=== PATIENT | female | born 1930 | race Caucasian/White ===

== ENCOUNTER → 2016-04-10 | Outpatient (CLI) | payer MEDICARE, BC ==
[2016-04-10 11:19] LABS: Basophils # (A) 0.1 k/uL (0-0.2); Basophils % (A) 1 %; CH 20.1; CHCM 29.1; Eosinophils # (A) 0.2 k/uL (0-0.7); Eosinophils % (A) 2 %; HCT 35.7 % (34.0-46.0); HDW 2.61; HGB 10.5 gm/dL (11.4-16.0); Hypochromasia Marked; Luc # (Auto) 0.16; Luc % (Auto) 3; Lymphocytes # (A) 1.5 k/uL (1.0-4.8); Lymphocytes % (A) 24 %; MCH 20.4 pg (25.0-35.0); MCHC 29.4 g/dL (31.0-37.0); MCV 69.4 fL (80.0-100.0); Mean Platelet Volume 6.3; Microcytosis Moderate; Monocytes # (A) 0.4 k/uL (0-1.0); Monocytes % (A) 7 %; Neutrophils # (A) 3.9 k/uL (1.3-7.7); Neutrophils % (A) 63 %; RBC 5.15 m/uL (3.80-5.40); RDW 14.6 % (11.5-15.5); WBC 6.1 k/uL (3.8-10.6)
[2016-04-10 11:26] LABS: Calcium 9.4 mg/dL (8.4-10.2); Magnesium 1.7 mg/dL (1.6-2.3); Phosphorous 3.9 mg/dL (2.5-4.5); Potassium 4.6 mmol/L (3.5-5.1); Uric Acid 6.4 mg/dL (3.7-7.4)
[2016-04-10 11:30] LABS: Appearance,Urine Clear (Clear); Bilirubin,Urine Negative (Negative); Glucose,Urine (UA) Negative (Negative); Ketones,Urine Negative (Negative); Leukocyte Esterase,Urine Moderate (Negative); Mucus,Urine Rare /hpf; Nitrite,Urine Negative (Negative); Particle Count 1715; Protein,Urine Negative (Negative); RBC,Urine 1 /hpf (0-5); Specific Gravity,Urine 1.015 (1.001-1.035); Squamous Epithelial Cell,Urine 1 /hpf (0-4); UA Billing (MACRO vs. MICRO) MICRO; Uric Acid Crystals,Urine Rare /hpf; Urobilinogen,Urine <2.0 mg/dL (<2.0); WBC,Urine 5 /hpf (0-5)
[2016-04-10 11:35] LABS: % Iron Saturation 32.8 % (20-50)
== END | disposition home or self-care (01) ==
LOC: LABWHC1 10:29
PROVIDERS: ATTEND Internal Medicine Nephrology
DX: N18.4 Chronic kidney disease, stage 4 (severe) (principal); D64.9 Anemia, unspecified; N39.0 Urinary tract infection, site not specified; E55.9 Vitamin D deficiency, unspecified; E21.3 Hyperparathyroidism, unspecified; M10.9 Gout, unspecified
CPT/HCPCS: 36415; 80048; 81001; 82306; 82728; 83540; 83550; 83735; 83970; 84100; 84165; 84550; 85025; 86335

== ENCOUNTER 2016-06-25 16:00 | Emergency (ER) | payer MEDICARE, BC ==
--- NOTE | 2016-06-25 18:31 | US ---
EXAMINATION TYPE: US abdomen limited DATE OF EXAM: 06/25/2016 6:17 PM COMPARISON: NONE CLINICAL HISTORY: Pain. Right shoulder pain only EXAM MEASUREMENTS: Liver Length: 15.8 cm Gallbladder Wall: 0.2 cm CBD: 0.3 cm Right Kidney: 8.5 x 3.2 x 3.9cm TECHNOLOGIST IMPRESSION: Pancreas: tail obscured by bowel gas Liver: wnl Gallbladder: wnl Evidence for sonographic Sousa's sign: no CBD: wnl Right Kidney: smaller in size IMPRESSION: Negative right upper quadrant abdominal sonogram. No gallstones or dilated ducts.
--- NOTE | 2016-06-25 18:43 | ED ---
General Adult HPI - General Chief complaint: Extremity Injury, Upper Stated complaint: Dislocated Shoulder Time Seen by Provider: 06/25/16 17:03 Source: patient Mode of arrival: ambulatory Limitations: no limitations - History of Present Illness Initial comments: Patient is an 86-year-old female with history of arthritis and hypertension presenting with right shoulder pain. Patient denies trauma. She states she woke up today with discomfort in her right shoulder. Patient did not take anything for the pain. Pain comes and goes. Patient states had the pain after eating. Denies relation to exertion or rest. Patient denies fever, chills, chest pain, shortness breath, nausea, vomiting, diarrhea, dysuria. - Related Data Home Medications Medication Instructions Recorded Confirmed Carvedilol [Coreg] 3.125 mg PO BID 10/12/15 06/25/16 Levothyroxine Sodium [Synthroid] 75 mcg PO DAILY 10/12/15 06/25/16 Losartan Potassium 100 mg PO DAILY 10/24/15 06/25/16 Aspirin EC [Ecotrin Low Dose] 81 mg PO DAILY 12/29/15 06/25/16 Triamterene-Hctz 37.5-25Mg 1 tab PO DAILY 06/25/16 06/25/16 [Maxzide 37.5-25] Previous Rx's Medication Instructions Recorded Hydrocodone/Acetaminophen [[facility] 1 tab PO Q4HR PRN #6 tab 06/25/16 7.5-325] Allergies Allergy/AdvReac Type Severity Reaction Status Date / Time Penicillins Allergy Severe Anaphylaxis Verified 06/25/16 17:05 indomethacin Allergy Unknown Unknown Verified 06/25/16 17:05 iodine Allergy Unknown Unknown Verified 06/25/16 17:05 Iodinated Contrast Media - Allergy Unknown Verified 06/25/16 17:05 Oral and [Iodinated Contrast Media - IV Dye] meperidine HCl [From Demerol] AdvReac Unknown Nausea & Verified 06/25/16 17:05 Vomiting propoxyphene HCl AdvReac Unknown Nausea & Verified 06/25/16 17:05 [From Darvon] Vomiting shellfish derived [Shellfish] AdvReac Unknown Abdominal Verified 06/25/16 17:05 Pain Review of Systems ROS Statement: Those systems with pertinent positive or pertinent negative responses have been documented in the HPI. Constitutional: No fever and no chills. HENT: No congestion, no rhinorrhea and no sore throat. Eyes: No discharge and no redness. Respiratory: No cough and no shortness of breath. Cardiovascular: No chest pain and no palpitations. Gastrointestinal: No nausea, no vomiting, no abdominal pain and no diarrhea. Genitourinary: No dysuria and no hematuria. Musculoskeletal: No back pain and +arthralgias. Skin: No pallor and no rash. Neurological: No dizziness and No headaches. ROS Other: All systems not noted in ROS Statement are negative. Past Medical History Past Medical History: Cancer, Hypertension, Thyroid Disorder Additional Past Medical History / Comment(s): HX OF BREAST CANCER W/ CHEMOTHERAPY, HX OF JAUNDICE AT 9 YRS OLD AND SPENT 2 WEEKS IN THE HOSPITAL., ANEMIA OFF AND ON WITH IRON TRANSFUSIONS., LOW THYROID., STATES UTI AND STARTED ON ANTIBIOTIC PER DR DUARTE. History of Any Multi-Drug Resistant Organisms: None Reported Past Surgical History: Appendectomy, Breast Surgery, Orthopedic Surgery Additional Past Surgical History / Comment(s): LEFT MASTECTOMY, KNEE ARTHROSCOPY. Past Anesthesia/Blood Transfusion Reactions: Previous Problems w/ Anesthesia Additional Past Anesthesia/Blood Transfusion Reaction / Comment(s): STATES AFTER KNEE SURGERY SHE WAS "JERKING ALL OVER" Past Psychological History: No Psychological Hx Reported Smoking Status: Never smoker Past Alcohol Use History: None Reported Past Drug Use History: None Reported - Past Family History Mother Family Medical History: No Reported History General Exam - General Exam Comments Initial Comments: Constitutional: Patient appears well-developed and well-nourished. No distress. Currently pain-free. Head: Normocephalic and atraumatic. Eyes: Conjunctivae and EOM are normal. Right eye exhibits no discharge. Left eye exhibits no discharge. No scleral icterus. Neck: Normal range of motion. Neck supple. Cardiovascular: Normal rate and regular rhythm. No murmur heard. Pulmonary/Chest: Effort normal and breath sounds normal. No respiratory distress. No wheezes. Abdominal: Soft. No distension. There is no tenderness. There is no rebound and no guarding. Musculoskeletal: Normal range of motion. No edema or tenderness. Right shoulder without reproducible tenderness. Full range of motion. Distal pulse, sensation, motor intact right arm. Neurological: Patient alert and oriented to person, place, and time. Skin: Skin is warm and dry. Not diaphoretic. Nursing notes and vitals reviewed. Limitations: no limitations Course Vital Signs 06/25/16 06/25/16 16:28 20:44 Temperature 97.0 F L 97.8 F Pulse Rate 49 L 55 L Respiratory 16 18 Rate Blood Pressure 194/82 163/109 O2 Sat by Pulse 98 96 Oximetry - Reevaluation(s) Reevaluation #1: Patient was reevaluated and updated on workup. Patient without further pain. Medical Decision Making - Medical Decision Making Patient's a 86-year-old female presenting with right shoulder pain. Physical exam unremarkable and does not reproduce pain or tenderness. Patient does have a history of osteoarthritis. EKG was obtained and unremarkable. CBC, CMP, troponin, lipase unremarkable. Right shoulder x-ray shows subacromial impingement with moderately severe arthritis. Chest x-ray unremarkable. Given patient's relation to eating and nonreproducible right shoulder pain an abdominal ultrasound was obtained and unremarkable.Prior to discharge, patient was resting comfortably in bed. Course of stay improved. Denies pain. Discussed physical exam and diagnostic tests with patient. Questions answered and patient is agreeable to discharge with close follow up with Primary Care Physician. Instructed to return to Emergency Department if symptoms worsen. - Lab Data Result diagrams: 06/25/16 18:30 06/25/16 18:30 Lab Results 06/25/16 06/25/16 06/25/16 Range/Units 18:30 18:30 18:30 WBC 8.7 (3.8-10.6) k/uL RBC 5.55 H (3.80-5.40) m/uL Hgb 11.3 L (11.4-16.0) gm/dL Hct 37.7 (34.0-46.0) % MCV 67.8 L (80.0-100.0) fL MCH 20.3 L (25.0-35.0) pg MCHC 30.0 L (31.0-37.0) g/dL RDW 14.7 (11.5-15.5) % Plt Count 216 (150-450) k/uL Neutrophils % 62 % Lymphocytes % 25 % Monocytes % 6 % Eosinophils % 3 % Basophils % 1 % Neutrophils # 5.4 (1.3-7.7) k/uL Lymphocytes # 2.1 (1.0-4.8) k/uL Monocytes # 0.5 (0-1.0) k/uL Eosinophils # 0.3 (0-0.7) k/uL Basophils # 0.1 (0-0.2) k/uL Hypochromasia Marked Microcytosis Marked PT 10.5 (9.0-12.0) sec INR 1.0 (<1.1) APTT 23.4 (22.0-30.0) sec Sodium 140 (137-145) mmol/L Potassium 4.1 (3.5-5.1) mmol/L Chloride 103 (98-107) mmol/L Carbon Dioxide 25 (22-30) mmol/L Anion Gap 12 mmol/L BUN 24 H (7-17) mg/dL Creatinine 1.18 H (0.52-1.04) mg/dL Est GFR (MDRD) Af Amer 53 (>60 ml/min/1.73 sqM) Est GFR (MDRD) Non-Af 44 (>60 ml/min/1.73 sqM) Glucose 97 (74-99) mg/dL Calcium 9.6 (8.4-10.2) mg/dL Magnesium 1.7 (1.6-2.3) mg/dL Total Bilirubin 0.9 (0.2-1.3) mg/dL AST 23 (14-36) U/L ALT 20 (9-52) U/L Alkaline Phosphatase 84 (38-126) U/L Troponin I (0.000-0.034) ng/mL Total Protein 7.5 (6.3-8.2) g/dL Albumin 4.2 (3.5-5.0) g/dL Lipase 202 (23-300) U/L 06/25/16 Range/Units 18:30 WBC (3.8-10.6) k/uL RBC (3.80-5.40) m/uL Hgb (11.4-16.0) gm/dL Hct (34.0-46.0) % MCV (80.0-100.0) fL MCH (25.0-35.0) pg MCHC (31.0-37.0) g/dL RDW (11.5-15.5) % Plt Count (150-450) k/uL Neutrophils % % Lymphocytes % % Monocytes % % Eosinophils % % Basophils % % Neutrophils # (1.3-7.7) k/uL Lymphocytes # (1.0-4.8) k/uL Monocytes # (0-1.0) k/uL Eosinophils # (0-0.7) k/uL Basophils # (0-0.2) k/uL Hypochromasia Microcytosis PT (9.0-12.0) sec INR (<1.1) APTT (22.0-30.0) sec Sodium (137-145) mmol/L Potassium (3.5-5.1) mmol/L Chloride (98-107) mmol/L Carbon Dioxide (22-30) mmol/L Anion Gap mmol/L BUN (7-17) mg/dL Creatinine (0.52-1.04) mg/dL Est GFR (MDRD) Af Amer (>60 ml/min/1.73 sqM) Est GFR (MDRD) Non-Af (>60 ml/min/1.73 sqM) Glucose (74-99) mg/dL Calcium (8.4-10.2) mg/dL Magnesium (1.6-2.3) mg/dL Total Bilirubin (0.2-1.3) mg/dL AST (14-36) U/L ALT (9-52) U/L Alkaline Phosphatase (38-126) U/L Troponin I <0.012 (0.000-0.034) ng/mL Total Protein (6.3-8.2) g/dL Albumin (3.5-5.0) g/dL Lipase (23-300) U/L Disposition Clinical Impression: Shoulder pain, right Disposition: HOME SELF-CARE Instructions: Shoulder Pain (ED) Prescriptions: Hydrocodone/Acetaminophen [[facility] 7.5-325] 1 tab PO Q4HR PRN #6 tab PRN Reason: Severe Pain Referrals: Yaneli Duarte MD [Primary Care Provider] - 1-2 days
--- NOTE | 2016-06-25 19:07 | XR ---
EXAMINATION TYPE: XR chest 1V DATE OF EXAM: 06/25/2016 7:01 PM COMPARISON: 02/23/2014 HISTORY: Chest pain and shoulder pain TECHNIQUE: Single frontal view of the chest is obtained. FINDINGS: There is no heart failure nor confluent pneumonic infiltrate. Thoracic aorta is atheromato us. There are no hilar masses. There is no pleural effusion. There is spurring in the thoracic spine. IMPRESSION: No active cardiopulmonary disease. No change.
--- NOTE | 2016-06-25 19:09 | XR ---
EXAMINATION TYPE: XR shoulder complete RT DATE OF EXAM: 06/25/2016 7:01 PM COMPARISON: NONE HISTORY: Shoulder pain TECHNIQUE: 3 views FINDINGS: There is narrowing of the glenohumeral joint space. There is moderate spurring at the infer ior glenohumeral joint. There is spurring at the greater tuberosity. There is narrowing of the subacr omial joint space. I see no fracture nor dislocation. IMPRESSION: Moderately severe osteoarthritis. No fracture seen. Subacromial impingement.
[2016-06-25 19:18] LABS: Basophils # (A) 0.1 k/uL (0-0.2); Basophils % (A) 1 %; CH 20.2; Eosinophils # (A) 0.3 k/uL (0-0.7); Eosinophils % (A) 3 %; HCT 37.7 % (34.0-46.0); HDW 2.83; HGB 11.3 gm/dL (11.4-16.0); Hypochromasia Marked; Luc # (Auto) 0.33; Luc % (Auto) 4; Lymphocytes # (A) 2.1 k/uL (1.0-4.8); Lymphocytes % (A) 25 %; MCH 20.3 pg (25.0-35.0); MCV 67.8 fL (80.0-100.0); Mean Platelet Volume 6.3; Microcytosis Marked; Monocytes # (A) 0.5 k/uL (0-1.0); Monocytes % (A) 6 %; Neutrophils # (A) 5.4 k/uL (1.3-7.7); Neutrophils % (A) 62 %; RBC 5.55 m/uL (3.80-5.40); RDW 14.7 % (11.5-15.5); WBC 8.7 k/uL (3.8-10.6); WBC (Perox) 8.87
[2016-06-25 19:29] LABS: Calcium 9.6 mg/dL (8.4-10.2); Magnesium 1.7 mg/dL (1.6-2.3); Potassium 4.1 mmol/L (3.5-5.1); Total Bilirubin 0.9 mg/dL (0.2-1.3); Total Protein 7.5 g/dL (6.3-8.2)
[2016-06-25 19:31] LABS: Partial Thromboplastin Time 23.4 sec (22.0-30.0); Prothrombin Time 10.5 sec (9.0-12.0)
[2016-06-25] MEDS ORDERED: HYDROcodone/APAP 7.5-325MG 1 EACH TAB PO ONE (20:39)
[2016-06-25 20:46] VITALS: BP 163/109; PULSE 55; RESP 18; TEMP 97.8
== END 2016-06-25 20:46 | disposition home or self-care (01) ==
LOC: EC 16:00
DX: M25.511 Pain in right shoulder (principal); M19.011 Primary osteoarthritis, right shoulder; I10 Essential (primary) hypertension; E07.9 Disorder of thyroid, unspecified; Z85.3 Personal history of malignant neoplasm of breast; Z88.0 Allergy status to penicillin; Z91.041 Radiographic dye allergy status; Z91.013 Allergy to seafood; Z88.5 Allergy status to narcotic agent; Z88.6 Allergy status to analgesic agent; Z98.890 Other specified postprocedural states; Z88.8 Allergy status to other drugs, medicaments and biological substances; Z79.82 Long term (current) use of aspirin; Z79.899 Other long term (current) drug therapy
CPT/HCPCS: 36415; 71010; 76705; 80053; 83690; 83735; 84484; 85025; 85610; 85730; 99284

== ENCOUNTER → 2016-07-03 | Outpatient (CLI) | payer MEDICARE, BC ==
--- NOTE | 2016-07-03 19:15 | WWHP ---
CHIEF COMPLAINT: The patient is here for her routine gynecologic exam. HPI: This is an 86-year-old G7, P4-0-3-4 with an LMP of approximately 1985. The patient is without gynecologic complaints. PAST MEDICAL HISTORY: Hypothyroidism, chronic hypertension, left breast cancer in her 50s and is status post mastectomy and chemotherapy. She also had a history of transient liver problem. This resolved after about age 15. MEDICATIONS: 1. Aspirin 81 mg daily. 2. Triamterene 37.5 mg daily. 3. Levothyroxine 75 mcg daily. 4. Losartan 100 mg daily. 5. Coreg generic 3.125 mg daily. ALLERGIES TO PENICILLIN DEMEROL DARVON, IODINE AND SHRIMP. PAST SURGICAL HISTORY: Left mastectomy in her 50s, appendectomy, dental surgery, right knee surgery and multiple colonoscopies in the past. Her most recent one was in 2013. She had right hip surgery for a replacement in 2016. SOCIAL HISTORY: She denies tobacco and drug use and has 1 to 2 alcoholic drinks per year. She is and has been with her partner for more than 30 years, but she is not sexually active. FAMILY HISTORY: Unchanged from the 2016 H&P. REVIEW OF SYSTEMS: She has gained about 6 pounds over the last year. She denies respiratory, cardiac or GI problems. She denies maltreatment or falling. She denies any urinary incontinence problems. PHYSICAL EXAM: Blood pressure 169/70. Height 5 feet 3-1/2 inches. Weight 164 pounds. Temperature 96.9, pulse 100. This is a well-developed, well-nourished white female who is alert and oriented x3, in no acute distress. HEENT is within normal limits. NECK: Supple without mass or thyromegaly. CHEST AND LUNGS: Clear to auscultation. HEART: Regular rate and rhythm. BREASTS: The left side is consistent with her previous mastectomy and there are no masses in the area right breast is without mass or tenderness. There is no nipple discharge. Axillary is negative for adenopathy. BACK: Negative for CVA tenderness. ABDOMEN: Soft, nontender, without palpable masses. PELVIC: External genitalia reveal mild to moderate atrophy without lesions. Cervix and vagina reveal mild to moderate atrophy without lesions. There is no evidence of prolapse. Bimanual, the uterus is midposition, nongravid size and nontender. There are no palpable adnexal masses or tenderness. Rectovaginal is negative for mass or tenderness and is negative for occult blood. EXTREMITIES: Nontender. IMPRESSION: 1. An 86-year-old menopausal female with normal gynecologic exam. 2. History of left breast cancer with no evidence of recurrence. PLAN: 1. Pap smear was deferred, since she had a normal one last year. 2. Self-breast examination was discussed. 3. Mammogram will be due in 01/2017. A slip was given to patient for this. 4. She will continue to follow up with Dr. Duarte regarding her elevated blood pressure and for her ongoing medical care. 5. Osteoporosis prevention was discussed. Will plan on repeating bone density testing in 1 year. 6. She will return in 1 year.
== END | disposition home or self-care (01) ==
LOC: WWCWWP 08:52
PROVIDERS: ATTEND Obstetrics & Gynecology

== ENCOUNTER 2017-03-12 12:32 | Observation (INO) | payer MEDICARE, BC ==
[2017-03-12 12:41] VITALS: RESP 18
--- NOTE | 2017-03-12 13:21 | ED ---
Chest Pain HPI - General Chief Complaint: Chest Pain Stated Complaint: Chest Pain Time Seen by Provider: 03/12/17 12:52 Source: patient, RN notes reviewed Mode of arrival: wheelchair Limitations: no limitations - History of Present Illness Initial Comments: 87 yo female presenting with chief complaint of chest pain. Pain began several hours ago, 15 minutes after eating breakfast. Pain was dull substernal pain described as pressure. Pain is resolved at the time my evaluation. Denies any radiating symptoms. Denies shortness of breath. Denies nausea vomiting. Patient has no known heart history,. She denies fever. Denies cough. Denies abdominal pain. - Related Data Home Medications Medication Instructions Recorded Confirmed Carvedilol [Coreg] 3.125 mg PO BID 10/12/15 03/12/17 Levothyroxine Sodium [Synthroid] 75 mcg PO DAILY 10/12/15 03/12/17 Losartan Potassium 100 mg PO DAILY 10/24/15 03/12/17 Aspirin EC [Ecotrin Low Dose] 81 mg PO DAILY 12/29/15 03/12/17 Docusate [Colace] 100 mg PO DAILY 03/12/17 03/12/17 Pravastatin Sodium [Pravachol] 20 mg PO HS 03/12/17 03/12/17 Allergies Allergy/AdvReac Type Severity Reaction Status Date / Time Penicillins Allergy Severe Anaphylaxis Verified 03/12/17 13:21 indomethacin Allergy Unknown Unknown Verified 03/12/17 13:21 iodine Allergy Unknown Unknown Verified 03/12/17 13:21 Iodinated Contrast- Oral and Allergy Unknown Verified 03/12/17 13:21 IV Dye [Iodinated Contrast Media - IV Dye] meperidine HCl [From Demerol] AdvReac Unknown Nausea & Verified 03/12/17 13:21 Vomiting propoxyphene HCl AdvReac Unknown Nausea & Verified 03/12/17 13:21 [From Darvon] Vomiting shellfish derived [Shellfish] AdvReac Unknown Abdominal Verified 03/12/17 13:21 Pain Review of Systems ROS Statement: Those systems with pertinent positive or pertinent negative responses have been documented in the HPI. ROS Other: All systems not noted in ROS Statement are negative. EKG Findings - EKG Comments: EKG Findings:: EKG shows normal sinus rhythm, left anterior fascicular block, ventricular rate 72, LA interval 162, castration 76, QTC 422, no ST segment elevation or depression Past Medical History Past Medical History: Cancer, Hypertension, Thyroid Disorder Additional Past Medical History / Comment(s): HX OF BREAST CANCER W/ CHEMOTHERAPY, HX OF JAUNDICE AT 9 YRS OLD AND SPENT 2 WEEKS IN THE HOSPITAL., ANEMIA OFF AND ON WITH IRON TRANSFUSIONS., LOW THYROID., STATES UTI AND STARTED ON ANTIBIOTIC PER DR DUARTE. History of Any Multi-Drug Resistant Organisms: None Reported Past Surgical History: Appendectomy, Breast Surgery, Orthopedic Surgery Additional Past Surgical History / Comment(s): LEFT MASTECTOMY, KNEE ARTHROSCOPY. Past Anesthesia/Blood Transfusion Reactions: Previous Problems w/ Anesthesia Additional Past Anesthesia/Blood Transfusion Reaction / Comment(s): STATES AFTER KNEE SURGERY SHE WAS "JERKING ALL OVER" Past Psychological History: No Psychological Hx Reported Smoking Status: Never smoker Past Alcohol Use History: None Reported Past Drug Use History: None Reported - Past Family History Mother Family Medical History: No Reported History General Exam Limitations: no limitations General appearance: alert, in no apparent distress Head exam: Present: atraumatic, normocephalic Eye exam: Present: normal appearance, PERRL ENT exam: Present: normal exam Neck exam: Present: normal inspection. Absent: tenderness, meningismus Respiratory exam: Present: normal lung sounds bilaterally. Absent: respiratory distress, wheezes, rales Cardiovascular Exam: Present: regular rate, normal rhythm GI/Abdominal exam: Present: soft. Absent: distended, tenderness Extremities exam: Present: normal inspection, normal capillary refill. Absent: pedal edema Back exam: Present: normal inspection, full ROM. Absent: tenderness, CVA tenderness (R) Neurological exam: Present: alert, oriented X3, motor sensory deficit. Absent: CN II-XII intact Psychiatric exam: Present: normal affect, normal mood Skin exam: Present: warm, dry, intact. Absent: cyanosis, diaphoretic Course Vital Signs 03/12/17 03/12/17 03/12/17 12:38 13:48 14:56 Temperature 99.4 F Pulse Rate 77 71 83 Respiratory 18 18 18 Rate Blood Pressure 202/91 175/87 187/79 O2 Sat by Pulse 94 L 96 96 Oximetry Chest Pain MDM - MDM 87 female presenting with chest pain. Pain was resolved at the time my evaluation, EKG shows normal sinus rhythm with left anterior fascicular block, no T-wave abnormality, no ST segment elevation. Laboratory studies reveal leukocytosis white blood cell count 16.3, patient denies fever, there is no vital sign abnormalities to suggest infection. Normal blood pressure, normal heart rate, normal temperature. Hemoglobin stable 12.1. Creatinine 1.33, this appears to be at the patient's baseline kidney function. Troponin negative, BNP negative, chest x-ray shows no acute findings. Urinalysis is pending given the elevated white blood cell count. Patient will be placed in observation for serial cardiac enzymes, telemetry, and cardiology evaluation. Disposition Clinical Impression: Chest pain Disposition: ADMITTED IP TO THIS HOSP Condition: Stable Referrals: Yaneli Duarte MD [Primary Care Provider] - 1-2 days Decision to Admit Reason: Admit from EC Decision Date: 03/12/17 Decision Time: 16:02
--- NOTE | 2017-03-12 13:56 | XR ---
EXAMINATION TYPE: XR chest 2V DATE OF EXAM: 03/12/2017 COMPARISON: 06/25/2016 HISTORY: Chest pain and history of breast cancer. TECHNIQUE: Frontal and lateral views of the chest are obtained. FINDINGS: There is no focal air space opacity, pleural effusion, or pneumothorax seen. The cardiac silhouette size is within normal limits. The osseous structures are intact. Multilevel moderate deg enerative changes of the thoracic spine are noted. Moderate degenerative changes are also seen of the glenohumeral joints and acromioclavicular joints bilaterally. IMPRESSION: No acute cardiopulmonary process.
[2017-03-12 14:03] LABS: Partial Thromboplastin Time 22.2 sec (22.0-30.0); Prothrombin Time 10.1 sec (9.0-12.0)
[2017-03-12 14:10] LABS: Basophils % (A) 0 %; Eosinophils # (A) 0.2 k/uL (0-0.7); Eosinophils % (A) 1 %; HCT 40.7 % (34.0-46.0); HGB 12.1 gm/dL (11.4-16.0); Hypochromasia Marked; Lymphocytes # (A) 1.2 k/uL (1.0-4.8); Lymphocytes % (A) 7 %; MCH 20.6 pg (25.0-35.0); MCHC 29.8 g/dL (31.0-37.0); MCV 69.2 fL (80.0-100.0); Mean Platelet Volume 6.3; Microcytosis Moderate; Monocytes # (A) 0.5 k/uL (0-1.0); Monocytes % (A) 3 %; Neutrophils # (A) 14.1 k/uL (1.3-7.7); Neutrophils % (A) 87 %; Platelet Count 194 k/uL (150-450); RBC 5.89 m/uL (3.80-5.40); RDW 13.9 % (11.5-15.5); WBC 16.2 k/uL (3.8-10.6)
[2017-03-12 14:16] LABS: Albumin 4.3 g/dL (3.5-5.0); Calcium 9.6 mg/dL (8.4-10.2); Creatine Kinase 87 U/L (30-135); Magnesium 1.7 mg/dL (1.6-2.3); Potassium 4.5 mmol/L (3.5-5.1); Total Bilirubin 0.7 mg/dL (0.2-1.3); Total Protein 7.3 g/dL (6.3-8.2)
[2017-03-12 14:28] LABS: Creatine Kinase MB 2.3 ng/mL (0.0-2.4); Troponin I <0.012 ng/mL (0.000-0.034)
[2017-03-12] MEDS ORDERED: METOCLOPRAMIDE 5 MG/ML 2 ML VIAL IVP STA (15:33)
[2017-03-12] MEDS ORDERED: ASPIRIN 325 MG TAB PO STA (15:34)
[2017-03-12] MEDS ORDERED: LOSARTAN 50 MG TAB PO STA (15:43)
[2017-03-12] MEDS ORDERED: ONDANSETRON 4 MG/2 ML VIAL IVP PRN (15:58)
[2017-03-12] MEDS ORDERED: NALOXONE 0.4 MG/ML 1 ML VIAL IV PRN (15:58)
[2017-03-12 16:14] LABS: Appearance,Urine Clear (Clear); Bilirubin,Urine Negative (Negative); Blood,Urine Negative (Negative); Color,Urine Light Yellow; Glucose,Urine (UA) Negative (Negative); Ketones,Urine Negative (Negative); Leukocyte Esterase,Urine Negative (Negative); Nitrite,Urine Negative (Negative); PH, Urine 6.5 (5.0-8.0); Protein,Urine Negative (Negative); Urobilinogen,Urine <2.0 mg/dL (<2.0)
[2017-03-12] MEDS: SODIUM CHLORIDE 0.9% 1,000 ML IV SCH (19:29)
[2017-03-12 20:06] LABS: Creatine Kinase 69 U/L (30-135)
[2017-03-12] MEDS ORDERED: ACETAMINOPHEN TAB 325 MG TAB PO PRN (20:12)
[2017-03-12 20:18] LABS: Creatine Kinase MB 1.5 ng/mL (0.0-2.4); Troponin I <0.012 ng/mL (0.000-0.034)
[2017-03-12] MEDS ORDERED: PRAVASTATIN SODIUM 20 MG TAB PO SCH (21:00)
[2017-03-13 02:29] LABS: Creatine Kinase 73 U/L (30-135)
[2017-03-13 02:41] LABS: Creatine Kinase MB 1.9 ng/mL (0.0-2.4); Troponin I <0.012 ng/mL (0.000-0.034)
[2017-03-13] MEDS ORDERED: LEVOTHYROXINE 75 MCG TAB PO SCH (06:30)
[2017-03-13] MEDS ORDERED: ASPIRIN 81 MG PO SCH (09:00)
[2017-03-13] MEDS ORDERED: LOSARTAN 50 MG TAB PO SCH (09:00)
[2017-03-13] MEDS ORDERED: DOCUSATE 100 MG CAP PO SCH (09:00)
--- NOTE | 2017-03-13 10:32 | ECHOF ---
Referral Reason:chest pain MEASUREMENTS -------- HEIGHT: 160.0 cm WEIGHT: 72.6 kg BP: 160/74 IVSd: 1.2 cm (0.6 - 1.1) LVIDd: 3.2 cm (3.9 - 5.3) LVPWd: 1.1 cm (0.6 - 1.1) IVSs: 1.3 cm LVIDs: 2.8 cm LVPWs: 1.5 cm LA Diam: 2.7 cm (2.7 - 3.8) Ao Diam: 3.1 cm (2.0 - 3.7) AV Cusp: 1.7 cm (1.5 - 2.6) LA Diam: 3.9 cm (2.7 - 3.8) MV EXCURSION: 13.883 mm (> 18.000) MV EF SLOPE: 50 mm/s (70 - 150) EPSS: 0.4 cm RAP: 5.00 mmHg RVSP: 49.71 mmHg FINDINGS -------- Sinus rhythm. This was a technically adequate study. The left ventricular size is normal. There is mild concentric left ventricular hypertrophy. Overa ll left ventricular systolic function is normal with, an EF between 55 - 60 %. The right ventricle is normal in size. Normal LA size by volume 22+/-6 ml/m2. The right atrial size is normal. The aortic valve is trileaflet, and appears structurally normal. No aortic stenosis or regurgitation. Mild mitral regurgitation is present. Mild tricuspid regurgitation present. There is mild pulmonary hypertension. The right ventricular systolic pressure, as measured by Doppler, is 49.71mmHg. There is no pulmonic regurgitation present. The aortic root size is normal. There is no pericardial effusion. CONCLUSIONS -------- 1. The left ventricular size is normal. 2. There is mild concentric left ventricular hypertrophy. 3. Overall left ventricular systolic function is normal with, an EF between 55 - 60 %. 4. The aortic valve is trileaflet, and appears structurally normal. No aortic stenosis or regurgitati on. 5. Mild mitral regurgitation is present. 6. Mild tricuspid regurgitation present. 7. There is mild pulmonary hypertension. 8. The right ventricular systolic pressure, as measured by Doppler, is 49.71mmHg. 9. There is no pulmonic regurgitation present. 10. The aortic root size is normal. 11. There is no pericardial effusion. RESEARCH PROJECT COORDINATOR: Guadalupe Upton RDCS
[2017-03-13] MEDS ORDERED: HYDROCHLOROTHIAZIDE 12.5 MG CAP PO SCH (11:00)
[2017-03-13] MEDS: CARVEDILOL 3.125 MG TAB PO SCH ×2 (11:02→17:46)
--- NOTE | 2017-03-13 13:41 | P.CRDCN ---
History of Present Illness Consult date: 03/13/17 History of present illness: This is a very pleasant 87 female past medical history significant for hypertension and dyslipidemia.She follows with Dr Deutsch as an outpatient. Yesterday she was on her way to the hospital for regularly scheduled doctor appointment and mammogram when she developed epigastric pain associated with shortness of breath. She just finished eating breakfast. The pain is described as a tight pressure squeezing sensation. She denies associated nausea , vomiting, abdominal pain, palpitations or diaphoresis. She states she has never had pain like this in the past. She is somewhat of a poor historian. Family is at the bedside filling in the blanks. She has been suffering with constipation recently and is taking a daily stool softener without much relief. Blood pressure on arrival was 202/91 with heart rate is 77. She had not taken her morning medications yet at that time losartan was given and blood pressure came down to 175 systolic. This morning blood pressure 160/74 EKG on arrival reveals sinus mechanism with biphasic p-wave inferiorly and non- specific T-wave inversion anteriorly. Chest xray negative for an acute cardiopulmonary process. Current cardiac medications include pravastatin 20 mg daily, carvedilol 3.125 mg by mouth twice a day, aspirin 81 mg daily and losartan 100 mg daily. Review of Systems CONSTITUTIONAL: Denies fever. Denies chills. EYES: Denies blurred vision. Denies vision changes. Denies eye pain. EARS, NOSE, MOUTH & THROAT: Denies headache. Denies sore throat. Denies ear pain. CARDIOVASCULAR: Denies chest pain. Denies shortness of breath. Denies orthopnea. Denies PND. Denies palpitations. RESPIRATORY: Denies cough. GASTROINTESTINAL: Complains of epigastric burning and tightness. Denies diarrhea. Complains of ongoing constipation. Denies nausea. Denies vomiting. MUSCULOSKELETAL: Denies myalgias. INTEGUMENTARY: Denies pruitis. Denies rash. NEUROLOGIC: Denies numbness. Denies tingling. Denies weakness. PSYCHIATRIC: Denies anxiety. Denies depression. ENDOCRINE: Denies fatigue. Denies weight change. Denies polydipsia. Denies polyurina. GENITOURINARY: Denies burning, hematuria or urgency with micturation. HEMATOLOGIC: Denies history of anemia. Denies bleeding. Past Medical History Past Medical History: Cancer, Hypertension, Thyroid Disorder Additional Past Medical History / Comment(s): HX OF BREAST CANCER W/ CHEMOTHERAPY, HX OF JAUNDICE AT 9 YRS OLD AND SPENT 2 WEEKS IN THE HOSPITAL., ANEMIA OFF AND ON WITH IRON INFUSIONS, LOW THYROID. UTI, constipation. History of Any Multi-Drug Resistant Organisms: None Reported Past Surgical History: Appendectomy, Breast Surgery, Orthopedic Surgery Additional Past Surgical History / Comment(s): LEFT MASTECTOMY, KNEE ARTHROSCOPY. RT HIP REPLACEMENT Past Anesthesia/Blood Transfusion Reactions: Previous Problems w/ Anesthesia Additional Past Anesthesia/Blood Transfusion Reaction / Comment(s): STATES AFTER KNEE SURGERY SHE WAS "JERKING ALL OVER" Smoking Status: Never smoker - Past Family History Mother Family Medical History: Myocardial Infarction (ME) Father Family Medical History: Myocardial Infarction (ME) Medications and Allergies Home Medications Medication Instructions Recorded Confirmed Type Carvedilol [Coreg] 3.125 mg PO BID 10/12/15 03/12/17 History Levothyroxine Sodium [Synthroid] 75 mcg PO DAILY 10/12/15 03/12/17 History Aspirin EC [Ecotrin Low Dose] 81 mg PO DAILY 12/29/15 03/12/17 History Docusate [Colace] 100 mg PO DAILY 03/12/17 03/12/17 History Pravastatin Sodium [Pravachol] 20 mg PO HS 03/12/17 03/12/17 History Losartan/Hydrochlorothiazide 1 each PO DAILY #30 tablet 03/13/17 Rx [Hyzaar 100-12.5 Tablet] Allergies Allergy/AdvReac Type Severity Reaction Status Date / Time Penicillins Allergy Severe Anaphylaxis Verified 03/12/17 13:21 indomethacin Allergy Unknown Unknown Verified 03/12/17 13:21 iodine Allergy Unknown Unknown Verified 03/12/17 13:21 Iodinated Contrast- Oral and Allergy Unknown Verified 03/12/17 13:21 IV Dye [Iodinated Contrast Media - IV Dye] meperidine HCl [From Demerol] AdvReac Unknown Nausea & Verified 03/12/17 13:21 Vomiting propoxyphene HCl AdvReac Unknown Nausea & Verified 03/12/17 13:21 [From Darvon] Vomiting shellfish derived [Shellfish] AdvReac Unknown Abdominal Verified 03/12/17 13:21 Pain Physical Exam Vitals: Vital Signs Temp Pulse Pulse Resp BP BP Pulse Ox 03/13/17 07:53 97.7 F 50 L 18 160/74 96 03/13/17 04:00 97.9 F 57 L 18 191/89 97 03/13/17 00:00 98 F 57 L 18 167/72 97 03/12/17 20:00 18 03/12/17 19:37 98.1 F 69 18 161/70 97 03/12/17 17:47 77 03/12/17 17:10 98.8 F 77 18 184/60 95 03/12/17 16:37 97.8 F 81 18 165/75 98 03/12/17 16:02 92 18 197/91 96 03/12/17 14:56 83 18 187/79 96 03/12/17 13:48 71 18 175/87 96 03/12/17 12:38 99.4 F 77 18 202/91 94 L Intake and Output 03/12/17 03/13/17 03/13/17 22:59 06:59 14:59 Intake Total 240 Balance 240 Intake: Oral 240 Other: # Voids 1 1 Weight 73 kg GENERAL: This is a 87-year-old female in no apparent distress at the time of my examination. HEENT: Head is atraumatic, normocephalic. Pupils are equal, round. Sclerae anicteric. Conjunctivae are clear. Mucous membranes of the mouth are moist. Neck is supple. There is no jugular venous distention. No carotid bruit is heard. LUNGS: Clear to auscultation no wheezes, rales or rhonchi. No chest wall tenderness is noted on palpation or with deep breathing. HEART: Regular rate and rhythm with systolic ejection murmur at the base, no rubs or gallops. S1 and S2 heard. ABDOMEN: Soft, nontender. Bowel sounds are heard. No organomegaly noted. EXTREMITIES: 2+ peripheral pulses with no evidence of peripheral edema and no calf tenderness noted. NEUROLOGIC: Patient is awake, alert and oriented x3. Results 03/12/17 13:48 03/12/17 13:30 Cardiac Enzymes 03/12/17 03/12/17 03/12/17 Range/Units 13:30 13:30 19:40 AST 27 (14-36) U/L CK-MB (CK-2) 2.3 1.5 (0.0-2.4) ng/mL Troponin I <0.012 <0.012 (0.000-0.034) ng/mL 03/13/17 Range/Units 01:47 AST (14-36) U/L CK-MB (CK-2) 1.9 (0.0-2.4) ng/mL Troponin I <0.012 (0.000-0.034) ng/mL Coagulation 03/12/17 Range/Units 13:30 PT 10.1 (9.0-12.0) sec APTT 22.2 (22.0-30.0) sec CBC 03/12/17 Range/Units 13:48 WBC 16.2 H (3.8-10.6) k/uL RBC 5.89 H (3.80-5.40) m/uL Hgb 12.1 (11.4-16.0) gm/dL Hct 40.7 (34.0-46.0) % Plt Count 194 (150-450) k/uL Comprehensive Metabolic Panel 03/12/17 Range/Units 13:30 Sodium 139 (137-145) mmol/L Potassium 4.5 (3.5-5.1) mmol/L Chloride 104 (98-107) mmol/L Carbon Dioxide 25 (22-30) mmol/L BUN 29 H (7-17) mg/dL Creatinine 1.33 H (0.52-1.04) mg/dL Glucose 104 H (74-99) mg/dL Calcium 9.6 (8.4-10.2) mg/dL AST 27 (14-36) U/L ALT 24 (9-52) U/L Alkaline Phosphatase 77 (38-126) U/L Total Protein 7.3 (6.3-8.2) g/dL Albumin 4.3 (3.5-5.0) g/dL Current Medications Generic Name Dose Route Start Last Admin Trade Name Freq PRN Reason Stop Dose Admin Acetaminophen 650 mg 03/12/17 20:12 Tylenol Tab PO Q4HR PRN Fever and/ or Pain Aspirin 81 mg 03/13/17 09:00 Aspirin PO DAILY [facility] Carvedilol 3.125 mg 03/13/17 07:30 Coreg PO BID-W/MEALS [facility] Docusate Sodium 100 mg 03/13/17 09:00 Colace PO DAILY [facility] Sodium Chloride 1,000 mls @ 20 mls/hr 03/12/17 16:00 03/12/17 19:29 Saline 0.9% IV Not Given .Q24H [facility] Levothyroxine Sodium 75 mcg 03/13/17 06:30 03/13/17 06:06 Synthroid PO 75 mcg DAILY@0630 [facility] Administration Losartan Potassium 100 mg 03/13/17 09:00 Cozaar PO DAILY [facility] Naloxone HCl 0.2 mg 03/12/17 15:58 Narcan IV Q2M PRN Opioid Reversal Ondansetron HCl 4 mg 03/12/17 15:58 Zofran IVP Q8HR PRN Nausea And Vomiting Pravastatin Sodium 20 mg 03/12/17 21:00 03/12/17 21:08 Pravachol PO 20 mg HS [facility] Administration Intake and Output 03/12/17 03/13/17 03/13/17 22:59 06:59 14:59 Intake Total 240 Balance 240 Intake: Oral 240 Other: # Voids 1 1 Weight 73 kg 03/12/17 13:48 03/12/17 13:30 Assessment and Plan Assessment: ASSESSMENT 1. Epigastric pain 2. Hypertension, uncontrolled 3. Dyslipidemia 4. Leuckocytosis 5. Chronic kidney disease PLAN Obtain 2D echocardiogram and doppler study to assess cardiac structure and function. Add hydrochlorothiazide 12.5 mg daily in the form of hyzaar at home for better compliance. Recommend PPI and possible further evaluation with GI specialist for pain and constipation. May consider adding calcium channel gustavo if needed as an outpatient. Nurse Practitioner note has been reviewed, I agree with a documented findings and plan of care. Patient was seen and examined.
[2017-03-13 15:36] VITALS: BP 161/65; PULSE 70; TEMP 98.8
[2017-03-13] MEDS: SODIUM CHLORIDE 0.9% 1,000 ML IV SCH (16:44)
--- NOTE | 2017-03-13 17:10 | P.HPIM ---
History of Present Illness H&P Date: 03/13/17 Chief Complaint: Epigastric pain Patient is an 87-year-old female well known to my practice who presented to [facility] emergency room with a chief complaint of epigastric pain, patient stated that she was coming to the hospital to see Dr. aviles, and she started having pain in the epigastric area she decided to go to emergency room she was evaluated by Dr. Triplett first EKG and first cardiac enzymes were negative he was admitted for 24-hour observation blood pressure was elevated on presentation at 165/80 white blood count was elevated on presentation at 16.2. Patient has a known history of hypertension she also has known history of osteoarthritis and previous history of breast cancer On review of systems she denies any fever or chills no headache no dizziness no chest pain or shortness of breath no palpitation or nausea or vomiting no abdominal pain other than her epigastric pain, no diarrhea she is mostly on the constipated side has bowel movement every 2-3 days Past Medical History Past Medical History: Cancer, Hypertension, Thyroid Disorder Additional Past Medical History / Comment(s): HX OF BREAST CANCER W/ CHEMOTHERAPY, HX OF JAUNDICE AT 9 YRS OLD AND SPENT 2 WEEKS IN THE HOSPITAL., ANEMIA OFF AND ON WITH IRON INFUSIONS, LOW THYROID. UTI, constipation. History of Any Multi-Drug Resistant Organisms: None Reported Past Surgical History: Appendectomy, Breast Surgery, Orthopedic Surgery Additional Past Surgical History / Comment(s): LEFT MASTECTOMY, KNEE ARTHROSCOPY. RT HIP REPLACEMENT Past Anesthesia/Blood Transfusion Reactions: Previous Problems w/ Anesthesia Additional Past Anesthesia/Blood Transfusion Reaction / Comment(s): STATES AFTER KNEE SURGERY SHE WAS "JERKING ALL OVER" Smoking Status: Never smoker - Past Family History Mother Family Medical History: Myocardial Infarction (OR) Father Family Medical History: Myocardial Infarction (OR) Medications and Allergies Home Medications Medication Instructions Recorded Confirmed Type Carvedilol [Coreg] 3.125 mg PO BID 10/12/15 03/12/17 History Levothyroxine Sodium [Synthroid] 75 mcg PO DAILY 10/12/15 03/12/17 History Aspirin EC [Ecotrin Low Dose] 81 mg PO DAILY 12/29/15 03/12/17 History Docusate [Colace] 100 mg PO DAILY 03/12/17 03/12/17 History Pravastatin Sodium [Pravachol] 20 mg PO HS 03/12/17 03/12/17 History Losartan/Hydrochlorothiazide 1 each PO DAILY #30 tablet 03/13/17 Rx [Hyzaar 100-12.5 Tablet] Allergies Allergy/AdvReac Type Severity Reaction Status Date / Time Penicillins Allergy Severe Anaphylaxis Verified 03/12/17 13:21 indomethacin Allergy Unknown Unknown Verified 03/12/17 13:21 iodine Allergy Unknown Unknown Verified 03/12/17 13:21 Iodinated Contrast- Oral and Allergy Unknown Verified 03/12/17 13:21 IV Dye [Iodinated Contrast Media - IV Dye] meperidine HCl [From Demerol] AdvReac Unknown Nausea & Verified 03/12/17 13:21 Vomiting propoxyphene HCl AdvReac Unknown Nausea & Verified 03/12/17 13:21 [From Darvon] Vomiting shellfish derived [Shellfish] AdvReac Unknown Abdominal Verified 03/12/17 13:21 Pain Physical Exam Vitals: Vital Signs Temp Pulse Resp BP Pulse Ox 03/13/17 16:00 70 18 03/13/17 15:35 98.8 F 70 18 161/65 98 03/13/17 12:00 60 18 03/13/17 11:42 98.0 F 60 18 164/81 95 03/13/17 08:00 50 L 18 03/13/17 07:53 97.7 F 50 L 18 160/74 96 03/13/17 04:00 97.9 F 57 L 18 191/89 97 03/13/17 00:00 98 F 57 L 18 167/72 97 03/12/17 20:00 18 03/12/17 19:37 98.1 F 69 18 161/70 97 03/12/17 17:47 77 03/12/17 17:10 98.8 F 77 18 184/60 95 Intake and Output 03/13/17 03/13/17 03/13/17 06:59 14:59 22:59 Intake Total 360 Balance 360 Intake: Oral 360 Other: Voiding Method Toilet Toilet # Voids 1 In general patient is alert and oriented 3 in no apparent distress HEENT head normocephalic and atraumatic Neck is supple no JVD no goiter no lymphadenopathy Chest exam reveals a few scattered crackles no wheezing Cardiac exam reveals regular heart sounds S1 and S2 no gallops no murmurs Abdomen is soft nontender no organomegaly Extremity exam reveals no edema no cyanosis or clubbing Neurological examination reveals no gross focal deficits Results CBC & Chem 7: 03/12/17 13:48 03/12/17 13:30 Labs: Microbiology - Last 24 Hours (Table) 03/12/17 16:01 Urine Culture - Preliminary Urine,Voided Thrombosis Risk Factor Assmnt - Choose All That Apply Each Factor Represents 1 point: Obesity (BMI >25) Other Risk Factors: Yes Each Risk Factor Represents 2 Points: Malignancy Each Risk Factor Represents 3 Points: Age 75 years or older Other congenital or acquired thrombophilia - If yes, enter type in comment: No Thrombosis Risk Factor Assessment Total Risk Factor Score: 6 Thrombosis Risk Factor Assessment Level: High Risk Assessment and Plan Assessment: #1 episode of epigastric pain, now pain free #2 underlying history of hypertension not well-controlled #3 underlying history of hyperlipidemia #4 chronic kidney disease #5 leukocytosis on presentation, no clear site of infection, chest x-ray is clear urine analysis is clear and no skin ulcers or infections #6 chronic constipation At this time patient was evaluated, will recheck labs in a.m., will check ultrasound of the abdomen Hydrochlorothiazide was added to her regimen Will add MiraLAX daily for constipation
--- NOTE | 2017-03-13 17:17 | P.DS ---
Providers Date of admission: 03/12/17 15:58 Expected date of discharge: 03/13/17 Attending physician: Yaneli Duarte Consults: 03/12/17 15:59 Consult Physician Urgent Consulting Provider: Vivek Crawley Consult Reason/Comments: Chest Pain Do you want consulting provider notified?: Yes Primary care physician: Yaneli Gerald [facility] Course: Diagnoses on discharge: #1 episode of epigastric pain, now pain free #2 underlying history of hypertension not well-controlled #3 underlying history of hyperlipidemia #4 chronic kidney disease #5 leukocytosis on presentation, no clear site of infection, chest x-ray is clear urine analysis is clear and no skin ulcers or infections #6 chronic constipation Hospital course: Patient is an 87-year-old female well known to my practice who presented to [facility] emergency room with a chief complaint of epigastric pain, patient stated that she was coming to the hospital to see Dr. aviles, and she started having pain in the epigastric area she decided to go to emergency room she was evaluated by Dr. Triplett first EKG and first cardiac enzymes were negative he was admitted for 24-hour observation blood pressure was elevated on presentation at 165/80 white blood count was elevated on presentation at 16.2. Patient has a known history of hypertension she also has known history of osteoarthritis and previous history of breast cancer During this hospitalization hydrochlorothiazide 12.5 g daily was added to her regimen in the form of Hyzaar Protonix 40 mg by mouth twice daily was added Agent encouraged to use MiraLAX 17 g by mouth daily Patient did not want to stay for an extra night to have a dominant ultrasound done in the morning, and to recheck labs She will follow in our office on Saturday morning at 11 AM with check CBC in the office and we will make arrangement for abdominal ultrasound as outpatient Patient Condition at Discharge: Stable Plan - Discharge Summary Discharge Rx Participant: No New Discharge Prescriptions: New Losartan/Hydrochlorothiazide [Hyzaar 100-12.5 Tablet] 1 each PO DAILY #30 tablet Pantoprazole [Protonix] 40 mg PO AC-BID tablet.dr [place] Levothyroxine Sodium [Synthroid] 75 mcg PO DAILY Carvedilol [Coreg] 3.125 mg PO BID Aspirin EC [Ecotrin Low Dose] 81 mg PO DAILY Docusate [Colace] 100 mg PO DAILY Pravastatin Sodium [Pravachol] 20 mg PO HS Discontinued Losartan Potassium 100 mg PO DAILY Discharge Medication List Carvedilol [Coreg] 3.125 mg PO BID 10/12/15 [History] Levothyroxine Sodium [Synthroid] 75 mcg PO DAILY 10/12/15 [History] Aspirin EC [Ecotrin Low Dose] 81 mg PO DAILY 12/29/15 [History] Docusate [Colace] 100 mg PO DAILY 03/12/17 [History] Pravastatin Sodium [Pravachol] 20 mg PO HS 03/12/17 [History] Losartan/Hydrochlorothiazide [Hyzaar 100-12.5 Tablet] 1 each PO DAILY #30 tablet 03/13/17 [Rx] Pantoprazole [Protonix] 40 mg PO AC-BID tablet. 03/13/17 [Rx] Follow up Appointment(s)/Referral(s): Bing Deutsch MD [STAFF PHYSICIAN] - 2 Weeks Yaneli Duarte MD [Primary Care Provider] - 1-2 days
[2017-03-13] MEDS ORDERED: PANTOPRAZOLE 40 MG TABLET PO SCH (17:30)
== END 2017-03-13 17:50 | disposition home or self-care (01) ==
LOC: EC 12:32 → 3OBS 15:58
PROVIDERS: ADMIT Internal Medicine; ATTEND Internal Medicine
DX: R10.13 Epigastric pain (principal); I12.9 Hypertensive chronic kidney disease with stage 1 through stage 4 chronic kidney disease, or unspecified chronic kidney disease; N18.9 Chronic kidney disease, unspecified; K59.00 Constipation, unspecified; E78.5 Hyperlipidemia, unspecified; D72.829 Elevated white blood cell count, unspecified; E07.9 Disorder of thyroid, unspecified; M19.90 Unspecified osteoarthritis, unspecified site; D64.9 Anemia, unspecified; E66.9 Obesity, unspecified; Z68.25 Body mass index [BMI] 25.0-25.9, adult; Z79.82 Long term (current) use of aspirin; Z79.899 Other long term (current) drug therapy; Z88.6 Allergy status to analgesic agent; Z91.041 Radiographic dye allergy status; Z88.5 Allergy status to narcotic agent; Z88.0 Allergy status to penicillin; Z91.013 Allergy to seafood; Z91.048 Other nonmedicinal substance allergy status; Z85.3 Personal history of malignant neoplasm of breast; Z82.49 Family history of ischemic heart disease and other diseases of the circulatory system; Z87.440 Personal history of urinary (tract) infections
CPT/HCPCS: 99285 ×2; 36415; 93005; 93306; 83880; 80053; 82150; 82550 ×2; 82553 ×2; 83690; 83735; 84484 ×2; 85025; 85610; 85730; 81003; 87086; 71020; G0378 ×2

== ENCOUNTER → 2017-04-17 | Outpatient (CLI) | payer MEDICARE, BC ==
--- NOTE | 2017-04-17 10:44 | MM ---
Reason for exam: additional evaluation requested from prior study. Last mammogram was performed 1 year and 3 months ago. History: Patient is postmenopausal and has history of breast cancer at age 58. Family history of breast cancer in 2 paternal cousins. Mastectomy of the left breast. Chemotherapy. Physical Findings: Dr. Rosales did not find any significant physical abnormalities on exam. MG 3D Diag Mammo W/Cad RT CC and MLO view(s) were taken of the right breast. Prior study comparison: January 26, 2016, right breast MG 3d diag mammo w/cad RT. January 12, 2015, right breast MG diagnostic mammo RT w CAD. The breast tissue is heterogeneously dense. This may lower the sensitivity of mammography. Stable benign calcifications. There is no discrete abnormality. No significant new findings when compared with previous films. These results were verbally communicated with the patient and result sheet given to the patient on 04/17/17. ASSESSMENT: Benign, BI-RAD 2 RECOMMENDATION: Follow-up diagnostic mammogram of the right breast in 1 year.
--- NOTE | 2017-04-17 11:47 | US ---
EXAMINATION TYPE: US transvaginal DATE OF EXAM: 04/17/2017 COMPARISON: NONE CLINICAL HISTORY: N95.0 PMB. Patient notices blood when she is having a bowel movement TECHNIQUE: Transvaginal (TV) Date of LMP: unknown EXAM MEASUREMENTS: Uterus: 5.8 x 3.5 x 4.4 cm Endometrial Stripe: 1.9 cm Right Ovary: unable to visualize Left Ovary: unable to visualize 1. Uterus: Retroverted heterogeneous 2. Endometrium: thickened, heterogeneous with increased vascularity. Irregular hypoechoic area = 1. 9 x 0.9 x 1.3cm 3. Right Ovary: Obscured by overlying bowel gas 4. Left Ovary: Obscured by overlying bowel gas 5. Bilateral Adnexa: wnl 6. Posterior cul-de-sac: wnl IMPRESSION: 1. Thickening and heterogeneity of the endometrium. Consider direct visualization.
--- NOTE | 2017-04-17 13:12 | WWHP ---
[facility] - HISTORY AND PHYSICAL DATE OF DICTATION: 04/17/2017. CHIEF COMPLAINT: Bleeding into the toilet on more than one occasion and this first occurred about 8 months ago. HPI: This is an 87-year-old, G7, P4-0-3-4 with an LMP of 1985. The history was obtained from the patient and her long-time boyfriend, Mitul Husain. The patient noticed blood in the toilet after bowel movements. This has happened on several occasions. According to her boyfriend, this occurred about 8 months ago for the first time and he did see the blood in the toilet. Initially, there was some uncertainty as to where the blood came from. More recently, during the past month, she noticed blood in the toilet again and now believes she had blood coming from the rectum after straining for a bowel movement. She states she can sometimes go up to 3 to 4 days without a bowel movement. Her stools have gotten smaller. She states most of the time with bowel movements, she does not have a blood. She was initially scheduled to see me for the blood last month but ended up going to the emergency room because of other health issues. She is not sexually active. She states she typically does not see any blood in her underwear, but it is always noticed after bowel movements and this is why she believes it is coming from the rectum. She denies any pelvic cramping at the times of the bleeding. PAST MEDICAL HISTORY: Hypothyroidism, chronic hypertension, left breast cancer in her 50s and is status post mastectomy and chemotherapy. Also history of elevated cholesterol. MEDICATIONS: 1. Pravastatin 20 mg daily. 2. Levothyroxine 75 mcg daily. 3. Carvedilol 3.125 mg daily. 4. Aspirin 81 mg daily. 5. Col-Rite stool softener 100 mg daily. 6. Losartan with hydrochlorothiazide 100/12.5 mg daily. 7. Pantoprazole sodium 40 mg daily. ALLERGIES: PENICILLIN, DEMEROL, DARVON, IODINE. PAST SURGICAL HISTORY: History is unchanged from the 07/03/2016 H&P. SOCIAL HISTORY: She denies tobacco and drug use and rarely drinks alcohol. She is and has been with her partner for more than 30 years and is not sexually active. FAMILY HISTORY: Unchanged from the 2016 H&P. REVIEW OF SYSTEMS: Weight has been stable. She denies respiratory or cardiac problems. GI: She has had some issues with constipation and sometimes has bowel movements after 3 to 4 days. Please see the HPI for additional details. : She denies any urinary symptoms, including urinary blood or dysuria. PHYSICAL EXAM: Blood pressure 179/68, height 5 feet 3-1/2 inches, weight 164 pounds, BMI 29, temperature 97.7, pulse 52. This is a well-developed, well-nourished, white female, who is alert and oriented x3, in no acute distress. HEENT is within normal limits. NECK: Supple without mass or thyromegaly. CHEST AND LUNGS: Clear to auscultation. HEART: Regular rate and rhythm. Breasts reveal a normal right breast with no masses or discharge. The left side is consistent with the previous left mastectomy. There are no masses or tenderness. Axillary exam is negative for adenopathy. Back negative for CVA tenderness. ABDOMEN: Soft, nontender, without palpable masses. PELVIC EXAM: External genitalia reveals moderate to severe atrophy without lesions. Cervix and vagina reveals moderate atrophy without lesions. There is no abnormal discharge and no evidence of blood. There is no cervical motion tenderness. The uterus is small, nongravid size and nontender and is mid-positioned. There are no palpable adnexal masses or tenderness. Rectovaginal exam is negative for mass or tenderness and is negative for occult blood. EXTREMITIES: Nontender. IMPRESSION: 1. An 87-year-old menopausal female with normal gynecologic exam. 2. Postmenopausal bleeding with uncertain etiology. Based on her description, most likely I think this represents rectal bleeding after bowel movements. PLAN: 1. Pap smear was deferred since she had a normal Pap smear on 08/09/2015. 2. Self-breast examination was discussed. 3. Diagnostic right mammogram will be done today since she is due for this. 4. Pelvic ultrasound will be scheduled to further evaluate the bleeding. If evidence of endometrial thickening, consider endometrial sampling. If the endometrial thickness is thin, then I doubt this is gynecologic in nature. 5. I have recommended that she look into possible colonoscopy. She is uncertain when her last one was done. She will check with Dr. Duarte to determine if this was done recently. If not, I have recommended that she look into doing another colonoscopy because of the bleeding. 6. She will also return in 1 year and p.r.n. MMMARII / IJN: [id number] /
== END | disposition home or self-care (01) ==
LOC: WWCWWP 09:02
PROVIDERS: ATTEND Obstetrics & Gynecology
DX: Z08 Encounter for follow-up examination after completed treatment for malignant neoplasm (principal); R93.8 Abnormal findings on diagnostic imaging of other specified body structures; N95.0 Postmenopausal bleeding; Z85.3 Personal history of malignant neoplasm of breast
CPT/HCPCS: 77065; 76830; G0279

== ENCOUNTER → 2017-05-28 | Outpatient (CLI) | payer MEDICARE, BC | END | disposition home or self-care (01) | LOC: LABWHC1 10:16 | PROVIDERS: ATTEND Obstetrics & Gynecology | DX: C54.1 Malignant neoplasm of endometrium (principal) | CPT/HCPCS: 36415; 82565 ==

== ENCOUNTER → 2017-10-10 | Outpatient (CLI) | payer MEDICARE, BC ==
[2017-10-10 11:28] LABS: Basophils % (A) 1 %; Eosinophils # (A) 0.2 k/uL (0-0.7); Eosinophils % (A) 2 %; HCT 34.7 % (34.0-46.0); HGB 10.5 gm/dL (11.4-16.0); Hypochromasia Marked; Lymphocytes # (A) 1.6 k/uL (1.0-4.8); Lymphocytes % (A) 22 %; MCH 20.1 pg (25.0-35.0); MCHC 30.4 g/dL (31.0-37.0); Mean Platelet Volume 6.5; Microcytosis Marked; Monocytes # (A) 0.4 k/uL (0-1.0); Monocytes % (A) 6 %; Neutrophils # (A) 5.1 k/uL (1.3-7.7); Neutrophils % (A) 68 %; Platelet Count 264 k/uL (150-450); RBC 5.26 m/uL (3.80-5.40); RDW 14.2 % (11.5-15.5); WBC 7.5 k/uL (3.8-10.6)
[2017-10-10 11:42] LABS: Albumin 3.9 g/dL (3.5-5.0); Calcium 9.6 mg/dL (8.4-10.2); Potassium 3.9 mmol/L (3.5-5.1); Total Bilirubin 0.5 mg/dL (0.2-1.3); Total Protein 6.5 g/dL (6.3-8.2)
== END | disposition home or self-care (01) ==
LOC: LABWHC1 10:31
PROVIDERS: ATTEND Radiology Radiation Oncology
DX: C54.1 Malignant neoplasm of endometrium (principal)
CPT/HCPCS: 36415; 80053; 85025

== ENCOUNTER 2017-10-19 18:35 | Emergency (ER) | payer MEDICARE, BC ==
[2017-10-19 18:47] VITALS: RESP 18
--- NOTE | 2017-10-19 19:19 | ED ---
Upper Extremity HPI - General Chief Complaint: Extremity Injury, Upper Stated Complaint: rt shoulder pain Time Seen by Provider: 10/19/17 18:51 Source: patient, RN notes reviewed, old records reviewed Mode of arrival: ambulatory Limitations: no limitations - History of Present Illness Initial Comments: This Patient is a 87-year-old female presents emergency Department stay with 3 days of increased right shoulder pain. She reports it seems to be a dull ache. It radiates on towards her elbow. She reports that 3 weeks ago she had an episode she fell on her driveway and states that she did not did not notice the pain initially however the past week it seemed to increase. Worse with range of motion. She denies any chest pain or shortness of breath. She states she's had no fevers or chills. She denies any peripheral paresthesias. She does have a history of breast cancer is currently undergoing radiation. She had a radiation treatment 2 days. Patient denies any other symptoms at this time. - Related Data Home Medications Medication Instructions Recorded Confirmed Carvedilol [Coreg] 3.125 mg PO BID 10/12/15 03/12/17 Levothyroxine Sodium [Synthroid] 75 mcg PO DAILY 10/12/15 03/12/17 Aspirin EC [Ecotrin Low Dose] 81 mg PO DAILY 12/29/15 03/12/17 Docusate [Colace] 100 mg PO DAILY 03/12/17 03/12/17 Pravastatin Sodium [Pravachol] 20 mg PO HS 03/12/17 03/12/17 Previous Rx's Medication Instructions Recorded Losartan/Hydrochlorothiazide 1 each PO DAILY #30 tablet 03/13/17 [Hyzaar 100-12.5 Tablet] Pantoprazole [Protonix] 40 mg PO AC-BID tablet. 03/13/17 Ibuprofen 600 mg PO TID #20 tablet 10/19/17 traMADol HCl [Ultram] 50 mg PO Q4HR PRN 3 Days #12 tab 10/19/17 Allergies Allergy/AdvReac Type Severity Reaction Status Date / Time Penicillins Allergy Severe Anaphylaxis Verified 10/19/17 18:47 indomethacin Allergy Unknown Unknown Verified 10/19/17 18:47 iodine Allergy Unknown Unknown Verified 10/19/17 18:47 Iodinated Contrast- Oral and Allergy Unknown Verified 10/19/17 18:47 IV Dye [Iodinated Contrast Media - IV Dye] meperidine HCl [From Demerol] AdvReac Unknown Nausea & Verified 10/19/17 18:47 Vomiting propoxyphene HCl AdvReac Unknown Nausea & Verified 10/19/17 18:47 [From Darvon] Vomiting shellfish derived [Shellfish] AdvReac Unknown Abdominal Verified 10/19/17 18:47 Pain Review of Systems ROS Statement: Those systems with pertinent positive or pertinent negative responses have been documented in the HPI. ROS Other: All systems not noted in ROS Statement are negative. Past Medical History Past Medical History: Cancer, Hypertension, Thyroid Disorder Additional Past Medical History / Comment(s): HX OF BREAST CANCER W/ CHEMOTHERAPY, , ANEMIA OFF AND ON WITH IRON INFUSIONS, LOW THYROID. UTI, constipation. History of Any Multi-Drug Resistant Organisms: None Reported Past Surgical History: Appendectomy, Breast Surgery, Orthopedic Surgery Additional Past Surgical History / Comment(s): LEFT MASTECTOMY, KNEE ARTHROSCOPY. RT HIP REPLACEMENT Past Anesthesia/Blood Transfusion Reactions: Previous Problems w/ Anesthesia Additional Past Anesthesia/Blood Transfusion Reaction / Comment(s): STATES AFTER KNEE SURGERY SHE WAS "JERKING ALL OVER" Past Psychological History: No Psychological Hx Reported Smoking Status: Never smoker Past Alcohol Use History: None Reported Past Drug Use History: None Reported - Past Family History Mother Family Medical History: Myocardial Infarction ([place]) Father Family Medical History: Myocardial Infarction ([place]) General Exam - General Exam Comments Initial Comments: This is a pleasant 87-year-old female. No acute distress. Limitations: no limitations General appearance: alert, in no apparent distress Head exam: Present: atraumatic, normocephalic, normal inspection Eye exam: Present: normal appearance, PERRL, EOMI. Absent: scleral icterus, conjunctival injection, periorbital swelling ENT exam: Present: normal exam, mucous membranes moist Neck exam: Present: normal inspection. Absent: tenderness, meningismus, lymphadenopathy Respiratory exam: Present: normal lung sounds bilaterally Cardiovascular Exam: Present: regular rate, normal rhythm, normal heart sounds. Absent: systolic murmur, diastolic murmur, rubs, gallop, clicks GI/Abdominal exam: Present: soft Extremities exam: Present: normal inspection, full ROM, normal capillary refill. Absent: tenderness, pedal edema, joint swelling, calf tenderness Right Shoulder Exam: Present: normal inspection, tenderness (Vision is tenderness over the anterior aspect of the shoulder over the biceps tendon.), other ( Positive Apley scratch test.). Absent: laceration, ecchymosis, deformity Upper Arm exam: Present: normal inspection, full ROM Elbow exam: Present: normal inspection, full ROM Forearm Wrist exam: Present: normal inspection, full ROM Hand Wrist exam: Present: normal inspection, full ROM Back exam: Present: normal inspection Neurological exam: Present: alert, oriented X3, CN II-XII intact Psychiatric exam: Present: normal affect, normal mood Skin exam: Present: warm, dry, intact, normal color. Absent: rash Course Vital Signs 10/19/17 18:45 Temperature 97.6 F Pulse Rate 78 Respiratory 18 Rate Blood Pressure 157/74 O2 Sat by Pulse 94 L Oximetry Medical Decision Making - Medical Decision Making 87-year-old female presents emergency room with a chief complaint of right shoulder pain for the past 3 days. Worse with range of motion. She does have some tenderness to palpation over the biceps tendon. X-ray shows significant arthritis but no acute bony other modalities. Patient's EKG was performed any cardiacPatient does not complain of a chest pain shortness of breath. This EKG shows no acute changes from her previous one in March 2017. Case discussed with Dr. Terry. Agreeable put the Patient on a temperature medication for tendinitis put the Patient in a sling. She'll follow-up with Dr. Marks or orthopedic. I discussed return parameters. Patient agrees to treatment plan will comply. Return parameters were discussed. 10/19/17 20:03 fracture or shoulder dislocation. No significant change from prior. Moderate joint space loss at the right before meals joint. Mild inferior acetabular spurring. Moderate to advanced 100 March and arthropathy with joint space loss and humeral neck spurring. - Radiology Data Radiology results: report reviewed 10/19/17 20:00 EKG shows sinus bradycardia left anterior fascicular block. Cannot rule out inferior infarct age undetermined. Possible anterior infarct age undetermined. Abnormal EKG. Ventricular rate of 54 bpm. Intervals 156 most seconds. QRS duration is 80 ms. QT QTc is 440/417 ms. There is no significant change from previous EKG on 03/12/2017. Disposition Clinical Impression: Right shoulder tendinitis, Arthritis of right shoulder region Disposition: HOME SELF-CARE Condition: Good Instructions: Rotator Cuff Injury (ED) Additional Instructions: Patient advised to follow-up with primary care physician. Return to the emergency department if any alarming signs or symptoms occur. Patient to take an antiinflammatory medicineand wear the sling. Prescriptions: Ibuprofen 600 mg PO TID #20 tablet traMADol HCl [Ultram] 50 mg PO Q4HR PRN 3 Days #12 tab PRN Reason: Pain Is patient prescribed a controlled substance at d/c from ED?: No When asked, does pt state using other controlled substances?: No If prescribed controlled substance>3 days was MAPS reviewed?: No If opioid is for acute pain is fill amount 7 days or less?: No If Rx opioid, was Start Talking consent form obtained?: No Referrals: Yaneli Duarte MD [Primary Care Provider] - 1-2 days Beck Marks DO [Doctor of Osteopathic Medicine] - 1-2 days Time of Disposition: 20:05
--- NOTE | 2017-10-19 19:28 | XR ---
EXAMINATION TYPE: XR shoulder complete RT DATE OF EXAM: 10/19/2017 CLINICAL HISTORY: Right shoulder pain for 3 days. History of fall injury 3 weeks ago. TECHNIQUE: Three views of the right shoulder are obtained. COMPARISON: Right shoulder x-ray June 25, 2016. FINDINGS: The mineralization is redemonstrated which is noted to lower radiographic sensitivity for evaluation of fine anatomic detail. There is no acute fracture/dislocation evident in the right shoul eliseo. Moderate to advanced joint space loss right acromioclavicular joint is redemonstrated with mild inferior acetabular spurring redemonstrated. There is moderate to advanced glenohumeral joint arthrop athy with joint space loss and head neck humeral spurring. The visualized ribs are intact and unremar kable. IMPRESSION: There is no acute fracture or dislocation in the right shoulder. No significant change f rom prior.
[2017-10-19 20:29] VITALS: BP 147/87; PULSE 87; TEMP 97.4
== END 2017-10-19 20:29 | disposition home or self-care (01) ==
LOC: EC 18:35
DX: M19.011 Primary osteoarthritis, right shoulder (principal); M75.91 Shoulder lesion, unspecified, right shoulder; I10 Essential (primary) hypertension; E07.9 Disorder of thyroid, unspecified; Z85.3 Personal history of malignant neoplasm of breast; Z92.21 Personal history of antineoplastic chemotherapy; Z96.641 Presence of right artificial hip joint; Z98.890 Other specified postprocedural states; Z79.82 Long term (current) use of aspirin; Z79.899 Other long term (current) drug therapy; Z88.0 Allergy status to penicillin; Z88.5 Allergy status to narcotic agent; Z88.6 Allergy status to analgesic agent; Z91.013 Allergy to seafood; Z91.041 Radiographic dye allergy status
CPT/HCPCS: 99284

== ENCOUNTER 2017-11-07 16:04 | Emergency (ER) | payer MEDICARE, BC ==
[2017-11-07 16:15] VITALS: PULSE 74
[2017-11-07] MEDS ORDERED: DIPHENOX-ATROP 2.5-0.025 MG 1 EACH TAB PO STA (17:09)
[2017-11-07] MEDS ORDERED: SODIUM CHLORIDE 0.9% 1,000 ML IV STA (17:09)
--- NOTE | 2017-11-07 17:13 | ED ---
General Adult HPI - General Chief complaint: Nausea/Vomiting/Diarrhea Stated complaint: weakness, abdominal pain Time Seen by Provider: 11/07/17 16:10 Source: patient, RN notes reviewed Mode of arrival: wheelchair Limitations: no limitations - History of Present Illness Initial comments: This is an 87-year-old female who presents emergency Department because she had one hour of diarrhea. Patient states she's been having intermittent diarrhea over the last 2 weeks. Patient states she's been getting radiation treatment for uterine cancer and it does seem to occur after she gets treatment. Patient states she has no abdominal pain at this time. Earlier there was considerable cramping. Patient denies any nausea vomiting. Patient denies any pain currently. Patient denies any recent fever chills. Patient denies any dysuria hematuria urinary frequency. Patient states the nurses at the oncology center told her to come here. - Related Data Home Medications Medication Instructions Recorded Confirmed Carvedilol [Coreg] 3.125 mg PO BID 10/12/15 03/12/17 Levothyroxine Sodium [Synthroid] 75 mcg PO DAILY 10/12/15 03/12/17 Aspirin EC [Ecotrin Low Dose] 81 mg PO DAILY 12/29/15 03/12/17 Docusate [Colace] 100 mg PO DAILY 03/12/17 03/12/17 Pravastatin Sodium [Pravachol] 20 mg PO HS 03/12/17 03/12/17 Previous Rx's Medication Instructions Recorded Losartan/Hydrochlorothiazide 1 each PO DAILY #30 tablet 03/13/17 [Hyzaar 100-12.5 Tablet] Pantoprazole [Protonix] 40 mg PO AC-BID tablet. 03/13/17 Ibuprofen 600 mg PO TID #20 tablet 10/19/17 traMADol HCl [Ultram] 50 mg PO Q4HR PRN 3 Days #12 tab 10/19/17 Diphenox-Atrop 2.5-0.025 mg 2 tab PO QID PRN #10 tab 11/07/17 [Lomotil] Allergies Allergy/AdvReac Type Severity Reaction Status Date / Time Penicillins Allergy Severe Anaphylaxis Verified 11/07/17 16:15 indomethacin Allergy Unknown Unknown Verified 11/07/17 16:15 iodine Allergy Unknown Unknown Verified 11/07/17 16:15 Iodinated Contrast- Oral and Allergy Unknown Verified 11/07/17 16:15 IV Dye [Iodinated Contrast Media - IV Dye] meperidine HCl [From Demerol] AdvReac Unknown Nausea & Verified 11/07/17 16:15 Vomiting propoxyphene HCl AdvReac Unknown Nausea & Verified 11/07/17 16:15 [From Darvon] Vomiting shellfish derived [Shellfish] AdvReac Unknown Abdominal Verified 11/07/17 16:15 Pain Review of Systems ROS Statement: Those systems with pertinent positive or pertinent negative responses have been documented in the HPI. ROS Other: All systems not noted in ROS Statement are negative. Past Medical History Past Medical History: Cancer, Hypertension, Thyroid Disorder Additional Past Medical History / Comment(s): HX OF BREAST CANCER W/ CHEMOTHERAPY, , ANEMIA OFF AND ON WITH IRON INFUSIONS, LOW THYROID. UTI, constipation. History of Any Multi-Drug Resistant Organisms: None Reported Past Surgical History: Appendectomy, Breast Surgery, Orthopedic Surgery Additional Past Surgical History / Comment(s): LEFT MASTECTOMY, KNEE ARTHROSCOPY. RT HIP REPLACEMENT Past Anesthesia/Blood Transfusion Reactions: Previous Problems w/ Anesthesia Additional Past Anesthesia/Blood Transfusion Reaction / Comment(s): STATES AFTER KNEE SURGERY SHE WAS "JERKING ALL OVER" Past Psychological History: No Psychological Hx Reported Smoking Status: Never smoker Past Alcohol Use History: None Reported Past Drug Use History: None Reported - Past Family History Mother Family Medical History: Myocardial Infarction ([place]) Father Family Medical History: Myocardial Infarction ([place]) General Exam - General Exam Comments Initial Comments: GENERAL: Patient is well-developed and well-nourished. Patient is nontoxic and well- hydrated and is in mild distress. ENT: Neck is soft and supple. No significant lymphadenopathy is noted. Oropharynx is clear. Moist mucous membranes. Neck has full range of motion without eliciting any pain. EYES: The sclera were anicteric and conjunctiva were pink and moist. Extraocular movements were intact and pupils were equal round and reactive to light. Eyelids were unremarkable. PULMONARY: Unlabored respirations. Good breath sounds bilaterally. No audible rales rhonchi or wheezing was noted. CARDIOVASCULAR: There is a regular rate and rhythm without any murmurs gallops or rubs. ABDOMEN: Soft and nontender with normal bowel sounds. No palpable organomegaly was noted. There is no palpable pulsatile mass. SKIN: Skin is clear with no lesions or rashes and otherwise unremarkable. NEUROLOGIC: Patient is alert and oriented x3. Cranial nerves II through XII are grossly intact. Motor and sensory are also intact. Normal speech, volume and content. Symmetrical smile. MUSCULOSKELETAL: Normal extremities with adequate strength and full range of motion. LYMPHATICS: No significant lymphadenopathy is noted PSYCHIATRIC: Normal psychiatric evaluation. Limitations: no limitations Course Vital Signs 11/07/17 16:13 Temperature 98.4 F Pulse Rate 74 Respiratory 18 Rate Blood Pressure 134/73 O2 Sat by Pulse 95 Oximetry Medical Decision Making - Medical Decision Making Patient got a liter of fluid. I went back into reevaluate her she was feeling much better she had no diarrhea while in the emergency department. Patient was reexamined her abdomen was soft nontender. - Lab Data Result diagrams: 11/07/17 15:52 11/07/17 15:52 Lab Results 11/07/17 11/07/17 Range/Units 15:52 15:52 WBC 5.8 (3.8-10.6) k/uL RBC 5.01 (3.80-5.40) m/uL Hgb 10.1 L (11.4-16.0) gm/dL Hct 32.4 L (34.0-46.0) % MCV 64.8 L (80.0-100.0) fL MCH 20.2 L (25.0-35.0) pg MCHC 31.1 (31.0-37.0) g/dL RDW 15.7 H (11.5-15.5) % Plt Count 214 (150-450) k/uL Neutrophils % 77 % Lymphocytes % 9 % Monocytes % 7 % Eosinophils % 4 % Basophils % 0 % Neutrophils # 4.4 (1.3-7.7) k/uL Lymphocytes # 0.5 L (1.0-4.8) k/uL Monocytes # 0.4 (0-1.0) k/uL Eosinophils # 0.2 (0-0.7) k/uL Basophils # 0.0 (0-0.2) k/uL Hypochromasia Moderate Microcytosis Marked Sodium 136 L (137-145) mmol/L Potassium 3.3 L (3.5-5.1) mmol/L Chloride 106 (98-107) mmol/L Carbon Dioxide 20 L (22-30) mmol/L Anion Gap 10 mmol/L BUN 30 H (7-17) mg/dL Creatinine 1.20 H (0.52-1.04) mg/dL Est GFR (CKD-EPI)AfAm 47 (>60 ml/min/1.73 sqM) Est GFR (CKD-EPI)NonAf 41 (>60 ml/min/1.73 sqM) Glucose 103 H (74-99) mg/dL Calcium 8.6 (8.4-10.2) mg/dL Total Bilirubin 0.6 (0.2-1.3) mg/dL AST 31 (14-36) U/L ALT 22 (9-52) U/L Alkaline Phosphatase 75 (38-126) U/L Total Protein 5.5 L (6.3-8.2) g/dL Albumin 3.3 L (3.5-5.0) g/dL Amylase 55 (30-110) U/L Lipase 170 (23-300) U/L Disposition Clinical Impression: Acute diarrhea Disposition: HOME SELF-CARE Condition: Good Instructions: Acute Diarrhea (ED) Prescriptions: Diphenox-Atrop 2.5-0.025 mg [Lomotil] 2 tab PO QID PRN #10 tab PRN Reason: Diarrhea Is patient prescribed a controlled substance at d/c from ED?: No Referrals: Yaneli Duarte MD [Primary Care Provider] - 1-2 days Time of Disposition: 18:47
[2017-11-07 17:41] LABS: Basophils % (A) 0 %; Eosinophils # (A) 0.2 k/uL (0-0.7); Eosinophils % (A) 4 %; HCT 32.4 % (34.0-46.0); HGB 10.1 gm/dL (11.4-16.0); Hypochromasia Moderate; Lymphocytes # (A) 0.5 k/uL (1.0-4.8); Lymphocytes % (A) 9 %; MCH 20.2 pg (25.0-35.0); MCHC 31.1 g/dL (31.0-37.0); MCV 64.8 fL (80.0-100.0); Mean Platelet Volume 6.3; Microcytosis Marked; Monocytes # (A) 0.4 k/uL (0-1.0); Monocytes % (A) 7 %; Neutrophils # (A) 4.4 k/uL (1.3-7.7); Neutrophils % (A) 77 %; Platelet Count 214 k/uL (150-450); RBC 5.01 m/uL (3.80-5.40); RDW 15.7 % (11.5-15.5); WBC 5.8 k/uL (3.8-10.6)
[2017-11-07 17:55] LABS: Albumin 3.3 g/dL (3.5-5.0); Calcium 8.6 mg/dL (8.4-10.2); Potassium 3.3 mmol/L (3.5-5.1); Total Bilirubin 0.6 mg/dL (0.2-1.3); Total Protein 5.5 g/dL (6.3-8.2)
[2017-11-07 19:03] VITALS: BP 181/77; RESP 16; TEMP 97.7
== END 2017-11-07 19:03 | disposition home or self-care (01) ==
LOC: EC 16:04
DX: R19.7 Diarrhea, unspecified (principal); C55 Malignant neoplasm of uterus, part unspecified; R53.1 Weakness; I10 Essential (primary) hypertension; E07.9 Disorder of thyroid, unspecified; Z85.3 Personal history of malignant neoplasm of breast; Z92.21 Personal history of antineoplastic chemotherapy; Z92.3 Personal history of irradiation; Z96.641 Presence of right artificial hip joint; Z90.49 Acquired absence of other specified parts of digestive tract; Z98.890 Other specified postprocedural states; Z79.82 Long term (current) use of aspirin; Z79.899 Other long term (current) drug therapy; Z88.0 Allergy status to penicillin; Z88.5 Allergy status to narcotic agent; Z88.6 Allergy status to analgesic agent; Z91.013 Allergy to seafood; Z91.041 Radiographic dye allergy status
CPT/HCPCS: 36415; 80053; 82150; 83690; 85025; 96360; 99284

== ENCOUNTER 2017-11-11 15:02 | Emergency (ER) | payer MEDICARE, BC ==
[2017-11-11 15:37] VITALS: RESP 18
[2017-11-11] MEDS ORDERED: ONDANSETRON 4 MG/2 ML VIAL IVP STA (15:38)
[2017-11-11] MEDS ORDERED: SODIUM CHLORIDE 0.9% 1,000 ML IV STA (15:38)
[2017-11-11] MEDS ORDERED: FAMOTIDINE 20 MG/2 ML VIAL IV STA (15:38)
--- NOTE | 2017-11-11 15:42 | ED ---
General Adult HPI - General Chief complaint: Weakness Stated complaint: Fatigue Time Seen by Provider: 11/11/17 15:19 Source: patient, family, RN notes reviewed Mode of arrival: wheelchair Limitations: no limitations - History of Present Illness Initial comments: Patient is a pleasant 87-year-old female presenting to the emergency department with fatigue and general weakness. Patient is a couple of months post hysterectomy for uterine cancer. Patient is undergoing radiation treatment, last was 2 days ago. Patient feels fatigued and generally weak. Patient is only able to walk a couple of steps. Patient does get short of breath with exertion. Patient has had dark stools however is on iron supplements. - Related Data Home Medications Medication Instructions Recorded Confirmed Carvedilol [Coreg] 3.125 mg PO BID 10/12/15 11/11/17 Levothyroxine Sodium [Synthroid] 75 mcg PO DAILY 10/12/15 11/11/17 Aspirin EC [Ecotrin Low Dose] 81 mg PO DAILY 12/29/15 11/11/17 Pravastatin Sodium [Pravachol] 20 mg PO HS 03/12/17 11/11/17 HYDROcodone/APAP 5-325MG [[place] 1 tab PO Q8H PRN 11/11/17 11/11/17 5-325] Losartan/Hydrochlorothiazide 1 tab PO DAILY 11/11/17 11/11/17 [Hyzaar 100-12.5 Tablet] Previous Rx's Medication Instructions Recorded Pantoprazole [Protonix] 40 mg PO AC-BID tablet. 03/13/17 Diphenox-Atrop 2.5-0.025 mg 2 tab PO QID PRN #10 tab 11/07/17 [Lomotil] Magnesium 200 mg PO BID #8 tablet 11/11/17 Nitrofurantoin Monohyd/M-Cryst 100 mg PO Q12HR #20 cap 11/11/17 [Macrobid] Allergies Allergy/AdvReac Type Severity Reaction Status Date / Time Penicillins Allergy Severe Anaphylaxis Verified 11/11/17 15:32 indomethacin Allergy Unknown Unknown Verified 11/11/17 15:32 iodine Allergy Unknown Unknown Verified 11/11/17 15:32 Iodinated Contrast- Oral and Allergy Unknown Verified 11/11/17 15:32 IV Dye [Iodinated Contrast Media - IV Dye] meperidine HCl [From Demerol] AdvReac Unknown Nausea & Verified 11/11/17 15:32 Vomiting propoxyphene HCl AdvReac Unknown Nausea & Verified 11/11/17 15:32 [From Darvon] Vomiting shellfish derived [Shellfish] AdvReac Unknown Abdominal Verified 11/11/17 15:32 Pain Review of Systems ROS Statement: Those systems with pertinent positive or pertinent negative responses have been documented in the HPI. ROS Other: All systems not noted in ROS Statement are negative. Constitutional: Denies: fever Eyes: Denies: eye pain ENT: Denies: ear pain Respiratory: Reports: dyspnea (With exertion) Cardiovascular: Denies: chest pain Endocrine: Reports: fatigue Gastrointestinal: Reports: nausea. Denies: abdominal pain Genitourinary: Denies: dysuria Musculoskeletal: Denies: back pain Skin: Denies: rash Neurological: Reports: weakness (Generalized weakness). Denies: headache Past Medical History Past Medical History: Cancer, Hypertension, Thyroid Disorder Additional Past Medical History / Comment(s): HX OF BREAST CANCER W/ CHEMOTHERAPY, , ANEMIA OFF AND ON WITH IRON INFUSIONS, LOW THYROID. UTI, constipation. History of Any Multi-Drug Resistant Organisms: None Reported Past Surgical History: Appendectomy, Breast Surgery, Orthopedic Surgery Additional Past Surgical History / Comment(s): LEFT MASTECTOMY, KNEE ARTHROSCOPY. RT HIP REPLACEMENT Past Anesthesia/Blood Transfusion Reactions: Previous Problems w/ Anesthesia Additional Past Anesthesia/Blood Transfusion Reaction / Comment(s): STATES AFTER KNEE SURGERY SHE WAS "JERKING ALL OVER" Past Psychological History: No Psychological Hx Reported Smoking Status: Never smoker Past Alcohol Use History: None Reported Past Drug Use History: None Reported - Past Family History Mother Family Medical History: Myocardial Infarction ([place]) Father Family Medical History: Myocardial Infarction ([place]) General Exam Limitations: no limitations General appearance: alert, in no apparent distress Head exam: Present: atraumatic Eye exam: Present: other (Pale conjunctiva) ENT exam: Present: normal oropharynx Neck exam: Present: normal inspection Respiratory exam: Present: normal lung sounds bilaterally. Absent: respiratory distress Cardiovascular Exam: Present: regular rate, normal rhythm GI/Abdominal exam: Present: soft. Absent: tenderness Rectal exam: Present: normal inspection. Absent: black stool, bloody stool Extremities exam: Present: normal inspection. Absent: pedal edema, calf tenderness Neurological exam: Present: alert, oriented X3, CN II-XII intact. Absent: motor sensory deficit Psychiatric exam: Present: normal affect, normal mood Skin exam: Present: pallor Course Vital Signs 11/11/17 11/11/17 11/11/17 15:08 15:36 16:08 Temperature 98.2 F Pulse Rate 90 84 Respiratory 20 18 18 Rate Blood Pressure 107/68 144/66 O2 Sat by Pulse 96 98 Oximetry EKG Findings - EKG Comments: EKG Findings:: Sinus rhythm at 80. VA 158. QRS 80. QT 402. QTC 463. Left axis. Inferior Q waves. Nonspecific ST-T. Medical Decision Making - Medical Decision Making Patient reevaluated and resting comfortably in bed. Patient advised calling her doctor for admission however refuses. Patient states she wants to go home and feels that she will do well at home. Patient and family updated on results and need for close follow-up. - Lab Data Result diagrams: 11/11/17 15:54 11/11/17 15:54 Lab Results 11/11/17 11/11/17 11/11/17 Range/Units 15:54 15:54 15:54 WBC 7.1 (3.8-10.6) k/uL RBC 4.50 (3.80-5.40) m/uL Hgb 8.9 L (11.4-16.0) gm/dL Hct 28.9 L (34.0-46.0) % MCV 64.2 L (80.0-100.0) fL MCH 19.8 L (25.0-35.0) pg MCHC 30.9 L (31.0-37.0) g/dL RDW 16.1 H (11.5-15.5) % Plt Count 220 (150-450) k/uL Neutrophils % 81 % Lymphocytes % 7 % Monocytes % 7 % Eosinophils % 1 % Basophils % 0 % Neutrophils # 5.8 (1.3-7.7) k/uL Lymphocytes # 0.5 L (1.0-4.8) k/uL Monocytes # 0.5 (0-1.0) k/uL Eosinophils # 0.1 (0-0.7) k/uL Basophils # 0.0 (0-0.2) k/uL Hypochromasia Slight Anisocytosis Slight Microcytosis Marked PT 10.4 (9.0-12.0) sec INR 1.1 (<1.2) APTT 22.3 (22.0-30.0) sec Sodium 138 (137-145) mmol/L Potassium 3.4 L (3.5-5.1) mmol/L Chloride 105 (98-107) mmol/L Carbon Dioxide 25 (22-30) mmol/L Anion Gap 8 mmol/L BUN 28 H (7-17) mg/dL Creatinine 1.30 H (0.52-1.04) mg/dL Est GFR (CKD-EPI)AfAm 43 (>60 ml/min/1.73 sqM) Est GFR (CKD-EPI)NonAf 37 (>60 ml/min/1.73 sqM) Glucose 120 H (74-99) mg/dL Plasma Lactic Acid Oh (0.7-2.0) mmol/L Calcium 8.7 (8.4-10.2) mg/dL Magnesium 1.2 L (1.6-2.3) mg/dL Total Bilirubin 0.7 (0.2-1.3) mg/dL AST 30 (14-36) U/L ALT 33 (9-52) U/L Alkaline Phosphatase 83 (38-126) U/L Total Protein 5.2 L (6.3-8.2) g/dL Albumin 3.1 L (3.5-5.0) g/dL TSH 0.883 (0.465-4.680) mIU/L Free T4 1.66 (0.78-2.19) ng/dL Free T3 pg/mL 1.9 L (2.8-5.3) pg/ml Urine Color Urine Appearance (Clear) Urine pH (5.0-8.0) Ur Specific [place] (1.001-1.035) Urine Protein (Negative) Urine Glucose (UA) (Negative) Urine Ketones (Negative) Urine Blood (Negative) Urine Nitrite (Negative) Urine Bilirubin (Negative) Urine Urobilinogen (<2.0) mg/dL Ur Leukocyte Esterase (Negative) Urine RBC (0-5) /hpf Urine WBC (0-5) /hpf Ur Squamous Epith Cells (0-4) /hpf Hyaline Casts (0-2) /lpf Urine Mucus (None) /hpf Stool Occult Blood (Negative) 11/11/17 11/11/17 11/11/17 Range/Units 15:54 16:37 17:20 WBC (3.8-10.6) k/uL RBC (3.80-5.40) m/uL Hgb (11.4-16.0) gm/dL Hct (34.0-46.0) % MCV (80.0-100.0) fL MCH (25.0-35.0) pg MCHC (31.0-37.0) g/dL RDW (11.5-15.5) % Plt Count (150-450) k/uL Neutrophils % % Lymphocytes % % Monocytes % % Eosinophils % % Basophils % % Neutrophils # (1.3-7.7) k/uL Lymphocytes # (1.0-4.8) k/uL Monocytes # (0-1.0) k/uL Eosinophils # (0-0.7) k/uL Basophils # (0-0.2) k/uL Hypochromasia Anisocytosis Microcytosis PT (9.0-12.0) sec INR (<1.2) APTT (22.0-30.0) sec Sodium (137-145) mmol/L Potassium (3.5-5.1) mmol/L Chloride (98-107) mmol/L Carbon Dioxide (22-30) mmol/L Anion Gap mmol/L BUN (7-17) mg/dL Creatinine (0.52-1.04) mg/dL Est GFR (CKD-EPI)AfAm (>60 ml/min/1.73 sqM) Est GFR (CKD-EPI)NonAf (>60 ml/min/1.73 sqM) Glucose (74-99) mg/dL Plasma Lactic Acid Oh 1.2 (0.7-2.0) mmol/L Calcium (8.4-10.2) mg/dL Magnesium (1.6-2.3) mg/dL Total Bilirubin (0.2-1.3) mg/dL AST (14-36) U/L ALT (9-52) U/L Alkaline Phosphatase (38-126) U/L Total Protein (6.3-8.2) g/dL Albumin (3.5-5.0) g/dL TSH (0.465-4.680) mIU/L Free T4 (0.78-2.19) ng/dL Free T3 pg/mL (2.8-5.3) pg/ml Urine Color Yellow Urine Appearance Clear (Clear) Urine pH 5.5 (5.0-8.0) Ur Specific [place] 1.014 (1.001-1.035) Urine Protein Negative (Negative) Urine Glucose (UA) Negative (Negative) Urine Ketones Negative (Negative) Urine Blood Negative (Negative) Urine Nitrite Negative (Negative) Urine Bilirubin Negative (Negative) Urine Urobilinogen <2.0 (<2.0) mg/dL Ur Leukocyte Esterase Large H (Negative) Urine RBC 2 (0-5) /hpf Urine WBC 55 H (0-5) /hpf Ur Squamous Epith Cells 1 (0-4) /hpf Hyaline Casts 7 H (0-2) /lpf Urine Mucus Rare H (None) /hpf Stool Occult Blood Negative (Negative) - Radiology Data Radiology results: image reviewed (Chest x-ray shows no acute process) Disposition Clinical Impression: Urinary tract infection, Hypomagnesemia Disposition: HOME SELF-CARE Condition: Stable Instructions: Urinary Tract Infection in Women (ED), Hypomagnesemia (ED), Dehydration (ED) Additional Instructions: Please follow-up to primary care physician as well as your oncologist in the next day or 2 for recheck. You will need to have your blood work rechecked in the next few days. Return for increased weakness or fatigue, difficulty breathing, fevers, confusion, worsening symptoms or other concerns. Prescriptions: Magnesium 200 mg PO BID #8 tablet Nitrofurantoin Monohyd/M-Cryst [Macrobid] 100 mg PO Q12HR #20 cap Is patient prescribed a controlled substance at d/c from ED?: No Referrals: Yaneli Duarte MD [Primary Care Provider] - 1-2 days Joey Jara MD [STAFF PHYSICIAN] - 1-2 days Verena Paulino MD [STAFF PHYSICIAN] - 1-2 days Time of Disposition: 17:56
[2017-11-11 16:17] LABS: Anisocytosis Slight; Basophils % (A) 0 %; Eosinophils # (A) 0.1 k/uL (0-0.7); Eosinophils % (A) 1 %; HCT 28.9 % (34.0-46.0); HGB 8.9 gm/dL (11.4-16.0); Hypochromasia Slight; Lymphocytes # (A) 0.5 k/uL (1.0-4.8); Lymphocytes % (A) 7 %; MCH 19.8 pg (25.0-35.0); MCHC 30.9 g/dL (31.0-37.0); MCV 64.2 fL (80.0-100.0); Mean Platelet Volume 6.8; Microcytosis Marked; Monocytes # (A) 0.5 k/uL (0-1.0); Monocytes % (A) 7 %; Neutrophils # (A) 5.8 k/uL (1.3-7.7); Neutrophils % (A) 81 %; Platelet Count 220 k/uL (150-450); RDW 16.1 % (11.5-15.5); WBC 7.1 k/uL (3.8-10.6)
[2017-11-11 16:21] LABS: INR 1.1 (<1.2); Partial Thromboplastin Time 22.3 sec (22.0-30.0); Prothrombin Time 10.4 sec (9.0-12.0)
--- NOTE | 2017-11-11 16:22 | XR ---
EXAMINATION TYPE: XR chest 2V DATE OF EXAM: 11/11/2017 COMPARISON: 03/12/2017 HISTORY: Weakness and shortness of breath TECHNIQUE: Frontal and lateral views of the chest are obtained. FINDINGS: There is no focal air space opacity, pleural effusion, or pneumothorax seen. The cardiac silhouette size is within normal limits. Pulmonary per inflation is seen suggesting underlying COPD. The osseous structures are intact. Multilevel moderate degenerative changes of the spine are seen in addition to generalized osseous demineralization and degenerative changes of the shoulders. IMPRESSION: No acute cardiopulmonary process. Findings suggesting underlying COPD.
[2017-11-11 16:25] LABS: Albumin 3.1 g/dL (3.5-5.0); Calcium 8.7 mg/dL (8.4-10.2); Magnesium 1.2 mg/dL (1.6-2.3); Potassium 3.4 mmol/L (3.5-5.1); Total Bilirubin 0.7 mg/dL (0.2-1.3); Total Protein 5.2 g/dL (6.3-8.2)
[2017-11-11] MEDS ORDERED: MAGNESIUM OXIDE 400 MG TAB PO STA (16:31)
[2017-11-11] MEDS ORDERED: POTASSIUM CHLORIDE ER 20 MEQ TAB.ER PO STA (16:32)
[2017-11-11 16:41] LABS: T4, Free (Free Thyroxine) 1.66 ng/dL (0.78-2.19)
[2017-11-11] MEDS: MAGNESIUM SULFATE-D5W PMX 1 GM in DEXTROSE/WATER 1 100ML.BAG IVPB SCH ×2 (16:53→18:11)
[2017-11-11 17:42] LABS: Appearance,Urine Clear (Clear); Bilirubin,Urine Negative (Negative); Blood,Urine Negative (Negative); Color,Urine Yellow; Glucose,Urine (UA) Negative (Negative); Hyaline Casts,Urine 7 /lpf (0-2); Ketones,Urine Negative (Negative); Leukocyte Esterase,Urine Large (Negative); Mucus,Urine Rare /hpf; Nitrite,Urine Negative (Negative); PH, Urine 5.5 (5.0-8.0); Protein,Urine Negative (Negative); RBC,Urine 2 /hpf (0-5); Specific Gravity,Urine 1.014 (1.001-1.035); Squamous Epithelial Cell,Urine 1 /hpf (0-4); Urobilinogen,Urine <2.0 mg/dL (<2.0); WBC,Urine 55 /hpf (0-5)
[2017-11-11] MEDS ORDERED: NITROFURANTOIN MONOHYD/M-CRYST 100 MG CAP PO STA (17:53)
[2017-11-11 19:29] VITALS: BP 184/74; PULSE 75; TEMP 97.8
== END 2017-11-11 19:29 | disposition home or self-care (01) ==
LOC: EC 15:02
DX: N39.0 Urinary tract infection, site not specified (principal); E83.42 Hypomagnesemia; I10 Essential (primary) hypertension; E03.9 Hypothyroidism, unspecified; Z85.3 Personal history of malignant neoplasm of breast; Z85.42 Personal history of malignant neoplasm of other parts of uterus; Z92.21 Personal history of antineoplastic chemotherapy; Z53.29 Procedure and treatment not carried out because of patient's decision for other reasons; Z90.710 Acquired absence of both cervix and uterus; Z96.641 Presence of right artificial hip joint; Z79.82 Long term (current) use of aspirin; Z79.899 Other long term (current) drug therapy; Z88.0 Allergy status to penicillin; Z88.6 Allergy status to analgesic agent; Z91.048 Other nonmedicinal substance allergy status; Z91.041 Radiographic dye allergy status; Z88.5 Allergy status to narcotic agent; Z91.013 Allergy to seafood
CPT/HCPCS: 99285; 36415; 93005; 84439; 84481; 80053; 83605; 83735; 84443; 85025; 85610; 85730; 82272; 81001; 87086; 87077; 87186; 71046; J2405; J3475

== ENCOUNTER → 2017-11-21 | Outpatient (CLI) | payer MEDICARE, BC ==
[2017-11-21 12:19] LABS: Basophils % (A) 0 %; Eosinophils # (A) 0.2 k/uL (0-0.7); Eosinophils % (A) 3 %; HCT 29.1 % (34.0-46.0); HGB 9.1 gm/dL (11.4-16.0); Hypochromasia Moderate; Lymphocytes # (A) 0.6 k/uL (1.0-4.8); Lymphocytes % (A) 12 %; MCH 20.6 pg (25.0-35.0); MCHC 31.4 g/dL (31.0-37.0); MCV 65.6 fL (80.0-100.0); Mean Platelet Volume 6.7; Microcytosis Marked; Monocytes # (A) 0.4 k/uL (0-1.0); Monocytes % (A) 8 %; Neutrophils # (A) 3.7 k/uL (1.3-7.7); Neutrophils % (A) 73 %; Platelet Count 183 k/uL (150-450); RBC 4.44 m/uL (3.80-5.40); RDW 15.9 % (11.5-15.5); WBC 5.1 k/uL (3.8-10.6)
[2017-11-21 12:38] LABS: Calcium 8.7 mg/dL (8.4-10.2); Potassium 3.6 mmol/L (3.5-5.1)
--- NOTE | 2017-11-21 13:16 | XR ---
EXAMINATION TYPE: XR chest 2V DATE OF EXAM: 11/21/2017 COMPARISON: 11/11/2017 HISTORY: Cough TECHNIQUE: Frontal and lateral views of the chest are obtained. FINDINGS: There is no focal air space opacity, pleural effusion, or pneumothorax seen. The cardiac silhouette size is within normal limits. The osseous structures are intact. Mild multilevel degener ative changes of the thoracic spine and moderate glenohumeral/acromioclavicular arthropathy are noted . Pulmonary per physician could relate to underlying COPD. IMPRESSION: No acute cardiopulmonary process.
== END | disposition home or self-care (01) ==
LOC: RADXRMAIN 11:14
PROVIDERS: ATTEND Radiology Radiation Oncology
DX: C54.1 Malignant neoplasm of endometrium (principal)
CPT/HCPCS: 36415; 71046; 80048; 85025

== ENCOUNTER → 2017-11-26 | Outpatient (CLI) | payer MEDICARE, BC ==
--- NOTE | 2017-11-26 10:08 | MR ---
EXAMINATION TYPE: MR shoulder RT wo con DATE OF EXAM: 11/26/2017 COMPARISON: X-ray 10/30/2017 HISTORY: Right shoulder pain TECHNIQUE: Multiplanar, multisequence imaging of the right shoulder is performed without contrast. FINDINGS: There is severe arthropathy of the glenohumeral joint with degenerative labral tears. There appears to be complete loss of articular cartilage. Benign cystic changes involving the head of the humerus. Intraosseous lesion involving the glenoid also likely post arthritic but nonspecific. There is diffuse arthropathy of the AC joint hypertrophic spurring noted. There appears to be signifi cant atrophy of the supraspinatus and infraspinatus muscles. Complete through thickness tears involvi ng both tendons are suspected with retraction just proximal to the AC joint. There appears to be an intraosseous lesion involving the proximal diaphysis of the humerus which has circumscribed margins. This is not well seen on the x-ray of the right humerus and shoulder. Recommen d bone scan. The biceps tendon is seen to be outside the bicipital groove which has an abnormal morphology. The bi ceps tendon is not seen within the rotator interval or to the level of biceps anchor. Suspect a bicep s tendon tear. Subscapularis tendon is not well seen at the insertion is suspected to be torn. IMPRESSION: 1. Complete through thickness tears involving the supraspinatus and infraspinatus tendons with retrac tion to the level proximal to the AC joint. Note is made there is diffuse atrophy of both of the musc les. 2. Through thickness tear insertion subscapularis tendon. 3. Bicipital tendon is not well seen in the bicipital groove and is not visualized at the level the r otator interval or biceps anchor and suspected to be torn. 4. Severe arthropathy of the glenohumeral joint and AC joint. 5. Intraosseous lesions involving the glenoid and humerus for which bone scan is suggested. Multiple myeloma would be in the differential diagnosis as well.
== END ==
LOC: RADMRIMAIN 08:47
PROVIDERS: ATTEND Orthopaedic Surgery
DX: M75.121 Complete rotator cuff tear or rupture of right shoulder, not specified as traumatic (principal); S46.811A Strain of other muscles, fascia and tendons at shoulder and upper arm level, right arm, initial encounter; X58.XXXA Exposure to other specified factors, initial encounter; M12.811 Other specific arthropathies, not elsewhere classified, right shoulder; M25.811 Other specified joint disorders, right shoulder

== ENCOUNTER → 2017-11-28 | Outpatient (CLI) | payer MEDICARE, BC ==
--- NOTE | 2017-11-28 15:10 | NM ---
EXAMINATION TYPE: NM bone 3 phase DATE OF EXAM: 11/28/2017 COMPARISON: MRI right shoulder 11/26/2017 chest x-ray 11/21/2017 HISTORY: Pain in upper limb right shoulder Triple phase bone scintigraphy was performed following the injection of 24.2 mCi Tc 99m MDP. Immedia te images and 6.5 hours post injection images acquired. FINDINGS: Blood flow: No suspicious radiotracer accumulation is evident on blood flow images. Blood pool: Upper blood pool imaging is performed. No suspicious focal uptake is identified. Static images: Delayed images performed. There is some patchy uptake within the distal and mid diaphy sis right humerus. These areas should be considered suspicious. Plain film correlation is There are s cattered areas of increased uptake within the ribs on the posterior left findings are nonspecific. Me tastatic disease considered. There is increased uptake at bilateral shoulders most likely degenerativ e in nature. There is uptake in the cervical spine and scattered areas within the thoracic costoverte bral junctions which could be degenerative in nature. There is some focal uptake in the right L3 karen on which could be a metastatic lesion. Milder uptake may be within lower thoracic and upper thoracic regions. There is a focus of radiotracer accumulation within the intertrochanteric region of the righ t hip in the posterior image. Mild uptake is within the diaphysis of the right femur and within the m id shaft of the left femur. There is a photopenic defect at the right hip compatible patient's prosth esis. IMPRESSION: 1. Scattered areas of uptake within the diaphysis of the right humerus, right and left femur as well as within the L3 vertebral region and possibly within the posterior left ribs. Findings are nonspecif ic. Metastatic disease should be considered. Multiple myeloma could be considered. Consider bone surv ey.
== END | disposition home or self-care (01) ==
LOC: RADNMMAIN 06:54
PROVIDERS: ATTEND Orthopaedic Surgery
DX: M79.621 Pain in right upper arm (principal)
CPT/HCPCS: 78315; A9503

== ENCOUNTER 2017-12-06 11:25 | Emergency (ER) | payer MEDICARE, BC ==
[2017-12-06 12:03] VITALS: RESP 18
[2017-12-06 12:48] LABS: Anisocytosis Slight; Basophils % (A) 0 %; Eosinophils # (A) 0.1 k/uL (0-0.7); Eosinophils % (A) 2 %; HCT 28.9 % (34.0-46.0); Hypochromasia Moderate; Lymphocytes % (A) 19 %; MCH 20.8 pg (25.0-35.0); MCHC 31.2 g/dL (31.0-37.0); MCV 66.8 fL (80.0-100.0); Mean Platelet Volume 6.4; Microcytosis Marked; Monocytes # (A) 0.5 k/uL (0-1.0); Monocytes % (A) 9 %; Neutrophils # (A) 3.7 k/uL (1.3-7.7); Neutrophils % (A) 67 %; Platelet Count 203 k/uL (150-450); RBC 4.33 m/uL (3.80-5.40); WBC 5.5 k/uL (3.8-10.6)
[2017-12-06 12:56] LABS: INR 1.1 (<1.2); Prothrombin Time 10.8 sec (9.0-12.0)
[2017-12-06 13:00] LABS: Albumin 3.4 g/dL (3.5-5.0); Calcium 9.4 mg/dL (8.4-10.2); Potassium 3.5 mmol/L (3.5-5.1); Total Bilirubin 1.1 mg/dL (0.2-1.3); Total Protein 6.1 g/dL (6.3-8.2)
--- NOTE | 2017-12-06 13:21 | XR ---
EXAMINATION TYPE: XR chest 2V DATE OF EXAM: 12/06/2017 COMPARISON: 11/21/2017 HISTORY: 87-year-old female with weakness and shortness of breath TECHNIQUE: AP and lateral views FINDINGS: Heart normal size. Mild elongation thoracic aorta. Mild diffuse interstitial prominence is unchanged. Strandy atelectasis at the left base. Minimal patchy right upper lobe opacity may be accentuated by the rib end. No other consolidation or pleural effusion. IMPRESSION: Chronic changes. Subtle patchy atelectasis or early infiltrate in the right upper lobe. Correlate wit h patient's symptoms.
[2017-12-06] MEDS ORDERED: SODIUM CHLORIDE 0.9% 1,000 ML IV STA (13:31)
[2017-12-06] MEDS: MAGNESIUM SULFATE-D5W PMX 1 GM in DEXTROSE/WATER 1 100ML.BAG IVPB SCH ×2 (13:32→14:36)
[2017-12-06 13:36] LABS: Creatine Kinase MB 2.1 ng/mL (0.0-2.4); Troponin I 0.034 ng/mL (0.000-0.034)
--- NOTE | 2017-12-06 13:40 | ED ---
General Adult HPI - General Chief complaint: Weakness Stated complaint: Weakness Source: patient, EMS Mode of arrival: wheelchair Limitations: no limitations - History of Present Illness Initial comments: Dictation was produced using [employer] dictation software. please excuse any grammatical, word or spelling errors. Chief Complaint: 87 year old female just finished chemotherapy presents with poor appetite and generalized weakness. History of Present Illness: Patient is a 87-year-old female just completed chemotherapy for breast cancer presents with generalized weakness. 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 She just completed chemotherapy last week. Over the past 3-4 days she has had poor appetite. Denies any pain. She does show generally weak. She has not been eating or drinking for the last couple days. Patient denies any pain complaints. The ROS documented in this emergency department record has been reviewed and confirmed by me. Those systems with pertinent positive or negative responses have been documented in the HPI. All other systems are other negative and/or noncontributory. - Related Data Home Medications Medication Instructions Recorded Confirmed Carvedilol [Coreg] 3.125 mg PO BID 10/12/15 12/06/17 Levothyroxine Sodium [Synthroid] 75 mcg PO DAILY 10/12/15 12/06/17 Aspirin EC [Ecotrin Low Dose] 81 mg PO DAILY 12/29/15 12/06/17 Pravastatin Sodium [Pravachol] 20 mg PO HS 03/12/17 12/06/17 HYDROcodone/APAP 5-325MG [[place] 1 tab PO Q8H PRN 11/11/17 12/06/17 5-325] Losartan/Hydrochlorothiazide 1 tab PO DAILY 11/11/17 12/06/17 [Hyzaar 100-12.5 Tablet] Megestrol [Megace] 400 mg PO BID 12/06/17 12/06/17 Previous Rx's Medication Instructions Recorded Pantoprazole [Protonix] 40 mg PO AC-BID tablet. 03/13/17 Diphenox-Atrop 2.5-0.025 mg 2 tab PO QID PRN #10 tab 11/07/17 [Lomotil] Magnesium 200 mg PO BID #8 tablet 11/11/17 Allergies Allergy/AdvReac Type Severity Reaction Status Date / Time Penicillins Allergy Severe Anaphylaxis Verified 12/06/17 12:17 indomethacin Allergy Unknown Unknown Verified 12/06/17 12:17 iodine Allergy Unknown Unknown Verified 12/06/17 12:17 Iodinated Contrast- Oral and Allergy Unknown Verified 12/06/17 12:17 IV Dye [Iodinated Contrast Media - IV Dye] meperidine HCl [From Demerol] AdvReac Unknown Nausea & Verified 12/06/17 12:17 Vomiting propoxyphene HCl AdvReac Unknown Nausea & Verified 12/06/17 12:17 [From Darvon] Vomiting shellfish derived [Shellfish] AdvReac Unknown Abdominal Verified 12/06/17 12:17 Pain Review of Systems ROS Statement: Those systems with pertinent positive or pertinent negative responses have been documented in the HPI. ROS Other: All systems not noted in ROS Statement are negative. Past Medical History Past Medical History: Cancer, Hypertension, Thyroid Disorder Additional Past Medical History / Comment(s): HX OF BREAST CANCER W/ CHEMOTHERAPY, , ANEMIA OFF AND ON WITH IRON INFUSIONS, LOW THYROID. UTI, constipation. History of Any Multi-Drug Resistant Organisms: None Reported Past Surgical History: Appendectomy, Breast Surgery, Orthopedic Surgery Additional Past Surgical History / Comment(s): LEFT MASTECTOMY, KNEE ARTHROSCOPY. RT HIP REPLACEMENT Past Anesthesia/Blood Transfusion Reactions: Previous Problems w/ Anesthesia Additional Past Anesthesia/Blood Transfusion Reaction / Comment(s): STATES AFTER KNEE SURGERY SHE WAS "JERKING ALL OVER" Past Psychological History: No Psychological Hx Reported Smoking Status: Never smoker Past Alcohol Use History: None Reported Past Drug Use History: None Reported - Past Family History Mother Family Medical History: Myocardial Infarction ([place]) Father Family Medical History: Myocardial Infarction ([place]) General Exam - General Exam Comments Initial Comments: PHYSICAL EXAM: General Impression: Alert and oriented x3, not in acute distress HEENT: Normocephalic atraumatic, extra-ocular movements intact, pupils equal and reactive to light bilaterally, dry mucous membranes Cardiovascular: Heart regular rate and rhythm, S1&S2 audible, no murmurs, rubs or gallops Chest: Lungs clear to auscultation bilaterally, no rhonchi, no wheeze, no rales Abdomen: Bowel sounds present, abdomen soft, non-tender, non-distended, no organomegaly Musculoskeletal: Pulses present and equal in all extremities, no peripheral edema Motor: Power 5/5 bilaterally, no focal deficits noted Neurological: CN II-XII grossly intact, no focal motor or sensory deficits noted Skin: Intact with no visualized rashes Psych: Normal affect and mood Limitations: no limitations Course Vital Signs 12/06/17 12:00 Temperature 98.3 F Pulse Rate 70 Respiratory 18 Rate Blood Pressure 166/70 O2 Sat by Pulse 98 Oximetry Medical Decision Making - Medical Decision Making ED course: 87-year-old female resents with chief complaint of generalized weakness. Signs upon arrival are within acceptable limits. Physical examination shows tight appearing female who appears clinically dehydrated. Laboratory evaluation obtained. There is CBC which shows chronic findings. No leukocytosis. Hemoglobin is 9.0 which appears to be around her patient's baseline. Coag panel is negative. Creatinine renal markers are baseline. Lactic acid level is 2.2. Magnesium is 1.0. Rest metabolic panel is quite unremarkable. Patient's lactic acidosis likely secondary to dehydration. Magnesium level is repleted with Pa[place]au magnesium. Patient also clinically dehydrated. She is given intravenous fluids. Patient be admitted for dehydration and electrolyte abnormality. Patient is understandable and agreeable to disposition. EKG Interpretation: A 12 lead EKG was obtained. It was interpreted by myself and attending physician. There is a P wave before every QRS complex. Rate is 68. Rhythm is sinus rhythm,. Interval 1:30, Q rastafari 78, QTC 429. QT is not prolonged. No ST segment depression or elevation. Overall, this EKG is unremarkable - Lab Data Result diagrams: 12/06/17 12:13 12/06/17 12:13 Lab Results 12/06/17 12/06/17 12/06/17 Range/Units 12:13 12:13 12:13 WBC 5.5 (3.8-10.6) k/uL RBC 4.33 (3.80-5.40) m/uL Hgb 9.0 L (11.4-16.0) gm/dL Hct 28.9 L (34.0-46.0) % MCV 66.8 L (80.0-100.0) fL MCH 20.8 L (25.0-35.0) pg MCHC 31.2 (31.0-37.0) g/dL RDW 17.0 H (11.5-15.5) % Plt Count 203 (150-450) k/uL Neutrophils % 67 % Lymphocytes % 19 % Monocytes % 9 % Eosinophils % 2 % Basophils % 0 % Neutrophils # 3.7 (1.3-7.7) k/uL Lymphocytes # 1.0 (1.0-4.8) k/uL Monocytes # 0.5 (0-1.0) k/uL Eosinophils # 0.1 (0-0.7) k/uL Basophils # 0.0 (0-0.2) k/uL Hypochromasia Moderate Anisocytosis Slight Microcytosis Marked PT (9.0-12.0) sec INR (<1.2) APTT (22.0-30.0) sec Sodium 138 (137-145) mmol/L Potassium 3.5 (3.5-5.1) mmol/L Chloride 101 (98-107) mmol/L Carbon Dioxide 24 (22-30) mmol/L Anion Gap 13 mmol/L BUN 26 H (7-17) mg/dL Creatinine 1.29 H (0.52-1.04) mg/dL Est GFR (CKD-EPI)AfAm 43 (>60 ml/min/1.73 sqM) Est GFR (CKD-EPI)NonAf 38 (>60 ml/min/1.73 sqM) Glucose 127 H (74-99) mg/dL Plasma Lactic Acid Oh (0.7-2.0) mmol/L Calcium 9.4 (8.4-10.2) mg/dL Magnesium 1.0 L* (1.6-2.3) mg/dL Total Bilirubin 1.1 (0.2-1.3) mg/dL AST 46 H (14-36) U/L ALT 35 (9-52) U/L Alkaline Phosphatase 127 H (38-126) U/L Total Creatine Kinase 81 (30-135) U/L CK-MB (CK-2) 2.1 (0.0-2.4) ng/mL CK-MB (CK-2) Rel Index 2.6 Troponin I 0.034 (0.000-0.034) ng/mL Total Protein 6.1 L (6.3-8.2) g/dL Albumin 3.4 L (3.5-5.0) g/dL 12/06/17 12/06/17 Range/Units 12:13 12:13 WBC (3.8-10.6) k/uL RBC (3.80-5.40) m/uL Hgb (11.4-16.0) gm/dL Hct (34.0-46.0) % MCV (80.0-100.0) fL MCH (25.0-35.0) pg MCHC (31.0-37.0) g/dL RDW (11.5-15.5) % Plt Count (150-450) k/uL Neutrophils % % Lymphocytes % % Monocytes % % Eosinophils % % Basophils % % Neutrophils # (1.3-7.7) k/uL Lymphocytes # (1.0-4.8) k/uL Monocytes # (0-1.0) k/uL Eosinophils # (0-0.7) k/uL Basophils # (0-0.2) k/uL Hypochromasia Anisocytosis Microcytosis PT 10.8 (9.0-12.0) sec INR 1.1 (<1.2) APTT 22.0 (22.0-30.0) sec Sodium (137-145) mmol/L Potassium (3.5-5.1) mmol/L Chloride (98-107) mmol/L Carbon Dioxide (22-30) mmol/L Anion Gap mmol/L BUN (7-17) mg/dL Creatinine (0.52-1.04) mg/dL Est GFR (CKD-EPI)AfAm (>60 ml/min/1.73 sqM) Est GFR (CKD-EPI)NonAf (>60 ml/min/1.73 sqM) Glucose (74-99) mg/dL Plasma Lactic Acid Oh 2.2 H* (0.7-2.0) mmol/L Calcium (8.4-10.2) mg/dL Magnesium (1.6-2.3) mg/dL Total Bilirubin (0.2-1.3) mg/dL AST (14-36) U/L ALT (9-52) U/L Alkaline Phosphatase (38-126) U/L Total Creatine Kinase (30-135) U/L CK-MB (CK-2) (0.0-2.4) ng/mL CK-MB (CK-2) Rel Index Troponin I (0.000-0.034) ng/mL Total Protein (6.3-8.2) g/dL Albumin (3.5-5.0) g/dL Disposition Clinical Impression: Hypomagnesemia Disposition: ADMITTED IP TO THIS HOSP Condition: Fair Referrals: Yaneli Duarte MD [Primary Care Provider] - 1-2 days Decision Time: 15:29
[2017-12-06] MEDS ORDERED: NALOXONE 0.4 MG/ML 1 ML VIAL IV PRN (15:26)
[2017-12-06 15:46] VITALS: BP 138/61; PULSE 73; TEMP 98.5
[2017-12-06] MEDS ORDERED: PANTOPRAZOLE 40 MG TABLET PO SCH (17:30)
[2017-12-06] MEDS ORDERED: MAGNESIUM OXIDE 400 MG TAB PO SCH (21:00)
[2017-12-06] MEDS ORDERED: MEGESTROL 400 MG/10 ML CUP PO SCH (21:00)
[2017-12-07] MEDS ORDERED: LEVOTHYROXINE 75 MCG TAB PO SCH (06:30)
[2017-12-07] MEDS ORDERED: ASPIRIN 81 MG PO SCH (09:00)
== END 2017-12-06 16:13 | disposition other institution (70) ==
LOC: EC 11:25 → UNDOADMIN 15:26 → 5ONC 15:26
DX: E83.42 Hypomagnesemia (principal); E87.2 Acidosis; E86.0 Dehydration; C50.919 Malignant neoplasm of unspecified site of unspecified female breast; I10 Essential (primary) hypertension; Z79.82 Long term (current) use of aspirin; Z79.02 Long term (current) use of antithrombotics/antiplatelets; Z79.899 Other long term (current) drug therapy; Z88.0 Allergy status to penicillin; Z88.6 Allergy status to analgesic agent; Z91.041 Radiographic dye allergy status; Z91.048 Other nonmedicinal substance allergy status; Z91.013 Allergy to seafood; Z88.8 Allergy status to other drugs, medicaments and biological substances; Z96.641 Presence of right artificial hip joint; Z90.12 Acquired absence of left breast and nipple
CPT/HCPCS: 99285 ×2; 96365 ×2; 96366 ×2; 36415; 93005; 80053; 82550; 82553; 83605; 83735; 84484; 85025; 85610; 85730; 71046; J3475

== ENCOUNTER 2017-12-08 11:57 | Inpatient (IN) | payer MEDICARE, BC ==
--- NOTE | 2017-12-08 12:15 | ED ---
General Adult HPI - General Chief complaint: Shortness of Breath Stated complaint: GALLO Time Seen by Provider: 12/08/17 12:00 Source: patient, RN notes reviewed Mode of arrival: wheelchair Limitations: no limitations - History of Present Illness Initial comments: This is an 87-year-old female presents emergency Department with a hysterectomy approximately one month ago. Patient states she was having difficulty breathing treatments emergency Department 2 days ago and left AGAINST MEDICAL ADVICE. Patient states that she's been home or difficulty breathing has returned and she feels more short of breath today so she decided come in. Patient denies any cough. Patient denies chest pain or palpitations. Patient denies any lightheadedness dizziness or near syncopal episode. Patient denies any recent fever chills. Patient denies any abdominal pain patient denies nausea vomiting diarrhea. Patient denies any swelling to the legs or calf tenderness. - Related Data Home Medications Medication Instructions Recorded Confirmed Carvedilol [Coreg] 3.125 mg PO BID 10/12/15 12/08/17 Levothyroxine Sodium [Synthroid] 75 mcg PO DAILY 10/12/15 12/08/17 Aspirin EC [Ecotrin Low Dose] 81 mg PO DAILY 12/29/15 12/08/17 Pravastatin Sodium [Pravachol] 20 mg PO HS 03/12/17 12/08/17 HYDROcodone/APAP 5-325MG [[place] 1 tab PO Q8H PRN 11/11/17 12/08/17 5-325] Losartan/Hydrochlorothiazide 1 tab PO DAILY 11/11/17 12/08/17 [Hyzaar 100-12.5 Tablet] Megestrol [Megace] 400 mg PO BID 12/06/17 12/08/17 Previous Rx's Medication Instructions Recorded Pantoprazole [Protonix] 40 mg PO AC-BID tablet. 03/13/17 Diphenox-Atrop 2.5-0.025 mg 2 tab PO QID PRN #10 tab 11/07/17 [Lomotil] Magnesium 200 mg PO BID #8 tablet 11/11/17 Allergies Allergy/AdvReac Type Severity Reaction Status Date / Time Penicillins Allergy Severe Anaphylaxis Verified 12/08/17 12:46 indomethacin Allergy Unknown Unknown Verified 12/08/17 12:46 iodine Allergy Unknown Unknown Verified 12/08/17 12:46 Iodinated Contrast- Oral and Allergy Unknown Verified 12/08/17 12:46 IV Dye [Iodinated Contrast Media - IV Dye] meperidine HCl [From Demerol] AdvReac Unknown Nausea & Verified 12/08/17 12:46 Vomiting propoxyphene HCl AdvReac Unknown Nausea & Verified 12/08/17 12:46 [From Darvon] Vomiting shellfish derived [Shellfish] AdvReac Unknown Abdominal Verified 12/08/17 12:46 Pain Review of Systems ROS Statement: Those systems with pertinent positive or pertinent negative responses have been documented in the HPI. ROS Other: All systems not noted in ROS Statement are negative. Past Medical History Past Medical History: Cancer, Hypertension, Thyroid Disorder Additional Past Medical History / Comment(s): HX OF BREAST CANCER W/ CHEMOTHERAPY, , ANEMIA OFF AND ON WITH IRON INFUSIONS, LOW THYROID. UTI, constipation. History of Any Multi-Drug Resistant Organisms: None Reported Past Surgical History: Appendectomy, Breast Surgery, Orthopedic Surgery Additional Past Surgical History / Comment(s): LEFT MASTECTOMY, KNEE ARTHROSCOPY. RT HIP REPLACEMENT Past Anesthesia/Blood Transfusion Reactions: Previous Problems w/ Anesthesia Additional Past Anesthesia/Blood Transfusion Reaction / Comment(s): STATES AFTER KNEE SURGERY SHE WAS "JERKING ALL OVER" Past Psychological History: No Psychological Hx Reported Smoking Status: Never smoker Past Alcohol Use History: None Reported Past Drug Use History: None Reported - Past Family History Mother Family Medical History: Myocardial Infarction ([place]) Father Family Medical History: Myocardial Infarction ([place]) General Exam - General Exam Comments Initial Comments: GENERAL: Patient is well-developed and well-nourished. Patient is nontoxic and well- hydrated and is in mild distress. ENT: Neck is soft and supple. No significant lymphadenopathy is noted. Oropharynx is clear. Moist mucous membranes. Neck has full range of motion without eliciting any pain. EYES: The sclera were anicteric and conjunctiva were pink and moist. Extraocular movements were intact and pupils were equal round and reactive to light. Eyelids were unremarkable. PULMONARY: Unlabored respirations. Good breath sounds bilaterally. No audible rales rhonchi or wheezing was noted. CARDIOVASCULAR: There is a regular rate and rhythm without any murmurs gallops or rubs. ABDOMEN: Soft and nontender with normal bowel sounds. No palpable organomegaly was noted. There is no palpable pulsatile mass. SKIN: Patient's conjunctiva are pale NEUROLOGIC: Patient is alert and oriented x3. Cranial nerves II through XII are grossly intact. Motor and sensory are also intact. Normal speech, volume and content. Symmetrical smile. MUSCULOSKELETAL: Normal extremities with adequate strength and full range of motion. No lower extremity swelling or edema. No calf tenderness. LYMPHATICS: No significant lymphadenopathy is noted PSYCHIATRIC: Normal psychiatric evaluation. Normal interpersonal interactions appears functionally intact in deals appropriately with others. No signs of depression. No signs of anxiety. Limitations: no limitations Course Vital Signs 12/08/17 12/08/17 12/08/17 12:00 13:07 14:33 Temperature 98.6 F Pulse Rate 84 72 65 Respiratory 16 18 16 Rate Blood Pressure 111/58 139/62 140/63 O2 Sat by Pulse 97 100 98 Oximetry 12/08/17 15:43 Temperature 97.9 F Pulse Rate 95 Respiratory 16 Rate Blood Pressure 155/92 O2 Sat by Pulse 95 Oximetry Medical Decision Making - Medical Decision Making EKG shows sinus rhythm with occasional PAC at 70 bpm UT interval is 128 QRSs 80 QT interval 394 QTC is 449. Patient's EKG shows no ST segment elevation or depression however patient has Q waves in the inferior leads which was seen on a previous EKG. Patient's d-dimer was elevated so CAT scan was done the CAT scan did not show any pulmonary embolism. I spoke with Dr. Duarte he wanted to admit the patient patient will be admitted - Lab Data Result diagrams: 12/08/17 12:21 12/08/17 12:21 Lab Results 12/08/17 12/08/17 12/08/17 Range/Units 12:21 12:21 12:21 WBC 6.2 (3.8-10.6) k/uL RBC 4.17 (3.80-5.40) m/uL Hgb 8.5 L (11.4-16.0) gm/dL Hct 27.6 L (34.0-46.0) % MCV 66.2 L (80.0-100.0) fL MCH 20.5 L (25.0-35.0) pg MCHC 30.9 L (31.0-37.0) g/dL RDW 16.7 H (11.5-15.5) % Plt Count 205 (150-450) k/uL Neutrophils % 69 % Lymphocytes % 19 % Monocytes % 7 % Eosinophils % 2 % Basophils % 1 % Neutrophils # 4.3 (1.3-7.7) k/uL Lymphocytes # 1.2 (1.0-4.8) k/uL Monocytes # 0.4 (0-1.0) k/uL Eosinophils # 0.1 (0-0.7) k/uL Basophils # 0.0 (0-0.2) k/uL Hypochromasia Moderate Anisocytosis Slight Microcytosis Marked PT (9.0-12.0) sec INR (<1.2) APTT (22.0-30.0) sec D-Dimer (<0.60) mg/L FEU Sodium 138 (137-145) mmol/L Potassium 3.4 L (3.5-5.1) mmol/L Chloride 103 (98-107) mmol/L Carbon Dioxide 23 (22-30) mmol/L Anion Gap 12 mmol/L BUN 24 H (7-17) mg/dL Creatinine 1.40 H (0.52-1.04) mg/dL Est GFR (CKD-EPI)AfAm 39 (>60 ml/min/1.73 sqM) Est GFR (CKD-EPI)NonAf 34 (>60 ml/min/1.73 sqM) Glucose 142 H (74-99) mg/dL Lactic Ac Sepsis Rflx Plasma Lactic Acid Oh (0.7-2.0) mmol/L Calcium 9.1 (8.4-10.2) mg/dL Magnesium 1.2 L (1.6-2.3) mg/dL Total Bilirubin 0.8 (0.2-1.3) mg/dL AST 47 H (14-36) U/L ALT 34 (9-52) U/L Alkaline Phosphatase 119 (38-126) U/L Total Creatine Kinase 94 (30-135) U/L CK-MB (CK-2) 2.4 (0.0-2.4) ng/mL CK-MB (CK-2) Rel Index 2.6 Troponin I 0.036 H* (0.000-0.034) ng/mL Total Protein 5.8 L (6.3-8.2) g/dL Albumin 3.2 L (3.5-5.0) g/dL 12/08/17 12/08/1718 Range/Units 12:21 12:49 13:42 WBC (3.8-10.6) k/uL RBC (3.80-5.40) m/uL Hgb (11.4-16.0) gm/dL Hct (34.0-46.0) % MCV (80.0-100.0) fL MCH (25.0-35.0) pg MCHC (31.0-37.0) g/dL RDW (11.5-15.5) % Plt Count (150-450) k/uL Neutrophils % % Lymphocytes % % Monocytes % % Eosinophils % % Basophils % % Neutrophils # (1.3-7.7) k/uL Lymphocytes # (1.0-4.8) k/uL Monocytes # (0-1.0) k/uL Eosinophils # (0-0.7) k/uL Basophils # (0-0.2) k/uL Hypochromasia Anisocytosis Microcytosis PT 11.1 (9.0-12.0) sec INR 1.1 (<1.2) APTT 21.5 L (22.0-30.0) sec D-Dimer 1.70 H (<0.60) mg/L FEU Sodium (137-145) mmol/L Potassium (3.5-5.1) mmol/L Chloride (98-107) mmol/L Carbon Dioxide (22-30) mmol/L Anion Gap mmol/L BUN (7-17) mg/dL Creatinine (0.52-1.04) mg/dL Est GFR (CKD-EPI)AfAm (>60 ml/min/1.73 sqM) Est GFR (CKD-EPI)NonAf (>60 ml/min/1.73 sqM) Glucose (74-99) mg/dL Lactic Ac Sepsis Rflx Y Plasma Lactic Acid Oh 3.6 H* (0.7-2.0) mmol/L Calcium (8.4-10.2) mg/dL Magnesium (1.6-2.3) mg/dL Total Bilirubin (0.2-1.3) mg/dL AST (14-36) U/L ALT (9-52) U/L Alkaline Phosphatase (38-126) U/L Total Creatine Kinase (30-135) U/L CK-MB (CK-2) (0.0-2.4) ng/mL CK-MB (CK-2) Rel Index Troponin I (0.000-0.034) ng/mL Total Protein (6.3-8.2) g/dL Albumin (3.5-5.0) g/dL Disposition Clinical Impression: Dyspnea, Lactic acidosis, Hypomagnesemia Disposition: ADMITTED IP TO THIS HOSP Referrals: Yaneli Duarte MD [Primary Care Provider] - 1-2 days Time of Disposition: 15:57
[2017-12-08 12:41] LABS: Anisocytosis Slight; Basophils % (A) 1 %; Eosinophils # (A) 0.1 k/uL (0-0.7); Eosinophils % (A) 2 %; HCT 27.6 % (34.0-46.0); HGB 8.5 gm/dL (11.4-16.0); Hypochromasia Moderate; Lymphocytes # (A) 1.2 k/uL (1.0-4.8); Lymphocytes % (A) 19 %; MCH 20.5 pg (25.0-35.0); MCHC 30.9 g/dL (31.0-37.0); MCV 66.2 fL (80.0-100.0); Mean Platelet Volume 6.1; Microcytosis Marked; Monocytes # (A) 0.4 k/uL (0-1.0); Monocytes % (A) 7 %; Neutrophils # (A) 4.3 k/uL (1.3-7.7); Neutrophils % (A) 69 %; Platelet Count 205 k/uL (150-450); RBC 4.17 m/uL (3.80-5.40); RDW 16.7 % (11.5-15.5); WBC 6.2 k/uL (3.8-10.6)
--- NOTE | 2017-12-08 12:45 | XR ---
EXAMINATION TYPE: XR chest 2V DATE OF EXAM: 12/08/2017 COMPARISON: 12/06/2017 HISTORY: 87 year-old female shortness of breath and difficulty breathing TECHNIQUE: AP and lateral views FINDINGS: Heart normal size. Elongation/ectasia of the thoracic aorta. Diffuse interstitial prominence is uncha nged and no consolidation or pleural effusion. Previous question right upper to midlung nodule no jovanna jerome demonstrated. IMPRESSION: Interstitial prominence, possible bronchitis or asthma. No focal infiltrate.
[2017-12-08 12:46] LABS: Albumin 3.2 g/dL (3.5-5.0); Calcium 9.1 mg/dL (8.4-10.2); Magnesium 1.2 mg/dL (1.6-2.3); Potassium 3.4 mmol/L (3.5-5.1); Total Bilirubin 0.8 mg/dL (0.2-1.3); Total Protein 5.8 g/dL (6.3-8.2)
[2017-12-08] MEDS ORDERED: MAGNESIUM SULFATE-D5W PMX 1 GM in DEXTROSE/WATER 1 100ML.BAG IVPB ONE (12:50)
[2017-12-08 13:13] LABS: Creatine Kinase MB 2.4 ng/mL (0.0-2.4)
[2017-12-08 13:22] LABS: Troponin I 0.036 ng/mL (0.000-0.034)
[2017-12-08 14:13] LABS: INR 1.1 (<1.2); Partial Thromboplastin Time 21.5 sec (22.0-30.0); Prothrombin Time 11.1 sec (9.0-12.0)
[2017-12-08 14:23] LABS: D-Dimer 1.7 mg/L FEU (<0.60)
[2017-12-08] MEDS ORDERED: methylPREDNISolone SOD SUCCI 125 MG/2 ML VIAL IV STA (14:33)
[2017-12-08] MEDS ORDERED: diphenhydrAMINE 50 MG/ML 1 ML VIAL IVP STA (14:33)
[2017-12-08] MEDS ORDERED: FAMOTIDINE 20 MG/2 ML VIAL IV STA (14:33)
[2017-12-08] MEDS ORDERED: SODIUM CHLORIDE 0.9% 1,000 ML IV ONE ×2 (14:35→15:57)
--- NOTE | 2017-12-08 15:44 | CT ---
EXAMINATION TYPE: CT chest angio for PE DATE OF EXAM: 12/08/2017 COMPARISON: None HISTORY: Difficulty breathing. CT DLP: 188.8 mGycm Automated exposure control for dose reduction was used. CONTRAST: CT Chest for pulmonary embolism performed with with IV Contrast, patient injected with 53ml mL of Iso margarette 370. There are 3-D post processed images. FINDINGS: There is some coarsening of interstitial pulmonary markings. There is groundglass mild interstitial i nfiltrate in the lower lobes. There is no pericardial effusion. There is no pleural effusion. There a re no filling defects in the pulmonary arteries. Thoracic aorta is atheromatous. There is mild aneury smal ascending aorta measures 4 cm. There is no mediastinal adenopathy. There is some spurring in the thoracic spine. Images through the liver show several low density liver masses that measure up to 5 cm. 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 No evidence of pulmonary embolism. Low-density liver masses suggestive of metastatic disease.
[2017-12-08] MEDS ORDERED: Potassium Replacement Protocol 1 EACH MISC MISCELLANE PRN (21:25)
[2017-12-08] MEDS ORDERED: POTASSIUM CHLORIDE ER 20 MEQ TAB.ER PO SCH (22:00)
[2017-12-08] MEDS: HYDROcodone/APAP 5-325MG 1 EACH TAB PO PRN (22:54)
[2017-12-09 01:44] LABS: Appearance,Urine Clear (Clear); Color,Urine Yellow; PH, Urine 5.5 (5.0-8.0); Specific Gravity,Urine 1.017 (1.001-1.035)
[2017-12-09 01:45] LABS: Bilirubin Confirmation, Urine Negative (Negative); Bilirubin,Urine Negative (Negative); Blood,Urine Negative (Negative); Glucose,Urine (UA) Negative (Negative); Ketones,Urine Negative (Negative); Leukocyte Esterase,Urine Moderate (Negative); Nitrite,Urine Negative (Negative); Protein Confirmation,Urine Negative (Negative); Urobilinogen,Urine <2.0 mg/dL (<2.0)
[2017-12-09] MEDS: LEVOTHYROXINE 75 MCG TAB PO SCH (06:23)
[2017-12-09] MEDS: CARVEDILOL 3.125 MG TAB PO SCH ×2 (06:23→15:56)
[2017-12-09] MEDS: PANTOPRAZOLE 40 MG TABLET PO SCH ×2 (06:23→15:55)
[2017-12-09] MEDS: ASPIRIN 81 MG PO SCH (08:11)
[2017-12-09] MEDS: LOSARTAN 50 MG TAB PO SCH (08:12)
[2017-12-09] MEDS: HYDROCHLOROTHIAZIDE 12.5 MG CAP PO SCH (08:12)
[2017-12-09 10:24] LABS: Albumin 2.9 g/dL (3.5-5.0); Calcium 8.7 mg/dL (8.4-10.2); Potassium 3.8 mmol/L (3.5-5.1); Total Bilirubin 0.6 mg/dL (0.2-1.3); Total Protein 5.4 g/dL (6.3-8.2)
--- NOTE | 2017-12-09 10:51 | P.CNPUL ---
History of Present Illness Consult date: 12/09/17 Requesting physician: Yaneli Duarte Reason for consult: dyspnea Chief complaint: Shortness of breath and not feeling well. History of present illness: This is an 87-year-old female with history of multiple medical problems including hypertension, cardiomyopathy, recent hysterectomy, this was done a few weeks ago at [facility]. Patient was brought in to the ER with multiple complaints including not feeling well, some dyspnea on exertion, some vague abdominal discomfort, low-grade fever, no cough no wheezing no chest pain no palpitations, no lightheadedness, no dysuria and no frequency no urgency. Workup in the ER was basically nondiagnostic including a CT of the chest which ruled out thromboembolic disease, and basically showed some nonspecific findings. It also questioned some metastatic lesions on the liver. CT of the chest was negative for pulmonary embolism. Her d-dimer was 1.7 slightly elevated. Lactic acid was slightly elevated on admission, 3.6, follow-up lactic acid was 1.8. Her urine is suggestive of urinary tract infection and looking back at her most recent culture of the urine from 2 weeks ago patient had Klebsiella pneumonia and E. coli infection in the urine. This was dated on 11/11/2017. Patient was given fluids in the ER, admitted, did not receive any antibiotics on admission, but after I evaluated the patient, I recommended at least starting the patient on Rocephin for presumptive urinary tract infection and possible sepsis. Renal functioning was noted to be abnormal, however looking back at her renal functioning over the last 2 years, patient clearly has a stage III renal failure. At is basically unchanged over the last few months. Her hemoglobin was noted to be low at 8.5 and she seems to have what looks like microcytic hypochromic anemia consistent with blood loss, most likely related to her most recent hysterectomy. Her baseline hemoglobin is normally over 10. Hemoglobin on 11/21 2017 was 9.1. Patient tends to have a picture of chronic anemia based on her hemoglobin over the last 4years. But her admission hemoglobin is the lowest it has been in the last few years. When I evaluated the patient, the patient denied actually shortness of breath, she said she was feeling fine, she denied any headache, no blurred vision no dizziness, no cough no wheezing no nausea no vomiting no abdominal pain no melena no hematemesis. Her Hemoccult stool was negative on admission. Review of Systems 14 point review of systems were obtained, please refer to pertinent positives and negatives as noted in HPI. Otherwise remaining systems are negative Past Medical History Past Medical History: Cancer, Hyperlipidemia, Hypertension, Thyroid Disorder Additional Past Medical History / Comment(s): HX OF BREAST CANCER W/ CHEMOTHERAPY, , ANEMIA OFF AND ON WITH IRON INFUSIONS, LOW THYROID. UTI, constipation. History of Any Multi-Drug Resistant Organisms: None Reported Past Surgical History: Appendectomy, Breast Surgery, Orthopedic Surgery Additional Past Surgical History / Comment(s): LEFT MASTECTOMY, KNEE ARTHROSCOPY. RT HIP REPLACEMENT Past Anesthesia/Blood Transfusion Reactions: No Reported Reaction Additional Past Anesthesia/Blood Transfusion Reaction / Comment(s): STATES AFTER KNEE SURGERY SHE WAS "JERKING ALL OVER" Past Psychological History: No Psychological Hx Reported Additional Psychological History / Comment(s): LIVES WITH SIG OTHER FOR OVER 30 YEARS Smoking Status: Never smoker Past Alcohol Use History: None Reported Past Drug Use History: None Reported - Past Family History Mother Family Medical History: Myocardial Infarction ([place]) Father Family Medical History: Myocardial Infarction ([place]) Medications and Allergies Home Medications Medication Instructions Recorded Confirmed Type Carvedilol [Coreg] 3.125 mg PO BID 10/12/15 12/08/17 History Levothyroxine Sodium [Synthroid] 75 mcg PO DAILY 10/12/15 12/08/17 History Aspirin EC [Ecotrin Low Dose] 81 mg PO DAILY 12/29/15 12/08/17 History Pravastatin Sodium [Pravachol] 20 mg PO HS 03/12/17 12/08/17 History Pantoprazole [Protonix] 40 mg PO AC-BID tablet. 03/13/17 12/08/17 Rx Diphenox-Atrop 2.5-0.025 mg 2 tab PO QID PRN #10 tab 11/07/17 12/08/17 Rx [Lomotil] HYDROcodone/APAP 5-325MG [[place] 1 tab PO Q8H PRN 11/11/17 12/08/17 History 5-325] Losartan/Hydrochlorothiazide 1 tab PO DAILY 11/11/17 12/08/17 History [Hyzaar 100-12.5 Tablet] Magnesium 200 mg PO BID #8 tablet 11/11/17 12/08/17 Rx Megestrol [Megace] 400 mg PO BID 12/06/17 12/08/17 History Allergies Allergy/AdvReac Type Severity Reaction Status Date / Time Penicillins Allergy Severe Anaphylaxis Verified 12/08/17 12:46 indomethacin Allergy Unknown Unknown Verified 12/08/17 12:46 iodine Allergy Unknown Unknown Verified 12/08/17 12:46 Iodinated Contrast- Oral and Allergy Unknown Verified 12/08/17 12:46 IV Dye [Iodinated Contrast Media - IV Dye] meperidine HCl [From Demerol] AdvReac Unknown Nausea & Verified 12/08/17 12:46 Vomiting propoxyphene HCl AdvReac Unknown Nausea & Verified 12/08/17 12:46 [From Darvon] Vomiting shellfish derived [Shellfish] AdvReac Unknown Abdominal Verified 12/08/17 12:46 Pain Physical Exam Vitals: Vital Signs Temp Pulse Pulse Resp BP BP Pulse Ox 12/09/17 04:00 98.1 F 63 18 124/77 97 12/09/17 00:00 98.2 F 74 18 136/84 98 12/08/17 20:00 98.8 F 83 18 102/60 99 12/08/17 17:00 97.7 F 88 18 133/83 99 12/08/17 15:43 97.9 F 95 16 155/92 95 12/08/17 14:33 65 16 140/63 98 12/08/17 13:07 72 18 139/62 100 12/08/17 12:00 98.6 F 84 16 111/58 97 Intake and Output 12/08/17 12/09/17 12/09/17 22:59 06:59 14:59 Intake Total 240 240 Output Total 300 600 Balance -60 -360 Intake: Oral 240 240 Output: Urine 300 600 Other: # Voids 2 Weight 66.5 kg Physical Exam: Revealed an 87-year-old female in no distress. Looks slightly pale. Head: Atraumatic, normocephalic. HEENT:[Neck is supple.] [No neck masses.] [No thyromegaly.] [No JVD.] Chest: [Clear throughout, no crackles, no rhonchi, no wheezes.] Cardiac Exam: [Normal S1 and S2, no S3 gallop, no murmur.] Abdomen: [Soft, nontender, no megaly, no rebound, no guarding, normal bowel sounds.] Extremities: [No clubbing, no edema, no cyanosis.] Neurological Exam: [No focal neurologic deficit.] Psychiatric: Normal mood affect and mental status examination. Lymphatics: No lymphadenopathy. Results - Laboratory Findings CBC and BMP: 12/08/17 12:21 12/09/17 09:32 PT/INR, D-dimer PT 11.1 sec (9.0-12.0) 12/08/17 13:42 INR 1.1 (<1.2) 12/08/17 13:42 D-Dimer 1.70 mg/L FEU (<0.60) H 12/08/17 13:42 Abnormal lab findings: Abnormal Labs 12/08/17 12/08/17 12/08/17 12:21 12:21 12:21 Hgb 8.5 L Hct 27.6 L MCV 66.2 L MCH 20.5 L MCHC 30.9 L RDW 16.7 H APTT D-Dimer Potassium 3.4 L Carbon Dioxide BUN 24 H Creatinine 1.40 H Glucose 142 H Plasma Lactic Acid Oh Magnesium 1.2 L AST 47 H Troponin I 0.036 H* Total Protein 5.8 L Albumin 3.2 L 12/08/17 12/08/17 12/09/17 12:21 13:42 09:32 Hgb Hct MCV MCH MCHC RDW APTT 21.5 L D-Dimer 1.70 H Potassium Carbon Dioxide 20 L BUN 20 H Creatinine 1.25 H Glucose 231 H Plasma Lactic Acid Oh 3.6 H* Magnesium AST 42 H Troponin I Total Protein 5.4 L Albumin 2.9 L - Diagnostic Findings Chest x-ray: image reviewed CT scan - chest: image reviewed (As noted in HPI.) Assessment and Plan Assessment: Impression: 1 dyspnea on exertion, nonspecific but felt to be multifactorial, suspect that the patient has worsening anemia, and sepsis., doubt any underlying COPD, doubt any significant abnormality noted on CT of the chest itself. 2 urinary tract infection with fever, elevated lactic acid on admission, could be early sepsis from urinary tract infection. Hence I would recommend empirically Rocephin until the urine cultures are available. Patient had recent urinary tract infection secondary to Klebsiella pneumoniae and E. coli. Both were sensitive to Rocephin. 3 abnormal findings on the liver noted on the CT of the chest, radiologist questioned metastatic spots on the liver, hence I recommended ultrasound, May have to consider ultrasound guided or CT-guided biopsy of liver lesions. 4 chronic anemia, will likely need further workup on outpatient basis if not already done. 5 multiple comorbidities including hypertension, hypothyroidism, remote history of breast cancer and chemotherapy, osteoarthritis, chronic kidney disease stage III, Recommendation: Continue present antibiotics/Rocephin evaluate liver for questionable metastatic lesions on the liver, will follow. Patient was basically asymptomatic and did not complain any shortness of breath during my evaluation. Time with Patient: Greater than 30
[2017-12-09] MEDS: HYDROcodone/APAP 5-325MG 1 EACH TAB PO PRN ×2 (10:58→20:46)
[2017-12-09] MEDS: cefTRIAXone IN SWFI 1,000 MG/10 ML SYRINGE IVP SCH (10:59)
[2017-12-09] MEDS ORDERED: LEVOFLOXACIN 250MG-D5W PMX 250 MG in DEXTROSE/WATER 1 50ML.BAG IVPB SCH (11:00)
--- NOTE | 2017-12-09 12:40 | P.HPIM ---
History of Present Illness H&P Date: 12/09/17 Chief Complaint: Shortness of breath and weakness This is a 87-year-old patient presents to the emergency room complaining of increased difficulty breathing for the past 2 days. Patient presents to the emergency room 2 days ago and left AGAINST MEDICAL ADVICE. Patient states that she then went home but started experiencing difficulty in breathing again. She also is complaining that she has been having increased weakness. Patient has a past medical history of hypertension, cardiomyopathy recent hysterectomy for cancer at [facility]. Also has a history of breast cancer with chemotherapy. Additional history includes hypothyroidism left vasectomy and orthopedic surgery. X-ray completed emergency room showing interstitial prominence, possible bronchitis or asthma. No focal infiltrate. D-dimer 1.70. 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 No evidence of pulmonary embolus and. Low-density liver masses suggestive of metastases disease. EKG completed showing sinus rhythm with premature atrial complexes, low voltage QRS, left anterior fascicular block, inferior infarct, age undetermined. Troponin 0.036. Patient denies chest pain at this time. Repeat troponins ordered. Urinary analysis showing moderate amount of leukocyte Estrace. Urine culture has been ordered. Initial lactic acid 3.6. Repeat 1.8. Oatient started on Rocephin. Dr. Menon per pulmonary services consulted. Dr. Sims per oncology consulted. Patient denies chest pain or shortness breath. Denies nausea vomiting diarrhea. Denies any urinary burning or frequency. Review of Systems Please refer to HPI otherwise unremarkable Past Medical History Past Medical History: Cancer, Hyperlipidemia, Hypertension, Thyroid Disorder Additional Past Medical History / Comment(s): HX OF BREAST CANCER W/ CHEMOTHERAPY, , ANEMIA OFF AND ON WITH IRON INFUSIONS, LOW THYROID. UTI, constipation. History of Any Multi-Drug Resistant Organisms: None Reported Past Surgical History: Appendectomy, Breast Surgery, Orthopedic Surgery Additional Past Surgical History / Comment(s): LEFT MASTECTOMY, KNEE ARTHROSCOPY. RT HIP REPLACEMENT Past Anesthesia/Blood Transfusion Reactions: No Reported Reaction Additional Past Anesthesia/Blood Transfusion Reaction / Comment(s): STATES AFTER KNEE SURGERY SHE WAS "JERKING ALL OVER" Past Psychological History: No Psychological Hx Reported Additional Psychological History / Comment(s): LIVES WITH SIG OTHER FOR OVER 30 YEARS Smoking Status: Never smoker Past Alcohol Use History: None Reported Past Drug Use History: None Reported - Past Family History Mother Family Medical History: Myocardial Infarction ([place]) Father Family Medical History: Myocardial Infarction [place]) Medications and Allergies Home Medications Medication Instructions Recorded Confirmed Type Carvedilol [Coreg] 3.125 mg PO BID 10/12/15 12/08/17 History Levothyroxine Sodium [Synthroid] 75 mcg PO DAILY 10/12/15 12/08/17 History Aspirin EC [Ecotrin Low Dose] 81 mg PO DAILY 12/29/15 12/08/17 History Pravastatin Sodium [Pravachol] 20 mg PO HS 03/12/17 12/08/17 History Pantoprazole [Protonix] 40 mg PO AC-BID tablet. 03/13/17 12/08/17 Rx Diphenox-Atrop 2.5-0.025 mg 2 tab PO QID PRN #10 tab 11/07/17 12/08/17 Rx [Lomotil] HYDROcodone/APAP 5-325MG [[place] 1 tab PO Q8H PRN 11/11/17 12/08/17 History 5-325] Losartan/Hydrochlorothiazide 1 tab PO DAILY 11/11/17 12/08/17 History [Hyzaar 100-12.5 Tablet] Magnesium 200 mg PO BID #8 tablet 11/11/17 12/08/17 Rx Megestrol [Megace] 400 mg PO BID 12/06/17 12/08/17 History Allergies Allergy/AdvReac Type Severity Reaction Status Date / Time Penicillins Allergy Severe Anaphylaxis Verified 12/08/17 12:46 indomethacin Allergy Unknown Unknown Verified 12/08/17 12:46 iodine Allergy Unknown Unknown Verified 12/08/17 12:46 Iodinated Contrast- Oral and Allergy Unknown Verified 12/08/17 12:46 IV Dye [Iodinated Contrast Media - IV Dye] meperidine HCl [From Demerol] AdvReac Unknown Nausea & Verified 12/08/17 12:46 Vomiting propoxyphene HCl AdvReac Unknown Nausea & Verified 12/08/17 12:46 [From Darvon] Vomiting shellfish derived [Shellfish] AdvReac Unknown Abdominal Verified 12/08/17 12:46 Pain Physical Exam Vitals: Vital Signs Temp Pulse Pulse Resp BP BP Pulse Ox 12/09/17 08:00 98.6 F 76 18 167/70 96 12/09/17 04:00 98.1 F 63 18 124/77 97 12/09/17 00:00 98.2 F 74 18 136/84 98 12/08/17 20:00 98.8 F 83 18 102/60 99 12/08/17 17:00 97.7 F 88 18 133/83 99 12/08/17 15:43 97.9 F 95 16 155/92 95 12/08/17 14:33 65 16 140/63 98 12/08/17 13:07 72 18 139/62 100 Intake and Output 12/08/17 12/09/17 12/09/17 22:59 06:59 14:59 Intake Total 240 240 Output Total 300 600 Balance -60 -360 Intake: Oral 240 240 Output: Urine 300 600 Other: # Voids 2 Weight 66.5 kg Head normocephalic Neck supple Lungs clear to auscultation bilaterally no wheezing or crackles Heart regular rate and rhythm S1-S2, no rub or gallop Abdomen is soft nontender nondistended positive bowel sounds no hepatosplenomegaly Extremities no edema Neuro alert and orientated to 3 Results CBC & Chem 7: 12/08/17 12:21 12/09/17 09:32 Labs: Abnormal Lab Results - Last 24 Hours (Table) 12/08/17 12/08/17 12/08/17 Range/Units 12:21 12:21 12:21 Hgb 8.5 L (11.4-16.0) gm/dL Hct 27.6 L (34.0-46.0) % MCV 66.2 L (80.0-100.0) fL MCH 20.5 L (25.0-35.0) pg MCHC 30.9 L (31.0-37.0) g/dL RDW 16.7 H (11.5-15.5) % APTT (22.0-30.0) sec D-Dimer (<0.60) mg/L FEU Potassium 3.4 L (3.5-5.1) mmol/L Carbon Dioxide (22-30) mmol/L BUN 24 H (7-17) mg/dL Creatinine 1.40 H (0.52-1.04) mg/dL Glucose 142 H (74-99) mg/dL Plasma Lactic Acid Oh (0.7-2.0) mmol/L Magnesium 1.2 L (1.6-2.3) mg/dL AST 47 H (14-36) U/L Troponin I 0.036 H* (0.000-0.034) ng/mL Total Protein 5.8 L (6.3-8.2) g/dL Albumin 3.2 L (3.5-5.0) g/dL 12/08/17 12/08/17 12/09/17 Range/Units 12:21 13:42 09:32 Hgb (11.4-16.0) gm/dL Hct (34.0-46.0) % MCV (80.0-100.0) fL MCH (25.0-35.0) pg MCHC (31.0-37.0) g/dL RDW (11.5-15.5) % APTT 21.5 L (22.0-30.0) sec D-Dimer 1.70 H (<0.60) mg/L FEU Potassium (3.5-5.1) mmol/L Carbon Dioxide 20 L (22-30) mmol/L BUN 20 H (7-17) mg/dL Creatinine 1.25 H (0.52-1.04) mg/dL Glucose 231 H (74-99) mg/dL Plasma Lactic Acid Oh 3.6 H* (0.7-2.0) mmol/L Magnesium (1.6-2.3) mg/dL AST 42 H (14-36) U/L Troponin I (0.000-0.034) ng/mL Total Protein 5.4 L (6.3-8.2) g/dL Albumin 2.9 L (3.5-5.0) g/dL 12/09/17 12/09/17 Range/Units 09:32 09:32 Hgb (11.4-16.0) gm/dL Hct (34.0-46.0) % MCV (80.0-100.0) fL MCH (25.0-35.0) pg MCHC (31.0-37.0) g/dL RDW (11.5-15.5) % APTT (22.0-30.0) sec D-Dimer (<0.60) mg/L FEU Potassium (3.5-5.1) mmol/L Carbon Dioxide (22-30) mmol/L BUN (7-17) mg/dL Creatinine (0.52-1.04) mg/dL Glucose (74-99) mg/dL Plasma Lactic Acid Oh (0.7-2.0) mmol/L Magnesium 1.3 L (1.6-2.3) mg/dL AST (14-36) U/L Troponin I 0.036 H* (0.000-0.034) ng/mL Total Protein (6.3-8.2) g/dL Albumin (3.5-5.0) g/dL Microbiology - Last 24 Hours (Table) 12/09/17 01:00 Urine Culture - Preliminary Urine,Voided Thrombosis Risk Factor Assmnt - Choose All That Apply Any of the Below Risk Factors Present?: Yes Each Factor Represents 1 point: Heart failure (<1month) Other Risk Factors: Yes Each Risk Factor Represents 3 Points: Age 75 years or older Thrombosis Risk Factor Assessment Total Risk Factor Score: 4 Thrombosis Risk Factor Assessment Level: Moderate Risk Assessment and Plan Assessment: 1. Dyspnea on exertion. D-dimer elevated at 1.70. CTA negative for pulmonary embolism. X-ray completed showing interstitial prominence, possible bronchitis or asthma. No focal infiltrate. Dr. Menon for pulmonary has been consulted. Per Dr. Menon could be multifactorial could be due to worsening anemia and possible sepsis related to UTI. 2. Urinary tract infection. Patient febrile and elevated lactic acid at 3.6 on admission. Repeat lactic acid 1.8. Urine and blood cultures has been ordered. She currently on IV antibiotic Rocephin 3. History of breast cancer. Patient recently underwent hysterectomy. Patient states she's had chemotherapy but did not complete her radiation. CTA showing low density liver masses suggestive of metastases disease. Ultrasound of liver ordered per Dr. Menon. Dr. Sims per oncology has been consulted. 4. Chronic Anemia. Patient has required iron infusions in the past. Hemoglobin 8.5. Dr. Sims per oncology services have been consulted. 5. Chronic daily disease stage III. Initial creatinine 1.40 and bun 44. Levels are trending down. We'll continue to monitor closely 6. Essential hypertension. Patient currently on Coreg, hydrochlorothiazide and Cozaar 7. Hypothyroidism. continue Synthroid 8. Osteoarthritis 9. Hyperlipidemia. Home pravastatin on hold due to elevated liver enzyme 10. Elevated troponin level. Initial troponin 0.036. EKG completed showing sinus rhythm with premature atrial complexes, low voltage QRS left anterior fascicular block. Inferior infarct, age undetermined. Repeat troponins have been ordered. Patient denies chest pain. DVT prophylaxis Lovenox and GI prophylaxis Protonix. Time with Patient: Greater than 30 (Greater than 60% of the total time spent in counseling and coordination of care. I performed an examination of the patient and discussed their management with the Nurse Practitioner. I have reviewed the Nurse Practitioner's notes and agree with the documented findings and plan of care)
--- NOTE | 2017-12-09 15:03 | P.CONS ---
History of Present Illness - Reason for Consult Consult date: 12/09/17 Recent Diagnosi Uterine Cancer Requesting physician: Yaneli Duarte - Chief Complaint Shortness of breath - History of Present Illness This is a very nice lady who was diagnosed with G3,poorly differentiated endometroid adenocarcinoma of uterus on when she presented with abnormal vaginal bleeding and had endometrial biopsy which confirmed the diagnosis. She was seen by Dr Laura Paulino at [facility],surgery was recommended. She had a PET scan on 06/13/2017 at [facility] which revealed suspicious uptake in the body and fundus of uterus,very small non specific lung nodule ( sub centimeter)w/o suspicious uptake. 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 She was last seen in our office on September 10, 2017. At this time a discussion regarding adjuvant treatment had resulted in her foregoing adjuvant chemotherapy and opting for pelvic radiation. Since then she has been under the care of Dr. Rabbi Paulino and Dr. Jara. She now presents to [facility], after presenting two days prior to ED (leaving against medical advice) for persistent shortness of breath. Past Medical History Past Medical History: Cancer, Hyperlipidemia, Hypertension, Thyroid Disorder Additional Past Medical History / Comment(s): HX OF BREAST CANCER W/ CHEMOTHERAPY, , ANEMIA OFF AND ON WITH IRON INFUSIONS, LOW THYROID. UTI, constipation. History of Any Multi-Drug Resistant Organisms: None Reported Past Surgical History: Appendectomy, Breast Surgery, Orthopedic Surgery Additional Past Surgical History / Comment(s): LEFT MASTECTOMY, KNEE ARTHROSCOPY. RT HIP REPLACEMENT Past Anesthesia/Blood Transfusion Reactions: No Reported Reaction Additional Past Anesthesia/Blood Transfusion Reaction / Comm: STATES AFTER KNEE SURGERY SHE WAS "JERKING ALL OVER" Past Psychological History: No Psychological Hx Reported Additional Psychological History / Comment(s): LIVES WITH SIG OTHER FOR OVER 30 YEARS Smoking Status: Never smoker Past Alcohol Use History: None Reported Past Drug Use History: None Reported - Past Family History Mother Family Medical History: Myocardial Infarction (PR) Father Family Medical History: Myocardial Infarction (PR) Medications and Allergies Home Medications Medication Instructions Recorded Confirmed Type Carvedilol [Coreg] 3.125 mg PO BID 10/12/15 12/08/17 History Levothyroxine Sodium [Synthroid] 75 mcg PO DAILY 10/12/15 12/08/17 History Aspirin EC [Ecotrin Low Dose] 81 mg PO DAILY 12/29/15 12/08/17 History Pravastatin Sodium [Pravachol] 20 mg PO HS 03/12/17 12/08/17 History Pantoprazole [Protonix] 40 mg PO AC-BID tablet. 03/13/17 12/08/17 Rx Diphenox-Atrop 2.5-0.025 mg 2 tab PO QID PRN #10 tab 11/07/17 12/08/17 Rx [Lomotil] HYDROcodone/APAP 5-325MG [Trezevant 1 tab PO Q8H PRN 11/11/17 12/08/17 History 5-325] Losartan/Hydrochlorothiazide 1 tab PO DAILY 11/11/17 12/08/17 History [Hyzaar 100-12.5 Tablet] Magnesium 200 mg PO BID #8 tablet 11/11/17 12/08/17 Rx Megestrol [Megace] 400 mg PO BID 12/06/17 12/08/17 History Allergies Allergy/AdvReac Type Severity Reaction Status Date / Time Penicillins Allergy Severe Anaphylaxis Verified 12/08/17 12:46 indomethacin Allergy Unknown Unknown Verified 12/08/17 12:46 iodine Allergy Unknown Unknown Verified 12/08/17 12:46 Iodinated Contrast- Oral and Allergy Unknown Verified 12/08/17 12:46 IV Dye [Iodinated Contrast Media - IV Dye] meperidine HCl [From Demerol] AdvReac Unknown Nausea & Verified 12/08/17 12:46 Vomiting propoxyphene HCl AdvReac Unknown Nausea & Verified 12/08/17 12:46 [From Darvon] Vomiting shellfish derived [Shellfish] AdvReac Unknown Abdominal Verified 12/08/17 12:46 Pain Physical Exam Vitals: Vital Signs Temp Pulse Pulse Resp BP BP Pulse Ox 12/09/17 04:00 98.1 F 63 18 124/77 97 12/09/17 00:00 98.2 F 74 18 136/84 98 12/08/17 20:00 98.8 F 83 18 102/60 99 12/08/17 17:00 97.7 F 88 18 133/83 99 12/08/17 15:43 97.9 F 95 16 155/92 95 12/08/17 14:33 65 16 140/63 98 12/08/17 13:07 72 18 139/62 100 12/08/17 12:00 98.6 F 84 16 111/58 97 Intake and Output 12/08/17 12/08/17 12/09/17 14:59 22:59 06:59 Intake Total 240 Output Total 300 Balance -60 Intake: Oral 240 Output: Urine 300 Other: # Voids 2 Weight 72.575 kg 66.5 kg GENERAL: Patient is well-developed and well-nourished. Mild Distress. ENT: Neck supple. No significant lymphadenopathy is noted. Oropharynx is clear. Moist mucous membranes. EYES: The sclera were anicteric and conjunctiva were pink and moist. PULMONARY: Diminished throughout, No audible rales rhonchi or wheezing was noted. CARDIOVASCULAR: There is a regular rate and rhythm without any murmurs gallops or rubs. ABDOMEN: Soft and nontender with normal bowel sounds. SKIN: No Rash NEUROLOGIC: Patient is alert and oriented x3.Normal speech, volume and content. MUSCULOSKELETAL: Normal extremities with adequate strength and full range of motion. No lower extremity swelling or edema. No calf tenderness. LYMPHATICS: No significant lymphadenopathy is noted Results CBC & Chem 7: 12/08/17 12:21 12/09/17 09:32 Labs: Abnormal Lab Results - Last 24 Hours (Table) 12/08/17 12/08/17 12/08/17 Range/Units 12:21 12:21 12:21 Hgb 8.5 L (11.4-16.0) gm/dL Hct 27.6 L (34.0-46.0) % MCV 66.2 L (80.0-100.0) fL MCH 20.5 L (25.0-35.0) pg MCHC 30.9 L (31.0-37.0) g/dL RDW 16.7 H (11.5-15.5) % APTT (22.0-30.0) sec D-Dimer (<0.60) mg/L FEU Potassium 3.4 L (3.5-5.1) mmol/L BUN 24 H (7-17) mg/dL Creatinine 1.40 H (0.52-1.04) mg/dL Glucose 142 H (74-99) mg/dL Plasma Lactic Acid Oh (0.7-2.0) mmol/L Magnesium 1.2 L (1.6-2.3) mg/dL AST 47 H (14-36) U/L Troponin I 0.036 H* (0.000-0.034) ng/mL Total Protein 5.8 L (6.3-8.2) g/dL Albumin 3.2 L (3.5-5.0) g/dL 12/08/17 12/08/17 Range/Units 12:21 13:42 Hgb (11.4-16.0) gm/dL Hct (34.0-46.0) % MCV (80.0-100.0) fL MCH (25.0-35.0) pg MCHC (31.0-37.0) g/dL RDW (11.5-15.5) % APTT 21.5 L (22.0-30.0) sec D-Dimer 1.70 H (<0.60) mg/L FEU Potassium (3.5-5.1) mmol/L BUN (7-17) mg/dL Creatinine (0.52-1.04) mg/dL Glucose (74-99) mg/dL Plasma Lactic Acid Oh 3.6 H* (0.7-2.0) mmol/L Magnesium (1.6-2.3) mg/dL AST (14-36) U/L Troponin I (0.000-0.034) ng/mL Total Protein (6.3-8.2) g/dL Albumin (3.5-5.0) g/dL CT scan - chest: report reviewed Assessment and Plan Plan: Assessment and Recommendations: 1. G3,poorly differentiated endometroid adenocarcinoma of uterus Diagnosed on - Underwent Total Hysterectomy with Bilateral Oopherectomy on 08/15/17 - She is status Post 50% of her adjuvant Radiation, although opted to discontinue treatment to better support her partner who was recently diagnosed with esophageal cancer. She received Radiation through [facility] with Dr. Jara - CT scan ?recurrence/progressive disease. Will follow-up with Dr. Paulino as outpatient for options related to systemic treatment. 2. Acute Hypoxic Respiratory Failure - CTA Reviewed, no evidence of Pulmonary Embolism. 3. Microcytic Anemia - Appears Chronic - No obvious signs of bleeding - Check Iron Studies and will replace if appropriate Physician Attestation: I have completed the full history and physical of this patient and agree with above dictation by Ernestina Rodriguez NP. Dictated as a scribe
[2017-12-09 15:26] LABS: Reticulocyte % 2.8 % (0.5-2.0)
[2017-12-09] MEDS ORDERED: PRAVASTATIN SODIUM 20 MG TAB PO SCH (21:00)
[2017-12-10 03:57] LABS: Anisocytosis Slight; Basophils % (A) 0 %; Eosinophils # (A) 0.1 k/uL (0-0.7); Eosinophils % (A) 1 %; HCT 28.6 % (34.0-46.0); HGB 8.7 gm/dL (11.4-16.0); Hypochromasia Marked; Lymphocytes # (A) 1.6 k/uL (1.0-4.8); Lymphocytes % (A) 11 %; MCH 20.5 pg (25.0-35.0); MCHC 30.3 g/dL (31.0-37.0); MCV 67.6 fL (80.0-100.0); Microcytosis Marked; Monocytes # (A) 0.7 k/uL (0-1.0); Monocytes % (A) 5 %; Neutrophils # (A) 11.7 k/uL (1.3-7.7); Neutrophils % (A) 82 %; Platelet Count 344 k/uL (150-450); RBC 4.23 m/uL (3.80-5.40); RDW 17.4 % (11.5-15.5); WBC 14.4 k/uL (3.8-10.6)
[2017-12-10 04:15] LABS: Albumin 3.3 g/dL (3.5-5.0); Calcium 9.1 mg/dL (8.4-10.2); Potassium 4.3 mmol/L (3.5-5.1); Total Bilirubin 0.6 mg/dL (0.2-1.3); Total Protein 5.9 g/dL (6.3-8.2)
[2017-12-10] MEDS ORDERED: ONDANSETRON 4 MG TAB PO PRN (05:40)
[2017-12-10] MEDS: PANTOPRAZOLE 40 MG TABLET PO SCH ×2 (06:16→17:46)
[2017-12-10] MEDS: LEVOTHYROXINE 75 MCG TAB PO SCH (06:16)
[2017-12-10] MEDS: CARVEDILOL 3.125 MG TAB PO SCH (06:16)
[2017-12-10] MEDS: cefTRIAXone IN SWFI 1,000 MG/10 ML SYRINGE IVP SCH (08:14)
[2017-12-10 08:15] LABS: Anisocytosis Slight; Basophils % (A) 0 %; Eosinophils # (A) 0.2 k/uL (0-0.7); Eosinophils % (A) 1 %; HGB 8.9 gm/dL (11.4-16.0); Hypochromasia Marked; Lymphocytes # (A) 1.6 k/uL (1.0-4.8); Lymphocytes % (A) 13 %; MCH 20.6 pg (25.0-35.0); MCHC 30.7 g/dL (31.0-37.0); MCV 67.1 fL (80.0-100.0); Mean Platelet Volume 6.4; Microcytosis Marked; Monocytes # (A) 0.6 k/uL (0-1.0); Monocytes % (A) 5 %; Neutrophils % (A) 79 %; Platelet Count 344 k/uL (150-450); RBC 4.33 m/uL (3.80-5.40); RDW 17.4 % (11.5-15.5); WBC 12.6 k/uL (3.8-10.6)
[2017-12-10] MEDS ORDERED: ENOXAPARIN 40 MG/0.4 ML SYRINGE SQ SCH (09:00)
[2017-12-10] MEDS: HYDROCHLOROTHIAZIDE 12.5 MG CAP PO SCH (09:49)
[2017-12-10] MEDS: LOSARTAN 50 MG TAB PO SCH (09:49)
[2017-12-10] MEDS: ASPIRIN 81 MG PO SCH (09:49)
--- NOTE | 2017-12-10 09:53 | US ---
EXAMINATION TYPE: US liver DATE OF EXAM: 12/10/2017 COMPARISON: CT 12/08/17 CLINICAL HISTORY: liver masses on ct ?. EXAM MEASUREMENTS: Liver Length: 13.5 cm Gallbladder Wall: 0.1 cm CBD: 0.3 cm Right Kidney: 9.9 x 3.9 x 3.7 cm Pancreas: Tail obscured by overlying bowel gas Liver: multiple masses seen. Largest 4 measured: 1) Left lobe = 8.0 x 7.7 x 4.4 cm with some vascular flow 2) Right lobe, posterior = 5.0 x 3.6 x 4.7 3) Right lobe, posterior = 3.6 cm 4) Right lobe, anterior = 4.6 cm Gallbladder: wnl Evidence for sonographic Sousa's sign: No CBD: wnl Right Kidney: wnl IMPRESSION: 1. Multiple hepatic masses, the largest ranging from 3.6 to 8 cm.
[2017-12-10] MEDS: HYDROcodone/APAP 5-325MG 1 EACH TAB PO PRN ×2 (09:55→17:46)
[2017-12-10 11:37] LABS: Iron Saturation 46.5 (12.00-45.00)
[2017-12-10 11:54] LABS: Folate, Serum 7.8 ng/mL
--- NOTE | 2017-12-10 12:19 | P.PN ---
Subjective Progress Note Date: 12/10/17 Principal diagnosis: Generalized malaise This is an 87-year-old female with history of multiple medical problems including hypertension, cardiomyopathy, recent hysterectomy, this was done a few weeks ago at [facility]. Patient was brought in to the ER with multiple complaints including not feeling well, some dyspnea on exertion, some vague abdominal discomfort, low-grade fever, no cough no wheezing no chest pain no palpitations, no lightheadedness, no dysuria and no frequency no urgency. Workup in the ER was basically nondiagnostic including a CT of the chest which ruled out thromboembolic disease, and basically showed some nonspecific findings. It also questioned some metastatic lesions on the liver. CT of the chest was negative for pulmonary embolism. Her d-dimer was 1.7 slightly elevated. Lactic acid was slightly elevated on admission, 3.6, follow-up lactic acid was 1.8. Her urine is suggestive of urinary tract infection and looking back at her most recent culture of the urine from 2 weeks ago patient had Klebsiella pneumonia and E. coli infection in the urine. This was dated on 11/11/2017. Patient was given fluids in the ER, admitted, did not receive any antibiotics on admission, but after I evaluated the patient, I recommended at least starting the patient on Rocephin for presumptive urinary tract infection and possible sepsis. Renal functioning was noted to be abnormal, however looking back at her renal functioning over the last 2 years, patient clearly has a stage III renal failure. At is basically unchanged over the last few months. Her hemoglobin was noted to be low at 8.5 and she seems to have what looks like microcytic hypochromic anemia consistent with blood loss, most likely related to her most recent hysterectomy. Her baseline hemoglobin is normally over 10. Hemoglobin on 11/21 2017 was 9.1. Patient tends to have a picture of chronic anemia based on her hemoglobin over the last 4years. But her admission hemoglobin is the lowest it has been in the last few years. When I evaluated the patient, the patient denied actually shortness of breath, she said she was feeling fine, she denied any headache, no blurred vision no dizziness, no cough no wheezing no nausea no vomiting no abdominal pain no melena no hematemesis. Her Hemoccult stool was negative on admission. The patient was seen again today 12/10/2017 in follow-up in the selective care unit. She is currently awake and alert in no acute distress. She denies any worsening shortness of breath, cough or congestion. She is maintaining good O2 saturations in the mid to upper 90s on room air. She's been afebrile. White count 12.6. Hemoglobin 8.9. Creatinine 1.20. Blood and urine cultures reveal no growth. Ultrasound of the liver reveals multiple hepatic masses the largest ranging from 3.6 to 8 cm. Objective - Vital Signs Vital signs: Vital Signs Temp 96.9 F L 12/10/17 08:10 Pulse 101 H 12/10/17 08:10 Resp 18 12/10/17 08:10 BP 149/70 12/10/17 08:10 Pulse Ox 97 12/10/17 08:10 Intake & Output 12/09/17 12/10/17 12/10/17 18:59 06:59 18:59 Intake Total 702 Output Total 1200 Balance -498 Weight 66.9 kg 66.9 kg Intake: Oral 702 Output: Urine 1200 Other: # Voids 1 - Exam GENERAL EXAM: Alert, active, comfortable in no apparent distress. HEAD: Normocephalic. EYES: Normal reaction of pupils, equal size. NOSE: Clear with pink turbinates. THROAT: No erythema or exudates. NECK: No masses, no JVD. CHEST: No chest wall deformity. LUNGS: Equal air entry with no crackles, wheeze, rhonchi or dullness. CVS: S1 and S2 normal with no audible murmur, regular rhythm. ABDOMEN: No hepatosplenomegaly, normal bowel sounds, no guarding or rigidity. SPINE: No scoliosis or deformity SKIN: No rashes CENTRAL NERVOUS SYSTEM: No focal deficits, tone is normal in all 4 extremities. EXTREMITIES: There is no peripheral edema. No clubbing, no cyanosis. Peripheral pulses are intact. - Labs CBC & Chem 7: 12/10/17 07:39 12/10/17 03:32 Labs: Abnormal Lab Results - Last 24 Hours (Table) 12/09/17 12/09/17 12/10/17 Range/Units 15:05 15:05 03:32 WBC (3.8-10.6) k/uL Hgb (11.4-16.0) gm/dL Hct (34.0-46.0) % MCV (80.0-100.0) fL MCH (25.0-35.0) pg MCHC (31.0-37.0) g/dL RDW (11.5-15.5) % Neutrophils # (1.3-7.7) k/uL Retic Count 2.8 H (0.5-2.0) % Chloride (98-107) mmol/L Carbon Dioxide (22-30) mmol/L BUN (7-17) mg/dL Creatinine (0.52-1.04) mg/dL Glucose (74-99) mg/dL AST (14-36) U/L Troponin I 0.041 H* 0.046 H* (0.000-0.034) ng/mL Total Protein (6.3-8.2) g/dL Albumin (3.5-5.0) g/dL 12/10/17 12/10/17 12/10/17 Range/Units 03:32 03:32 07:39 WBC 14.4 H 12.6 H (3.8-10.6) k/uL Hgb 8.7 L 8.9 L (11.4-16.0) gm/dL Hct 28.6 L 29.0 L (34.0-46.0) % MCV 67.6 L 67.1 L (80.0-100.0) fL MCH 20.5 L 20.6 L (25.0-35.0) pg MCHC 30.3 L 30.7 L (31.0-37.0) g/dL RDW 17.4 H 17.4 H (11.5-15.5) % Neutrophils # 11.7 H 10.0 H (1.3-7.7) k/uL Retic Count (0.5-2.0) % Chloride 108 H (98-107) mmol/L Carbon Dioxide 20 L (22-30) mmol/L BUN 22 H (7-17) mg/dL Creatinine 1.20 H (0.52-1.04) mg/dL Glucose 105 H (74-99) mg/dL AST 46 H (14-36) U/L Troponin I (0.000-0.034) ng/mL Total Protein 5.9 L (6.3-8.2) g/dL Albumin 3.3 L (3.5-5.0) g/dL Microbiology - Last 24 Hours (Table) 12/09/17 01:00 Urine Culture - Final Urine,Voided 12/08/17 22:22 Blood Culture - Preliminary Blood No Growth after 24 hours 12/08/17 22:39 Blood Culture - Preliminary Blood No Growth after 24 hours Assessment and Plan Assessment: Impression: 1 dyspnea on exertion, nonspecific but felt to be multifactorial, suspect that the patient has worsening anemia, and sepsis., doubt any underlying COPD, doubt any significant abnormality noted on CT of the chest itself. 2 urinary tract infection with fever, elevated lactic acid on admission, could be early sepsis from urinary tract infection. Hence I would recommend empirically Rocephin until the urine cultures are available. Patient had recent urinary tract infection secondary to Klebsiella pneumoniae and E. coli. Both were sensitive to Rocephin. 3 abnormal findings on the liver noted on the CT of the chest, radiologist questioned metastatic spots on the liver, ultrasound of the liver reveals multiple masses of the largest of which is 3.6 x 8 cm. 4 chronic anemia, will likely need further workup on outpatient basis if not already done. 5 history of uterine cancer status post hysterectomy and bilateral salpingo- oophorectomy. The patient only completed 50% of her adjuvant treatments then discontinue them. multiple comorbidities including hypertension, hypothyroidism, remote history of breast cancer and chemotherapy, osteoarthritis, chronic kidney disease stage III, Recommendation: The patient was seen and evaluated by Dr. Abdi. She is currently stable from the pulmonary standpoint. Will most likely require a liver biopsy. Oncology is on the case. We will continue to follow and make further recommendations based on her clinical status. I, the cosigning physician, performed a history & physical examination of the patient. Lungs sounds are clear. Maintaining good O2 saturations in the 90s on room air. I discussed the assessment and plan of care with my nurse practitioner, Donna Finley. I attest to the above note as dictated by her.
--- NOTE | 2017-12-10 12:26 | P.PN ---
Subjective Progress Note Date: 12/10/17 This is a 87-year-old patient presents to the emergency room complaining of increased difficulty breathing for the past 2 days. Patient presents to the emergency room 2 days ago and left AGAINST MEDICAL ADVICE. Patient states that she then went home but started experiencing difficulty in breathing again. She also is complaining that she has been having increased weakness. Patient has a past medical history of hypertension, cardiomyopathy recent hysterectomy for cancer at [facility]. Also has a history of breast cancer with chemotherapy. Additional history includes hypothyroidism left vasectomy and orthopedic surgery. X-ray completed emergency room showing interstitial prominence, possible bronchitis or asthma. No focal infiltrate. D-dimer 1.70. 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 No evidence of pulmonary embolus and. Low-density liver masses suggestive of metastases disease. EKG completed showing sinus rhythm with premature atrial complexes, low voltage QRS, left anterior fascicular block, inferior infarct, age undetermined. Troponin 0.036. Patient denies chest pain at this time. Repeat troponins ordered. Urinary analysis showing moderate amount of leukocyte Estrace. Urine culture has been ordered. Initial lactic acid 3.6. Repeat 1.8. patient started on Rocephin. Dr. Menon per pulmonary services consulted. Dr. Sims per oncology consulted. Patient denies chest pain or shortness breath. Denies nausea vomiting diarrhea. Denies any urinary burning or frequency. On 12/10/2017 patient is currently resting comfortably in bed. At this time patient denies any shortness of breath or chest pain. Denies any nausea vomiting or diarrhea. Denies any urinary frequency or burning. Objective - Vital Signs Vital signs: Vital Signs Temp 96.9 F L 12/10/17 08:10 Pulse 101 H 12/10/17 08:10 Resp 18 12/10/17 08:10 BP 149/70 12/10/17 08:10 Pulse Ox 97 12/10/17 08:10 Intake & Output 12/09/17 12/10/17 12/10/17 18:59 06:59 18:59 Intake Total 702 Output Total 1200 Balance -498 Weight 66.9 kg 66.9 kg Intake: Oral 702 Output: Urine 1200 Other: # Voids 1 - Exam Head normocephalic Neck supple Lungs clear to auscultation bilaterally no wheezing or crackles Heart regular rate and rhythm S1-S2, no rub or gallop Abdomen is soft nontender nondistended positive bowel sounds no hepatosplenomegaly Extremities no edema Neuro alert and orientated to 3 - Labs CBC & Chem 7: 12/10/17 07:39 12/10/17 03:32 Labs: Abnormal Lab Results - Last 24 Hours (Table) 12/09/17 12/09/17 12/10/17 Range/Units 15:05 15:05 03:32 WBC (3.8-10.6) k/uL Hgb (11.4-16.0) gm/dL Hct (34.0-46.0) % MCV (80.0-100.0) fL MCH (25.0-35.0) pg MCHC (31.0-37.0) g/dL RDW (11.5-15.5) % Neutrophils # (1.3-7.7) k/uL Retic Count 2.8 H (0.5-2.0) % Chloride (98-107) mmol/L Carbon Dioxide (22-30) mmol/L BUN (7-17) mg/dL Creatinine (0.52-1.04) mg/dL Glucose (74-99) mg/dL AST (14-36) U/L Troponin I 0.041 H* 0.046 H* (0.000-0.034) ng/mL Total Protein (6.3-8.2) g/dL Albumin (3.5-5.0) g/dL 12/10/17 12/10/17 12/10/17 Range/Units 03:32 03:32 07:39 WBC 14.4 H 12.6 H (3.8-10.6) k/uL Hgb 8.7 L 8.9 L (11.4-16.0) gm/dL Hct 28.6 L 29.0 L (34.0-46.0) % MCV 67.6 L 67.1 L (80.0-100.0) fL MCH 20.5 L 20.6 L (25.0-35.0) pg MCHC 30.3 L 30.7 L (31.0-37.0) g/dL RDW 17.4 H 17.4 H (11.5-15.5) % Neutrophils # 11.7 H 10.0 H (1.3-7.7) k/uL Retic Count (0.5-2.0) % Chloride 108 H (98-107) mmol/L Carbon Dioxide 20 L (22-30) mmol/L BUN 22 H (7-17) mg/dL Creatinine 1.20 H (0.52-1.04) mg/dL Glucose 105 H (74-99) mg/dL AST 46 H (14-36) U/L Troponin I (0.000-0.034) ng/mL Total Protein 5.9 L (6.3-8.2) g/dL Albumin 3.3 L (3.5-5.0) g/dL Microbiology - Last 24 Hours (Table) 12/09/17 01:00 Urine Culture - Final Urine,Voided 12/08/17 22:22 Blood Culture - Preliminary Blood No Growth after 24 hours 12/08/17 22:39 Blood Culture - Preliminary Blood No Growth after 24 hours Assessment and Plan Assessment: 1. Dyspnea on exertion. D-dimer elevated at 1.70. CTA negative for pulmonary embolism. X-ray completed showing interstitial prominence, possible bronchitis or asthma. No focal infiltrate. Dr. Menon for pulmonary has been consulted. Per Dr. Menon could be multifactorial could be due to worsening anemia and possible sepsis related to UTI. 2. Urinary tract infection. Patient febrile and elevated lactic acid at 3.6 on admission. Repeat lactic acid 1.8. Urine and blood cultures has been ordered. She currently on IV antibiotic Rocephin 3. History of breast cancer. Patient recently underwent hysterectomy. Patient states she's had chemotherapy but did not complete her radiation. CTA showing low density liver masses suggestive of metastases disease. Ultrasound of liver ordered per Dr. Menon. Dr. Sims per oncology has been consulted. Ultrasound of liver completed showing multiple hepatic masses, the largest ranging from 3.68 cm 4. Chronic Anemia. Patient has required iron infusions in the past. Hemoglobin 8.5. Dr. Sims per oncology services have been consulted. 5. Chronic daily disease stage III. Initial creatinine 1.40 and bun 44. Levels are trending down. We'll continue to monitor closely. Creatinine 1.20 and bun 22 6. Essential hypertension. Patient currently on Coreg, hydrochlorothiazide and Cozaar 7. Hypothyroidism. continue Synthroid 8. Osteoarthritis 9. Hyperlipidemia. Home pravastatin on hold due to elevated liver enzyme 10. Elevated troponin level. Initial troponin 0.036, 0.041, 0.046. EKG completed showing sinus rhythm with premature atrial complexes, low voltage QRS left anterior fascicular block. Inferior infarct, age undetermined. Repeat troponins have been ordered. Patient denies chest pain. Cardiology services have been consulted. 2-D echo has been ordered. 11. 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 She underwent cholecystectomy with bilateral oophorectomy on 08/15/2017. Patient is status post 50% of her adjuvant radiation. Patient opted to discontinue treatment to better support her partner who was recently diagnosed with esophageal cancer. Per oncology patient to follow-up outpatient with Dr. Paulino for options related to systemic treatment possible computed tomography scan. DVT prophylaxis Lovenox and GI prophylaxis Protonix. I performed an examination of the patient and discussed their management with the Nurse Practitioner. I have reviewed the Nurse Practitioner's notes and agree with the documented findings and plan of care
--- NOTE | 2017-12-10 12:30 | CONS ---
CONSULTATION Mrs. Mendoza is an 87-year-old female who presented with symptoms of dyspnea. Cardiology consultation was requested because of mild elevation of the troponin. Patient has a known history of hypertension. She recently was diagnosed with a cancer and underwent robotically assisted surgical intervention at [facility]. She had started radiation therapy, but subsequently decided to stop. For the last month or so she has been complaining of progressive dyspnea with occasional peripheral edema. She has no chest discomfort. No dizziness or palpitation. No syncope. She has no PND or orthopnea. She has no prior cardiac history. In the past, her left ventricular systolic function has been normal by echocardiography in 2015 and she had no evidence of inducible ischemia at that time. She has no history of ischemic heart disease. On presentation, her lactic acid was quite elevated and there was a question of UTI. Her troponin was minimally elevated. She is feeling better at this time. She denies any symptoms of chest pain. She denies any dizziness or palpitation. She has no syncope. She had a CT scan of the chest that showed evidence suggestive of pulmonary fibrosis and there was evidence consistent with metastatic abnormality on the liver. Her coronary risk factors remarkable for hypertension and hyperlipidemia. She is a nonsmoker. REVIEW OF SYSTEMS: RESPIRATORY SYSTEM: She had dyspnea on exertion. No recent wheezing or cough. GI SYSTEM: No nausea, no vomiting. No GI bleeding. SYSTEM: No dysuria or hematuria. NERVOUS SYSTEM: No stroke or seizure. PHYSICAL EXAMINATION: An 87-year-old female, alert, oriented, in no apparent distress. Blood pressure 151/80 with the heart rate in the 60s. HEAD: Normocephalic. EYES: Sclerae anicteric. NECK: Good carotid upstroke, no bruit. LUNGS: Clear to auscultation. HEART: Regular rate and rhythm. S1, S2. No S3 with systolic ejection murmur 2/6 at the base. No diastolic murmur. No rub. ABDOMEN: Soft, nontender. Positive bowel sounds. No organomegaly. EXTREMITIES: No significant edema. LAB DATA: On presentation, her hemoglobin 8.5. BUN and creatinine 24 and 1.4. Her plasma lactic acid was 3.6. Her troponin was 0.036 subsequently 0.041 and 0.046. Her BUN and creatinine today are 22 and 1.2 potassium 4.3. Her hemoglobin is 8.9, white blood cell 12.6. Her EKG revealed a sinus mechanism, borderline left axis deviation, poor R progression with nonspecific ST-T wave changes. Her chest x-ray revealed no evidence of infiltrate. Her liver ultrasound showed multiple hepatic masses. IMPRESSION: 1. Symptoms of dyspnea of unclear etiology. Clinically, she has no overt signs of congestive heart failure at this time. 2. Possible urosepsis with elevated lactic acid on presentation. 3. Mild troponin elevation most likely presenting a type 2 event. I do not believe that we are dealing with a primary ischemic event. 4. History of uterine cancer, status post surgery and evidence suggest liver metastasis. Patient has stopped her radiation therapy. 5. History of hypertension. 6. Hyperlipidemia. RECOMMENDATION: I will increase the dose of her beta gustavo to optimize her blood pressure control. I will obtain echocardiogram with Doppler. I will check her NT proBNP. I will start her on low-dose oral diuretic and see her progress. We will follow her renal function. Depending on her progress, further recommendation will be made. I do not believe she is a candidate for any aggressive cardiac workup. Thank you for this consult. We will follow with you. MMODL / IJN: [id number] /
[2017-12-10] MEDS: FUROSEMIDE 20 MG TAB PO SCH (12:52)
--- NOTE | 2017-12-10 14:21 | CDI ---
Last Revision, March 2017 Documentation Clarification Form Date: 12/10/2017 2:09:24 PM From: Kellie Mcneal, KIMBERLY, CCDS Admit Date: 12/08/2017 3:57:00 PM Patient Name: Radha Mendoza Visit Number: [id number] Discharge Date: ATTENTION: The Clinical Documentation Specialists (CDI) and [facility] Coding Staff appreciate your assistance in clarifying documentation. Please respond to the clarification below the line at the bottom and electronically sign. The CDI & [facility] Coding staff will review the response and follow-up if needed. Please note: Queries are made part of the Legal Health Record. If you have any questions, please contact the author of this message via ITS. Ronnie Luna , DO: Per the pulmonary note on 12/10: "Her hemoglobin was noted to be low at 8.5 and she seems to have what looks like microcytic hypochromic anemia consistent with blood loss, most likely related to her most recent hysterectomy." History/Risk Factors: Hysterectomy in August this year for uterine cancer. CKD stage II-III, possible Iron deficiency anemia with history of iron infusions. Clinical indicators: Admitted with SOB, diagnosed with Sepsis & UTI. Possible microcytic anemia, appears chronic. Hemoglobin: 8.5 Hematocrit: 27.6 Treatment: IV MagSulf, IV Benadryl, IV Pepcid, IV Solumedrol, IV fl bolus, IV fl rate 100, IV Rocephin, IV Levaquin. In order to capture the severity of condition, please clarify the type of anemia and etiology if known and also if this is a postoperative blood loss anemia with the acuity: Acute blood loss anemia o Postoperative yes or no If yes: Is the blood loss an expected or unexpected outcome of the patient's hysterectomy? Acute on chronic blood loss anemia Chronic blood loss anemia Iron deficiency anemia Hemolytic anemia Drug induced anemia Anemia due to malignancy Nutritional anemia Anemia of chronic kidney disease Unable to determine Other, please specify MTDD
--- NOTE | 2017-12-10 16:58 | P.PN ---
Subjective Progress Note Date: 12/10/17 Principal diagnosis: Shortness of breat, Uterine cancer SOB is improved still very fatigued. Objective - Vital Signs Vital signs: Vital Signs Temp 98.2 F 12/10/17 12:50 Pulse 91 12/10/17 12:50 Resp 18 12/10/17 12:50 BP 144/65 12/10/17 12:50 Pulse Ox 97 12/10/17 12:50 Intake & Output 12/09/17 12/10/17 12/10/17 18:59 06:59 18:59 Intake Total 702 240 Output Total 1200 800 Balance -498 -560 Weight 66.9 kg 66.9 kg Intake: Oral 702 240 Output: Urine 1200 800 Other: # Voids 1 - Exam GENERAL: Patient is well-developed and well-nourished. Mild Distress. ENT: Neck supple. No significant lymphadenopathy is noted. Oropharynx is clear. Moist mucous membranes. EYES: The sclera were anicteric and conjunctiva were pink and moist. PULMONARY: Diminished throughout, No audible rales rhonchi or wheezing was noted. CARDIOVASCULAR: There is a regular rate and rhythm without any murmurs gallops or rubs. ABDOMEN: Soft and nontender with normal bowel sounds. SKIN: No Rash NEUROLOGIC: Patient is alert and oriented x3.Normal speech, volume and content. MUSCULOSKELETAL: Normal extremities with adequate strength and full range of motion. No lower extremity swelling or edema. No calf tenderness. LYMPHATICS: No significant lymphadenopathy is noted - Labs CBC & Chem 7: 12/10/17 07:39 12/10/17 03:32 Labs: Abnormal Lab Results - Last 24 Hours (Table) 12/09/17 12/10/17 12/10/17 Range/Units 15:05 03:32 03:32 WBC 14.4 H (3.8-10.6) k/uL Hgb 8.7 L (11.4-16.0) gm/dL Hct 28.6 L (34.0-46.0) % MCV 67.6 L (80.0-100.0) fL MCH 20.5 L (25.0-35.0) pg MCHC 30.3 L (31.0-37.0) g/dL RDW 17.4 H (11.5-15.5) % Neutrophils # 11.7 H (1.3-7.7) k/uL Chloride (98-107) mmol/L Carbon Dioxide (22-30) mmol/L BUN (7-17) mg/dL Creatinine (0.52-1.04) mg/dL Glucose (74-99) mg/dL Iron Saturation 46.50 H (12.00-45.00) Ferritin 2652.5 H (10.0-291.0) ng/mL AST (14-36) U/L Troponin I 0.046 H* (0.000-0.034) ng/mL Total Protein (6.3-8.2) g/dL Albumin (3.5-5.0) g/dL 12/10/17 12/10/17 Range/Units 03:32 07:39 WBC 12.6 H (3.8-10.6) k/uL Hgb 8.9 L (11.4-16.0) gm/dL Hct 29.0 L (34.0-46.0) % MCV 67.1 L (80.0-100.0) fL MCH 20.6 L (25.0-35.0) pg MCHC 30.7 L (31.0-37.0) g/dL RDW 17.4 H (11.5-15.5) % Neutrophils # 10.0 H (1.3-7.7) k/uL Chloride 108 H (98-107) mmol/L Carbon Dioxide 20 L (22-30) mmol/L BUN 22 H (7-17) mg/dL Creatinine 1.20 H (0.52-1.04) mg/dL Glucose 105 H (74-99) mg/dL Iron Saturation (12.00-45.00) Ferritin (10.0-291.0) ng/mL AST 46 H (14-36) U/L Troponin I (0.000-0.034) ng/mL Total Protein 5.9 L (6.3-8.2) g/dL Albumin 3.3 L (3.5-5.0) g/dL Microbiology - Last 24 Hours (Table) 12/09/17 01:00 Urine Culture - Final Urine,Voided 12/08/17 22:22 Blood Culture - Preliminary Blood No Growth after 24 hours 12/08/17 22:39 Blood Culture - Preliminary Blood No Growth after 24 hours Assessment and Plan Plan: Assessment and Recommendations: 1. G3,poorly differentiated endometroid adenocarcinoma of uterus Diagnosed on - Underwent Total Hysterectomy with Bilateral Oopherectomy on 08/15/17 - She is status Post 50% of her adjuvant Radiation, although opted to discontinue treatment to better support her partner who was recently diagnosed with esophageal cancer. She received Radiation through [facility] with Dr. Jara - CT scan ?recurrence/progressive disease. Will follow-up with Dr. Paulino as outpatient for options related to systemic treatment. 2. Acute Hypoxic Respiratory Failure - CTA Reviewed, no evidence of Pulmonary Embolism. 3. 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 Continue to monitor.
[2017-12-10] MEDS: CARVEDILOL 6.25 MG TAB PO SCH (17:46)
[2017-12-10] MEDS: BACLOFEN 10 MG TAB PO SCH (22:14)
[2017-12-11 06:45] LABS: Anisocytosis Slight; Basophils % (A) 0 %; Eosinophils # (A) 0.2 k/uL (0-0.7); Eosinophils % (A) 3 %; HCT 27.1 % (34.0-46.0); HGB 8.1 gm/dL (11.4-16.0); Hypochromasia Marked; Lymphocytes % (A) 16 %; MCH 20.5 pg (25.0-35.0); MCHC 29.9 g/dL (31.0-37.0); MCV 68.6 fL (80.0-100.0); Mean Platelet Volume 6.5; Microcytosis Marked; Monocytes # (A) 0.5 k/uL (0-1.0); Monocytes % (A) 7 %; Neutrophils # (A) 4.7 k/uL (1.3-7.7); Neutrophils % (A) 71 %; Platelet Count 241 k/uL (150-450); RBC 3.96 m/uL (3.80-5.40); RDW 17.5 % (11.5-15.5); WBC 6.6 k/uL (3.8-10.6)
[2017-12-11] MEDS: LEVOTHYROXINE 75 MCG TAB PO SCH (06:52)
[2017-12-11] MEDS: CARVEDILOL 6.25 MG TAB PO SCH ×2 (06:52→18:55)
[2017-12-11] MEDS: PANTOPRAZOLE 40 MG TABLET PO SCH ×2 (06:52→18:55)
[2017-12-11 07:00] LABS: Albumin 2.9 g/dL (3.5-5.0); Calcium 8.8 mg/dL (8.4-10.2); Potassium 3.8 mmol/L (3.5-5.1); Total Bilirubin 0.6 mg/dL (0.2-1.3); Total Protein 5.3 g/dL (6.3-8.2)
[2017-12-11] MEDS ORDERED: ENOXAPARIN 30 MG/0.3 ML SYRINGE SQ SCH (09:00)
[2017-12-11] MEDS: ASPIRIN 81 MG PO SCH (09:38)
[2017-12-11] MEDS: LOSARTAN 50 MG TAB PO SCH (09:39)
[2017-12-11] MEDS: HYDROCHLOROTHIAZIDE 12.5 MG CAP PO SCH (09:39)
--- NOTE | 2017-12-11 10:40 | P.PN ---
Subjective Progress Note Date: 12/11/17 This is a 87-year-old patient presents to the emergency room complaining of increased difficulty breathing for the past 2 days. Patient presents to the emergency room 2 days ago and left AGAINST MEDICAL ADVICE. Patient states that she then went home but started experiencing difficulty in breathing again. She also is complaining that she has been having increased weakness. Patient has a past medical history of hypertension, cardiomyopathy recent hysterectomy for cancer at [facility]. Also has a history of breast cancer with chemotherapy. Additional history includes hypothyroidism left vasectomy and orthopedic surgery. X-ray completed emergency room showing interstitial prominence, possible bronchitis or asthma. No focal infiltrate. D-dimer 1.70. 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 No evidence of pulmonary embolus and. Low-density liver masses suggestive of metastases disease. EKG completed showing sinus rhythm with premature atrial complexes, low voltage QRS, left anterior fascicular block, inferior infarct, age undetermined. Troponin 0.036. Patient denies chest pain at this time. Repeat troponins ordered. Urinary analysis showing moderate amount of leukocyte Estrace. Urine culture has been ordered. Initial lactic acid 3.6. Repeat 1.8. patient started on Rocephin. Dr. Meonn per pulmonary services consulted. Dr. Sims per oncology consulted. Patient denies chest pain or shortness breath. Denies nausea vomiting diarrhea. Denies any urinary burning or frequency. On 12/10/2017 patient is currently resting comfortably in bed. At this time patient denies any shortness of breath or chest pain. Denies any nausea vomiting or diarrhea. Denies any urinary frequency or burning. On 12/11/2017 is currently resting in bed. Patient is alert and oriented 3. Patient remains fatigued. 2-D echo has been ordered per cardiology. At this time patient denies chest pain or shortness breath. Denies nausea vomiting or diarrhea. Denies any urinary burning or frequency. Objective - Vital Signs Vital signs: Vital Signs Temp 97.8 F 12/11/17 03:54 Pulse 69 12/11/17 03:54 Resp 16 12/11/17 03:54 BP 155/66 12/11/17 03:54 Pulse Ox 96 12/11/17 03:54 Intake & Output 12/10/17 12/11/17 12/11/17 18:59 06:59 18:59 Intake Total 480 Output Total 800 Balance -320 Weight 66.9 kg 66 kg Intake: Oral 480 Output: Urine 800 Other: # Voids 1 - Exam Head normocephalic Neck supple Lungs clear to auscultation bilaterally no wheezing or crackles Heart regular rate and rhythm S1-S2, no rub or gallop Abdomen is soft nontender nondistended positive bowel sounds no hepatosplenomegaly Extremities no edema Neuro alert and orientated to 3 - Labs CBC & Chem 7: 12/11/17 05:49 12/11/17 05:49 Labs: Abnormal Lab Results - Last 24 Hours (Table) 12/09/17 12/11/17 12/11/17 Range/Units 15:05 05:49 05:49 Hgb 8.1 L (11.4-16.0) gm/dL Hct 27.1 L (34.0-46.0) % MCV 68.6 L (80.0-100.0) fL MCH 20.5 L (25.0-35.0) pg MCHC 29.9 L (31.0-37.0) g/dL RDW 17.5 H (11.5-15.5) % Sodium 136 L (137-145) mmol/L Carbon Dioxide 21 L (22-30) mmol/L BUN 26 H (7-17) mg/dL Creatinine 1.40 H (0.52-1.04) mg/dL Iron Saturation 46.50 H (12.00-45.00) Ferritin 2652.5 H (10.0-291.0) ng/mL AST 51 H (14-36) U/L Total Protein 5.3 L (6.3-8.2) g/dL Albumin 2.9 L (3.5-5.0) g/dL Microbiology - Last 24 Hours (Table) 12/08/17 22:22 Blood Culture - Preliminary Blood No Growth after 48 hours 12/08/17 22:39 Blood Culture - Preliminary Blood No Growth after 48 hours 12/09/17 01:00 Urine Culture - Final Urine,Voided Assessment and Plan Assessment: 1. Dyspnea on exertion. D-dimer elevated at 1.70. CTA negative for pulmonary embolism. X-ray completed showing interstitial prominence, possible bronchitis or asthma. No focal infiltrate. Dr. Menon for pulmonary has been consulted. Per Dr. Menon could be multifactorial could be due to worsening anemia and possible sepsis related to UTI. 2. Urinary tract infection. Patient febrile and elevated lactic acid at 3.6 on admission. Repeat lactic acid 1.8. Urine and blood cultures has been ordered. She currently on IV antibiotic Rocephin 3. History of breast cancer. Patient recently underwent hysterectomy. Patient states she's had chemotherapy but did not complete her radiation. CTA showing low density liver masses suggestive of metastases disease. Ultrasound of liver ordered per Dr. Menon. Dr. Sims per oncology has been consulted. Ultrasound of liver completed showing multiple hepatic masses, the largest ranging from 3.68 cm 4. Chronic Anemia. Patient has required iron infusions in the past. Hemoglobin 8.5. Dr. Sims per oncology services have been consulted. 5. Chronic daily disease stage III. Initial creatinine 1.40 and bun 44. Levels are trending down. We'll continue to monitor closely. Creatinine 1.40 and bun 26 6. Essential hypertension. Patient currently on Coreg, hydrochlorothiazide and Cozaar 7. Hypothyroidism. continue Synthroid 8. Osteoarthritis 9. Hyperlipidemia. Home pravastatin on hold due to elevated liver enzyme 10. Elevated troponin level. Initial troponin 0.036, 0.041, 0.046. EKG completed showing sinus rhythm with premature atrial complexes, low voltage QRS left anterior fascicular block. Inferior infarct, age undetermined. Repeat troponins have been ordered. Patient denies chest pain. Cardiology services have been consulted. 2-D echo has been ordered. 11. 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 She underwent cholecystectomy with bilateral oophorectomy on 08/15/2017. Patient is status post 50% of her adjuvant radiation. Patient opted to discontinue treatment to better support her partner who was recently diagnosed with esophageal cancer. Per oncology patient to follow-up outpatient with Dr. Paulino for options related to systemic treatment possible computed tomography scan. DVT prophylaxis Lovenox and GI prophylaxis Protonix. I performed an examination of the patient and discussed their management with the Nurse Practitioner. I have reviewed the Nurse Practitioner's notes and agree with the documented findings and plan of care
[2017-12-11] MEDS: FUROSEMIDE 40 MG TAB PO SCH (10:41)
[2017-12-11] MEDS: cefTRIAXone IN SWFI 1,000 MG/10 ML SYRINGE IVP SCH (10:41)
--- NOTE | 2017-12-11 11:34 | ECHOF ---
Referral Reason:dyspnea MEASUREMENTS -------- HEIGHT: 160.0 cm WEIGHT: 66.7 kg BP: IVSd: 1.4 cm (0.6 - 1.1) LVIDd: 3.7 cm (3.9 - 5.3) LVPWd: 1.0 cm (0.6 - 1.1) IVSs: 1.6 cm LVIDs: 2.5 cm LVPWs: 1.8 cm Ao Diam: 3.2 cm (2.0 - 3.7) AV Cusp: 1.6 cm (1.5 - 2.6) LA Diam: 3.7 cm (2.7 - 3.8) MV EXCURSION: 12.842 mm (> 18.000) MV EF SLOPE: 63 mm/s (70 - 150) EPSS: 0.5 cm MV E Tonio: 0.61 m/s MV DecT: 262 ms MV A Tonio: 1.12 m/s MV E/A Ratio: 0.54 RAP: 5.00 mmHg RVSP: 40.98 mmHg FINDINGS -------- Sinus rhythm. This was a technically adequate study. The left ventricular size is normal. There is mild concentric left ventricular hypertrophy. Overa ll left ventricular systolic function is low-normal with, an EF between 50 - 55 %. The right ventricle is normal in size. The left atrial size is normal. The right atrial size is normal. There is mild aortic valve sclerosis. There is no evidence of aortic regurgitation. Mild mitral annular calcification present. Mild mitral regurgitation is present. Mild tricuspid regurgitation present. There is mild pulmonary hypertension. The right ventricular systolic pressure, as measured by Doppler, is 40.98mmHg. There is no pulmonic regurgitation present. The aortic root size is normal. There is no pericardial effusion. CONCLUSIONS -------- 1. The left ventricular size is normal. 2. There is mild concentric left ventricular hypertrophy. 3. Overall left ventricular systolic function is low-normal with, an EF between 50 - 55 %. 4. The right ventricle is normal in size. 5. The left atrial size is normal. 6. The right atrial size is normal. 7. There is mild aortic valve sclerosis. 8. Mild mitral annular calcification present. 9. Mild mitral regurgitation is present. 10. Mild tricuspid regurgitation present. 11. There is mild pulmonary hypertension. 12. The right ventricular systolic pressure, as measured by Doppler, is 40.98mmHg. 13. There is no pulmonic regurgitation present. 14. The aortic root size is normal. 15. There is no pericardial effusion. DAIRY BAR MANAGER: Guadalupe Upton RDCS
--- NOTE | 2017-12-11 11:48 | P.PN ---
Subjective Progress Note Date: 12/11/17 Principal diagnosis: Generalized malaise This is an 87-year-old female with history of multiple medical problems including hypertension, cardiomyopathy, recent hysterectomy, this was done a few weeks ago at [facility]. Patient was brought in to the ER with multiple complaints including not feeling well, some dyspnea on exertion, some vague abdominal discomfort, low-grade fever, no cough no wheezing no chest pain no palpitations, no lightheadedness, no dysuria and no frequency no urgency. Workup in the ER was basically nondiagnostic including a CT of the chest which ruled out thromboembolic disease, and basically showed some nonspecific findings. It also questioned some metastatic lesions on the liver. CT of the chest was negative for pulmonary embolism. Her d-dimer was 1.7 slightly elevated. Lactic acid was slightly elevated on admission, 3.6, follow-up lactic acid was 1.8. Her urine is suggestive of urinary tract infection and looking back at her most recent culture of the urine from 2 weeks ago patient had Klebsiella pneumonia and E. coli infection in the urine. This was dated on 11/11/2017. Patient was given fluids in the ER, admitted, did not receive any antibiotics on admission, but after I evaluated the patient, I recommended at least starting the patient on Rocephin for presumptive urinary tract infection and possible sepsis. Renal functioning was noted to be abnormal, however looking back at her renal functioning over the last 2 years, patient clearly has a stage III renal failure. At is basically unchanged over the last few months. Her hemoglobin was noted to be low at 8.5 and she seems to have what looks like microcytic hypochromic anemia consistent with blood loss, most likely related to her most recent hysterectomy. Her baseline hemoglobin is normally over 10. Hemoglobin on 11/21 2017 was 9.1. Patient tends to have a picture of chronic anemia based on her hemoglobin over the last 4years. But her admission hemoglobin is the lowest it has been in the last few years. When I evaluated the patient, the patient denied actually shortness of breath, she said she was feeling fine, she denied any headache, no blurred vision no dizziness, no cough no wheezing no nausea no vomiting no abdominal pain no melena no hematemesis. Her Hemoccult stool was negative on admission. The patient was seen again today 12/10/2017 in follow-up in the selective care unit. She is currently awake and alert in no acute distress. She denies any worsening shortness of breath, cough or congestion. She is maintaining good O2 saturations in the mid to upper 90s on room air. She's been afebrile. White count 12.6. Hemoglobin 8.9. Creatinine 1.20. Blood and urine cultures reveal no growth. Ultrasound of the liver reveals multiple hepatic masses the largest ranging from 3.6 to 8 cm. The patient is seen again today 12/11/2017 in follow-up on the selective care unit. She remains awake and alert in no acute distress. She denies any worsening shortness of breath, cough or congestion. Continues to maintain good O2 saturations in the 90s on room air. We count 6.6. Hemoglobin 8.1. Creatinine 1.40. Echocardiogram reveals preserved left ventricular systolic function with ejection fraction 50-55%. No significant valvular findings. Mild pulmonary hypertension. Objective - Vital Signs Vital signs: Vital Signs Temp 97.8 F 12/11/17 03:54 Pulse 69 12/11/17 03:54 Resp 16 12/11/17 03:54 BP 155/66 12/11/17 03:54 Pulse Ox 96 12/11/17 03:54 Intake & Output 12/10/17 12/11/17 12/11/17 18:59 06:59 18:59 Intake Total 480 Output Total 800 Balance -320 Weight 66.9 kg 66 kg Intake: Oral 480 Output: Urine 800 Other: # Voids 1 - Exam GENERAL EXAM: Alert, active, comfortable in no apparent distress. HEAD: Normocephalic. EYES: Normal reaction of pupils, equal size. NOSE: Clear with pink turbinates. THROAT: No erythema or exudates. NECK: No masses, no JVD. CHEST: No chest wall deformity. LUNGS: Equal air entry with no crackles, wheeze, rhonchi or dullness. CVS: S1 and S2 normal with no audible murmur, regular rhythm. ABDOMEN: No hepatosplenomegaly, normal bowel sounds, no guarding or rigidity. SPINE: No scoliosis or deformity SKIN: No rashes CENTRAL NERVOUS SYSTEM: No focal deficits, tone is normal in all 4 extremities. EXTREMITIES: There is no peripheral edema. No clubbing, no cyanosis. Peripheral pulses are intact. - Labs CBC & Chem 7: 12/11/17 05:49 12/11/17 05:49 Labs: Abnormal Lab Results - Last 24 Hours (Table) 12/09/17 12/11/17 12/11/17 Range/Units 15:05 05:49 05:49 Hgb 8.1 L (11.4-16.0) gm/dL Hct 27.1 L (34.0-46.0) % MCV 68.6 L (80.0-100.0) fL MCH 20.5 L (25.0-35.0) pg MCHC 29.9 L (31.0-37.0) g/dL RDW 17.5 H (11.5-15.5) % Sodium 136 L (137-145) mmol/L Carbon Dioxide 21 L (22-30) mmol/L BUN 26 H (7-17) mg/dL Creatinine 1.40 H (0.52-1.04) mg/dL Iron Saturation 46.50 H (12.00-45.00) Ferritin 2652.5 H (10.0-291.0) ng/mL AST 51 H (14-36) U/L Total Protein 5.3 L (6.3-8.2) g/dL Albumin 2.9 L (3.5-5.0) g/dL Microbiology - Last 24 Hours (Table) 12/08/17 22:22 Blood Culture - Preliminary Blood No Growth after 48 hours 12/08/17 22:39 Blood Culture - Preliminary Blood No Growth after 48 hours 12/09/17 01:00 Urine Culture - Final Urine,Voided Assessment and Plan Assessment: Impression: 1 dyspnea on exertion, nonspecific but felt to be multifactorial, suspect that the patient has worsening anemia, and sepsis., doubt any underlying COPD, doubt any significant abnormality noted on CT of the chest itself. 2 urinary tract infection with fever, elevated lactic acid on admission, could be early sepsis from urinary tract infection. Hence I would recommend empirically Rocephin until the urine cultures are available. Patient had recent urinary tract infection secondary to Klebsiella pneumoniae and E. coli. Both were sensitive to Rocephin. 3 Abnormal findings on the liver noted on the CT of the chest, radiologist questioned metastatic spots on the liver, ultrasound of the liver reveals multiple masses of the largest of which is 3.6 x 8 cm. 4 chronic anemia, will likely need further workup on outpatient basis if not already done. 5 history of uterine cancer status post hysterectomy and bilateral salpingo- oophorectomy. The patient only completed 50% of her adjuvant treatments then discontinue them. multiple comorbidities including hypertension, hypothyroidism, remote history of breast cancer and chemotherapy, osteoarthritis, chronic kidney disease stage III, Recommendation: The patient was seen and evaluated by Dr. Abdi. She is currently stable from the pulmonary standpoint. She has no pulmonary complaints. We will increase her activity as tolerated. Echocardiogram reveals preserved left ventricular systolic function. Will most likely require a liver biopsy. Oncology is on the case. We will continue to follow and make further recommendations based on her clinical status. I, the cosigning physician, performed a history & physical examination of the patient. Lungs sounds are clear. Maintaining good O2 saturations in the 90s on room air. I discussed the assessment and plan of care with my nurse practitioner, Donna Finley. I attest to the above note as dictated by her.
--- NOTE | 2017-12-11 13:14 | P.PN ---
Subjective Progress Note Date: 12/11/17 Principal diagnosis: Shortness of breat, Uterine cancer SOB is improved still very fatigued. I discussed results of Ultrasound of the liver with the patient today and with Dr. Sims. There appears to be new masses in liver 3-8cm at largest. This is unclear etiology at this time but with recent history of ovarian cancer this is most likely a recurrent/progressive malignant picture. Long discussion with patient regarding her goals of treatment and williness to proceed. She did not complete radiation to completion as her significant other became sick at same time and she felt she could not help as she wanted to during treatment. She does want to continue with diagnostic work-up for liver lesions. She is on prophylaxis lovenox and baby aspirin. I discussed with interventional radiology and has discontinued baby aspirin today. If she is still an inpatient at time of biopsy will hold lovenox for needed timeframe prior, but will await a scheduled date and time. I have also ordered a repeat Ca125 tumor marker to help guide us on recurrence/ progression of her recent cancer history. Objective - Vital Signs Vital signs: Vital Signs Temp 97.8 F 12/11/17 03:54 Pulse 69 12/11/17 03:54 Resp 16 12/11/17 03:54 BP 155/66 12/11/17 03:54 Pulse Ox 96 12/11/17 03:54 Intake & Output 12/10/17 12/11/17 12/11/17 18:59 06:59 18:59 Intake Total 480 Output Total 800 Balance -320 Weight 66.9 kg 66 kg Intake: Oral 480 Output: Urine 800 Other: # Voids 1 - Exam GENERAL: Patient is well-developed and well-nourished. Mild Distress. ENT: Neck supple. No significant lymphadenopathy is noted. Oropharynx is clear. Moist mucous membranes. EYES: The sclera were anicteric and conjunctiva were pink and moist. PULMONARY: Diminished throughout, No audible rales rhonchi or wheezing was noted. CARDIOVASCULAR: There is a regular rate and rhythm without any murmurs gallops or rubs. ABDOMEN: Soft and nontender with normal bowel sounds. SKIN: No Rash NEUROLOGIC: Patient is alert and oriented x3.Normal speech, volume and content. MUSCULOSKELETAL: Normal extremities with adequate strength and full range of motion. No lower extremity swelling or edema. No calf tenderness. LYMPHATICS: No significant lymphadenopathy is noted - Labs CBC & Chem 7: 12/11/17 05:49 12/11/17 05:49 Labs: Abnormal Lab Results - Last 24 Hours (Table) 12/09/17 12/11/17 12/11/17 Range/Units 15:05 05:49 05:49 Hgb 8.1 L (11.4-16.0) gm/dL Hct 27.1 L (34.0-46.0) % MCV 68.6 L (80.0-100.0) fL MCH 20.5 L (25.0-35.0) pg MCHC 29.9 L (31.0-37.0) g/dL RDW 17.5 H (11.5-15.5) % Sodium 136 L (137-145) mmol/L Carbon Dioxide 21 L (22-30) mmol/L BUN 26 H (7-17) mg/dL Creatinine 1.40 H (0.52-1.04) mg/dL Iron Saturation 46.50 H (12.00-45.00) Ferritin 2652.5 H (10.0-291.0) ng/mL AST 51 H (14-36) U/L Total Protein 5.3 L (6.3-8.2) g/dL Albumin 2.9 L (3.5-5.0) g/dL Microbiology - Last 24 Hours (Table) 12/08/17 22:22 Blood Culture - Preliminary Blood No Growth after 48 hours 12/08/17 22:39 Blood Culture - Preliminary Blood No Growth after 48 hours 12/09/17 01:00 Urine Culture - Final Urine,Voided Assessment and Plan Plan: Assessment and Recommendations: 1. G3,poorly differentiated endometroid adenocarcinoma of uterus Diagnosed on - Underwent Total Hysterectomy with Bilateral Oopherectomy on 08/15/17 - She is status Post 50% of her adjuvant Radiation, although opted to discontinue treatment to better support her partner who was recently diagnosed with esophageal cancer. She received Radiation through [facility] with Dr. Jara - CT scan ?recurrence/progressive disease. Will follow-up with Dr. Paulino as outpatient for options related to systemic treatment. - US liver reveals multiple concerning lesions 3-8cm in size 2. Acute Hypoxic Respiratory Failure - CTA Reviewed, no evidence of Pulmonary Embolism. 3. 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 Continue to monitor. Plan from Oncology Standpoint: I discussed results of Ultrasound of the liver with the patient today and with Dr. Sims. There appears to be new masses in liver 3-8cm at largest. This is unclear etiology at this time but with recent history of ovarian cancer this is most likely a recurrent/progressive malignant picture. Long discussion with patient regarding her goals of treatment and williness to proceed. She did not complete radiation to completion as her significant other became sick at same time and she felt she could not help as she wanted to during treatment. She does want to continue with diagnostic work- up for liver lesions. She is on prophylaxis lovenox and baby aspirin. I discussed with interventional radiology and has discontinued baby aspirin today. If she is still an inpatient at time of biopsy will hold lovenox for needed timeframe prior, but will await a scheduled date and time. I have also ordered a repeat Ca125 tumor marker to help guide us on recurrence/progression of her recent cancer history.
--- NOTE | 2017-12-11 17:50 | PN ---
PROGRESS NOTE Mrs. Mendoza is a patient with breast cancer and metastasis. She also came in with lactic acidosis. This probably contributed to her higher troponin level. She is resting comfortably without any chest pain. I am recommending that we increase the Lasix to 40 mg daily and also check an echocardiogram to assess LV function. The patient is hemodynamically stable, feeling better. Denies any chest pain. CT angio revealed evidence of possible liver metastases as well, but this will be communicated by the PCP. Cardiac-goff stable. Same medications. Mild increase in Lasix. S1 and S2 heard normally. Short systolic murmur noted. Lungs reveal improved air entry. Abdomen and lower extremity exam otherwise is unchanged. MMODL / IJN: [id number] /
[2017-12-11] MEDS: FUROSEMIDE 20 MG TAB PO SCH (20:40)
[2017-12-11] MEDS: BACLOFEN 10 MG TAB PO SCH (22:23)
[2017-12-12 06:40] LABS: Anisocytosis Slight; Basophils % (A) 0 %; Eosinophils # (A) 0.2 k/uL (0-0.7); Eosinophils % (A) 2 %; HCT 25.5 % (34.0-46.0); HGB 8.2 gm/dL (11.4-16.0); Hypochromasia Slight; Lymphocytes # (A) 1.1 k/uL (1.0-4.8); Lymphocytes % (A) 15 %; MCH 20.8 pg (25.0-35.0); MCHC 32.3 g/dL (31.0-37.0); MCV 64.5 fL (80.0-100.0); Mean Platelet Volume 6.3; Microcytosis Marked; Monocytes # (A) 0.4 k/uL (0-1.0); Monocytes % (A) 6 %; Neutrophils # (A) 5.3 k/uL (1.3-7.7); Neutrophils % (A) 74 %; Platelet Count 227 k/uL (150-450); RBC 3.96 m/uL (3.80-5.40); RDW 17.2 % (11.5-15.5); WBC 7.1 k/uL (3.8-10.6)
[2017-12-12 06:44] LABS: INR 1.2 (<1.2); Prothrombin Time 11.3 sec (9.0-12.0)
[2017-12-12 06:56] LABS: Albumin 2.9 g/dL (3.5-5.0); Calcium 8.7 mg/dL (8.4-10.2); Potassium 3.4 mmol/L (3.5-5.1); Total Bilirubin 0.8 mg/dL (0.2-1.3); Total Protein 5.4 g/dL (6.3-8.2)
[2017-12-12] MEDS ORDERED: Magnesium Replacement Protocol 1 EACH MISC MISCELLANE PRN (08:23)
[2017-12-12] MEDS ORDERED: Potassium Replacement Protocol 1 EACH MISC MISCELLANE PRN (08:23)
[2017-12-12] MEDS: FUROSEMIDE 40 MG TAB PO SCH (09:26)
[2017-12-12] MEDS: MAGNESIUM SULFATE-D5W PMX 1 GM in DEXTROSE/WATER 1 100ML.BAG IVPB SCH ×3 (09:26→12:27)
[2017-12-12] MEDS: LEVOTHYROXINE 75 MCG TAB PO SCH (09:26)
[2017-12-12] MEDS: HYDROCHLOROTHIAZIDE 12.5 MG CAP PO SCH (09:26)
[2017-12-12] MEDS: LOSARTAN 50 MG TAB PO SCH (09:26)
[2017-12-12] MEDS: POTASSIUM CHLORIDE ER 20 MEQ TAB.ER PO SCH ×2 (09:26→11:08)
[2017-12-12] MEDS: PANTOPRAZOLE 40 MG TABLET PO SCH ×2 (09:26→18:14)
[2017-12-12] MEDS: CARVEDILOL 6.25 MG TAB PO SCH (09:26)
[2017-12-12] MEDS: cefTRIAXone IN SWFI 1,000 MG/10 ML SYRINGE IVP SCH (09:27)
--- NOTE | 2017-12-12 12:30 | P.PN ---
Subjective Progress Note Date: 12/12/17 This is a 87-year-old patient presents to the emergency room complaining of increased difficulty breathing for the past 2 days. Patient presents to the emergency room 2 days ago and left AGAINST MEDICAL ADVICE. Patient states that she then went home but started experiencing difficulty in breathing again. She also is complaining that she has been having increased weakness. Patient has a past medical history of hypertension, cardiomyopathy recent hysterectomy for cancer at [facility]. Also has a history of breast cancer with chemotherapy. Additional history includes hypothyroidism left vasectomy and orthopedic surgery. X-ray completed emergency room showing interstitial prominence, possible bronchitis or asthma. No focal infiltrate. D-dimer 1.70. 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 No evidence of pulmonary embolus and. Low-density liver masses suggestive of metastases disease. EKG completed showing sinus rhythm with premature atrial complexes, low voltage QRS, left anterior fascicular block, inferior infarct, age undetermined. Troponin 0.036. Patient denies chest pain at this time. Repeat troponins ordered. Urinary analysis showing moderate amount of leukocyte Estrace. Urine culture has been ordered. Initial lactic acid 3.6. Repeat 1.8. patient started on Rocephin. Dr. Menon per pulmonary services consulted. Dr. Sims per oncology consulted. Patient denies chest pain or shortness breath. Denies nausea vomiting diarrhea. Denies any urinary burning or frequency. On 12/10/2017 patient is currently resting comfortably in bed. At this time patient denies any shortness of breath or chest pain. Denies any nausea vomiting or diarrhea. Denies any urinary frequency or burning. On 12/11/2017 is currently resting in bed. Patient is alert and oriented 3. Patient remains fatigued. 2-D echo has been ordered per cardiology. At this time patient denies chest pain or shortness breath. Denies nausea vomiting or diarrhea. Denies any urinary burning or frequency. On 12/12/2017 patient is currently alert and oriented 3 resting comfortably in bed visiting with friends. Per nursing staff patient is refusing any further intervention including biopsy of the liver masses. Dr. sims following per oncology. At this time patient denies nausea vomiting or diarrhea. Denies chest pain or shortness of breath. Denies any urinary burning or frequency Objective - Vital Signs Vital signs: Vital Signs Temp 97.2 F L 12/12/17 08:00 Pulse 80 12/12/17 08:00 Resp 18 12/12/17 08:00 BP 155/72 12/12/17 08:00 Pulse Ox 97 12/12/17 08:00 Intake & Output 12/11/17 12/12/17 12/12/17 18:59 06:59 18:59 Intake Total 100 Balance 100 Weight 64 kg Intake: Oral 100 Other: # Voids 1 2 - Exam Head normocephalic Neck supple Lungs clear to auscultation bilaterally no wheezing or crackles Heart regular rate and rhythm S1-S2, no rub or gallop Abdomen is soft nontender nondistended positive bowel sounds no hepatosplenomegaly Extremities no edema Neuro alert and orientated to 3 - Labs CBC & Chem 7: 12/12/17 06:14 12/12/17 06:14 Labs: Abnormal Lab Results - Last 24 Hours (Table) 12/11/17 12/12/17 12/12/17 Range/Units 05:45 06:14 06:14 Hgb 8.2 L (11.4-16.0) gm/dL Hct 25.5 L (34.0-46.0) % MCV 64.5 L (80.0-100.0) fL MCH 20.8 L (25.0-35.0) pg RDW 17.2 H (11.5-15.5) % INR (<1.2) Sodium 136 L (137-145) mmol/L Potassium 3.4 L (3.5-5.1) mmol/L BUN 25 H (7-17) mg/dL Creatinine 1.23 H (0.52-1.04) mg/dL Glucose 114 H (74-99) mg/dL Magnesium 1.0 L (1.6-2.3) mg/dL AST 51 H (14-36) U/L Total Protein 5.4 L (6.3-8.2) g/dL Albumin 2.9 L (3.5-5.0) g/dL CA 125 Antigen 93.5 H (0.0-30.1) U/mL 12/12/17 Range/Units 06:14 Hgb (11.4-16.0) gm/dL Hct (34.0-46.0) % MCV (80.0-100.0) fL MCH (25.0-35.0) pg RDW (11.5-15.5) % INR 1.2 H (<1.2) Sodium (137-145) mmol/L Potassium (3.5-5.1) mmol/L BUN (7-17) mg/dL Creatinine (0.52-1.04) mg/dL Glucose (74-99) mg/dL Magnesium (1.6-2.3) mg/dL AST (14-36) U/L Total Protein (6.3-8.2) g/dL Albumin (3.5-5.0) g/dL CA 125 Antigen (0.0-30.1) U/mL Microbiology - Last 24 Hours (Table) 12/08/17 22:22 Blood Culture - Preliminary Blood No Growth after 72 hours 12/08/17 22:39 Blood Culture - Preliminary Blood No Growth after 72 hours Assessment and Plan Assessment: 1. Dyspnea on exertion. D-dimer elevated at 1.70. CTA negative for pulmonary embolism. X-ray completed showing interstitial prominence, possible bronchitis or asthma. No focal infiltrate. Dr. Menon for pulmonary has been consulted. Per Dr. Menon could be multifactorial could be due to worsening anemia and possible sepsis related to UTI. 2-D echo completed showing EF of 50-55%. 2. Urinary tract infection. Patient febrile and elevated lactic acid at 3.6 on admission. Repeat lactic acid 1.8. Urine and blood cultures has been ordered. She currently on IV antibiotic Rocephin 3. History of breast cancer. Patient recently underwent hysterectomy. Patient states she's had chemotherapy but did not complete her radiation. CTA showing low density liver masses suggestive of metastases disease. Ultrasound of liver ordered per Dr. Menon. Dr. Sims per oncology has been consulted. 4. Chronic Anemia. Patient has required iron infusions in the past. Hemoglobin 8.5. Dr. Sims per oncology services have been consulted. hemoglobin 8.2 5. Chronic daily disease stage III. Initial creatinine 1.40 and bun 44. Levels are trending down. We'll continue to monitor closely. Creatinine 1.23 and bun 25 6. Essential hypertension. Patient currently on Coreg, hydrochlorothiazide and Cozaar 7. Hypothyroidism. continue Synthroid 8. Osteoarthritis 9. Hyperlipidemia. Home pravastatin on hold due to elevated liver enzyme 10. Elevated troponin level. Initial troponin 0.036, 0.041, 0.046. EKG completed showing sinus rhythm with premature atrial complexes, low voltage QRS left anterior fascicular block. Inferior infarct, age undetermined. Repeat troponins have been ordered. Patient denies chest pain. Cardiology services have been consulted. 2-D echo has been ordered. 2-D echo completed showing EF of 50-55% 11. 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 She underwent cholecystectomy with bilateral oophorectomy on 08/15/2017. Patient is status post 50% of her adjuvant radiation. Patient opted to discontinue treatment to better support her partner who was recently diagnosed with esophageal cancer. Per oncology patient to follow-up outpatient with Dr. Paulino for options related to systemic treatment possible computed tomography scan. Ultrasound of liver completed showing multiple hepatic masses, the largest ranging from 3.68 cm. oncology recommending liver biopsy. Patient is refusing at this time. DVT prophylaxis Lovenox and GI prophylaxis Protonix. I performed an examination of the patient and discussed their management with the Nurse Practitioner. I have reviewed the Nurse Practitioner's notes and agree with the documented findings and plan of care
--- NOTE | 2017-12-12 12:51 | P.PN ---
Subjective Progress Note Date: 12/12/17 Principal diagnosis: Generalized malaise This is an 87-year-old female with history of multiple medical problems including hypertension, cardiomyopathy, recent hysterectomy, this was done a few weeks ago at [facility]. Patient was brought in to the ER with multiple complaints including not feeling well, some dyspnea on exertion, some vague abdominal discomfort, low-grade fever, no cough no wheezing no chest pain no palpitations, no lightheadedness, no dysuria and no frequency no urgency. Workup in the ER was basically nondiagnostic including a CT of the chest which ruled out thromboembolic disease, and basically showed some nonspecific findings. It also questioned some metastatic lesions on the liver. CT of the chest was negative for pulmonary embolism. Her d-dimer was 1.7 slightly elevated. Lactic acid was slightly elevated on admission, 3.6, follow-up lactic acid was 1.8. Her urine is suggestive of urinary tract infection and looking back at her most recent culture of the urine from 2 weeks ago patient had Klebsiella pneumonia and E. coli infection in the urine. This was dated on 11/11/2017. Patient was given fluids in the ER, admitted, did not receive any antibiotics on admission, but after I evaluated the patient, I recommended at least starting the patient on Rocephin for presumptive urinary tract infection and possible sepsis. Renal functioning was noted to be abnormal, however looking back at her renal functioning over the last 2 years, patient clearly has a stage III renal failure. At is basically unchanged over the last few months. Her hemoglobin was noted to be low at 8.5 and she seems to have what looks like microcytic hypochromic anemia consistent with blood loss, most likely related to her most recent hysterectomy. Her baseline hemoglobin is normally over 10. Hemoglobin on 11/21 2017 was 9.1. Patient tends to have a picture of chronic anemia based on her hemoglobin over the last 4years. But her admission hemoglobin is the lowest it has been in the last few years. When I evaluated the patient, the patient denied actually shortness of breath, she said she was feeling fine, she denied any headache, no blurred vision no dizziness, no cough no wheezing no nausea no vomiting no abdominal pain no melena no hematemesis. Her Hemoccult stool was negative on admission. The patient was seen again today 12/10/2017 in follow-up in the selective care unit. She is currently awake and alert in no acute distress. She denies any worsening shortness of breath, cough or congestion. She is maintaining good O2 saturations in the mid to upper 90s on room air. She's been afebrile. White count 12.6. Hemoglobin 8.9. Creatinine 1.20. Blood and urine cultures reveal no growth. Ultrasound of the liver reveals multiple hepatic masses the largest ranging from 3.6 to 8 cm. The patient is seen again today 12/11/2017 in follow-up on the selective care unit. She remains awake and alert in no acute distress. She denies any worsening shortness of breath, cough or congestion. Continues to maintain good O2 saturations in the 90s on room air. We count 6.6. Hemoglobin 8.1. Creatinine 1.40. Echocardiogram reveals preserved left ventricular systolic function with ejection fraction 50-55%. No significant valvular findings. Mild pulmonary hypertension. The patient is seen again today 12/12/2017 in follow-up on the selective care unit. She is currently resting quite comfortably in bed. She denies any shortness of breath, cough or congestion. Continues to maintain good O2 saturations in the 90s on room air. The patient was informed of her multiple masses of the liver but has declined a liver biopsy as she has previously declined any further chemotherapy in regards to her uterine cancer. Objective - Vital Signs Vital signs: Vital Signs Temp 97.2 F L 12/12/17 08:00 Pulse 80 12/12/17 08:00 Resp 18 12/12/17 08:00 BP 155/72 12/12/17 08:00 Pulse Ox 97 12/12/17 08:00 Intake & Output 12/11/17 12/12/17 12/12/17 18:59 06:59 18:59 Intake Total 100 Balance 100 Weight 64 kg Intake: Oral 100 Other: # Voids 1 2 - Exam GENERAL EXAM: Alert, active, comfortable in no apparent distress. HEAD: Normocephalic. EYES: Normal reaction of pupils, equal size. NOSE: Clear with pink turbinates. THROAT: No erythema or exudates. NECK: No masses, no JVD. CHEST: No chest wall deformity. LUNGS: Equal air entry with no crackles, wheeze, rhonchi or dullness. CVS: S1 and S2 normal with no audible murmur, regular rhythm. ABDOMEN: No hepatosplenomegaly, normal bowel sounds, no guarding or rigidity. SPINE: No scoliosis or deformity SKIN: No rashes CENTRAL NERVOUS SYSTEM: No focal deficits, tone is normal in all 4 extremities. EXTREMITIES: There is no peripheral edema. No clubbing, no cyanosis. Peripheral pulses are intact. - Labs CBC & Chem 7: 12/12/17 06:14 12/12/17 06:14 Labs: Abnormal Lab Results - Last 24 Hours (Table) 12/11/17 12/12/17 12/12/17 Range/Units 05:45 06:14 06:14 Hgb 8.2 L (11.4-16.0) gm/dL Hct 25.5 L (34.0-46.0) % MCV 64.5 L (80.0-100.0) fL MCH 20.8 L (25.0-35.0) pg RDW 17.2 H (11.5-15.5) % INR (<1.2) Sodium 136 L (137-145) mmol/L Potassium 3.4 L (3.5-5.1) mmol/L BUN 25 H (7-17) mg/dL Creatinine 1.23 H (0.52-1.04) mg/dL Glucose 114 H (74-99) mg/dL Magnesium 1.0 L (1.6-2.3) mg/dL AST 51 H (14-36) U/L Total Protein 5.4 L (6.3-8.2) g/dL Albumin 2.9 L (3.5-5.0) g/dL CA 125 Antigen 93.5 H (0.0-30.1) U/mL 12/12/17 Range/Units 06:14 Hgb (11.4-16.0) gm/dL Hct (34.0-46.0) % MCV (80.0-100.0) fL MCH (25.0-35.0) pg RDW (11.5-15.5) % INR 1.2 H (<1.2) Sodium (137-145) mmol/L Potassium (3.5-5.1) mmol/L BUN (7-17) mg/dL Creatinine (0.52-1.04) mg/dL Glucose (74-99) mg/dL Magnesium (1.6-2.3) mg/dL AST (14-36) U/L Total Protein (6.3-8.2) g/dL Albumin (3.5-5.0) g/dL CA 125 Antigen (0.0-30.1) U/mL Microbiology - Last 24 Hours (Table) 12/08/17 22:22 Blood Culture - Preliminary Blood No Growth after 72 hours 12/08/17 22:39 Blood Culture - Preliminary Blood No Growth after 72 hours Assessment and Plan Assessment: Impression: 1 dyspnea on exertion, nonspecific but felt to be multifactorial, suspect that the patient has worsening anemia, and sepsis., doubt any underlying COPD, doubt any significant abnormality noted on CT of the chest itself. 2 urinary tract infection with fever, elevated lactic acid on admission, could be early sepsis from urinary tract infection. Hence I would recommend empirically Rocephin until the urine cultures are available. Patient had recent urinary tract infection secondary to Klebsiella pneumoniae and E. coli. Both were sensitive to Rocephin. 3 Abnormal findings on the liver noted on the CT of the chest, radiologist questioned metastatic spots on the liver, ultrasound of the liver reveals multiple masses of the largest of which is 3.6 x 8 cm. 4 chronic anemia, will likely need further workup on outpatient basis if not already done. 5 history of uterine cancer status post hysterectomy and bilateral salpingo- oophorectomy. The patient only completed 50% of her adjuvant treatments then discontinue them. multiple comorbidities including hypertension, hypothyroidism, remote history of breast cancer and chemotherapy, osteoarthritis, chronic kidney disease stage III, Recommendation: The patient was seen and evaluated by Dr. Bourne. She has no pulmonary complaints and maintaining good O2 saturations in the 90s on room air. She has refused a liver biopsy. We will see the patient on as-needed basis. I, the cosigning physician, performed a history & physical examination of the patient. Lungs sounds are clear. Maintaining good O2 saturations in the 90s on room air. I discussed the assessment and plan of care with my nurse practitioner, Donna Finley. I attest to the above note as dictated by her.
--- NOTE | 2017-12-12 15:09 | PN ---
PROGRESS NOTE Mrs Mendoza is a lady with multiple comorbid conditions. However, from a cardiac standpoint she is doing better today. Her heart rate and blood pressure are much better. She is breathing easier, denies any chest discomfort. She has breast cancer with metastasis. Cardiac-goff stable. No angina. No shortness of breath. Blood pressure control is optimal. S1, S2 heard normally, short systolic murmur is audible. Lungs are clear. Abdomen and lower extremity exam unchanged. I will see the patient as needed from a cardiac standpoint. Thank you very much for the consult. MMODL / IJN: [id number] /
[2017-12-12] MEDS: CARVEDILOL 12.5 MG TAB PO SCH (18:17)
[2017-12-12] MEDS: HYDROcodone/APAP 5-325MG 1 EACH TAB PO PRN (22:24)
--- NOTE | 2017-12-12 23:53 | P.PN ---
Subjective Progress Note Date: 12/12/17 Pt is comfortable. She denied any f/c/n/v/obvious bleeding. She denied any significant pain Objective - Vital Signs Vital signs: Vital Signs Temp 97.7 F 12/12/17 20:00 Pulse 60 12/12/17 20:00 Resp 18 12/12/17 20:00 BP 115/62 12/12/17 20:00 Pulse Ox 97 12/12/17 20:00 Intake & Output 12/12/17 12/12/17 12/13/17 06:59 18:59 06:59 Intake Total 510 Balance 510 Weight 64 kg Intake: Oral 510 Other: # Voids 2 3 1 - Constitutional General appearance: Present: no acute distress - EENT Eyes: Present: EOMI ENT: Present: hearing grossly normal, normal oropharynx - Respiratory Respiratory: bilateral: CTA - Cardiovascular Rhythm: regular Heart sounds: normal: S1, S2 - Gastrointestinal General gastrointestinal: Present: normal bowel sounds, soft - Integumentary Integumentary: Present: normal - Neurologic Neurologic: Present: CNII-XII intact - Musculoskeletal Musculoskeletal: Present: generalized weakness, strength equal bilaterally - Psychiatric Psychiatric: Present: A&O x's 3, appropriate affect - Labs CBC & Chem 7: 12/12/17 06:14 12/12/17 06:14 Labs: Abnormal Lab Results - Last 24 Hours (Table) 12/11/17 12/12/17 12/12/17 Range/Units 05:45 06:14 06:14 Hgb 8.2 L (11.4-16.0) gm/dL Hct 25.5 L (34.0-46.0) % MCV 64.5 L (80.0-100.0) fL MCH 20.8 L (25.0-35.0) pg RDW 17.2 H (11.5-15.5) % INR (<1.2) Sodium 136 L (137-145) mmol/L Potassium 3.4 L (3.5-5.1) mmol/L BUN 25 H (7-17) mg/dL Creatinine 1.23 H (0.52-1.04) mg/dL Glucose 114 H (74-99) mg/dL Magnesium 1.0 L (1.6-2.3) mg/dL AST 51 H (14-36) U/L Total Protein 5.4 L (6.3-8.2) g/dL Albumin 2.9 L (3.5-5.0) g/dL CA 125 Antigen 93.5 H (0.0-30.1) U/mL 12/12/17 Range/Units 06:14 Hgb (11.4-16.0) gm/dL Hct (34.0-46.0) % MCV (80.0-100.0) fL MCH (25.0-35.0) pg RDW (11.5-15.5) % INR 1.2 H (<1.2) Sodium (137-145) mmol/L Potassium (3.5-5.1) mmol/L BUN (7-17) mg/dL Creatinine (0.52-1.04) mg/dL Glucose (74-99) mg/dL Magnesium (1.6-2.3) mg/dL AST (14-36) U/L Total Protein (6.3-8.2) g/dL Albumin (3.5-5.0) g/dL CA 125 Antigen (0.0-30.1) U/mL Microbiology - Last 24 Hours (Table) 12/08/17 22:22 Blood Culture - Preliminary Blood No Growth after 72 hours 12/08/17 22:39 Blood Culture - Preliminary Blood No Growth after 72 hours Assessment and Plan (1) Liver mass Narrative/Plan: The pt has multiple liver masses, very suspicious for malignancy. She has known uterine cancer, and thus metastatic recurrence is the primary differential. Ca 125 is also elevated. For a definitive diagnsosis, liver biopsy would be required. This was previously d/w the pt and she was agreeable. Today, however, she is refusing the biopsy. I had a detailed discussion with her. Per Nsg she has been intermittently confused, but was O x3 with appropriate comprehension. The rationale for the biopsy was discussed with her. This would be optimal if she were to seek active treatment. She stated that she was scared about the biopsy, and had decided already not to have active treament. She therefore was quite categorical that she did not want the biopsy. Per Nsg, her family had indicated that the would follow her decison. I will communicate with them to confirm. In that case, it would be reasonable to consider comfort care. Current Visit: Yes Status: Acute Code(s): R16.0 - HEPATOMEGALY, NOT ELSEWHERE CLASSIFIED SNOMED Code(s): 818068713 (2) Anemia Narrative/Plan: Likely anemia of cancer. Hgb is stable in the 8 range Current Visit: Yes Status: Acute Code(s): D64.9 - ANEMIA, UNSPECIFIED SNOMED Code(s): 910300318
[2017-12-13] MEDS: BACLOFEN 10 MG TAB PO SCH ×2 (02:27→22:13)
[2017-12-13 06:21] LABS: Albumin 3.1 g/dL (3.5-5.0); Magnesium 1.8 mg/dL (1.6-2.3); Potassium 3.8 mmol/L (3.5-5.1); Total Bilirubin 0.7 mg/dL (0.2-1.3); Total Protein 5.7 g/dL (6.3-8.2)
[2017-12-13] MEDS: PANTOPRAZOLE 40 MG TABLET PO SCH ×2 (06:30→17:22)
[2017-12-13] MEDS: CARVEDILOL 12.5 MG TAB PO SCH ×2 (06:30→17:22)
[2017-12-13] MEDS: LEVOTHYROXINE 75 MCG TAB PO SCH (06:30)
[2017-12-13 07:39] LABS: Anisocytosis Slight; Basophils % (A) 0 %; Eosinophils # (A) 0.2 k/uL (0-0.7); Eosinophils % (A) 2 %; HGB 8.1 gm/dL (11.4-16.0); Hypochromasia Moderate; Lymphocytes # (A) 1.3 k/uL (1.0-4.8); Lymphocytes % (A) 21 %; MCHC 31.2 g/dL (31.0-37.0); MCV 67.1 fL (80.0-100.0); Mean Platelet Volume 6.5; Microcytosis Marked; Monocytes # (A) 0.5 k/uL (0-1.0); Monocytes % (A) 7 %; Neutrophils # (A) 4.4 k/uL (1.3-7.7); Neutrophils % (A) 68 %; Platelet Count 217 k/uL (150-450); RBC 3.88 m/uL (3.80-5.40); RDW 17.4 % (11.5-15.5); WBC 6.5 k/uL (3.8-10.6)
[2017-12-13] MEDS: LOSARTAN 50 MG TAB PO SCH (08:34)
[2017-12-13] MEDS: cefTRIAXone IN SWFI 1,000 MG/10 ML SYRINGE IVP SCH (08:34)
[2017-12-13] MEDS: FUROSEMIDE 40 MG TAB PO SCH (08:34)
[2017-12-13] MEDS: ASPIRIN 81 MG PO SCH (11:00)
--- NOTE | 2017-12-13 12:34 | P.PN ---
Subjective Progress Note Date: 12/13/17 Principal diagnosis: Shortness of breat, Uterine cancer Radha has declined further work-up related to what appears to be recurrent and /or progressive cancer. Her hemoglobin has remained low stable. She has no acute complaints overnight. Objective - Vital Signs Vital signs: Vital Signs Temp 97.7 F 12/13/17 08:00 Pulse 62 12/13/17 11:04 Resp 18 12/13/17 11:04 BP 135/56 12/13/17 11:04 Pulse Ox 96 12/13/17 11:04 Intake & Output 12/12/17 12/13/17 12/13/17 18:59 06:59 18:59 Intake Total 510 240 Balance 510 240 Weight 64 kg Intake: Oral 510 240 Other: # Voids 3 3 - Exam GENERAL: Patient is well-developed and well-nourished. Mild Distress. ENT: Neck supple. No significant lymphadenopathy is noted. Oropharynx is clear. Moist mucous membranes. EYES: The sclera were anicteric and conjunctiva were pink and moist. PULMONARY: Diminished throughout, No audible rales rhonchi or wheezing was noted. CARDIOVASCULAR: There is a regular rate and rhythm without any murmurs gallops or rubs. ABDOMEN: Soft and nontender with normal bowel sounds. SKIN: No Rash NEUROLOGIC: Patient is alert and oriented x3.Normal speech, volume and content. MUSCULOSKELETAL: Normal extremities with adequate strength and full range of motion. No lower extremity swelling or edema. No calf tenderness. LYMPHATICS: No significant lymphadenopathy is noted - Labs CBC & Chem 7: 12/13/17 05:47 12/13/17 05:47 Labs: Abnormal Lab Results - Last 24 Hours (Table) 12/12/17 12/13/17 12/13/17 Range/Units 06:14 05:47 05:47 Hgb 8.1 L (11.4-16.0) gm/dL Hct 26.0 L (34.0-46.0) % MCV 67.1 L (80.0-100.0) fL MCH 21.0 L (25.0-35.0) pg RDW 17.4 H (11.5-15.5) % Sodium 134 L (137-145) mmol/L BUN 28 H (7-17) mg/dL Creatinine 1.33 H (0.52-1.04) mg/dL Glucose 132 H (74-99) mg/dL Erythropoietin 75.07 H (2.00-30.00) mIU/mL AST 58 H (14-36) U/L Total Protein 5.7 L (6.3-8.2) g/dL Albumin 3.1 L (3.5-5.0) g/dL Microbiology - Last 24 Hours (Table) 12/08/17 22:22 Blood Culture - Preliminary Blood No Growth after 96 hours 12/08/17 22:39 Blood Culture - Preliminary Blood No Growth after 96 hours Assessment and Plan Plan: Assessment and Recommendations: 1. G3,poorly differentiated endometroid adenocarcinoma of uterus Diagnosed on - Underwent Total Hysterectomy with Bilateral Oopherectomy on 08/15/17 - She is status Post 50% of her adjuvant Radiation, although opted to discontinue treatment to better support her partner who was recently diagnosed with esophageal cancer. She received Radiation through [facility] with Dr. Jara - CT scan ?recurrence/progressive disease. Will follow-up with Dr. Paulino as outpatient for options related to systemic treatment. - US liver reveals multiple concerning lesions 3-8cm in size The pt has multiple liver masses, very suspicious for malignancy. She has known uterine cancer, and thus metastatic recurrence is the primary differential. Ca 125 is also elevated. For a definitive diagnsosis, liver biopsy would be required. This was previously d/w the pt and she was agreeable. Since initial discussion she has changed her mind and decided to not move forward with further diagnostics and/or treatment measures related to cancer. Dr. Sims had a detailed discussion with her. Per Nsg she has been intermittently confused, but was Alert x3 with appropriate comprehension. The rationale for the biopsy was discussed with her again by Dr. Sims on 12/12/17. This would be optimal if she were to seek active treatment. She stated that she was scared about the biopsy, and had decided already not to have active treament. She therefore was quite categorical that she did not want the biopsy per Dr. sagastume conversation. Per Nsg, her family had indicated that they would follow her decison. In the case she is not moving forward with further diagnostics or treatment of cancer, it would be reasonable to consider comfort care. - I have restarted her Aspirin 81mg daily and Prophylaxis Lovenox (renal dose 30mg Subcut daily) as this was held on 12/11/17 for anticipated Biopsy of new liver lesions. 2. Acute Hypoxic Respiratory Failure - CTA Reviewed, no evidence of Pulmonary Embolism. 3. Microcytic Anemia - Appears Chronic likely Multifactoral with Component of Chronic Renal Disease Stage 3 and Anemia of Malignancy - No obvious signs of bleeding - Full work-up has been completed and no indication for replacement of iron or B12 at this time. - She does express symptoms which could be increased or related to her anemia, fatigue, SOB exertion, Pica (pagophagia). - Erythropoetin level 75, in the picture of chronic kidney disease stage 3 she could be candidate for Epogen injections. Defer to Dr. Paulino Plan from Oncology Standpoint: - I will discuss this option of adding Epogen with her primary oncologist, Dr. Paulino and if he would like to proceed will discuss this option, risks, benefits and potential side effects with patient. - She has a follow-up appointment to discuss hospitalization and diagnostic findings with Dr. paulino for 12/23/17 @[id number], this has been added to patients discharge plan. Thank You For allowing us to follow this patient along with you during this hospitalization Ernestina Rodriguez NP
--- NOTE | 2017-12-13 13:43 | P.DS ---
Providers Date of admission: 12/08/17 15:57 Expected date of discharge: 12/13/17 Attending physician: Yaneli Duarte Consults: 12/08/17 21:48 Consult Physician Urgent Consulting Provider: Sushil Sims Consult Reason/Comments: history of CA Do you want consulting provider notified?: Yes, Notify in am 12/08/17 21:50 Consult Physician Urgent Consulting Provider: Jie Menon Consult Reason/Comments: dyspnea Do you want consulting provider notified?: Yes, Notify in am 12/10/17 10:45 Consult Physician Routine Consulting Provider: Daniel Mills Consult Reason/Comments: elevated troponins Do you want consulting provider notified?: Yes Primary care physician: Yanelijg Duarte [facility] Course: Discharge diagnosis Terminal diagnosis: 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 Shortness of breath on exertion likely secondary to worsening anemia and sepsis related to UTI 2. UTI with sepsis present on admission. Will have patient continue Ceftin for 2 more days for UTI. Urine culture negative 3. History of breast cancer 4. Chronic kidney disease stage III 5. Essential hypertension 6. Chronic anemia secondary to patient's cancer 7. Elevated troponins likely secondary to lactic acidosis. Patient seen by cardiology. 8. Acute on chronic diastolic congestive heart failure with mild exacerbation. Cardiology increased the Lasix to 40 mg Hospital course This is a 87-year-old patient presents to the emergency room complaining of increased difficulty breathing for the past 2 days. Patient presents to the emergency room 2 days ago and left AGAINST MEDICAL ADVICE. Patient states that she then went home but started experiencing difficulty in breathing again. She also is complaining that she has been having increased weakness. Patient has a past medical history of hypertension, cardiomyopathy recent hysterectomy for cancer at [facility]. Also has a history of breast cancer with chemotherapy. Additional history includes hypothyroidism left vasectomy and orthopedic surgery. X-ray completed emergency room showing interstitial prominence, possible bronchitis or asthma. No focal infiltrate. D-dimer 1.70. 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 No evidence of pulmonary embolus and. Low-density liver masses suggestive of metastases disease. EKG completed showing sinus rhythm with premature atrial complexes, low voltage QRS, left anterior fascicular block, inferior infarct, age undetermined. Troponin 0.036. Patient denies chest pain at this time. Repeat troponins ordered. Urinary analysis showing moderate amount of leukocyte Estrace. Urine culture has been ordered. Initial lactic acid 3.6. Repeat 1.8. patient started on Rocephin. Dr. Menon per pulmonary services consulted. Dr. Sims per oncology consulted. Patient denies chest pain or shortness breath. Denies nausea vomiting diarrhea. Denies any urinary burning or frequency. On 12/10/2017 patient is currently resting comfortably in bed. At this time patient denies any shortness of breath or chest pain. Denies any nausea vomiting or diarrhea. Denies any urinary frequency or burning. On 12/11/2017 is currently resting in bed. Patient is alert and oriented 3. Patient remains fatigued. 2-D echo has been ordered per cardiology. At this time patient denies chest pain or shortness breath. Denies nausea vomiting or diarrhea. Denies any urinary burning or frequency. On 12/12/2017 patient is currently alert and oriented 3 resting comfortably in bed visiting with friends. Per nursing staff patient is refusing any further intervention including biopsy of the liver masses. Dr. sims following per oncology. At this time patient denies nausea vomiting or diarrhea. Denies chest pain or shortness of breath. Denies any urinary burning or frequency 12/13/2017 Dr. Duarte met with family yesterday evening and at that time discussed the reasoning for a liver biopsy to further evaluate the liver lesions. Patient was agreeable at that time. She went down to the interventional radiology department to proceed with a liver biopsy and then refused to have the biopsy completed. She was brought back to the sixth floor and at that time family and patient wished to proceed with hospice care. Hospice has been consulted. They have been through to evaluate patient. And we plan for patient to be discharged home with hospice today. Patient will continue with all of her home medications. Lasix was increased during this admission by cardiology Patient is stable for discharge. She'll be discharged home with hospice. I performed an examination of the patient and discussed their management with the physician Housekeeping Staff. I have reviewed the Physician Housekeeping Staff's notes and agree with the documented findings and plan of care Patient Condition at Discharge: Stable Plan - Discharge Summary Discharge Rx Participant: No New Discharge Prescriptions: New Furosemide [Lasix] 40 mg PO DAILY #30 tab Losartan [Cozaar] 100 mg PO DAILY #30 tab Continue Levothyroxine Sodium [Synthroid] 75 mcg PO DAILY Carvedilol [Coreg] 3.125 mg PO BID Aspirin EC [Ecotrin Low Dose] 81 mg PO DAILY Pravastatin Sodium [Pravachol] 20 mg PO HS Pantoprazole [Protonix] 40 mg PO AC-BID tablet. Diphenox-Atrop 2.5-0.025 mg [Lomotil] 2 tab PO QID PRN #10 tab PRN Reason: Diarrhea HYDROcodone/APAP 5-325MG [[place] 5-325] 1 tab PO Q8H PRN PRN Reason: Pain Magnesium 200 mg PO BID #8 tablet Megestrol [Megace] 400 mg PO BID Discontinued Losartan/Hydrochlorothiazide [Hyzaar 100-12.5 Tablet] 1 tab PO DAILY Discharge Medication List Carvedilol [Coreg] 3.125 mg PO BID 10/12/15 [History] Levothyroxine Sodium [Synthroid] 75 mcg PO DAILY 10/12/15 [History] Aspirin EC [Ecotrin Low Dose] 81 mg PO DAILY 12/29/15 [History] Pravastatin Sodium [Pravachol] 20 mg PO HS 03/12/17 [History] Pantoprazole [Protonix] 40 mg PO AC-BID tablet. 03/13/17 [Rx] Diphenox-Atrop 2.5-0.025 mg [Lomotil] 2 tab PO QID PRN #10 tab 11/07/17 [Rx] HYDROcodone/APAP 5-325MG [[place] 5-325] 1 tab PO Q8H PRN 11/11/17 [History] Magnesium 200 mg PO BID #8 tablet 11/11/17 [Rx] Megestrol [Megace] 400 mg PO BID 12/06/17 [History] Furosemide [Lasix] 40 mg PO DAILY #30 tab 12/13/17 [Rx] Losartan [Cozaar] 100 mg PO DAILY #30 tab 12/13/17 [Rx] Follow up Appointment(s)/Referral(s): Yaneli Duarte MD [Primary Care Provider] - 12/18/17 9:45 am Activity/Diet/Wound Care/Special Instructions: Diet: cardiac Activity: as tolerated Patient will be discharged home with [facility]. [facility] to address hospice meds Discharge Disposition: HOME WITH HOSPICE
--- NOTE | 2017-12-13 14:00 | P.PN ---
Progress Note - Text Progress Note Date: 12/13/17 Dr. Duarte had family meeting that included patient's family and patient herself. He addressed patient having a liver biopsy. Initially she was agreeable. However, when she presented down to the interventional radiology department she's refused to have a liver biopsy. Dr. Duarte again with the family to discuss the plan of treatment. And at that time the family and patient wished to proceed with hospice. Patient will be discharged this afternoon with hospice.
[2017-12-14 07:06] LABS: Anisocytosis Slight; Basophils % (A) 0 %; Eosinophils # (A) 0.1 k/uL (0-0.7); Eosinophils % (A) 2 %; HCT 25.9 % (34.0-46.0); HGB 8.2 gm/dL (11.4-16.0); Hypochromasia Slight; Lymphocytes % (A) 17 %; MCH 20.6 pg (25.0-35.0); MCHC 31.5 g/dL (31.0-37.0); MCV 65.3 fL (80.0-100.0); Microcytosis Marked; Monocytes # (A) 0.4 k/uL (0-1.0); Monocytes % (A) 7 %; Neutrophils # (A) 4.1 k/uL (1.3-7.7); Neutrophils % (A) 69 %; Platelet Count 223 k/uL (150-450); RBC 3.97 m/uL (3.80-5.40); RDW 17.8 % (11.5-15.5)
[2017-12-14] MEDS: FUROSEMIDE 40 MG TAB PO SCH (09:27)
[2017-12-14] MEDS: ENOXAPARIN 30 MG/0.3 ML SYRINGE SQ SCH (09:27)
[2017-12-14] MEDS: LOSARTAN 50 MG TAB PO SCH (09:27)
[2017-12-14] MEDS: CARVEDILOL 12.5 MG TAB PO SCH ×2 (09:28→17:59)
[2017-12-14] MEDS: PANTOPRAZOLE 40 MG TABLET PO SCH ×2 (09:28→17:59)
[2017-12-14] MEDS: ASPIRIN 81 MG PO SCH (09:28)
[2017-12-14] MEDS: LEVOTHYROXINE 75 MCG TAB PO SCH (09:28)
[2017-12-14] MEDS: cefTRIAXone IN SWFI 1,000 MG/10 ML SYRINGE IVP SCH (11:36)
--- NOTE | 2017-12-14 14:46 | P.PN ---
Subjective Progress Note Date: 12/14/17 This is a 87-year-old patient presents to the emergency room complaining of increased difficulty breathing for the past 2 days. Patient presents to the emergency room 2 days ago and left AGAINST MEDICAL ADVICE. Patient states that she then went home but started experiencing difficulty in breathing again. She also is complaining that she has been having increased weakness. Patient has a past medical history of hypertension, cardiomyopathy recent hysterectomy for cancer at [facility]. Also has a history of breast cancer with chemotherapy. Additional history includes hypothyroidism left vasectomy and orthopedic surgery. X-ray completed emergency room showing interstitial prominence, possible bronchitis or asthma. No focal infiltrate. D-dimer 1.70. 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 No evidence of pulmonary embolus and. Low-density liver masses suggestive of metastases disease. EKG completed showing sinus rhythm with premature atrial complexes, low voltage QRS, left anterior fascicular block, inferior infarct, age undetermined. Troponin 0.036. Patient denies chest pain at this time. Repeat troponins ordered. Urinary analysis showing moderate amount of leukocyte Estrace. Urine culture has been ordered. Initial lactic acid 3.6. Repeat 1.8. patient started on Rocephin. Dr. Menon per pulmonary services consulted. Dr. Sims per oncology consulted. Patient denies chest pain or shortness breath. Denies nausea vomiting diarrhea. Denies any urinary burning or frequency. On 12/10/2017 patient is currently resting comfortably in bed. At this time patient denies any shortness of breath or chest pain. Denies any nausea vomiting or diarrhea. Denies any urinary frequency or burning. On 12/11/2017 is currently resting in bed. Patient is alert and oriented 3. Patient remains fatigued. 2-D echo has been ordered per cardiology. At this time patient denies chest pain or shortness breath. Denies nausea vomiting or diarrhea. Denies any urinary burning or frequency. On 12/12/2017 patient is currently alert and oriented 3 resting comfortably in bed visiting with friends. Per nursing staff patient is refusing any further intervention including biopsy of the liver masses. Dr. sims following per oncology. At this time patient denies nausea vomiting or diarrhea. Denies chest pain or shortness of breath. Denies any urinary burning or frequency. On 12/14/2017 patient is alert and oriented 3 in no apparent distress she denies any new symptoms at this time she was asked again if she wants to proceed with liver biopsy and cancer treatment with chemotherapy and she is stated that that's what she wants at this point. Clinically she denies any fever or chills no headache or dizziness no chest pain or shortness of breath no cough no nausea or vomiting no abdominal pain no diarrhea and no urinary symptoms Objective - Vital Signs Vital signs: Vital Signs Temp 98.4 F 12/14/17 07:00 Pulse 76 12/14/17 07:00 Resp 14 12/14/17 08:45 BP 132/67 12/14/17 07:00 Pulse Ox 96 12/14/17 07:00 Intake & Output 12/13/17 12/14/17 12/14/17 18:59 06:59 18:59 Intake Total 480 600 240 Balance 480 600 240 Intake: Oral 480 600 240 Other: # Voids 2 1 3 - Exam Head normocephalic and atraumatic Neck supple no JVD no goiter Lungs clear to auscultation bilaterally no wheezing or crackles Heart regular rate and rhythm S1-S2, no rub or gallop Abdomen is soft nontender nondistended positive bowel sounds no hepatosplenomegaly Extremities no edema no cyanosis or clubbing Neuro alert and orientated to 3 - Labs CBC & Chem 7: 12/14/17 06:43 12/13/17 05:47 Labs: Abnormal Lab Results - Last 24 Hours (Table) 12/14/17 Range/Units 06:43 Hgb 8.2 L (11.4-16.0) gm/dL Hct 25.9 L (34.0-46.0) % MCV 65.3 L (80.0-100.0) fL MCH 20.6 L (25.0-35.0) pg RDW 17.8 H (11.5-15.5) % Microbiology - Last 24 Hours (Table) 12/08/17 22:22 Blood Culture - Preliminary Blood No Growth after 120 hours 12/08/17 22:39 Blood Culture - Preliminary Blood No Growth after 120 hours Assessment and Plan Plan: 1. Dyspnea on exertion. D-dimer elevated at 1.70. CTA negative for pulmonary embolism. X-ray completed showing interstitial prominence, possible bronchitis or asthma. No focal infiltrate. Dr. Menon for pulmonary has been consulted. Per Dr. Menon could be multifactorial could be due to worsening anemia and possible sepsis related to UTI. 2-D echo completed showing EF of 50-55%. 2. Urinary tract infection. Patient febrile and elevated lactic acid at 3.6 on admission. Repeat lactic acid 1.8. Urine and blood cultures has been ordered. She currently on IV antibiotic Rocephin 3. History of breast cancer. Patient recently underwent hysterectomy. Patient states she's had chemotherapy but did not complete her radiation. CTA showing low density liver masses suggestive of metastases disease. Ultrasound of liver ordered per Dr. Menon. Dr. Sims per oncology has been consulted. 4. Chronic Anemia. Patient has required iron infusions in the past. Hemoglobin 8.5. Dr. Sims per oncology services have been consulted. hemoglobin 8.2 5. Chronic daily disease stage III. Initial creatinine 1.40 and bun 44. Levels are trending down. We'll continue to monitor closely. Creatinine 1.23 and bun 25 6. Essential hypertension. Patient currently on Coreg, hydrochlorothiazide and Cozaar 7. Hypothyroidism. continue Synthroid 8. Osteoarthritis 9. Hyperlipidemia. Home pravastatin on hold due to elevated liver enzyme 10. Elevated troponin level. Initial troponin 0.036, 0.041, 0.046. EKG completed showing sinus rhythm with premature atrial complexes, low voltage QRS left anterior fascicular block. Inferior infarct, age undetermined. Repeat troponins have been ordered. Patient denies chest pain. Cardiology services have been consulted. 2-D echo has been ordered. 2-D echo completed showing EF of 50-55% 11. 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 She underwent cholecystectomy with bilateral oophorectomy on 08/15/2017. Patient is status post 50% of her adjuvant radiation. Patient opted to discontinue treatment to better support her partner who was recently diagnosed with esophageal cancer. Per oncology patient to follow-up outpatient with Dr. Paulino for options related to systemic treatment possible computed tomography scan. Ultrasound of liver completed showing multiple hepatic masses, the largest ranging from 3.68 cm. oncology recommending liver biopsy. Patient is agreeable at this time. DVT prophylaxis Lovenox and GI prophylaxis Protonix.
[2017-12-14] MEDS: BACLOFEN 10 MG TAB PO SCH (21:45)
[2017-12-15] MEDS: LEVOTHYROXINE 75 MCG TAB PO SCH (06:14)
[2017-12-15 09:24] LABS: Anisocytosis Slight; Basophils % (A) 0 %; Eosinophils # (A) 0.1 k/uL (0-0.7); Eosinophils % (A) 2 %; HCT 25.6 % (34.0-46.0); HGB 8.2 gm/dL (11.4-16.0); Hypochromasia Marked; Lymphocytes # (A) 1.3 k/uL (1.0-4.8); Lymphocytes % (A) 20 %; MCH 21.2 pg (25.0-35.0); MCHC 31.8 g/dL (31.0-37.0); MCV 66.7 fL (80.0-100.0); Mean Platelet Volume 6.4; Microcytosis Marked; Monocytes # (A) 0.6 k/uL (0-1.0); Monocytes % (A) 8 %; Neutrophils # (A) 4.4 k/uL (1.3-7.7); Neutrophils % (A) 67 %; Platelet Count 174 k/uL (150-450); RBC 3.85 m/uL (3.80-5.40); RDW 17.8 % (11.5-15.5); WBC 6.6 k/uL (3.8-10.6)
[2017-12-15 09:38] LABS: Albumin 3.1 g/dL (3.5-5.0); Potassium 3.6 mmol/L (3.5-5.1); Total Bilirubin 0.8 mg/dL (0.2-1.3); Total Protein 5.8 g/dL (6.3-8.2)
[2017-12-15] MEDS: ENOXAPARIN 30 MG/0.3 ML SYRINGE SQ SCH ×2 (10:08→10:17)
[2017-12-15] MEDS: ASPIRIN 81 MG PO SCH (10:09)
[2017-12-15] MEDS: PANTOPRAZOLE 40 MG TABLET PO SCH ×2 (10:09→16:59)
[2017-12-15] MEDS: LOSARTAN 50 MG TAB PO SCH (10:09)
[2017-12-15] MEDS: FUROSEMIDE 40 MG TAB PO SCH (10:09)
[2017-12-15] MEDS: CARVEDILOL 12.5 MG TAB PO SCH ×2 (10:09→16:59)
[2017-12-15] MEDS: cefTRIAXone IN SWFI 1,000 MG/10 ML SYRINGE IVP SCH (10:17)
--- NOTE | 2017-12-15 11:22 | P.PN ---
Subjective Progress Note Date: 12/15/17 This is a 87-year-old patient presents to the emergency room complaining of increased difficulty breathing for the past 2 days. Patient presents to the emergency room 2 days ago and left AGAINST MEDICAL ADVICE. Patient states that she then went home but started experiencing difficulty in breathing again. She also is complaining that she has been having increased weakness. Patient has a past medical history of hypertension, cardiomyopathy recent hysterectomy for cancer at [facility]. Also has a history of breast cancer with chemotherapy. Additional history includes hypothyroidism left vasectomy and orthopedic surgery. X-ray completed emergency room showing interstitial prominence, possible bronchitis or asthma. No focal infiltrate. D-dimer 1.70. 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 No evidence of pulmonary embolus and. Low-density liver masses suggestive of metastases disease. EKG completed showing sinus rhythm with premature atrial complexes, low voltage QRS, left anterior fascicular block, inferior infarct, age undetermined. Troponin 0.036. Patient denies chest pain at this time. Repeat troponins ordered. Urinary analysis showing moderate amount of leukocyte Estrace. Urine culture has been ordered. Initial lactic acid 3.6. Repeat 1.8. patient started on Rocephin. Dr. Menon per pulmonary services consulted. Dr. Sims per oncology consulted. Patient denies chest pain or shortness breath. Denies nausea vomiting diarrhea. Denies any urinary burning or frequency. On 12/10/2017 patient is currently resting comfortably in bed. At this time patient denies any shortness of breath or chest pain. Denies any nausea vomiting or diarrhea. Denies any urinary frequency or burning. On 12/11/2017 is currently resting in bed. Patient is alert and oriented 3. Patient remains fatigued. 2-D echo has been ordered per cardiology. At this time patient denies chest pain or shortness breath. Denies nausea vomiting or diarrhea. Denies any urinary burning or frequency. On 12/12/2017 patient is currently alert and oriented 3 resting comfortably in bed visiting with friends. Per nursing staff patient is refusing any further intervention including biopsy of the liver masses. Dr. sims following per oncology. At this time patient denies nausea vomiting or diarrhea. Denies chest pain or shortness of breath. Denies any urinary burning or frequency. On 12/14/2017 patient is alert and oriented 3 in no apparent distress she denies any new symptoms at this time she was asked again if she wants to proceed with liver biopsy and cancer treatment with chemotherapy and she is stated that that's what she wants at this point. Clinically she denies any fever or chills no headache or dizziness no chest pain or shortness of breath no cough no nausea or vomiting no abdominal pain no diarrhea and no urinary symptoms On 12/15/2017 patient was seen and examined she is alert and oriented in no distress she denies any fever or chills no headache or dizziness no chest pain no shortness of breath no cough no nausea or vomiting no abdominal pain no diarrhea and no urinary symptoms is scheduled for liver biopsy in a.m. tomorrow case was discussed again with patient and her the bedside. And they are both agreeable to above plan. Objective - Vital Signs Vital signs: Vital Signs Temp 98.1 F 12/15/17 07:37 Pulse 60 12/15/17 08:00 Resp 16 12/15/17 08:00 BP 130/77 12/15/17 07:37 Pulse Ox 96 12/15/17 07:37 Intake & Output 12/14/17 12/15/17 12/15/17 18:59 06:59 18:59 Intake Total 240 240 Output Total 800 Balance 240 -560 Weight 64 kg Intake: Oral 240 240 Output: Urine 800 Other: # Voids 3 1 2 - Exam Head normocephalic and atraumatic Neck supple no JVD no goiter Lungs clear to auscultation bilaterally no wheezing or crackles Heart regular rate and rhythm S1-S2, no rub or gallop Abdomen is soft nontender nondistended positive bowel sounds no hepatosplenomegaly Extremities no edema no cyanosis or clubbing Neuro alert and orientated to 3 - Labs CBC & Chem 7: 12/15/17 08:39 12/15/17 08:39 Labs: Abnormal Lab Results - Last 24 Hours (Table) 12/15/17 12/15/17 Range/Units 08:39 08:39 Hgb 8.2 L (11.4-16.0) gm/dL Hct 25.6 L (34.0-46.0) % MCV 66.7 L (80.0-100.0) fL MCH 21.2 L (25.0-35.0) pg RDW 17.8 H (11.5-15.5) % BUN 37 H (7-17) mg/dL Creatinine 1.44 H (0.52-1.04) mg/dL Glucose 123 H (74-99) mg/dL AST 62 H (14-36) U/L Alkaline Phosphatase 132 H (38-126) U/L Total Protein 5.8 L (6.3-8.2) g/dL Albumin 3.1 L (3.5-5.0) g/dL Microbiology - Last 24 Hours (Table) 12/08/17 22:22 Blood Culture - Final Blood No Growth after 144 hours 12/08/17 22:39 Blood Culture - Final Blood No Growth after 144 hours Assessment and Plan Plan: 1. Dyspnea on exertion. D-dimer elevated at 1.70. CTA negative for pulmonary embolism. X-ray completed showing interstitial prominence, possible bronchitis or asthma. No focal infiltrate. Dr. Menon for pulmonary has been consulted. Per Dr. Menon could be multifactorial could be due to worsening anemia and possible sepsis related to UTI. 2-D echo completed showing EF of 50-55%. 2. Urinary tract infection. Patient febrile and elevated lactic acid at 3.6 on admission. Repeat lactic acid 1.8. Urine and blood cultures has been ordered. She currently on IV antibiotic Rocephin 3. History of breast cancer. Patient recently underwent hysterectomy. Patient states she's had chemotherapy but did not complete her radiation. CTA showing low density liver masses suggestive of metastases disease. Ultrasound of liver ordered per Dr. Menon. Dr. Sims per oncology has been consulted. 4. Chronic Anemia. Patient has required iron infusions in the past. Hemoglobin 8.5. Dr. Sims per oncology services have been consulted. hemoglobin 8.2 5. Chronic daily disease stage III. Initial creatinine 1.40 and bun 44. Levels are trending down. We'll continue to monitor closely. Creatinine 1.23 and bun 25 6. Essential hypertension. Patient currently on Coreg, hydrochlorothiazide and Cozaar 7. Hypothyroidism. continue Synthroid 8. Osteoarthritis 9. Hyperlipidemia. Home pravastatin on hold due to elevated liver enzyme 10. Elevated troponin level. Initial troponin 0.036, 0.041, 0.046. EKG completed showing sinus rhythm with premature atrial complexes, low voltage QRS left anterior fascicular block. Inferior infarct, age undetermined. Repeat troponins have been ordered. Patient denies chest pain. Cardiology services have been consulted. 2-D echo has been ordered. 2-D echo completed showing EF of 50-55% 11. 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 She underwent cholecystectomy with bilateral oophorectomy on 08/15/2017. Patient is status post 50% of her adjuvant radiation. Patient opted to discontinue treatment to better support her partner who was recently diagnosed with esophageal cancer. Per oncology patient to follow-up outpatient with Dr. Paulino for options related to systemic treatment possible computed tomography scan. Ultrasound of liver completed showing multiple hepatic masses, the largest ranging from 3.68 cm. oncology recommending liver biopsy. Patient is agreeable at this time. DVT prophylaxis Lovenox and GI prophylaxis Protonix.
--- NOTE | 2017-12-15 17:40 | CONS ---
CONSULTATION DATE OF SERVICE: 12/15/2017. IDENTIFYING DATA: An 87-year-old female patient. HISTORY OF PRESENT ILLNESS: Ms. Mendoza presented to the medical floor at [facility] with increased difficulty in breathing. Per chart history, she had presented to the emergency room 2 days prior to admission and had left AMA, but returned with difficulty breathing. She also was complaining of increased weakness. She currently states that she is feeling and breathing better. Psychiatry consultation is ordered regarding competency. Per chart history, the patient is recommended a liver biopsy which initially it sounds she was not agreeable to, but currently she is agreeable to proceed with liver biopsy per chart history. The patient herself states that she is not sure what the test is they want to do, but now she is agreeable to it. She does make reference to them doing that test by way of her esophagus, but is not verbalizing anything about liver biopsy. Per chart history, the liver ultrasound showed multiple hepatic masses. PSYCHIATRIC HISTORY: She denies any history of depression. Denies any times where she tried to hurt herself. PSYCHIATRIC FAMILY HISTORY: Denies. MEDICAL HISTORY: Hypertension, cardiomyopathy, hysterectomy for cancer, breast cancer with chemotherapy, hypothyroidism. CURRENT MEDICATIONS: 1. Aspirin. 2. Lioresal. 3. Coreg. 4. Rocephin. 5. Lovenox. 6. Lasix. 7. [place] p.r.n. 8. Cozaar. 9. Zofran p.r.n. 10.Concerta. 11.Zofran p.r.n. 12.Protonix. SOCIAL HISTORY: She currently lives with her boyfriend. She has been once. Says that she is still officially . She has 3 children. DRUG AND ALCOHOL HISTORY: None related. MENTAL STATUS EXAMINATION: She is alert, pleasant, cooperative. Does show range of affect. Her mood is described as "fine." She is oriented to place, person, not to date. She denies any thoughts of harm to self or others. She does not show evidence of psychosis. She does not show any agitation. 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 PLAN/RECOMMENDATIONS: At this point in time, it is not felt that the patient is fully able to make informed decisions. She is not able to explain the test that has been recommended and that she has now been agreeable to do. Further ongoing education of the procedure may be of benefit. I do not recommend any new psychotropic medications at this point in time. Neurology consultation may also be helpful in terms of her cognitive deficits. SHRUTHI / FORTINO: [id number] /
[2017-12-15] MEDS: BACLOFEN 10 MG TAB PO SCH (21:34)
[2017-12-16] MEDS: LEVOTHYROXINE 75 MCG TAB PO SCH (07:42)
[2017-12-16] MEDS: ASPIRIN 81 MG PO SCH (08:58)
[2017-12-16] MEDS: cefTRIAXone IN SWFI 1,000 MG/10 ML SYRINGE IVP SCH (09:05)
[2017-12-16] MEDS: PANTOPRAZOLE 40 MG TABLET PO SCH ×2 (09:05→17:10)
[2017-12-16] MEDS: CARVEDILOL 12.5 MG TAB PO SCH ×2 (09:05→17:10)
[2017-12-16] MEDS: LOSARTAN 50 MG TAB PO SCH (09:06)
[2017-12-16] MEDS: FUROSEMIDE 40 MG TAB PO SCH (09:06)
[2017-12-16 11:55] LABS: Anisocytosis Slight; Basophils % (A) 0 %; Eosinophils # (A) 0.1 k/uL (0-0.7); Eosinophils % (A) 2 %; HCT 25.7 % (34.0-46.0); HGB 8.1 gm/dL (11.4-16.0); Hypochromasia Moderate; Lymphocytes # (A) 1.1 k/uL (1.0-4.8); Lymphocytes % (A) 18 %; MCHC 31.5 g/dL (31.0-37.0); MCV 66.8 fL (80.0-100.0); Mean Platelet Volume 6.3; Microcytosis Marked; Monocytes # (A) 0.4 k/uL (0-1.0); Monocytes % (A) 7 %; Neutrophils # (A) 4.5 k/uL (1.3-7.7); Neutrophils % (A) 71 %; Platelet Count 236 k/uL (150-450); RBC 3.86 m/uL (3.80-5.40); RDW 18.1 % (11.5-15.5); WBC 6.4 k/uL (3.8-10.6)
[2017-12-16 12:11] LABS: Calcium 8.9 mg/dL (8.4-10.2); Potassium 3.4 mmol/L (3.5-5.1); Total Bilirubin 0.7 mg/dL (0.2-1.3); Total Protein 5.6 g/dL (6.3-8.2)
[2017-12-16] MEDS ORDERED: Potassium Replacement Protocol 1 EACH MISC MISCELLANE PRN (12:18)
--- NOTE | 2017-12-16 12:24 | P.PN ---
Subjective Progress Note Date: 12/16/17 This is a 87-year-old patient presents to the emergency room complaining of increased difficulty breathing for the past 2 days. Patient presents to the emergency room 2 days ago and left AGAINST MEDICAL ADVICE. Patient states that she then went home but started experiencing difficulty in breathing again. She also is complaining that she has been having increased weakness. Patient has a past medical history of hypertension, cardiomyopathy recent hysterectomy for cancer at [facility]. Also has a history of breast cancer with chemotherapy. Additional history includes hypothyroidism left vasectomy and orthopedic surgery. X-ray completed emergency room showing interstitial prominence, possible bronchitis or asthma. No focal infiltrate. D-dimer 1.70. 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 No evidence of pulmonary embolus and. Low-density liver masses suggestive of metastases disease. EKG completed showing sinus rhythm with premature atrial complexes, low voltage QRS, left anterior fascicular block, inferior infarct, age undetermined. Troponin 0.036. Patient denies chest pain at this time. Repeat troponins ordered. Urinary analysis showing moderate amount of leukocyte Estrace. Urine culture has been ordered. Initial lactic acid 3.6. Repeat 1.8. patient started on Rocephin. Dr. Menon per pulmonary services consulted. Dr. Sims per oncology consulted. Patient denies chest pain or shortness breath. Denies nausea vomiting diarrhea. Denies any urinary burning or frequency. On 12/10/2017 patient is currently resting comfortably in bed. At this time patient denies any shortness of breath or chest pain. Denies any nausea vomiting or diarrhea. Denies any urinary frequency or burning. On 12/11/2017 is currently resting in bed. Patient is alert and oriented 3. Patient remains fatigued. 2-D echo has been ordered per cardiology. At this time patient denies chest pain or shortness breath. Denies nausea vomiting or diarrhea. Denies any urinary burning or frequency. On 12/12/2017 patient is currently alert and oriented 3 resting comfortably in bed visiting with friends. Per nursing staff patient is refusing any further intervention including biopsy of the liver masses. Dr. sims following per oncology. At this time patient denies nausea vomiting or diarrhea. Denies chest pain or shortness of breath. Denies any urinary burning or frequency. On 12/14/2017 patient is alert and oriented 3 in no apparent distress she denies any new symptoms at this time she was asked again if she wants to proceed with liver biopsy and cancer treatment with chemotherapy and she is stated that that's what she wants at this point. Clinically she denies any fever or chills no headache or dizziness no chest pain or shortness of breath no cough no nausea or vomiting no abdominal pain no diarrhea and no urinary symptoms On 12/15/2017 patient was seen and examined she is alert and oriented in no distress she denies any fever or chills no headache or dizziness no chest pain no shortness of breath no cough no nausea or vomiting no abdominal pain no diarrhea and no urinary symptoms is scheduled for liver biopsy in a.m. tomorrow case was discussed again with patient and her the bedside. And they are both agreeable to above plan. On 12/16/2017 patient is currently resting comfortably in bed. Granddaughter currently at bedside. At this time patient denies chest pain or shortness of breath. Denies nausea vomiting or diarrhea. Denies any urinary symptoms. Plan for liver biopsy later today or early tomorrow. Per nursing staff Derek has been on hold for today. Objective - Vital Signs Vital signs: Vital Signs Temp 98.9 F 12/16/17 06:22 Pulse 78 12/16/17 06:31 Resp 14 12/16/17 06:22 BP 152/68 12/16/17 06:31 Pulse Ox 92 L 12/16/17 06:22 Intake & Output 12/15/17 12/16/17 12/16/17 18:59 06:59 18:59 Intake Total 120 240 Output Total 900 Balance -780 240 Intake: Oral 120 240 Output: Urine 900 Other: Voiding Method Toilet # Voids 2 3 - Exam Head normocephalic Neck supple Lungs clear to auscultation bilaterally no wheezing or crackles Heart regular rate and rhythm S1-S2, no rub or gallop Abdomen is soft nontender nondistended positive bowel sounds no hepatosplenomegaly Extremities no edema - Labs CBC & Chem 7: 12/16/17 11:34 12/16/17 11:34 Labs: Abnormal Lab Results - Last 24 Hours (Table) 12/16/17 12/16/17 Range/Units 11:34 11:34 Hgb 8.1 L (11.4-16.0) gm/dL Hct 25.7 L (34.0-46.0) % MCV 66.8 L (80.0-100.0) fL MCH 21.0 L (25.0-35.0) pg RDW 18.1 H (11.5-15.5) % Potassium 3.4 L (3.5-5.1) mmol/L BUN 42 H (7-17) mg/dL Creatinine 1.44 H (0.52-1.04) mg/dL Glucose 126 H (74-99) mg/dL AST 63 H (14-36) U/L Total Protein 5.6 L (6.3-8.2) g/dL Albumin 3.0 L (3.5-5.0) g/dL Assessment and Plan Assessment: 1. Dyspnea on exertion. D-dimer elevated at 1.70. CTA negative for pulmonary embolism. X-ray completed showing interstitial prominence, possible bronchitis or asthma. No focal infiltrate. Dr. Menon for pulmonary has been consulted. Per Dr. Menon could be multifactorial could be due to worsening anemia and possible sepsis related to UTI. 2-D echo completed showing EF of 50-55%. 2. Urinary tract infection. Patient febrile and elevated lactic acid at 3.6 on admission. Repeat lactic acid 1.8. Urine and blood cultures has been ordered. currently on IV antibiotic Rocephin 3. History of breast cancer. Patient recently underwent hysterectomy. Patient states she's had chemotherapy but did not complete her radiation. CTA showing low density liver masses suggestive of metastases disease. Ultrasound of liver ordered per Dr. Menon. Dr. Sims per oncology has been consulted. Plans for liver biopsy today or early tomorrow. Family and patient are in agreement about plan 4. Chronic Anemia. Patient has required iron infusions in the past. Hemoglobin 8.5. Dr. Sims per oncology services have been consulted. hemoglobin 8.2 5. Chronic daily disease stage III. Initial creatinine 1.40 and bun 44. Levels are trending down. We'll continue to monitor closely. Creatinine 1.44 and bun 42 6. Essential hypertension. Patient currently on Coreg, hydrochlorothiazide and Cozaar 7. Hypothyroidism. continue Synthroid 8. Osteoarthritis 9. Hyperlipidemia. Home pravastatin on hold due to elevated liver enzyme 10. Elevated troponin level. Initial troponin 0.036, 0.041, 0.046. EKG completed showing sinus rhythm with premature atrial complexes, low voltage QRS left anterior fascicular block. Inferior infarct, age undetermined. Repeat troponins have been ordered. Patient denies chest pain. Cardiology services have been consulted. 2-D echo completed showing EF of 50-55% 11. 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 She underwent cholecystectomy with bilateral oophorectomy on 08/15/2017. Patient is status post 50% of her adjuvant radiation. Patient opted to discontinue treatment to better support her partner who was recently diagnosed with esophageal cancer. Per oncology patient to follow-up outpatient with Dr. Paulino for options related to systemic treatment possible computed tomography scan. Ultrasound of liver completed showing multiple hepatic masses, the largest ranging from 3.68 cm. oncology recommending liver biopsy. Patient is agreeable at this time. Dr. Kelley consulted for psych in regards to patient's ability to make medical decisions and mental competence. Per Dr. cobb at this point is not felt that patient is fully able to make informed decisions. Lovenox and aspirin currently on hold due to liver biopsy. DVT prophylaxis Lovenox and GI prophylaxis Protonix. I performed an examination of the patient and discussed their management with the Nurse Practitioner. I have reviewed the Nurse Practitioner's notes and agree with the documented findings and plan of care
[2017-12-16] MEDS: POTASSIUM CHLORIDE ER 20 MEQ TAB.ER PO SCH (13:41)
[2017-12-16] MEDS: HYDROcodone/APAP 5-325MG 1 EACH TAB PO PRN (13:50)
[2017-12-16 15:10] VITALS: BMI 25.0
--- NOTE | 2017-12-16 15:16 | P.PN ---
Subjective Progress Note Date: 12/16/17 Principal diagnosis: Uterine cancer, new liver lesions. Anemia Patient seen today in follow-up. Daughter and significant other at the bedside. We clarified the plan of care. Patient denied nausea, difficulty breathing, or pain Objective - Vital Signs Vital signs: Vital Signs Temp 98.9 F 12/16/17 06:22 Pulse 78 12/16/17 06:31 Resp 14 12/16/17 06:22 BP 152/68 12/16/17 06:31 Pulse Ox 92 L 12/16/17 06:22 Intake & Output 12/15/17 12/16/17 12/16/17 18:59 06:59 18:59 Intake Total 120 240 Output Total 900 Balance -780 240 Intake: Oral 120 240 Output: Urine 900 Other: Voiding Method Toilet # Voids 2 3 - Constitutional General appearance: Present: average body habitus, cooperative, no acute distress - EENT Eyes: Present: anicteric sclerae - Respiratory Details: respirations even and unlabored - Cardiovascular Rhythm: regular - Peripheral edema leg Peripheral Edema: bilateral: Trace - Gastrointestinal General gastrointestinal: Present: soft - Musculoskeletal Musculoskeletal: Present: generalized weakness - Psychiatric Psychiatric Comment(s): Patient alert and oriented to self in place, confused on the date/time, she requires a lot of reinforcement about her situation. - Labs CBC & Chem 7: 12/16/17 11:34 12/16/17 11:34 Labs: Abnormal Lab Results - Last 24 Hours (Table) 12/16/17 12/16/17 Range/Units 11:34 11:34 Hgb 8.1 L (11.4-16.0) gm/dL Hct 25.7 L (34.0-46.0) % MCV 66.8 L (80.0-100.0) fL MCH 21.0 L (25.0-35.0) pg RDW 18.1 H (11.5-15.5) % Potassium 3.4 L (3.5-5.1) mmol/L BUN 42 H (7-17) mg/dL Creatinine 1.44 H (0.52-1.04) mg/dL Glucose 126 H (74-99) mg/dL AST 63 H (14-36) U/L Total Protein 5.6 L (6.3-8.2) g/dL Albumin 3.0 L (3.5-5.0) g/dL Assessment and Plan (1) Uterine carcinoma Narrative/Plan: Patient has vacillated on proceeding with liver biopsy. It appears that now she would like to proceed. I questioned the family about their expectations for the biopsy. They are just wanting confirmation that it is malignancy. There is currently no anticipation of further treatment. We will continue to follow along with patient and family and make recommendations. Current Visit: Yes Status: Acute Priority: High Code(s): C55 - MALIGNANT NEOPLASM OF UTERUS, PART UNSPECIFIED SNOMED Code(s): 235766390 (2) Anemia Narrative/Plan: Severely microcytic, hypochromic, no deficient states identified on lab work up other then elevated erythropoetin level. Pt will be considered for epo supplementation outpatient. Conservative transfusions PRN as ferritin is > 2000. Current Visit: Yes Status: Chronic Priority: Medium Code(s): D64.9 - ANEMIA, UNSPECIFIED SNOMED Code(s): 813905700 (3) Thalassemia Narrative/Plan: Patient's daughter reports this history today. No acute intervention, will investigate further and add to health history if confirmed . Current Visit: Yes Status: Chronic Priority: Low Code(s): D56.9 - THALASSEMIA, UNSPECIFIED SNOMED Code(s): 09944784
[2017-12-16] MEDS: BACLOFEN 10 MG TAB PO SCH (20:05)
--- NOTE | 2017-12-16 23:44 | P.CNNES ---
History of Present Illness Consult date: 12/16/17 History of Present Illness: The patient is an 87-year-old woman who presented to the hospital on December 08 with difficulty breathing. Is admitted to the hospital with dyspnea X lactic acidosis and hypomagnesemia neurology was requested to see the patient today for cognitive deficits the patient has a history of endometrial adenocarcinoma of the uterus is status post pelvic radiation she has been found to have metastatic disease to the liver. He is awaiting liver biopsy. The patient has multiple other medical comorbidities. She is also being treated for UTI the patient is so poor historian. She denies headache or dizziness. He appears to have left arm weakness which she states is old.. Review of Systems ROS unobtainable: due to mental status Past Medical History Past Medical History: Cancer, Hyperlipidemia, Hypertension, Thyroid Disorder Additional Past Medical History / Comment(s): HX OF BREAST CANCER W/ CHEMOTHERAPY, , ANEMIA OFF AND ON WITH IRON INFUSIONS, LOW THYROID. UTI, constipation. History of Any Multi-Drug Resistant Organisms: None Reported Past Surgical History: Appendectomy, Breast Surgery, Orthopedic Surgery Additional Past Surgical History / Comment(s): LEFT MASTECTOMY, KNEE ARTHROSCOPY. RT HIP REPLACEMENT Past Anesthesia/Blood Transfusion Reactions: No Reported Reaction Additional Past Anesthesia/Blood Transfusion Reaction / Comment(s): STATES AFTER KNEE SURGERY SHE WAS "JERKING ALL OVER" Past Psychological History: No Psychological Hx Reported Additional Psychological History / Comment(s): LIVES WITH SIG OTHER FOR OVER 30 YEARS Smoking Status: Never smoker Past Alcohol Use History: None Reported Past Drug Use History: None Reported - Past Family History Mother Family Medical History: Myocardial Infarction ([place]) Father Family Medical History: Myocardial Infarction ([place]) Medications and Allergies Home Medications Medication Instructions Recorded Confirmed Type Carvedilol [Coreg] 3.125 mg PO BID 10/12/15 12/08/17 History Levothyroxine Sodium [Synthroid] 75 mcg PO DAILY 10/12/15 12/08/17 History Aspirin EC [Ecotrin Low Dose] 81 mg PO DAILY 12/29/15 12/08/17 History Pravastatin Sodium [Pravachol] 20 mg PO HS 03/12/17 12/08/17 History Pantoprazole [Protonix] 40 mg PO AC-BID tablet. 03/13/17 12/08/17 Rx Diphenox-Atrop 2.5-0.025 mg 2 tab PO QID PRN #10 tab 11/07/17 12/08/17 Rx [Lomotil] HYDROcodone/APAP 5-325MG [[place] 1 tab PO Q8H PRN 11/11/17 12/08/17 History 5-325] Magnesium 200 mg PO BID #8 tablet 11/11/17 12/08/17 Rx Megestrol [Megace] 400 mg PO BID 12/06/17 12/08/17 History Cefuroxime Axetil [Ceftin] 500 mg PO BID #4 tab 12/13/17 Rx Furosemide [Lasix] 40 mg PO DAILY #30 tab 12/13/17 Rx Losartan [Cozaar] 100 mg PO DAILY #30 tab 12/13/17 Rx Allergies Allergy/AdvReac Type Severity Reaction Status Date / Time Penicillins Allergy Severe Anaphylaxis Verified 12/08/17 12:46 indomethacin Allergy Unknown Unknown Verified 12/08/17 12:46 iodine Allergy Unknown Unknown Verified 12/08/17 12:46 Iodinated Contrast- Oral and Allergy Unknown Verified 12/08/17 12:46 IV Dye [Iodinated Contrast Media - IV Dye] meperidine HCl [From Demerol] AdvReac Unknown Nausea & Verified 12/08/17 12:46 Vomiting propoxyphene HCl AdvReac Unknown Nausea & Verified 12/08/17 12:46 [From Darvon] Vomiting shellfish derived [Shellfish] AdvReac Unknown Abdominal Verified 12/08/17 12:46 Pain Physical Examination - Vital Signs Vital Signs: Vital Signs Temp Pulse Resp BP Pulse Ox 12/16/17 21:00 98.2 F 54 L 16 95/44 95 12/16/17 14:27 98.6 F 65 16 106/50 96 12/16/17 06:31 78 152/68 12/16/17 06:22 98.9 F 124 H 14 138/64 92 L Intake and Output 12/16/17 12/16/17 12/17/17 14:59 22:59 06:59 Intake Total 590 Balance 590 Intake: Oral 590 Other: Voiding Method Toilet # Voids 1 Weight 64 kg - Constitutional General appearance: cooperative - EENT EENT: PERRL - Respiratory Respiratory: lungs clear - Cardiovascular Cardiovascular: regular rate - Neurologic Neurologic examination: Mental status: The patient is easily arousable. She is able to give her name. She knows she is in [place]. She followed simple commands. There is no obvious aphasia or dysarthria. Was difficult to assess her mental status as she was slightly lethargic. Cranial nerve examination: EOMI, face symmetric, tongue midline, intact Speech examination: intact Sensorimotor examination: intact Detailed motor examination: other (She was not lifting her left arm well against gravity. When asked about it she states this is been up old problem) - Psychiatric Psychiatric: cooperative Results - Laboratory Findings CBC and BMP: 12/16/17 11:34 12/16/17 11:34 Abnormal Lab Findings: Abnormal Labs 12/08/17 12/08/17 12/08/17 12:21 12:21 12:21 WBC Hgb 8.5 L Hct 27.6 L MCV 66.2 L MCH 20.5 L MCHC 30.9 L RDW 16.7 H Neutrophils # Retic Count INR APTT D-Dimer Sodium Potassium 3.4 L Chloride Carbon Dioxide BUN 24 H Creatinine 1.40 H Glucose 142 H Plasma Lactic Acid Oh Magnesium 1.2 L Iron Saturation Erythropoietin Ferritin AST 47 H Alkaline Phosphatase Troponin I 0.036 H* Total Protein 5.8 L Albumin 3.2 L CA 125 Antigen 12/08/17 12/08/17 12/09/17 12:21 13:42 09:32 WBC Hgb Hct MCV MCH MCHC RDW Neutrophils # Retic Count INR APTT 21.5 L D-Dimer 1.70 H Sodium Potassium Chloride Carbon Dioxide 20 L BUN 20 H Creatinine 1.25 H Glucose 231 H Plasma Lactic Acid Oh 3.6 H* Magnesium Iron Saturation Erythropoietin Ferritin AST 42 H Alkaline Phosphatase Troponin I Total Protein 5.4 L Albumin 2.9 L CA 125 Antigen 12/09/17 12/09/17 12/09/17 09:32 09:32 15:05 WBC Hgb Hct MCV MCH MCHC RDW Neutrophils # Retic Count INR APTT D-Dimer Sodium Potassium Chloride Carbon Dioxide BUN Creatinine Glucose Plasma Lactic Acid Oh Magnesium 1.3 L Iron Saturation Erythropoietin Ferritin AST Alkaline Phosphatase Troponin I 0.036 H* 0.041 H* Total Protein Albumin CA 125 Antigen 12/09/17 12/09/17 12/10/17 15:05 15:05 03:32 WBC Hgb Hct MCV MCH MCHC RDW Neutrophils # Retic Count 2.8 H INR APTT D-Dimer Sodium Potassium Chloride Carbon Dioxide BUN Creatinine Glucose Plasma Lactic Acid Oh Magnesium Iron Saturation 46.50 H Erythropoietin Ferritin 2652.5 H AST Alkaline Phosphatase Troponin I 0.046 H* Total Protein Albumin CA 125 Antigen 12/10/17 12/10/17 12/10/17 03:32 03:32 07:39 WBC 14.4 H 12.6 H Hgb 8.7 L 8.9 L Hct 28.6 L 29.0 L MCV 67.6 L 67.1 L MCH 20.5 L 20.6 L MCHC 30.3 L 30.7 L RDW 17.4 H 17.4 H Neutrophils # 11.7 H 10.0 H Retic Count INR APTT D-Dimer Sodium Potassium Chloride 108 H Carbon Dioxide 20 L BUN 22 H Creatinine 1.20 H Glucose 105 H Plasma Lactic Acid Oh Magnesium Iron Saturation Erythropoietin Ferritin AST 46 H Alkaline Phosphatase Troponin I Total Protein 5.9 L Albumin 3.3 L CA 125 Antigen 12/11/17 12/11/17 12/11/17 05:45 05:49 05:49 WBC Hgb 8.1 L Hct 27.1 L MCV 68.6 L MCH 20.5 L MCHC 29.9 L RDW 17.5 H Neutrophils # Retic Count INR APTT D-Dimer Sodium 136 L Potassium Chloride Carbon Dioxide 21 L BUN 26 H Creatinine 1.40 H Glucose Plasma Lactic Acid Oh Magnesium Iron Saturation Erythropoietin Ferritin AST 51 H Alkaline Phosphatase Troponin I Total Protein 5.3 L Albumin 2.9 L CA 125 Antigen 93.5 H 12/12/17 12/12/17 12/12/17 06:14 06:14 06:14 WBC Hgb 8.2 L Hct 25.5 L MCV 64.5 L MCH 20.8 L MCHC RDW 17.2 H Neutrophils # Retic Count INR APTT D-Dimer Sodium 136 L Potassium 3.4 L Chloride Carbon Dioxide BUN 25 H Creatinine 1.23 H Glucose 114 H Plasma Lactic Acid Oh Magnesium 1.0 L Iron Saturation Erythropoietin 75.07 H Ferritin AST 51 H Alkaline Phosphatase Troponin I Total Protein 5.4 L Albumin 2.9 L CA 125 Antigen 12/12/17 12/13/17 12/13/17 06:14 05:47 05:47 WBC Hgb 8.1 L Hct 26.0 L MCV 67.1 L MCH 21.0 L MCHC RDW 17.4 H Neutrophils # Retic Count INR 1.2 H APTT D-Dimer Sodium 134 L Potassium Chloride Carbon Dioxide BUN 28 H Creatinine 1.33 H Glucose 132 H Plasma Lactic Acid Oh Magnesium Iron Saturation Erythropoietin Ferritin AST 58 H Alkaline Phosphatase Troponin I Total Protein 5.7 L Albumin 3.1 L CA 125 Antigen 12/14/17 12/15/17 12/15/17 06:43 08:39 08:39 WBC Hgb 8.2 L 8.2 L Hct 25.9 L 25.6 L MCV 65.3 L 66.7 L MCH 20.6 L 21.2 L MCHC RDW 17.8 H 17.8 H Neutrophils # Retic Count INR APTT D-Dimer Sodium Potassium Chloride Carbon Dioxide BUN 37 H Creatinine 1.44 H Glucose 123 H Plasma Lactic Acid Oh Magnesium Iron Saturation Erythropoietin Ferritin AST 62 H Alkaline Phosphatase 132 H Troponin I Total Protein 5.8 L Albumin 3.1 L CA 125 Antigen 12/16/17 12/16/17 11:34 11:34 WBC Hgb 8.1 L Hct 25.7 L MCV 66.8 L MCH 21.0 L MCHC RDW 18.1 H Neutrophils # Retic Count INR APTT D-Dimer Sodium Potassium 3.4 L Chloride Carbon Dioxide BUN 42 H Creatinine 1.44 H Glucose 126 H Plasma Lactic Acid Oh Magnesium Iron Saturation Erythropoietin Ferritin AST 63 H Alkaline Phosphatase Troponin I Total Protein 5.6 L Albumin 3.0 L CA 125 Antigen Assessment and Plan (1) Cognitive impairment Current Visit: Yes Status: Acute SNOMED Code(s): 309399131 (2) Uterine carcinoma Current Visit: Yes Status: Acute Priority: High SNOMED Code(s): 078430415 (3) Anemia Current Visit: Yes Status: Chronic Priority: Medium SNOMED Code(s): 979495251 (4) Liver metastases Current Visit: Yes Status: Acute Code(s): C78.7 - SECONDARY MALIG NEOPLASM OF LIVER AND INTRAHEPATIC BILE DUCT SNOMED Code(s): 65562648 (5) Lactic acidosis Current Visit: Yes Status: Acute Code(s): E87.2 - ACIDOSIS SNOMED Code(s) : 37002972 Plan: The patient is a 87-year-old woman admitted admitted with dyspnea, anemia, UTI and general debility. She has a history of uterine cancer with metastases to stasis to the liver. Neurology is requested to see the patient regarding cognitive deficit. She is slightly lethargic. Her liver enzyme is elevated. Recommend check ammonia level. Check EEG. Also recommend CT brain
[2017-12-17] MEDS: LEVOTHYROXINE 75 MCG TAB PO SCH (05:36)
[2017-12-17 08:33] LABS: INR 1.2 (<1.2); Prothrombin Time 11.2 sec (9.0-12.0)
[2017-12-17 08:35] LABS: Albumin 3.2 g/dL (3.5-5.0); Calcium 9.2 mg/dL (8.4-10.2); Potassium 3.8 mmol/L (3.5-5.1); Total Bilirubin 0.6 mg/dL (0.2-1.3); Total Protein 5.8 g/dL (6.3-8.2)
[2017-12-17 08:38] LABS: Anisocytosis Slight; Basophils % (A) 1 %; Eosinophils # (A) 0.1 k/uL (0-0.7); Eosinophils % (A) 2 %; HGB 7.7 gm/dL (11.4-16.0); Hypochromasia Marked; Lymphocytes # (A) 1.1 k/uL (1.0-4.8); Lymphocytes % (A) 22 %; MCH 20.8 pg (25.0-35.0); MCHC 30.7 g/dL (31.0-37.0); MCV 67.7 fL (80.0-100.0); Mean Platelet Volume 6.9; Microcytosis Marked; Monocytes # (A) 0.4 k/uL (0-1.0); Monocytes % (A) 7 %; Neutrophils # (A) 3.1 k/uL (1.3-7.7); Neutrophils % (A) 65 %; Platelet Count 186 k/uL (150-450); RBC 3.69 m/uL (3.80-5.40); RDW 17.9 % (11.5-15.5); WBC 4.8 k/uL (3.8-10.6)
[2017-12-17] MEDS: FUROSEMIDE 40 MG TAB PO SCH (08:51)
[2017-12-17] MEDS: cefTRIAXone IN SWFI 1,000 MG/10 ML SYRINGE IVP SCH (08:51)
[2017-12-17] MEDS: CARVEDILOL 12.5 MG TAB PO SCH ×2 (08:51→16:50)
[2017-12-17] MEDS: PANTOPRAZOLE 40 MG TABLET PO SCH ×2 (08:51→16:50)
[2017-12-17] MEDS: LOSARTAN 50 MG TAB PO SCH (08:52)
--- NOTE | 2017-12-17 10:36 | P.PN ---
Subjective Progress Note Date: 12/17/17 This is a 87-year-old patient presents to the emergency room complaining of increased difficulty breathing for the past 2 days. Patient presents to the emergency room 2 days ago and left AGAINST MEDICAL ADVICE. Patient states that she then went home but started experiencing difficulty in breathing again. She also is complaining that she has been having increased weakness. Patient has a past medical history of hypertension, cardiomyopathy recent hysterectomy for cancer at [facility]. Also has a history of breast cancer with chemotherapy. Additional history includes hypothyroidism left vasectomy and orthopedic surgery. X-ray completed emergency room showing interstitial prominence, possible bronchitis or asthma. No focal infiltrate. D-dimer 1.70. 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 No evidence of pulmonary embolus and. Low-density liver masses suggestive of metastases disease. EKG completed showing sinus rhythm with premature atrial complexes, low voltage QRS, left anterior fascicular block, inferior infarct, age undetermined. Troponin 0.036. Patient denies chest pain at this time. Repeat troponins ordered. Urinary analysis showing moderate amount of leukocyte Estrace. Urine culture has been ordered. Initial lactic acid 3.6. Repeat 1.8. patient started on Rocephin. Dr. Menon per pulmonary services consulted. Dr. Sims per oncology consulted. Patient denies chest pain or shortness breath. Denies nausea vomiting diarrhea. Denies any urinary burning or frequency. On 12/10/2017 patient is currently resting comfortably in bed. At this time patient denies any shortness of breath or chest pain. Denies any nausea vomiting or diarrhea. Denies any urinary frequency or burning. On 12/11/2017 is currently resting in bed. Patient is alert and oriented 3. Patient remains fatigued. 2-D echo has been ordered per cardiology. At this time patient denies chest pain or shortness breath. Denies nausea vomiting or diarrhea. Denies any urinary burning or frequency. On 12/12/2017 patient is currently alert and oriented 3 resting comfortably in bed visiting with friends. Per nursing staff patient is refusing any further intervention including biopsy of the liver masses. Dr. sims following per oncology. At this time patient denies nausea vomiting or diarrhea. Denies chest pain or shortness of breath. Denies any urinary burning or frequency. On 12/14/2017 patient is alert and oriented 3 in no apparent distress she denies any new symptoms at this time she was asked again if she wants to proceed with liver biopsy and cancer treatment with chemotherapy and she is stated that that's what she wants at this point. Clinically she denies any fever or chills no headache or dizziness no chest pain or shortness of breath no cough no nausea or vomiting no abdominal pain no diarrhea and no urinary symptoms On 12/15/2017 patient was seen and examined she is alert and oriented in no distress she denies any fever or chills no headache or dizziness no chest pain no shortness of breath no cough no nausea or vomiting no abdominal pain no diarrhea and no urinary symptoms is scheduled for liver biopsy in a.m. tomorrow case was discussed again with patient and her the bedside. And they are both agreeable to above plan. On 12/16/2017 patient is currently resting comfortably in bed. Granddaughter currently at bedside. At this time patient denies chest pain or shortness of breath. Denies nausea vomiting or diarrhea. Denies any urinary symptoms. Plan for liver biopsy later today or early tomorrow. Per nursing staff Derek has been on hold for today. On 12/17/2017 patient is currently resting in bed. Patient does appear confused. Awaiting liver biopsy today. This time patient denies chest pain or shortness breath. Denies nausea vomiting or diarrhea. Denies any urinary symptoms. Objective - Vital Signs Vital signs: Vital Signs Temp 98.0 F 12/17/17 05:00 Pulse 55 L 12/17/17 05:00 Resp 16 12/17/17 05:00 BP 121/58 12/17/17 05:00 Pulse Ox 96 12/17/17 05:00 Intake & Output 12/16/17 12/17/17 12/17/17 18:59 06:59 18:59 Intake Total 590 Balance 590 Weight 64 kg Intake: Oral 590 Other: Voiding Method Toilet Toilet # Voids 1 1 - Exam Head normocephalic Neck supple Lungs clear to auscultation bilaterally no wheezing or crackles Heart regular rate and rhythm S1-S2, no rub or gallop Abdomen is soft nontender nondistended positive bowel sounds no hepatosplenomegaly Extremities no edema - Labs CBC & Chem 7: 12/17/17 08:13 12/17/17 08:13 Labs: Abnormal Lab Results - Last 24 Hours (Table) 12/16/17 12/16/17 12/17/17 Range/Units 11:34 11:34 08:13 RBC 3.69 L (3.80-5.40) m/uL Hgb 8.1 L 7.7 L (11.4-16.0) gm/dL Hct 25.7 L 25.0 L (34.0-46.0) % MCV 66.8 L 67.7 L (80.0-100.0) fL MCH 21.0 L 20.8 L (25.0-35.0) pg MCHC 30.7 L (31.0-37.0) g/dL RDW 18.1 H 17.9 H (11.5-15.5) % INR (<1.2) Potassium 3.4 L (3.5-5.1) mmol/L BUN 42 H (7-17) mg/dL Creatinine 1.44 H (0.52-1.04) mg/dL Glucose 126 H (74-99) mg/dL AST 63 H (14-36) U/L Alkaline Phosphatase (38-126) U/L Total Protein 5.6 L (6.3-8.2) g/dL Albumin 3.0 L (3.5-5.0) g/dL 12/17/17 12/17/17 Range/Units 08:13 08:13 RBC (3.80-5.40) m/uL Hgb (11.4-16.0) gm/dL Hct (34.0-46.0) % MCV (80.0-100.0) fL MCH (25.0-35.0) pg MCHC (31.0-37.0) g/dL RDW (11.5-15.5) % INR 1.2 H (<1.2) Potassium (3.5-5.1) mmol/L BUN 52 H (7-17) mg/dL Creatinine 1.94 H (0.52-1.04) mg/dL Glucose 126 H (74-99) mg/dL AST 66 H (14-36) U/L Alkaline Phosphatase 132 H (38-126) U/L Total Protein 5.8 L (6.3-8.2) g/dL Albumin 3.2 L (3.5-5.0) g/dL Assessment and Plan Assessment: 1. Dyspnea on exertion. D-dimer elevated at 1.70. CTA negative for pulmonary embolism. X-ray completed showing interstitial prominence, possible bronchitis or asthma. No focal infiltrate. Dr. Menon for pulmonary has been consulted. Per Dr. Menon could be multifactorial could be due to worsening anemia and possible sepsis related to UTI. 2-D echo completed showing EF of 50-55%. 2. Urinary tract infection. Patient febrile and elevated lactic acid at 3.6 on admission. Repeat lactic acid 1.8. Urine and blood cultures has been ordered. currently on IV antibiotic Rocephin 3. History of breast cancer. Patient recently underwent hysterectomy. Patient states she's had chemotherapy but did not complete her radiation. CTA showing low density liver masses suggestive of metastases disease. Ultrasound of liver ordered per Dr. Menon. Dr. Sims per oncology has been consulted. Plans for liver biopsy today or early tomorrow. Family and patient are in agreement about plan 4. Chronic Anemia. Patient has required iron infusions in the past. Hemoglobin 8.5. Dr. Sims per oncology services have been consulted. hemoglobin 7.7. oncology following 5. Chronic kidney disease stage III. Initial creatinine 1.40 and bun 44. Levels are trending down. We'll continue to monitor closely. Creatinine 1.94 and bun 452 6. Essential hypertension. Patient currently on Coreg, hydrochlorothiazide and Cozaar 7. Hypothyroidism. continue Synthroid 8. Osteoarthritis 9. Hyperlipidemia. Home pravastatin on hold due to elevated liver enzyme 10. Elevated troponin level. Initial troponin 0.036, 0.041, 0.046. EKG completed showing sinus rhythm with premature atrial complexes, low voltage QRS left anterior fascicular block. Inferior infarct, age undetermined. Repeat troponins have been ordered. Patient denies chest pain. Cardiology services have been consulted. 2-D echo completed showing EF of 50-55% 11. 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 She underwent cholecystectomy with bilateral oophorectomy on 08/15/2017. Patient is status post 50% of her adjuvant radiation. Patient opted to discontinue treatment to better support her partner who was recently diagnosed with esophageal cancer. Per oncology patient to follow-up outpatient with Dr. Paulino for options related to systemic treatment possible computed tomography scan. Ultrasound of liver completed showing multiple hepatic masses, the largest ranging from 3.68 cm. oncology recommending liver biopsy. Patient is agreeable at this time. 12. Increased confusion. Dr. Kelley consulted for psych in regards to patient's ability to make medical decisions and mental competence. Per Dr. Kelley at this point is not felt that patient is fully able to make informed decisions. Dr. Newell per neurology consulted. Ammonia level, EEG and CT of the brain has been ordered per neurology Lovenox and aspirin currently on hold due to liver biopsy. DVT prophylaxis Lovenox and GI prophylaxis Protonix. I performed an examination of the patient and discussed their management with the Nurse Practitioner. I have reviewed the Nurse Practitioner's notes and agree with the documented findings and plan of care
--- NOTE | 2017-12-17 10:55 | P.PN ---
Subjective Progress Note Date: 12/17/17 Principal diagnosis: Uterine cancer, new liver lesions. Anemia Pt seen in f/u, she is having liver biopsy today, she remains pleasantly confused, denies nausea, pain or need to go to the bathroom. Objective - Vital Signs Vital signs: Vital Signs Temp 98.0 F 12/17/17 05:00 Pulse 55 L 12/17/17 05:00 Resp 16 12/17/17 05:00 BP 121/58 12/17/17 05:00 Pulse Ox 96 12/17/17 05:00 Intake & Output 12/16/17 12/17/17 12/17/17 18:59 06:59 18:59 Intake Total 590 Balance 590 Weight 64 kg Intake: Oral 590 Other: Voiding Method Toilet Toilet # Voids 1 1 - Exam Alert, NAD - Constitutional General appearance: Present: average body habitus, cooperative, no acute distress - EENT Eyes: Present: anicteric sclerae - Respiratory Details: respirations even and unlabored - Cardiovascular Rhythm: regular - Integumentary Integumentary: Present: pale - Neurologic Neurologic: Present: CNII-XII intact - Musculoskeletal Musculoskeletal: Present: generalized weakness - Psychiatric Psychiatric Comment(s): Alert, oriented to self. Pleasant affect - Labs CBC & Chem 7: 12/17/17 08:13 12/17/17 08:13 Labs: Abnormal Lab Results - Last 24 Hours (Table) 12/16/17 12/16/17 12/17/17 Range/Units 11:34 11:34 08:13 RBC 3.69 L (3.80-5.40) m/uL Hgb 8.1 L 7.7 L (11.4-16.0) gm/dL Hct 25.7 L 25.0 L (34.0-46.0) % MCV 66.8 L 67.7 L (80.0-100.0) fL MCH 21.0 L 20.8 L (25.0-35.0) pg MCHC 30.7 L (31.0-37.0) g/dL RDW 18.1 H 17.9 H (11.5-15.5) % INR (<1.2) Potassium 3.4 L (3.5-5.1) mmol/L BUN 42 H (7-17) mg/dL Creatinine 1.44 H (0.52-1.04) mg/dL Glucose 126 H (74-99) mg/dL AST 63 H (14-36) U/L Alkaline Phosphatase (38-126) U/L Total Protein 5.6 L (6.3-8.2) g/dL Albumin 3.0 L (3.5-5.0) g/dL 12/17/17 12/17/17 Range/Units 08:13 08:13 RBC (3.80-5.40) m/uL Hgb (11.4-16.0) gm/dL Hct (34.0-46.0) % MCV (80.0-100.0) fL MCH (25.0-35.0) pg MCHC (31.0-37.0) g/dL RDW (11.5-15.5) % INR 1.2 H (<1.2) Potassium (3.5-5.1) mmol/L BUN 52 H (7-17) mg/dL Creatinine 1.94 H (0.52-1.04) mg/dL Glucose 126 H (74-99) mg/dL AST 66 H (14-36) U/L Alkaline Phosphatase 132 H (38-126) U/L Total Protein 5.8 L (6.3-8.2) g/dL Albumin 3.2 L (3.5-5.0) g/dL Assessment and Plan (1) Uterine carcinoma Narrative/Plan: Family wants to know if the liver has cancer in it so, pt will proceed with biopsy today. Pending path results of liver biopsy. Updated: Spoke with Rad nurse. IR wants to speak to family re:biopsy, biopsy on hold Current Visit: Yes Status: Acute Priority: High Code(s): C55 - MALIGNANT NEOPLASM OF UTERUS, PART UNSPECIFIED SNOMED Code(s): 782137690 (2) Anemia Narrative/Plan: CBC in AM. No transfusion planned for today. Current Visit: Yes Status: Chronic Priority: Medium Code(s): D64.9 - ANEMIA, UNSPECIFIED SNOMED Code(s): 517941635 (3) Thalassemia Current Visit: Yes Status: Chronic Priority: Low Code(s): D56.9 - THALASSEMIA, UNSPECIFIED SNOMED Code(s): 03101891
--- NOTE | 2017-12-17 12:38 | CT ---
EXAMINATION TYPE: CT brain wo con DATE OF EXAM: 12/17/2017 HISTORY: AMS CT DLP: 974.7 mGycm. Automated Exposure Control for Dose Reduction was Utilized. TECHNIQUE: CT scan of the head is performed without contrast. COMPARISON: None. FINDINGS: There is no acute intracranial hemorrhage or midline shift identified. There is diffuse v entricular and sulcal prominence consistent with diffuse age-related cerebral atrophy. There is low- attenuation in the periventricular white matter consistent with chronic small vessel ischemic change. Some patchy soft tissue density near the tympanic in the deep extra auditory canals likely reflects cerumen bilaterally. Some calcified plaque distal internal carotid arteries bilaterally is present. T he globes are intact and the visualized sinuses are clear. IMPRESSION: No acute intracranial hemorrhage or midline shift. There is moderate diffuse age-relate d cerebral atrophy and chronic small vessel ischemic change noted.
--- NOTE | 2017-12-17 12:38 | US ---
Discontinued liver biopsy HISTORY: Multiple liver masses Discussed case with next of kin telephonically. Patient sedated at the time of the procedure. Ultraso und-guided liver biopsy on hold. Plan to discuss with family when available.
[2017-12-17] MEDS: BACLOFEN 10 MG TAB PO SCH (22:15)
[2017-12-18] MEDS: LEVOTHYROXINE 75 MCG TAB PO SCH (07:49)
[2017-12-18] MEDS: PANTOPRAZOLE 40 MG TABLET PO SCH ×2 (07:49→16:40)
[2017-12-18] MEDS: CARVEDILOL 12.5 MG TAB PO SCH ×3 (07:49→17:30)
[2017-12-18 08:10] LABS: Anisocytosis Slight; Basophils % (A) 0 %; Eosinophils # (A) 0.2 k/uL (0-0.7); Eosinophils % (A) 2 %; HCT 27.9 % (34.0-46.0); HGB 8.4 gm/dL (11.4-16.0); Hypochromasia Moderate; Lymphocytes # (A) 1.7 k/uL (1.0-4.8); Lymphocytes % (A) 17 %; MCH 20.4 pg (25.0-35.0); MCHC 30.3 g/dL (31.0-37.0); MCV 67.4 fL (80.0-100.0); Mean Platelet Volume 6.2; Microcytosis Marked; Monocytes # (A) 0.6 k/uL (0-1.0); Monocytes % (A) 6 %; Neutrophils # (A) 7.2 k/uL (1.3-7.7); Neutrophils % (A) 72 %; Platelet Count 324 k/uL (150-450); RBC 4.14 m/uL (3.80-5.40); RDW 17.8 % (11.5-15.5)
[2017-12-18 08:22] LABS: Albumin 3.2 g/dL (3.5-5.0); Calcium 9.6 mg/dL (8.4-10.2); Potassium 3.7 mmol/L (3.5-5.1); Total Bilirubin 0.8 mg/dL (0.2-1.3)
[2017-12-18] MEDS: FUROSEMIDE 40 MG TAB PO SCH (08:50)
[2017-12-18] MEDS: cefTRIAXone IN SWFI 1,000 MG/10 ML SYRINGE IVP SCH (08:51)
[2017-12-18] MEDS: LOSARTAN 50 MG TAB PO SCH (08:51)
--- NOTE | 2017-12-18 14:40 | P.PN ---
Subjective Progress Note Date: 12/18/17 This is a 87-year-old patient presents to the emergency room complaining of increased difficulty breathing for the past 2 days. Patient presents to the emergency room 2 days ago and left AGAINST MEDICAL ADVICE. Patient states that she then went home but started experiencing difficulty in breathing again. She also is complaining that she has been having increased weakness. Patient has a past medical history of hypertension, cardiomyopathy recent hysterectomy for cancer at [facility]. Also has a history of breast cancer with chemotherapy. Additional history includes hypothyroidism left vasectomy and orthopedic surgery. X-ray completed emergency room showing interstitial prominence, possible bronchitis or asthma. No focal infiltrate. D-dimer 1.70. 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 No evidence of pulmonary embolus and. Low-density liver masses suggestive of metastases disease. EKG completed showing sinus rhythm with premature atrial complexes, low voltage QRS, left anterior fascicular block, inferior infarct, age undetermined. Troponin 0.036. Patient denies chest pain at this time. Repeat troponins ordered. Urinary analysis showing moderate amount of leukocyte Estrace. Urine culture has been ordered. Initial lactic acid 3.6. Repeat 1.8. patient started on Rocephin. Dr. Menon per pulmonary services consulted. Dr. Sims per oncology consulted. Patient denies chest pain or shortness breath. Denies nausea vomiting diarrhea. Denies any urinary burning or frequency. On 12/10/2017 patient is currently resting comfortably in bed. At this time patient denies any shortness of breath or chest pain. Denies any nausea vomiting or diarrhea. Denies any urinary frequency or burning. On 12/11/2017 is currently resting in bed. Patient is alert and oriented 3. Patient remains fatigued. 2-D echo has been ordered per cardiology. At this time patient denies chest pain or shortness breath. Denies nausea vomiting or diarrhea. Denies any urinary burning or frequency. On 12/12/2017 patient is currently alert and oriented 3 resting comfortably in bed visiting with friends. Per nursing staff patient is refusing any further intervention including biopsy of the liver masses. Dr. sims following per oncology. At this time patient denies nausea vomiting or diarrhea. Denies chest pain or shortness of breath. Denies any urinary burning or frequency. On 12/14/2017 patient is alert and oriented 3 in no apparent distress she denies any new symptoms at this time she was asked again if she wants to proceed with liver biopsy and cancer treatment with chemotherapy and she is stated that that's what she wants at this point. Clinically she denies any fever or chills no headache or dizziness no chest pain or shortness of breath no cough no nausea or vomiting no abdominal pain no diarrhea and no urinary symptoms On 12/15/2017 patient was seen and examined she is alert and oriented in no distress she denies any fever or chills no headache or dizziness no chest pain no shortness of breath no cough no nausea or vomiting no abdominal pain no diarrhea and no urinary symptoms is scheduled for liver biopsy in a.m. tomorrow case was discussed again with patient and her the bedside. And they are both agreeable to above plan. On 12/16/2017 patient is currently resting comfortably in bed. Granddaughter currently at bedside. At this time patient denies chest pain or shortness of breath. Denies nausea vomiting or diarrhea. Denies any urinary symptoms. Plan for liver biopsy later today or early tomorrow. Per nursing staff Lovenox has been on hold for today. On 12/17/2017 patient is currently resting in bed. Patient does appear confused. Awaiting liver biopsy today. This time patient denies chest pain or shortness breath. Denies nausea vomiting or diarrhea. Denies any urinary symptoms. On 12/18/2017 patient is currently resting in bed. Patient refusing liver biopsy again yesterday. Family meeting held with children and significant other. Family expresses wishes to move forward with hospice at this time. case management involved. Discussed in depth with family in regards to prognosis and situation. Objective - Vital Signs Vital signs: Vital Signs Temp 98.4 F 12/18/17 05:00 Pulse 67 12/18/17 05:00 Resp 16 12/18/17 07:09 BP 136/75 12/18/17 05:00 Pulse Ox 96 12/18/17 05:00 Intake & Output 12/17/17 12/18/17 12/18/17 18:59 06:59 18:59 Intake Total 0 Balance 0 Intake: Oral 0 Other: Voiding Method Diaper Diaper Diaper Incontinent Incontinent Incontinent # Voids 2 2 - Exam Head normocephalic Neck supple Lungs clear to auscultation bilaterally no wheezing or crackles Heart regular rate and rhythm S1-S2, no rub or gallop Abdomen is soft nontender nondistended positive bowel sounds no hepatosplenomegaly Extremities no edema - Labs CBC & Chem 7: 12/18/17 07:34 12/18/17 07:34 Labs: Abnormal Lab Results - Last 24 Hours (Table) 12/18/17 12/18/17 Range/Units 07:34 07:34 Hgb 8.4 L (11.4-16.0) gm/dL Hct 27.9 L (34.0-46.0) % MCV 67.4 L (80.0-100.0) fL MCH 20.4 L (25.0-35.0) pg MCHC 30.3 L (31.0-37.0) g/dL RDW 17.8 H (11.5-15.5) % BUN 49 H (7-17) mg/dL Creatinine 1.58 H (0.52-1.04) mg/dL Glucose 126 H (74-99) mg/dL AST 68 H (14-36) U/L Alkaline Phosphatase 139 H (38-126) U/L Total Protein 6.0 L (6.3-8.2) g/dL Albumin 3.2 L (3.5-5.0) g/dL Assessment and Plan Assessment: 1. Dyspnea on exertion. D-dimer elevated at 1.70. CTA negative for pulmonary embolism. X-ray completed showing interstitial prominence, possible bronchitis or asthma. No focal infiltrate. Dr. Menon for pulmonary has been consulted. Per Dr. Menon could be multifactorial could be due to worsening anemia and possible sepsis related to UTI. 2-D echo completed showing EF of 50-55%. 2. Urinary tract infection. Patient febrile and elevated lactic acid at 3.6 on admission. Repeat lactic acid 1.8. Urine and blood cultures has been ordered. currently on IV antibiotic Rocephin 3. History of breast cancer. Patient recently underwent hysterectomy. Patient states she's had chemotherapy but did not complete her radiation. CTA showing low density liver masses suggestive of metastases disease. Ultrasound of liver ordered per Dr. Menon. Dr. Sims per oncology has been consulted. Plans for liver biopsy today or early tomorrow. Family and patient are in agreement about plan 4. Chronic Anemia. Patient has required iron infusions in the past. Hemoglobin 8.5. Dr. Sims per oncology services have been consulted. hemoglobin 7.7. oncology following 5. Chronic kidney disease stage III. Initial creatinine 1.40 and bun 44. Levels are trending down. We'll continue to monitor closely. Creatinine 1.94 and bun 452 6. Essential hypertension. Patient currently on Coreg, hydrochlorothiazide and Cozaar 7. Hypothyroidism. continue Synthroid 8. Osteoarthritis 9. Hyperlipidemia. Home pravastatin on hold due to elevated liver enzyme 10. Elevated troponin level. Initial troponin 0.036, 0.041, 0.046. EKG completed showing sinus rhythm with premature atrial complexes, low voltage QRS left anterior fascicular block. Inferior infarct, age undetermined. Repeat troponins have been ordered. Patient denies chest pain. Cardiology services have been consulted. 2-D echo completed showing EF of 50-55% 11. 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 She underwent cholecystectomy with bilateral oophorectomy on 08/15/2017. Patient is status post 50% of her adjuvant radiation. Patient opted to discontinue treatment to better support her partner who was recently diagnosed with esophageal cancer. Per oncology patient to follow-up outpatient with Dr. Paulino for options related to systemic treatment possible computed tomography scan. Ultrasound of liver completed showing multiple hepatic masses, the largest ranging from 3.68 cm. oncology recommending liver biopsy. Again patient declined with her biopsy. Family is in agreement with holding off on biopsy at this time. 12. Increased confusion. Dr. Kelley consulted for psych in regards to patient's ability to make medical decisions and mental competence. Per Dr. Kelley at this point is not felt that patient is fully able to make informed decisions. Dr. Newell per neurology consulted. Ammonia level, EEG and CT of the brain has been ordered per neurology. CT of the head completed showing no acute intracranial hemorrhage or midline shift. There is moderate diffuse age- related cerebral atrophy and chronic small vessel ischemic changes noted. Family meeting held with patient's children and significant other discussed hospice. Family wishes to move forward with hospice at this time case management involved. DVT prophylaxis Lovenox and GI prophylaxis Protonix. I performed an examination of the patient and discussed their management with the Nurse Practitioner. I have reviewed the Nurse Practitioner's notes and agree with the documented findings and plan of care
[2017-12-18] MEDS: HYDROcodone/APAP 5-325MG 1 EACH TAB PO PRN (17:30)
--- NOTE | 2017-12-18 18:40 | P.PN ---
Subjective Progress Note Date: 12/18/17 Principal diagnosis: Uterine cancer, new liver lesions. Anemia Pt seen in follow up. 4 family members at bedside. Pt is sleeping, arouses to voice and touch, is pleasant, denied pain, nausea or needing anything. She is not oriented. Objective - Vital Signs Vital signs: Vital Signs Temp 98.4 F 12/18/17 05:00 Pulse 67 12/18/17 05:00 Resp 16 12/18/17 07:09 BP 136/75 12/18/17 05:00 Pulse Ox 96 12/18/17 05:00 Intake & Output 12/17/17 12/18/17 12/18/17 18:59 06:59 18:59 Intake Total 0 Balance 0 Intake: Oral 0 Other: Voiding Method Diaper Diaper Diaper Incontinent Incontinent Incontinent # Voids 2 2 - Exam Falls asleep easily, NAD, respirations unlabored - Constitutional General appearance: Present: average body habitus, no acute distress - Labs CBC & Chem 7: 12/18/17 07:34 12/18/17 07:34 Labs: Abnormal Lab Results - Last 24 Hours (Table) 12/18/17 12/18/17 Range/Units 07:34 07:34 Hgb 8.4 L (11.4-16.0) gm/dL Hct 27.9 L (34.0-46.0) % MCV 67.4 L (80.0-100.0) fL MCH 20.4 L (25.0-35.0) pg MCHC 30.3 L (31.0-37.0) g/dL RDW 17.8 H (11.5-15.5) % BUN 49 H (7-17) mg/dL Creatinine 1.58 H (0.52-1.04) mg/dL Glucose 126 H (74-99) mg/dL AST 68 H (14-36) U/L Alkaline Phosphatase 139 H (38-126) U/L Total Protein 6.0 L (6.3-8.2) g/dL Albumin 3.2 L (3.5-5.0) g/dL Assessment and Plan (1) Uterine carcinoma Current Visit: Yes Status: Acute Priority: High Code(s): C55 - MALIGNANT NEOPLASM OF UTERUS, PART UNSPECIFIED SNOMED Code(s): 837799903 (2) Anemia Current Visit: Yes Status: Chronic Priority: Medium Code(s): D64.9 - ANEMIA, UNSPECIFIED SNOMED Code(s): 236339645 (3) Thalassemia Current Visit: Yes Status: Chronic Priority: Low Code(s): D56.9 - THALASSEMIA, UNSPECIFIED SNOMED Code(s): 65030634 Plan: Greater then 30 min was spent counseling pt family about what the expectation of the liver biopsy was. We reviewed if biopsy positive for metastatic cancer pt PS is poor and the risks vs benefits of chemo would be limited, only for palliation of symptoms purpose and would likely cause pt more harm due to SE of treatment. It was previously discussed that the pt would NOT want to pursue chemo anyway. We reviewed a non-diagnostic biopsy-pt would require another biopsy, an invasive procedure. We discussed comfort measures and hospice, we discussed importance of thinking about how difficult it is caring for a person 24/7. Family had many other questions all that were answered to the best of my ability, and all family stated satisfaction with the conversation. They wanted to talk to PCP before making a final decision. Will await that meeting and decisions. Case discussed with Soc Work, [facility] [employer] and Nursing. Time with Patient: Greater than 30
[2017-12-18] MEDS: BACLOFEN 10 MG TAB PO SCH (20:33)
[2017-12-19] MEDS: LEVOTHYROXINE 75 MCG TAB PO SCH (06:13)
[2017-12-19] MEDS: LOSARTAN 50 MG TAB PO SCH (07:01)
[2017-12-19] MEDS: HYDROcodone/APAP 5-325MG 1 EACH TAB PO PRN (07:02)
[2017-12-19] MEDS: PANTOPRAZOLE 40 MG TABLET PO SCH ×2 (07:02→17:42)
[2017-12-19] MEDS: FUROSEMIDE 40 MG TAB PO SCH (07:02)
[2017-12-19] MEDS: CARVEDILOL 12.5 MG TAB PO SCH ×2 (07:02→17:42)
[2017-12-19 08:22] LABS: Anisocytosis Slight; Basophils % (A) 1 %; Eosinophils # (A) 0.1 k/uL (0-0.7); Eosinophils % (A) 2 %; HCT 26.9 % (34.0-46.0); HGB 8.2 gm/dL (11.4-16.0); Hypochromasia Marked; Lymphocytes # (A) 1.4 k/uL (1.0-4.8); Lymphocytes % (A) 24 %; MCH 20.7 pg (25.0-35.0); MCHC 30.5 g/dL (31.0-37.0); MCV 67.7 fL (80.0-100.0); Mean Platelet Volume 6.8; Microcytosis Marked; Monocytes # (A) 0.4 k/uL (0-1.0); Monocytes % (A) 6 %; Neutrophils # (A) 3.7 k/uL (1.3-7.7); Neutrophils % (A) 65 %; Platelet Count 203 k/uL (150-450); RBC 3.96 m/uL (3.80-5.40); RDW 18.1 % (11.5-15.5); WBC 5.8 k/uL (3.8-10.6)
[2017-12-19 08:50] LABS: Albumin 3.2 g/dL (3.5-5.0); Calcium 9.6 mg/dL (8.4-10.2); Total Bilirubin 0.8 mg/dL (0.2-1.3); Total Protein 5.8 g/dL (6.3-8.2)
[2017-12-19] MEDS: cefTRIAXone IN SWFI 1,000 MG/10 ML SYRINGE IVP SCH (09:46)
--- NOTE | 2017-12-19 11:18 | P.PN ---
Subjective Progress Note Date: 12/19/17 This is a 87-year-old patient presents to the emergency room complaining of increased difficulty breathing for the past 2 days. Patient presents to the emergency room 2 days ago and left AGAINST MEDICAL ADVICE. Patient states that she then went home but started experiencing difficulty in breathing again. She also is complaining that she has been having increased weakness. Patient has a past medical history of hypertension, cardiomyopathy recent hysterectomy for cancer at [facility]. Also has a history of breast cancer with chemotherapy. Additional history includes hypothyroidism left vasectomy and orthopedic surgery. X-ray completed emergency room showing interstitial prominence, possible bronchitis or asthma. No focal infiltrate. D-dimer 1.70. 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 No evidence of pulmonary embolus and. Low-density liver masses suggestive of metastases disease. EKG completed showing sinus rhythm with premature atrial complexes, low voltage QRS, left anterior fascicular block, inferior infarct, age undetermined. Troponin 0.036. Patient denies chest pain at this time. Repeat troponins ordered. Urinary analysis showing moderate amount of leukocyte Estrace. Urine culture has been ordered. Initial lactic acid 3.6. Repeat 1.8. patient started on Rocephin. Dr. Menon per pulmonary services consulted. Dr. Sims per oncology consulted. Patient denies chest pain or shortness breath. Denies nausea vomiting diarrhea. Denies any urinary burning or frequency. On 12/10/2017 patient is currently resting comfortably in bed. At this time patient denies any shortness of breath or chest pain. Denies any nausea vomiting or diarrhea. Denies any urinary frequency or burning. On 12/11/2017 is currently resting in bed. Patient is alert and oriented 3. Patient remains fatigued. 2-D echo has been ordered per cardiology. At this time patient denies chest pain or shortness breath. Denies nausea vomiting or diarrhea. Denies any urinary burning or frequency. On 12/12/2017 patient is currently alert and oriented 3 resting comfortably in bed visiting with friends. Per nursing staff patient is refusing any further intervention including biopsy of the liver masses. Dr. sims following per oncology. At this time patient denies nausea vomiting or diarrhea. Denies chest pain or shortness of breath. Denies any urinary burning or frequency. On 12/14/2017 patient is alert and oriented 3 in no apparent distress she denies any new symptoms at this time she was asked again if she wants to proceed with liver biopsy and cancer treatment with chemotherapy and she is stated that that's what she wants at this point. Clinically she denies any fever or chills no headache or dizziness no chest pain or shortness of breath no cough no nausea or vomiting no abdominal pain no diarrhea and no urinary symptoms On 12/15/2017 patient was seen and examined she is alert and oriented in no distress she denies any fever or chills no headache or dizziness no chest pain no shortness of breath no cough no nausea or vomiting no abdominal pain no diarrhea and no urinary symptoms is scheduled for liver biopsy in a.m. tomorrow case was discussed again with patient and her the bedside. And they are both agreeable to above plan. On 12/16/2017 patient is currently resting comfortably in bed. Granddaughter currently at bedside. At this time patient denies chest pain or shortness of breath. Denies nausea vomiting or diarrhea. Denies any urinary symptoms. Plan for liver biopsy later today or early tomorrow. Per nursing staff Lovenox has been on hold for today. On 12/17/2017 patient is currently resting in bed. Patient does appear confused. Awaiting liver biopsy today. This time patient denies chest pain or shortness breath. Denies nausea vomiting or diarrhea. Denies any urinary symptoms. On 12/18/2017 patient is currently resting in bed. Patient refusing liver biopsy again yesterday. Family meeting held with children and significant other. Family expresses wishes to move forward with hospice at this time. case management involved. Discussed in depth with family in regards to prognosis and situation. 12/19/2017 patient's family is now in agreement to go with [facility]. Case management social work involvement. Waiting for clearance from [facility]. Objective - Vital Signs Vital signs: Vital Signs Temp 97.8 F 12/19/17 05:00 Pulse 95 12/19/17 05:00 Resp 16 12/19/17 08:00 BP 131/63 12/19/17 05:00 Pulse Ox 93 L 12/19/17 05:00 Intake & Output 12/18/17 12/19/17 12/19/17 18:59 06:59 18:59 Intake Total 50 Balance 50 Weight 64 kg Intake: Oral 50 Other: Voiding Method Diaper Diaper Diaper Incontinent Incontinent Incontinent # Voids 3 - Exam Head normocephalic Neck supple Lungs clear to auscultation bilaterally no wheezing or crackles Heart regular rate and rhythm S1-S2, no rub or gallop Abdomen is soft nontender nondistended positive bowel sounds no hepatosplenomegaly Extremities no edema Neuro. Patient is becoming more confused - Labs CBC & Chem 7: 12/19/17 07:55 12/19/17 07:55 Labs: Abnormal Lab Results - Last 24 Hours (Table) 12/19/17 12/19/17 Range/Units 07:55 07:55 Hgb 8.2 L (11.4-16.0) gm/dL Hct 26.9 L (34.0-46.0) % MCV 67.7 L (80.0-100.0) fL MCH 20.7 L (25.0-35.0) pg MCHC 30.5 L (31.0-37.0) g/dL RDW 18.1 H (11.5-15.5) % BUN 53 H (7-17) mg/dL Creatinine 1.61 H (0.52-1.04) mg/dL Glucose 185 H (74-99) mg/dL AST 70 H (14-36) U/L Total Protein 5.8 L (6.3-8.2) g/dL Albumin 3.2 L (3.5-5.0) g/dL Assessment and Plan Assessment: 1. Dyspnea on exertion. D-dimer elevated at 1.70. CTA negative for pulmonary embolism. X-ray completed showing interstitial prominence, possible bronchitis or asthma. No focal infiltrate. Dr. Menon for pulmonary has been consulted. Per Dr. Menon could be multifactorial could be due to worsening anemia and possible sepsis related to UTI. 2-D echo completed showing EF of 50-55%. 2. Urinary tract infection. Patient febrile and elevated lactic acid at 3.6 on admission. Repeat lactic acid 1.8. Urine and blood cultures has been ordered. currently on IV antibiotic Rocephin 3. History of breast cancer. Patient recently underwent hysterectomy. Patient states she's had chemotherapy but did not complete her radiation. CTA showing low density liver masses suggestive of metastases disease. Ultrasound of liver ordered per Dr. Menon. Dr. Sims per oncology has been consulted. Plans for liver biopsy today or early tomorrow. Family and patient are in agreement about plan 4. Chronic Anemia. Patient has required iron infusions in the past. Hemoglobin 8.5. Dr. Sims per oncology services have been consulted. hemoglobin 7.7. oncology following 5. Chronic kidney disease stage III. Initial creatinine 1.40 and bun 44. Levels are trending down. We'll continue to monitor closely. Creatinine 1.94 and bun 452 6. Essential hypertension. Patient currently on Coreg, hydrochlorothiazide and Cozaar 7. Hypothyroidism. continue Synthroid 8. Osteoarthritis 9. Hyperlipidemia. Home pravastatin on hold due to elevated liver enzyme 10. Elevated troponin level. Initial troponin 0.036, 0.041, 0.046. EKG completed showing sinus rhythm with premature atrial complexes, low voltage QRS left anterior fascicular block. Inferior infarct, age undetermined. Repeat troponins have been ordered. Patient denies chest pain. Cardiology services have been consulted. 2-D echo completed showing EF of 50-55% 11. 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 She underwent cholecystectomy with bilateral oophorectomy on 08/15/2017. Patient is status post 50% of her adjuvant radiation. Patient opted to discontinue treatment to better support her partner who was recently diagnosed with esophageal cancer. Per oncology patient to follow-up outpatient with Dr. Paulino for options related to systemic treatment possible computed tomography scan. Ultrasound of liver completed showing multiple hepatic masses, the largest ranging from 3.68 cm. oncology recommending liver biopsy. Again patient declined with her biopsy. Family is in agreement with holding off on biopsy at this time. 12. Increased confusion. Dr. Kelley consulted for psych in regards to patient's ability to make medical decisions and mental competence. Per Dr. Kelley at this point is not felt that patient is fully able to make informed decisions. Dr. Newell per neurology consulted. Ammonia level, EEG and CT of the brain has been ordered per neurology. CT of the head completed showing no acute intracranial hemorrhage or midline shift. There is moderate diffuse age- related cerebral atrophy and chronic small vessel ischemic changes noted. Family meeting held with patient's children and significant other discussed hospice. Family wishes to move forward with hospice at this time case management involved. Patient family is in agreement with [facility]. Awaiting for final approval from [facility] I performed an examination of the patient and discussed their management with the Nurse Practitioner. I have reviewed the Nurse Practitioner's notes and agree with the documented findings and plan of care
[2017-12-19] MEDS: BACLOFEN 10 MG TAB PO SCH (20:05)
[2017-12-20 05:44] VITALS: BP 126/57; PULSE 57; RESP 18; TEMP 97.9
[2017-12-20] MEDS: LEVOTHYROXINE 75 MCG TAB PO SCH (06:12)
[2017-12-20 07:36] LABS: Anisocytosis Slight; Basophils % (A) 1 %; Eosinophils # (A) 0.2 k/uL (0-0.7); Eosinophils % (A) 2 %; Hypochromasia Moderate; Lymphocytes # (A) 1.3 k/uL (1.0-4.8); Lymphocytes % (A) 17 %; MCH 20.5 pg (25.0-35.0); MCHC 30.6 g/dL (31.0-37.0); Microcytosis Marked; Monocytes # (A) 0.4 k/uL (0-1.0); Monocytes % (A) 5 %; Neutrophils # (A) 5.4 k/uL (1.3-7.7); Neutrophils % (A) 72 %; Platelet Count 276 k/uL (150-450); RBC 3.89 m/uL (3.80-5.40); RDW 17.9 % (11.5-15.5); WBC 7.5 k/uL (3.8-10.6)
[2017-12-20 07:48] LABS: Albumin 3.2 g/dL (3.5-5.0); Calcium 9.7 mg/dL (8.4-10.2); Potassium 3.6 mmol/L (3.5-5.1); Total Bilirubin 0.6 mg/dL (0.2-1.3); Total Protein 5.9 g/dL (6.3-8.2)
[2017-12-20] MEDS: CARVEDILOL 12.5 MG TAB PO SCH (08:54)
[2017-12-20] MEDS: PANTOPRAZOLE 40 MG TABLET PO SCH (08:54)
[2017-12-20] MEDS: LOSARTAN 50 MG TAB PO SCH (08:54)
[2017-12-20] MEDS: cefTRIAXone IN SWFI 1,000 MG/10 ML SYRINGE IVP SCH (08:54)
[2017-12-20] MEDS: FUROSEMIDE 40 MG TAB PO SCH (08:54)
--- NOTE | 2017-12-20 12:06 | P.DS ---
Providers Date of admission: 12/08/17 15:57 Expected date of discharge: 12/20/17 Attending physician: Yaneli Duarte Consults: 12/08/17 21:48 Consult Physician Urgent Consulting Provider: Sushil Sims Consult Reason/Comments: history of CA Do you want consulting provider notified?: Yes, Notify in am 12/08/17 21:50 Consult Physician Urgent Consulting Provider: Jie Menon Consult Reason/Comments: dyspnea Do you want consulting provider notified?: Yes, Notify in am 12/10/17 10:45 Consult Physician Routine Consulting Provider: Daniel Mills Consult Reason/Comments: elevated troponins Do you want consulting provider notified?: Yes 12/13/17 15:35 Consult Physician Routine Consulting Provider: Rangel Cardozo Consult Reason/Comments: mental competence Do you want consulting provider notified?: Yes 12/16/17 13:30 Consult Physician Routine Consulting Provider: Marla Newell Consult Reason/Comments: cognitive deficits Do you want consulting provider notified?: Yes Primary care physician: Yaneli Duarte Hospital Course: Discharge diagnosis Terminal diagnosis: 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 Shortness of breath on exertion likely secondary to worsening anemia and sepsis related to UTI 2. UTI with sepsis present on admission. Completed treatment with Ceftin 3. History of breast cancer 4. Chronic kidney disease stage III 5. Essential hypertension 6. Chronic anemia secondary to patient's cancer 7. Elevated troponins likely secondary to lactic acidosis. Patient seen by cardiology. 8. Acute on chronic diastolic congestive heart failure with mild exacerbation. Cardiology increased the Lasix to [address] Kelley consulted for psych in regards to patient's ability to make medical decisions and mental competence. Per Dr. Kelley at this point is not felt that patient is fully able to make informed decisions. Dr. Newell per neurology consulted. CT of the head completed showing no acute intracranial hemorrhage or midline shift. There is moderate diffuse age- related cerebral atrophy and chronic small vessel ischemic changes noted. Hospital course This is a 87-year-old patient presents to the emergency room complaining of increased difficulty breathing for the past 2 days. Patient presents to the emergency room 2 days ago and left AGAINST MEDICAL ADVICE. Patient states that she then went home but started experiencing difficulty in breathing again. She also is complaining that she has been having increased weakness. Patient has a past medical history of hypertension, cardiomyopathy recent hysterectomy for cancer at [facility]. Also has a history of breast cancer with chemotherapy. Additional history includes hypothyroidism left vasectomy and orthopedic surgery. X-ray completed emergency room showing interstitial prominence, possible bronchitis or asthma. No focal infiltrate. D-dimer 1.70. 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 No evidence of pulmonary embolus and. Low-density liver masses suggestive of metastases disease. EKG completed showing sinus rhythm with premature atrial complexes, low voltage QRS, left anterior fascicular block, inferior infarct, age undetermined. Troponin 0.036. Patient denies chest pain at this time. Repeat troponins ordered. Urinary analysis showing moderate amount of leukocyte Estrace. Urine culture has been ordered. Initial lactic acid 3.6. Repeat 1.8. patient started on Rocephin. Dr. Menon per pulmonary services consulted. Dr. Sims per oncology consulted. Patient denies chest pain or shortness breath. Denies nausea vomiting diarrhea. Denies any urinary burning or frequency. On 12/10/2017 patient is currently resting comfortably in bed. At this time patient denies any shortness of breath or chest pain. Denies any nausea vomiting or diarrhea. Denies any urinary frequency or burning. On 12/11/2017 is currently resting in bed. Patient is alert and oriented 3. Patient remains fatigued. 2-D echo has been ordered per cardiology. At this time patient denies chest pain or shortness breath. Denies nausea vomiting or diarrhea. Denies any urinary burning or frequency. On 12/12/2017 patient is currently alert and oriented 3 resting comfortably in bed visiting with friends. Per nursing staff patient is refusing any further intervention including biopsy of the liver masses. Dr. sims following per oncology. At this time patient denies nausea vomiting or diarrhea. Denies chest pain or shortness of breath. Denies any urinary burning or frequency 12/13/2017 Dr. Duarte met with family yesterday evening and at that time discussed the reasoning for a liver biopsy to further evaluate the liver lesions. Patient was agreeable at that time. She went down to the interventional radiology department to proceed with a liver biopsy and then refused to have the biopsy completed. She was brought back to the sixth floor and at that time family and patient wished to proceed with hospice care. Hospice has been consulted. They have been through to evaluate patient. And we plan for patient to be discharged home with hospice today. Patient will continue with all of her home medications. Lasix was increased during this admission by cardiology On 12/14/2017 patient is alert and oriented 3 in no apparent distress she denies any new symptoms at this time she was asked again if she wants to proceed with liver biopsy and cancer treatment with chemotherapy and she is stated that that's what she wants at this point. Clinically she denies any fever or chills no headache or dizziness no chest pain or shortness of breath no cough no nausea or vomiting no abdominal pain no diarrhea and no urinary symptoms On 12/15/2017 patient was seen and examined she is alert and oriented in no distress she denies any fever or chills no headache or dizziness no chest pain no shortness of breath no cough no nausea or vomiting no abdominal pain no diarrhea and no urinary symptoms is scheduled for liver biopsy in a.m. tomorrow case was discussed again with patient and her the bedside. And they are both agreeable to above plan. On 12/16/2017 patient is currently resting comfortably in bed. Granddaughter currently at bedside. At this time patient denies chest pain or shortness of breath. Denies nausea vomiting or diarrhea. Denies any urinary symptoms. Plan for liver biopsy later today or early tomorrow. Per nursing staff Lovenox has been on hold for today. On 12/17/2017 patient is currently resting in bed. Patient does appear confused. Awaiting liver biopsy today. This time patient denies chest pain or shortness breath. Denies nausea vomiting or diarrhea. Denies any urinary symptoms. On 12/18/2017 patient is currently resting in bed. Patient refusing liver biopsy again yesterday. Family meeting held with children and significant other. Family expresses wishes to move forward with hospice at this time. case management involved. Discussed in depth with family in regards to prognosis and situation. 12/19/2017 patient's family is now in agreement to go with [facility]. Case management social work involvement. Waiting for clearance from [facility]. On 12/20/2017 discussed with Merry per [facility]. Awaiting son to finish paperwork at [facility] should be completed today at 2 PM and [facility] Patient will be discharged to [facility]. Patient Condition at Discharge: Stable Plan - Discharge Summary Discharge Rx Participant: No New Discharge Prescriptions: New Furosemide [Lasix] 40 mg PO DAILY #30 tab Losartan [Cozaar] 100 mg PO DAILY #30 tab Cefuroxime Axetil [Ceftin] 500 mg PO BID #4 tab Continue Levothyroxine Sodium [Synthroid] 75 mcg PO DAILY Carvedilol [Coreg] 3.125 mg PO BID Aspirin EC [Ecotrin Low Dose] 81 mg PO DAILY Pravastatin Sodium [Pravachol] 20 mg PO HS Pantoprazole [Protonix] 40 mg PO AC-BID tablet. Diphenox-Atrop 2.5-0.025 mg [Lomotil] 2 tab PO QID PRN #10 tab PRN Reason: Diarrhea HYDROcodone/APAP 5-325MG [[place] 5-325] 1 tab PO Q8H PRN PRN Reason: Pain Magnesium 200 mg PO BID #8 tablet Megestrol [Megace] 400 mg PO BID Discontinued Losartan/Hydrochlorothiazide [Hyzaar 100-12.5 Tablet] 1 tab PO DAILY Discharge Medication List Carvedilol [Coreg] 3.125 mg PO BID 10/12/15 [History] Levothyroxine Sodium [Synthroid] 75 mcg PO DAILY 10/12/15 [History] Aspirin EC [Ecotrin Low Dose] 81 mg PO DAILY 12/29/15 [History] Pravastatin Sodium [Pravachol] 20 mg PO HS 03/12/17 [History] Pantoprazole [Protonix] 40 mg PO AC-BID tablet. 03/13/17 [Rx] Diphenox-Atrop 2.5-0.025 mg [Lomotil] 2 tab PO QID PRN #10 tab 11/07/17 [Rx] HYDROcodone/APAP 5-325MG [[place] 5-325] 1 tab PO Q8H PRN 11/11/17 [History] Magnesium 200 mg PO BID #8 tablet 11/11/17 [Rx] Megestrol [Megace] 400 mg PO BID 12/06/17 [History] Cefuroxime Axetil [Ceftin] 500 mg PO BID #4 tab 12/13/17 [Rx] Furosemide [Lasix] 40 mg PO DAILY #30 tab 12/13/17 [Rx] Losartan [Cozaar] 100 mg PO DAILY #30 tab 12/13/17 [Rx] Follow up Appointment(s)/Referral(s): Yaneli Duarte MD [Primary Care Provider] - 12/18/17 9:45 am Activity/Diet/Wound Care/Special Instructions: Diet: cardiac Activity: as tolerated Patient [facility] Discharge Disposition: HOME WITH HOSPICE
== END 2017-12-20 15:54 | disposition hospice, inpatient (51) | DRG 871 ==
LOC: EC 11:57 → 6SEL 15:57 → 5MS5E 12-13 17:34 → 5ONC 12-13 20:17
PROVIDERS: ADMIT Internal Medicine; ATTEND Internal Medicine
DX: A41.9 Sepsis, unspecified organism (principal); I50.33 Acute on chronic diastolic (congestive) heart failure; J96.01 Acute respiratory failure with hypoxia; C78.7 Secondary malignant neoplasm of liver and intrahepatic bile duct; E87.2 Acidosis; I13.0 Hypertensive heart and chronic kidney disease with heart failure and stage 1 through stage 4 chronic kidney disease, or unspecified chronic kidney disease; I42.9 Cardiomyopathy, unspecified; N39.0 Urinary tract infection, site not specified; C54.1 Malignant neoplasm of endometrium; D50.9 Iron deficiency anemia, unspecified; D56.9 Thalassemia, unspecified; D63.0 Anemia in neoplastic disease; E03.9 Hypothyroidism, unspecified; E78.5 Hyperlipidemia, unspecified; E83.42 Hypomagnesemia; F09 Unspecified mental disorder due to known physiological condition; I27.20 Pulmonary hypertension, unspecified; I44.4 Left anterior fascicular block; I49.1 Atrial premature depolarization; M19.90 Unspecified osteoarthritis, unspecified site; N18.3 Chronic kidney disease, stage 3 (moderate); Z82.49 Family history of ischemic heart disease and other diseases of the circulatory system; Z85.3 Personal history of malignant neoplasm of breast; Z90.12 Acquired absence of left breast and nipple; Z90.710 Acquired absence of both cervix and uterus; Z96.641 Presence of right artificial hip joint; R74.8 Abnormal levels of other serum enzymes; Z92.21 Personal history of antineoplastic chemotherapy; Z92.3 Personal history of irradiation; Z88.1 Allergy status to other antibiotic agents; Z88.5 Allergy status to narcotic agent; Z88.0 Allergy status to penicillin; Z88.8 Allergy status to other drugs, medicaments and biological substances; Z91.013 Allergy to seafood; Z53.29 Procedure and treatment not carried out because of patient's decision for other reasons; Z79.82 Long term (current) use of aspirin; Z79.890 Hormone replacement therapy; Z79.899 Other long term (current) drug therapy; J45.909 Unspecified asthma, uncomplicated; J44.9 Chronic obstructive pulmonary disease, unspecified
CPT/HCPCS: 36415; 70450; 71046; 71275; 76705; 80053; 81001; 82140; 82550; 82553; 82607; 82668; 82728; 82746; 83540; 83550; 83605; 83735; 83880; 83921; 84484; 85025; 85045; 85379; 85610; 85730; 86304; 87040; 87086; 93005; 93306; 95819; 96361; 96365; 96366; 96375; 99285

== ENCOUNTER 2018-01-06 17:37 | Inpatient (IN) | payer MEDICARE, BC ==
[2018-01-06] MEDS ORDERED: SODIUM CHLORIDE 0.9% 1,000 ML IV STA ×2 (17:42→20:12)
--- NOTE | 2018-01-06 18:06 | ED ---
Weakness HPI - General Chief complaint: Weakness Stated complaint: weakness Time Seen by Provider: 01/06/18 17:40 Source: patient, family, RN notes reviewed, old records reviewed Mode of arrival: EMS Limitations: physical limitation - History of Present Illness Initial comments: This is a facial female the ER for evaluation of weakness. Patient poor strain patient brought to ER by son is brought in the ER by son for failure to thrive not eating not drinking. Patient is recent hospitalization secondary to severe breast cancer. Patient herself denies any significant chief complaints currently MD Complaint: generalized weakness, lack of energy -: days(s) Location: generalized Severity: severe Severity scale (1-10): 7 Consistency: constant Context: recent illness, other (CA) Associated Symptoms: loss of appetite - Related Data Home Medications Medication Instructions Recorded Confirmed Levothyroxine Sodium [Synthroid] 75 mcg PO DAILY 10/12/15 01/06/18 Atropine Ophth Soln 1% 5Ml [Isopto 1 - 2 drops PO Q4H PRN 01/06/18 01/06/18 Atropine 1% 5Ml] Bisacodyl 10 mg RECTAL Q48H PRN 01/06/18 01/06/18 HYDROcodone/APAP 10-325MG [[place] 1 tab PO Q4HR PRN 01/06/18 01/06/18 10-325] LORazepam [Ativan] 1 mg PO Q6H PRN 01/06/18 01/06/18 MORPHINE ORAL MARTIN CONC 20mg/mL 5 mg PO Q3H PRN 01/06/18 01/06/18 [Roxanol Oral Soln Conc 20MG/ML] Prochlorperazine [Compazine] 10 mg PO Q6H PRN 01/06/18 01/06/18 Senna Plus 8.6/50 1 - 2 tab PO DAILY 01/06/18 01/06/18 Allergies Allergy/AdvReac Type Severity Reaction Status Date / Time Penicillins Allergy Severe Anaphylaxis Verified 01/06/18 18:38 indomethacin Allergy Unknown Unknown Verified 01/06/18 18:38 iodine Allergy Unknown Unknown Verified 01/06/18 18:38 Iodinated Contrast- Oral and Allergy Unknown Verified 01/06/18 18:38 IV Dye [Iodinated Contrast Media - IV Dye] meperidine HCl [From Demerol] AdvReac Unknown Nausea & Verified 01/06/18 18:38 Vomiting propoxyphene HCl AdvReac Unknown Nausea & Verified 01/06/18 18:38 [From Darvon] Vomiting shellfish derived [Shellfish] AdvReac Unknown Abdominal Verified 01/06/18 18:38 Pain Review of Systems ROS Statement: Those systems with pertinent positive or pertinent negative responses have been documented in the HPI. ROS Other: All systems not noted in ROS Statement are negative. Past Medical History Past Medical History: Cancer, Hyperlipidemia, Hypertension, Thyroid Disorder Additional Past Medical History / Comment(s): HX OF BREAST CANCER W/ CHEMOTHERAPY, , ANEMIA OFF AND ON WITH IRON INFUSIONS, LOW THYROID. UTI, constipation. History of Any Multi-Drug Resistant Organisms: None Reported Past Surgical History: Appendectomy, Breast Surgery, Orthopedic Surgery Additional Past Surgical History / Comment(s): LEFT MASTECTOMY, KNEE ARTHROSCOPY. RT HIP REPLACEMENT Past Anesthesia/Blood Transfusion Reactions: No Reported Reaction Additional Past Anesthesia/Blood Transfusion Reaction / Comment(s): STATES AFTER KNEE SURGERY SHE WAS "JERKING ALL OVER" Past Psychological History: No Psychological Hx Reported Smoking Status: Never smoker Past Alcohol Use History: None Reported Past Drug Use History: None Reported - Past Family History Mother Family Medical History: Myocardial Infarction ([place]) Father Family Medical History: Myocardial Infarction ([place]) General Exam Limitations: physical limitation General appearance: alert, in no apparent distress, lethargic Head exam: Present: atraumatic, normocephalic, normal inspection Eye exam: Present: normal appearance, PERRL, EOMI. Absent: scleral icterus, conjunctival injection, periorbital swelling ENT exam: Present: normal exam, mucous membranes moist Neck exam: Present: normal inspection. Absent: tenderness, meningismus, lymphadenopathy Respiratory exam: Present: normal lung sounds bilaterally. Absent: respiratory distress, wheezes, rales, rhonchi, stridor Cardiovascular Exam: Present: regular rate, normal rhythm, normal heart sounds. Absent: systolic murmur, diastolic murmur, rubs, gallop, clicks GI/Abdominal exam: Present: soft, normal bowel sounds. Absent: distended, tenderness, guarding, rebound, rigid Extremities exam: Present: normal inspection, full ROM, normal capillary refill. Absent: tenderness, pedal edema, joint swelling, calf tenderness Back exam: Present: normal inspection Neurological exam: Present: alert, oriented X3, CN II-XII intact Psychiatric exam: Present: normal affect, normal mood Skin exam: Present: warm, dry, intact, normal color. Absent: rash Course Vital Signs 01/06/18 01/06/18 01/06/18 17:42 18:48 20:00 Temperature 97 F L Pulse Rate 93 96 99 Respiratory 18 20 20 Rate Blood Pressure 141/69 161/59 136/82 O2 Sat by Pulse 93 L 96 94 L Oximetry - Reevaluation(s) Reevaluation #1: 01/06/18 18:06 Medical records thoroughly reviewed Reevaluation #2: 01/06/18 18:16 Patient is calm. Recent medical history of known diagnosis of breast cancer known diagnosis of uterine cancer and then concern whether there is liver metastasis or not. Patient has gone through landing on hospice and out of thoughts of treatment and contradictory statements. Patient is currently hospice, has elected to have biopsy of liver and also has elected against biopsy of late of liver was treatment Reevaluation #3: 01/06/18 20:13 No significant improvement with hydration at this point EKG Findings - EKG Comments: EKG Findings:: EKG shows sinus tachycardia rate of 102, IA 1:30, QRS 80, QTC 500 Medical Decision Making - Medical Decision Making 87 female the ER for evasive severe weakness dehydration, malnutrition. Secondary to CVA, patient's presenting from hospital unsure of continued hospice care. No infection found. Lactic acid not related to infective process. Patient will be admitted for continued IV hydration - Lab Data Result diagrams: 01/06/18 18:00 01/06/18 18:00 Lab Results 01/06/18 01/06/18 01/06/18 Range/Units 18:00 18:00 18:00 WBC 6.1 (3.8-10.6) k/uL RBC 3.98 (3.80-5.40) m/uL Hgb 8.4 L (11.4-16.0) gm/dL Hct 27.7 L (34.0-46.0) % MCV 69.6 L (80.0-100.0) fL MCH 21.1 L (25.0-35.0) pg MCHC 30.4 L (31.0-37.0) g/dL RDW 19.2 H (11.5-15.5) % Plt Count 232 (150-450) k/uL Neutrophils % 71 % Lymphocytes % 16 % Monocytes % 6 % Eosinophils % 3 % Basophils % 1 % Neutrophils # 4.3 (1.3-7.7) k/uL Lymphocytes # 1.0 (1.0-4.8) k/uL Monocytes # 0.4 (0-1.0) k/uL Eosinophils # 0.2 (0-0.7) k/uL Basophils # 0.0 (0-0.2) k/uL Hypochromasia Marked Anisocytosis Slight Microcytosis Marked PT (9.0-12.0) sec INR (<1.2) APTT (22.0-30.0) sec Sodium 139 (137-145) mmol/L Potassium 3.5 (3.5-5.1) mmol/L Chloride 104 (98-107) mmol/L Carbon Dioxide 25 (22-30) mmol/L Anion Gap 10 mmol/L BUN 33 H (7-17) mg/dL Creatinine 1.43 H (0.52-1.04) mg/dL Est GFR (CKD-EPI)AfAm 38 (>60 ml/min/1.73 sqM) Est GFR (CKD-EPI)NonAf 33 (>60 ml/min/1.73 sqM) Glucose 118 H (74-99) mg/dL Plasma Lactic Acid Oh (0.7-2.0) mmol/L Calcium 10.7 H (8.4-10.2) mg/dL Phosphorus 3.6 (2.5-4.5) mg/dL Magnesium 1.7 (1.6-2.3) mg/dL Total Bilirubin 1.0 (0.2-1.3) mg/dL AST 94 H (14-36) U/L ALT 43 (9-52) U/L Alkaline Phosphatase 171 H (38-126) U/L Total Creatine Kinase 152 H (30-135) U/L CK-MB (CK-2) 5.5 H (0.0-2.4) ng/mL CK-MB (CK-2) Rel Index 3.6 Troponin I 0.205 H* (0.000-0.034) ng/mL Total Protein 5.4 L (6.3-8.2) g/dL Albumin 3.0 L (3.5-5.0) g/dL 10/01/18 10/01/18 Range/Units 18:00 18:00 WBC (3.8-10.6) k/uL RBC (3.80-5.40) m/uL Hgb (11.4-16.0) gm/dL Hct (34.0-46.0) % MCV (80.0-100.0) fL MCH (25.0-35.0) pg MCHC (31.0-37.0) g/dL RDW (11.5-15.5) % Plt Count (150-450) k/uL Neutrophils % % Lymphocytes % % Monocytes % % Eosinophils % % Basophils % % Neutrophils # (1.3-7.7) k/uL Lymphocytes # (1.0-4.8) k/uL Monocytes # (0-1.0) k/uL Eosinophils # (0-0.7) k/uL Basophils # (0-0.2) k/uL Hypochromasia Anisocytosis Microcytosis PT 11.0 (9.0-12.0) sec INR 1.1 (<1.2) APTT 21.6 L (22.0-30.0) sec Sodium (137-145) mmol/L Potassium (3.5-5.1) mmol/L Chloride (98-107) mmol/L Carbon Dioxide (22-30) mmol/L Anion Gap mmol/L BUN (7-17) mg/dL Creatinine (0.52-1.04) mg/dL Est GFR (CKD-EPI)AfAm (>60 ml/min/1.73 sqM) Est GFR (CKD-EPI)NonAf (>60 ml/min/1.73 sqM) Glucose (74-99) mg/dL Plasma Lactic Acid Oh 4.1 H* (0.7-2.0) mmol/L Calcium (8.4-10.2) mg/dL Phosphorus (2.5-4.5) mg/dL Magnesium (1.6-2.3) mg/dL Total Bilirubin (0.2-1.3) mg/dL AST (14-36) U/L ALT (9-52) U/L Alkaline Phosphatase (38-126) U/L Total Creatine Kinase (30-135) U/L CK-MB (CK-2) (0.0-2.4) ng/mL CK-MB (CK-2) Rel Index Troponin I (0.000-0.034) ng/mL Total Protein (6.3-8.2) g/dL Albumin (3.5-5.0) g/dL - Radiology Data Radiology results: report reviewed (Chest x-rays negative for acute disease), image reviewed Disposition Clinical Impression: Lactic acidosis, Dehydration, Malnutrition Disposition: ADMITTED IP TO THIS [facility] Condition: Fair Is patient prescribed a controlled substance at d/c from ED?: No Referrals: Yaneli Duarte MD [Primary Care Provider] - 1-2 days
[2018-01-06 18:12] LABS: Anisocytosis Slight; Basophils % (A) 1 %; Eosinophils # (A) 0.2 k/uL (0-0.7); Eosinophils % (A) 3 %; HCT 27.7 % (34.0-46.0); HGB 8.4 gm/dL (11.4-16.0); Hypochromasia Marked; Lymphocytes % (A) 16 %; MCH 21.1 pg (25.0-35.0); MCHC 30.4 g/dL (31.0-37.0); MCV 69.6 fL (80.0-100.0); Mean Platelet Volume 6.6; Microcytosis Marked; Monocytes # (A) 0.4 k/uL (0-1.0); Monocytes % (A) 6 %; Neutrophils # (A) 4.3 k/uL (1.3-7.7); Neutrophils % (A) 71 %; Platelet Count 232 k/uL (150-450); RBC 3.98 m/uL (3.80-5.40); RDW 19.2 % (11.5-15.5); WBC 6.1 k/uL (3.8-10.6)
[2018-01-06 18:21] LABS: Calcium 10.7 mg/dL (8.4-10.2); Magnesium 1.7 mg/dL (1.6-2.3); Phosphorus 3.6 mg/dL (2.5-4.5); Potassium 3.5 mmol/L (3.5-5.1); Total Protein 5.4 g/dL (6.3-8.2)
[2018-01-06 18:39] LABS: INR 1.1 (<1.2); Partial Thromboplastin Time 21.6 sec (22.0-30.0)
[2018-01-06 18:43] LABS: Creatine Kinase MB 5.5 ng/mL (0.0-2.4)
[2018-01-06 18:49] LABS: Troponin I 0.205 ng/mL (0.000-0.034)
--- NOTE | 2018-01-06 19:05 | XR ---
EXAMINATION TYPE: XR chest 2V DATE OF EXAM: 01/06/2018 COMPARISON: Chest x-ray and CTA chest December 08, 2017 HISTORY: History of uterine cancer with weakness. TECHNIQUE: Frontal and lateral views of the chest are obtained. FINDINGS: There is chronic parenchymal change without suspicious focal air space opacity, pleural ef fusion, or pneumothorax seen. The cardiac silhouette size is within normal limits ectatic and athero sclerotic thoracic aorta redemonstrated. The osseous structures remain demineralized. Degenerative change bilateral shoulders is redemonstrated. Underlying scoliosis is seen. IMPRESSION: Chronic changes without acute pulmonary process.
[2018-01-06] MEDS ORDERED: DEXTROSE 5%-0.45% NACL 1,000 ML IV ONE (20:11)
[2018-01-06] MEDS ORDERED: SODIUM CHLORIDE 0.9% 500 ML 500 ML IV STA (20:12)
[2018-01-06] MEDS ORDERED: MORPHINE SULFATE 4 MG/ML SYRINGE IVP STA (21:14)
[2018-01-06 22:01] LABS: Appearance,Urine Clear (Clear); Bilirubin,Urine Negative (Negative); Blood,Urine Negative (Negative); Color,Urine Yellow; Glucose,Urine (UA) Negative (Negative); Ketones,Urine Negative (Negative); Leukocyte Esterase,Urine Negative (Negative); Nitrite,Urine Negative (Negative); PH, Urine 5.5 (5.0-8.0); Protein,Urine Negative (Negative); Specific Gravity,Urine 1.011 (1.001-1.035); Urobilinogen,Urine <2.0 mg/dL (<2.0)
[2018-01-06] MEDS: SODIUM CHLORIDE 0.9% 1,000 ML IV SCH (22:46)
[2018-01-07] MEDS: MORPHINE SULFATE 4 MG/ML SYRINGE IVP PRN ×3 (06:15→21:40)
[2018-01-07] MEDS ORDERED: PANTOPRAZOLE 40 MG/10 ML VIAL IVP SCH (09:00)
[2018-01-07] MEDS ORDERED: MORPHINE PO PRN (10:11)
[2018-01-07] MEDS ORDERED: PROCHLORPERAZINE 10 MG TAB PO PRN (10:11)
[2018-01-07] MEDS ORDERED: BISACODYL 10 MG SUPP RECTAL PRN (10:11)
[2018-01-07] MEDS ORDERED: LORazepam 1 MG TAB PO PRN (10:11)
--- NOTE | 2018-01-07 10:29 | P.HPIM ---
History of Present Illness H&P Date: 01/07/18 Chief Complaint: Dehydration and weakness This is an 87 female who presented to the emergency room with family due to complaints of patient having dehydration and weakness. Patient was admitted to [facility] on 12/20. Patient has a known past medical history of endometroid adenocarcinoma of the uterus. Patient had previously stopped radiation treatment for her uterine cancer. During last admission concerns for liver metastases presented. Patient refused liver biopsy on 2 different occasions. An In depth family meeting was held at that time and family decided to move forward with [facility]. Additional medical history includes hyperlipidemia, hypertension and thyroid disorder. patient also has history of breast cancer with chemotherapy, anemia off-and-on with iron infusions, UTI and constipation. Chest x-ray completed showing chronic changes without acute pulmonary process. EKG completed showing sinus tachycardia with premature atrial complexes. Left axis deviation. Patient's lactic acid 4.1 on admission. Patient received 3 L of normal saline fluid. Patient currently on normal saline in the 100. Troponin also elevated at 0.205. Cardiology services have been consulted. Discussed case with shelter case manager. Due to recent admission to hospice and patient herself previously refusing any further treatment, family meeting will be arranged to discuss plan for further intervention versus continuing of hospice care. Review of Systems Please refer to HPI otherwise unremarkable Past Medical History Past Medical History: Cancer, Hyperlipidemia, Hypertension, Thyroid Disorder Additional Past Medical History / Comment(s): HX OF BREAST CANCER W/ CHEMOTHERAPY, , ANEMIA OFF AND ON WITH IRON INFUSIONS, LOW THYROID. UTI, constipation. History of Any Multi-Drug Resistant Organisms: None Reported Past Surgical History: Appendectomy, Breast Surgery, Orthopedic Surgery Additional Past Surgical History / Comment(s): LEFT MASTECTOMY, KNEE ARTHROSCOPY. RT HIP REPLACEMENT Past Anesthesia/Blood Transfusion Reactions: No Reported Reaction Additional Past Anesthesia/Blood Transfusion Reaction / Comment(s): STATES AFTER KNEE SURGERY SHE WAS "JERKING ALL OVER" Past Psychological History: No Psychological Hx Reported Additional Psychological History / Comment(s): LIVES WITH SIG OTHER FOR OVER 30 YEARS Smoking Status: Never smoker Past Alcohol Use History: None Reported Past Drug Use History: None Reported - Past Family History Mother Family Medical History: Myocardial Infarction ([place]) Father Family Medical History: Myocardial Infarction ([place]) Medications and Allergies Home Medications Medication Instructions Recorded Confirmed Type Levothyroxine Sodium [Synthroid] 75 mcg PO DAILY 10/12/15 01/06/18 History Atropine Ophth Soln 1% 5Ml [Isopto 1 - 2 drops PO Q4H PRN 01/06/18 01/06/18 History Atropine 1% 5Ml] Bisacodyl 10 mg RECTAL Q48H PRN 01/06/18 01/06/18 History HYDROcodone/APAP 10-325MG [[place] 1 tab PO Q4HR PRN 01/06/18 01/06/18 History 10-325] LORazepam [Ativan] 1 mg PO Q6H PRN 01/06/18 01/06/18 History MORPHINE ORAL MARTIN CONC 20mg/mL 5 mg PO Q3H PRN 01/06/18 01/06/18 History [Roxanol Oral Soln Conc 20MG/ML] Prochlorperazine [Compazine] 10 mg PO Q6H PRN 01/06/18 01/06/18 History Senna Plus 8.6/50 1 - 2 tab PO DAILY 01/06/18 01/06/18 History Allergies Allergy/AdvReac Type Severity Reaction Status Date / Time Penicillins Allergy Severe Anaphylaxis Verified 01/06/18 18:38 indomethacin Allergy Unknown Unknown Verified 01/06/18 18:38 iodine Allergy Unknown Unknown Verified 01/06/18 18:38 Iodinated Contrast- Oral and Allergy Unknown Verified 01/06/18 18:38 IV Dye [Iodinated Contrast Media - IV Dye] meperidine HCl [From Demerol] AdvReac Unknown Nausea & Verified 01/06/18 18:38 Vomiting propoxyphene HCl AdvReac Unknown Nausea & Verified 01/06/18 18:38 [From Darvon] Vomiting shellfish derived [Shellfish] AdvReac Unknown Abdominal Verified 01/06/18 18:38 Pain Physical Exam Vitals: Vital Signs Temp Pulse Pulse Resp BP BP Pulse Ox 01/07/18 05:25 97.8 F 101 H 18 126/73 93 L 01/06/18 22:20 97.5 F L 94 18 136/67 93 L 01/06/18 21:40 98.3 F 101 H 22 168/79 94 L 01/06/18 21:00 102 H 24 156/76 93 L 01/06/18 20:00 99 20 136/82 94 L 01/06/18 18:48 96 20 161/59 96 01/06/18 17:42 97 F L 93 18 141/69 93 L Intake and Output 01/06/18 01/07/18 01/07/18 22:59 06:59 14:59 Other: Voiding Method Diaper Diaper # Voids 1 Weight 68.039 kg Head normocephalic Neck supple Lungs clear to auscultation bilaterally no wheezing or crackles Heart regular rate and rhythm S1-S2, no rub or gallop Abdomen is soft nontender nondistended positive bowel sounds no hepatosplenomegaly Extremities no edema Results CBC & Chem 7: 01/06/18 18:00 01/06/18 18:00 Labs: Abnormal Lab Results - Last 24 Hours (Table) 01/06/18 01/06/18 01/06/18 Range/Units 18:00 18:00 18:00 Hgb 8.4 L (11.4-16.0) gm/dL Hct 27.7 L (34.0-46.0) % MCV 69.6 L (80.0-100.0) fL MCH 21.1 L (25.0-35.0) pg MCHC 30.4 L (31.0-37.0) g/dL RDW 19.2 H (11.5-15.5) % APTT (22.0-30.0) sec BUN 33 H (7-17) mg/dL Creatinine 1.43 H (0.52-1.04) mg/dL Glucose 118 H (74-99) mg/dL Plasma Lactic Acid Oh (0.7-2.0) mmol/L Calcium 10.7 H (8.4-10.2) mg/dL AST 94 H (14-36) U/L Alkaline Phosphatase 171 H (38-126) U/L Total Creatine Kinase 152 H (30-135) U/L CK-MB (CK-2) 5.5 H (0.0-2.4) ng/mL Troponin I 0.205 H* (0.000-0.034) ng/mL Total Protein 5.4 L (6.3-8.2) g/dL Albumin 3.0 L (3.5-5.0) g/dL 01/06/18 01/06/18 Range/Units 18:00 18:00 Hgb (11.4-16.0) gm/dL Hct (34.0-46.0) % MCV (80.0-100.0) fL MCH (25.0-35.0) pg MCHC (31.0-37.0) g/dL RDW (11.5-15.5) % APTT 21.6 L (22.0-30.0) sec BUN (7-17) mg/dL Creatinine (0.52-1.04) mg/dL Glucose (74-99) mg/dL Plasma Lactic Acid Oh 4.1 H* (0.7-2.0) mmol/L Calcium (8.4-10.2) mg/dL AST (14-36) U/L Alkaline Phosphatase (38-126) U/L Total Creatine Kinase (30-135) U/L CK-MB (CK-2) (0.0-2.4) ng/mL Troponin I (0.000-0.034) ng/mL Total Protein (6.3-8.2) g/dL Albumin (3.5-5.0) g/dL Thrombosis Risk Factor Assmnt - Choose All That Apply Each Risk Factor Represents 3 Points: Age 75 years or older Thrombosis Risk Factor Assessment Total Risk Factor Score: 3 Thrombosis Risk Factor Assessment Level: Moderate Risk Assessment and Plan Assessment: 1. Dehydration and increased weakness. Patient recently admitted to [facility]. Lactic acid 4.1. Patient received 3 L of normal saline. Patient currently has normal saline running at 100. Urine and blood culture has been ordered. 2. Elevated troponin. Initial troponin 0.205. Cardiology service consulted 3. 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 Patient previously stopped radiation and treatment for her uterine cancer. She also declined liver biopsy during previous admission. Patient was admitted to hospice at that time. 4. History of breast cancer 5. Chronic kidney disease stage III. Creatinine 1.43 and bun 33. Continue normal saline at 100 6. Essential hypertension. 7. 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 Hemoglobin 8.4 8. Chronic diastolic congestive heart failure. Discussed case with shelter case manager. Planning to arrange family meeting to decide further intervention versus continuing of hospice care. DVT prophylaxis heparin. GI prophylaxis Protonix Time with Patient: Greater than 30 (Greater than 60% of the total time spent in counseling and coordination of care. I performed an examination of the patient and discussed their management with the Nurse Practitioner. I have reviewed the Nurse Practitioner's notes and agree with the documented findings and plan of care)
--- NOTE | 2018-01-07 11:40 | P.PN ---
Progress Note - Text Progress Note Date: 01/07/18 Family meeting held with son Tye and Significant other. At this time family requesting Dr. Sims per oncology be consulted and further testing be addressed. Explained to family that patient had previously declined liver biopsy multiple times during previous admission and that a biopsy would be needed to fully assess the progression of the cancer. Family requesting that we still move forward with consulting of oncology services
[2018-01-07] MEDS: SODIUM CHLORIDE 0.9% 1,000 ML IV SCH ×2 (12:07→18:54)
--- NOTE | 2018-01-07 12:49 | ECHOF ---
Referral Reason:elevated trop MEASUREMENTS -------- HEIGHT: 160.0 cm WEIGHT: 68.0 kg BP: IVSd: 1.3 cm (0.6 - 1.1) LVIDd: 1.7 cm (3.9 - 5.3) LVPWd: 1.6 cm (0.6 - 1.1) IVSs: 1.3 cm LVIDs: 1.4 cm LVPWs: 1.2 cm RAP: 5.00 mmHg RVSP: 39.96 mmHg FINDINGS -------- Sinus rhythm. Limited Study There is mild concentric left ventricular hypertrophy. Overall left ventricular systolic function i s normal with, an EF between 55 - 60 %. There is no pericardial effusion. CONCLUSIONS -------- 1. Sinus rhythm. 2. Limited Study 3. There is mild concentric left ventricular hypertrophy. 4. Overall left ventricular systolic function is normal with, an EF between 55 - 60 %. 5. There is no pericardial effusion. CEREAL SUPERVISOR: [facility]
[2018-01-07 13:36] LABS: Albumin 2.5 g/dL (3.5-5.0); Calcium 9.4 mg/dL (8.4-10.2); Potassium 3.4 mmol/L (3.5-5.1); Total Protein 4.9 g/dL (6.3-8.2)
[2018-01-07 13:59] LABS: Anisocytosis Slight; Basophils % (A) 1 %; Eosinophils # (A) 0.2 k/uL (0-0.7); Eosinophils % (A) 4 %; HCT 26.6 % (34.0-46.0); HGB 7.9 gm/dL (11.4-16.0); Hypochromasia Marked; Lymphocytes # (A) 0.7 k/uL (1.0-4.8); Lymphocytes % (A) 14 %; MCH 21.2 pg (25.0-35.0); MCHC 29.7 g/dL (31.0-37.0); MCV 71.3 fL (80.0-100.0); Mean Platelet Volume 7.2; Microcytosis Marked; Monocytes # (A) 0.3 k/uL (0-1.0); Monocytes % (A) 6 %; Neutrophils # (A) 3.8 k/uL (1.3-7.7); Neutrophils % (A) 73 %; Platelet Count 213 k/uL (150-450); RBC 3.73 m/uL (3.80-5.40); RDW 19.4 % (11.5-15.5); WBC 5.2 k/uL (3.8-10.6)
--- NOTE | 2018-01-07 14:28 | P.CRDCN ---
History of Present Illness History of present illness: Mrs. Mendoza is a pleasant 87-year-old female past medical history significant for hypertension, dyslipidemia, hypothyroidism and breast/uterine cancer with possible metastasis to the liver. She is a poor historian and all information is obtained from her significant other at the bedside and medical record. She was recently admitted to the hospital earlier this month and subsequently discharged on Hospice. She was brought in this time by her son for increased weakness and failure to thrive. He apparently is interested in taking her off of hospice and pursuing a liver biopsy. We have been asked to see her in consultation for elevated troponin of 0.205 on admission. She denies symptoms of chest pain, shortness of breath, dizziness or palpitations. Per her significant other he states she has had no complaints of those symptoms that he is aware of in the recent past. He states she has followed with Dr. Lemons in the past and has never had any heart disease that he is aware of. No catheterizations in the past and no stents. He also denies her having any heart failure. EKG on arrival reveals sinus tachycardia with PACs heart rate 102. T-wave inversions inferiorly. Nonspecific ST abnormalities the lateral leads. Poor R- wave progression. Chest x-ray is negative for acute cardiopulmonary process. Laboratory data reviewed, hemoglobin 7.9, platelets 213, sodium 142, potassium 3.4, magnesium 1.7, creatinine 1.18, AST 84, alk phos 151, troponin 0.205 and 0.207. Most recent echocardiogram performed 12/10/2017 revealed preserved left ventricular systolic function with ejection fraction 50-55% with mild pulmonary hypertension with RVSP of 40.98 mmHg. Review of Systems At the time of my exam: CONSTITUTIONAL: Denies fever. Denies chills. EYES: Denies blurred vision. Denies vision changes. Denies eye pain. EARS, NOSE, MOUTH & THROAT: Denies headache. Denies sore throat. Denies ear pain. CARDIOVASCULAR: Denies chest pain. Denies shortness of breath. Denies orthopnea. Denies PND. Denies palpitations. RESPIRATORY: Denies cough. GASTROINTESTINAL: Denies abdominal pain. Denies diarrhea. Denies constipation. Denies nausea. Denies vomiting. MUSCULOSKELETAL: Denies myalgias. INTEGUMENTARY: Denies pruitis. Denies rash. NEUROLOGIC: Denies numbness. Denies tingling. Denies weakness. PSYCHIATRIC: Denies anxiety. Denies depression. ENDOCRINE: Denies fatigue. Denies weight change. Denies polydipsia. Denies polyurina. GENITOURINARY: Denies burning, hematuria or urgency with micturation. HEMATOLOGIC: Denies history of anemia. Denies bleeding. Past Medical History Past Medical History: Cancer, Hyperlipidemia, Hypertension, Thyroid Disorder Additional Past Medical History / Comment(s): HX OF BREAST CANCER W/ CHEMOTHERAPY, , ANEMIA OFF AND ON WITH IRON INFUSIONS, LOW THYROID. UTI, constipation. History of Any Multi-Drug Resistant Organisms: None Reported Past Surgical History: Appendectomy, Breast Surgery, Orthopedic Surgery Additional Past Surgical History / Comment(s): LEFT MASTECTOMY, KNEE ARTHROSCOPY. RT HIP REPLACEMENT Past Anesthesia/Blood Transfusion Reactions: No Reported Reaction Additional Past Anesthesia/Blood Transfusion Reaction / Comment(s): STATES AFTER KNEE SURGERY SHE WAS "JERKING ALL OVER" Past Psychological History: No Psychological Hx Reported Additional Psychological History / Comment(s): LIVES WITH SIG OTHER FOR OVER 30 YEARS Smoking Status: Never smoker Past Alcohol Use History: None Reported Past Drug Use History: None Reported - Past Family History Mother Family Medical History: Myocardial Infarction ([place]) Father Family Medical History: Myocardial Infarction ([place]) Medications and Allergies Home Medications Medication Instructions Recorded Confirmed Type Levothyroxine Sodium [Synthroid] 75 mcg PO DAILY 10/12/15 01/06/18 History Atropine Ophth Soln 1% 5Ml [Isopto 1 - 2 drops PO Q4H PRN 01/06/18 01/06/18 History Atropine 1% 5Ml] Bisacodyl 10 mg RECTAL Q48H PRN 01/06/18 01/06/18 History HYDROcodone/APAP 10-325MG [[place] 1 tab PO Q4HR PRN 01/06/18 01/06/18 History 10-325] LORazepam [Ativan] 1 mg PO Q6H PRN 01/06/18 01/06/18 History MORPHINE ORAL MARTIN CONC 20mg/mL 5 mg PO Q3H PRN 01/06/18 01/06/18 History [Roxanol Oral Soln Conc 20MG/ML] Prochlorperazine [Compazine] 10 mg PO Q6H PRN 01/06/18 01/06/18 History Senna Plus 8.6/50 1 - 2 tab PO DAILY 01/06/18 01/06/18 History Allergies Allergy/AdvReac Type Severity Reaction Status Date / Time Penicillins Allergy Severe Anaphylaxis Verified 01/06/18 18:38 indomethacin Allergy Unknown Unknown Verified 01/06/18 18:38 iodine Allergy Unknown Unknown Verified 01/06/18 18:38 Iodinated Contrast- Oral and Allergy Unknown Verified 01/06/18 18:38 IV Dye [Iodinated Contrast Media - IV Dye] meperidine HCl [From Demerol] AdvReac Unknown Nausea & Verified 01/06/18 18:38 Vomiting propoxyphene HCl AdvReac Unknown Nausea & Verified 01/06/18 18:38 [From Darvon] Vomiting shellfish derived [Shellfish] AdvReac Unknown Abdominal Verified 01/06/18 18:38 Pain Physical Exam Vitals: Vital Signs Temp Pulse Pulse Resp BP BP Pulse Ox 01/07/18 05:25 97.8 F 101 H 18 126/73 93 L 01/06/18 22:20 97.5 F L 94 18 136/67 93 L 01/06/18 21:40 98.3 F 101 H 22 168/79 94 L 01/06/18 21:00 102 H 24 156/76 93 L 01/06/18 20:00 99 20 136/82 94 L 01/06/18 18:48 96 20 161/59 96 01/06/18 17:42 97 F L 93 18 141/69 93 L Intake and Output 01/06/18 01/07/18 01/07/18 22:59 06:59 14:59 Other: Voiding Method Diaper Diaper # Voids 1 Weight 68.039 kg Blood pressure 140/62 heart rate 72 afebrile maintaining oxygen saturation on room air GENERAL: This is a 87-year-old female in no apparent distress at the time of my examination. HEENT: Head is atraumatic, normocephalic. Pupils are equal, round. Sclerae anicteric. Conjunctivae are clear. Mucous membranes of the mouth are moist. Neck is supple. There is no jugular venous distention. No carotid bruit is heard. LUNGS: Clear to auscultation no wheezes, rales or rhonchi. No chest wall tenderness is noted on palpation or with deep breathing. HEART: Regular rate and rhythm with systolic ejection murmur at the base, no rubs or gallops. S1 and S2 heard. ABDOMEN: Soft, nontender. Bowel sounds are heard. No organomegaly noted. EXTREMITIES: No evidence of peripheral edema and no calf tenderness noted. VASCULAR: Radial and dorsalis pedis pulses palpated, no evidence of clubbing. NEUROLOGIC: Patient is awake, alert and oriented. Conversing normally. Results 01/07/18 11:50 01/07/18 11:50 Cardiac Enzymes 01/06/18 01/06/18 Range/Units 18:00 18:00 AST 94 H (14-36) U/L CK-MB (CK-2) 5.5 H (0.0-2.4) ng/mL Troponin I 0.205 H* (0.000-0.034) ng/mL Coagulation 01/06/18 Range/Units 18:00 PT 11.0 (9.0-12.0) sec APTT 21.6 L (22.0-30.0) sec CBC 01/06/18 Range/Units 18:00 WBC 6.1 (3.8-10.6) k/uL RBC 3.98 (3.80-5.40) m/uL Hgb 8.4 L (11.4-16.0) gm/dL Hct 27.7 L (34.0-46.0) % Plt Count 232 (150-450) k/uL Comprehensive Metabolic Panel 01/06/18 Range/Units 18:00 Sodium 139 (137-145) mmol/L Potassium 3.5 (3.5-5.1) mmol/L Chloride 104 (98-107) mmol/L Carbon Dioxide 25 (22-30) mmol/L BUN 33 H (7-17) mg/dL Creatinine 1.43 H (0.52-1.04) mg/dL Glucose 118 H (74-99) mg/dL Calcium 10.7 H (8.4-10.2) mg/dL AST 94 H (14-36) U/L ALT 43 (9-52) U/L Alkaline Phosphatase 171 H (38-126) U/L Total Protein 5.4 L (6.3-8.2) g/dL Albumin 3.0 L (3.5-5.0) g/dL Current Medications Generic Name Dose Route Start Last Admin Trade Name Freq PRN Reason Stop Dose Admin Hydrocodone Bitart/Acetaminophen 1 each 01/07/18 10:11 [place] 10 PO Q4HR PRN Moderate Pain Bisacodyl 10 mg 01/07/18 10:11 Dulcolax RECTAL Q48H PRN Constipation Heparin Sodium (Porcine) 5,000 unit 01/07/18 21:00 Heparin SQ Q12HR GARRET Sodium Chloride 1,000 mls @ 100 mls/hr 01/06/18 22:45 01/07/18 12:07 Saline 0.9% IV 100 mls/hr .Q10H GARRET Administration Levothyroxine Sodium 75 mcg 01/08/18 06:30 Synthroid PO DAILY@0630 GARRET Lorazepam 1 mg 01/07/18 10:11 Ativan PO Q6H PRN Anxiety Morphine Sulfate 4 mg 01/06/18 21:14 01/07/18 06:15 Morphine Sulfate (Inj) IVP 4 mg Q6HR PRN Administration Pain Ondansetron HCl 4 mg 01/06/18 21:14 Zofran IVP Q6HR PRN Nausea And Vomiting Pantoprazole Sodium 40 mg 01/07/18 09:00 01/07/18 08:22 Protonix IVP 40 mg DAILY GARRET Administration Prochlorperazine Maleate 10 mg 01/07/18 10:11 Compazine PO Q6H PRN Nausea Senna/Docusate Sodium 1 each 01/08/18 09:00 Senokot-S PO DAILY GARRET Intake and Output 01/06/18 01/07/18 01/07/18 22:59 06:59 14:59 Other: Voiding Method Diaper Diaper # Voids 1 Weight 68.039 kg 01/06/18 18:00 01/06/18 18:00 Assessment and Plan Assessment: ASSESSMENT Uterine cancer with evidence of possible liver metastasis. Lactic acidosis Mild troponin elevation, not indicative of an acute coronary event. Unknown etiology. May be related to Type 2 event. No symptoms of acute coronary syndrome and no acute EKG abnormalities noted. Chronic kidney disease, creatinine today 1.18, GFR 42. Stage 3b. Hypertension Dyslipidemia PLAN Limited echo was obtained and is normal with no changes from previous. No evidence to suggest troponin elevation is due to primary ischemic event. Ongoing medical management per primary care team and oncology. Feel free to call with further questions or concerns. Thank you kindly for this consultation. Nurse Practitioner note has been reviewed, I agree with a documented findings and plan of care. Patient was seen and examined.
[2018-01-07] MEDS: HEPARIN SODIUM,PORCINE 5,000 UNIT/ML 1 ML VIAL SQ SCH (20:12)
[2018-01-08] MEDS: SODIUM CHLORIDE 0.9% 1,000 ML IV SCH ×3 (05:49→23:03)
[2018-01-08 06:38] LABS: Anisocytosis Slight; Basophils % (A) 0 %; Eosinophils # (A) 0.2 k/uL (0-0.7); Eosinophils % (A) 3 %; HCT 27.2 % (34.0-46.0); HGB 7.9 gm/dL (11.4-16.0); Hypochromasia Marked; Lymphocytes # (A) 0.8 k/uL (1.0-4.8); Lymphocytes % (A) 17 %; MCH 20.5 pg (25.0-35.0); MCHC 28.9 g/dL (31.0-37.0); Mean Platelet Volume 6.7; Microcytosis Marked; Monocytes # (A) 0.3 k/uL (0-1.0); Monocytes % (A) 6 %; Neutrophils # (A) 3.4 k/uL (1.3-7.7); Neutrophils % (A) 72 %; Platelet Count 208 k/uL (150-450); RBC 3.83 m/uL (3.80-5.40); RDW 19.7 % (11.5-15.5); WBC 4.7 k/uL (3.8-10.6)
[2018-01-08] MEDS: MORPHINE SULFATE 4 MG/ML SYRINGE IVP PRN ×3 (06:44→23:01)
[2018-01-08] MEDS: LEVOTHYROXINE 75 MCG TAB PO SCH (06:48)
[2018-01-08 06:57] LABS: Albumin 2.7 g/dL (3.5-5.0); Calcium 9.6 mg/dL (8.4-10.2); Potassium 3.3 mmol/L (3.5-5.1)
[2018-01-08] MEDS ORDERED: Potassium Replacement Protocol 1 EACH MISC MISCELLANE PRN (08:17)
[2018-01-08] MEDS: POTASSIUM CHLORIDE 10 MEQ in WATER FOR INJECTION 1 100ML.BAG IVPB SCH ×4 (08:42→12:27)
[2018-01-08] MEDS: PANTOPRAZOLE 40 MG TABLET PO SCH (08:44)
[2018-01-08] MEDS: SENNOSIDES-DOCUSATE SODIUM 1 EACH TAB PO SCH (08:45)
[2018-01-08] MEDS: HEPARIN SODIUM,PORCINE 5,000 UNIT/ML 1 ML VIAL SQ SCH ×2 (08:45→19:25)
--- NOTE | 2018-01-08 10:23 | P.PN ---
Subjective Progress Note Date: 01/08/18 This is an 87 female who presented to the emergency room with family due to complaints of patient having dehydration and weakness. Patient was admitted to [facility] on 12/20. Patient has a known past medical history of endometroid adenocarcinoma of the uterus. Patient had previously stopped radiation treatment for her uterine cancer. During last admission concerns for liver metastases presented. Patient refused liver biopsy on 2 different occasions. An In depth family meeting was held at that time and family decided to move forward with [facility]. Additional medical history includes hyperlipidemia, hypertension and thyroid disorder. patient also has history of breast cancer with chemotherapy, anemia off-and-on with iron infusions, UTI and constipation. Chest x-ray completed showing chronic changes without acute pulmonary process. EKG completed showing sinus tachycardia with premature atrial complexes. Left axis deviation. Patient's lactic acid 4.1 on admission. Patient received 3 L of normal saline fluid. Patient currently on normal saline in the 100. Troponin also elevated at 0.205. Cardiology services have been consulted. Discussed case with case preparer and liner. Due to recent admission to hospice and patient herself previously refusing any further treatment, family meeting will be arranged to discuss plan for further intervention versus continuing of hospice care. On 01/08/2018 family meeting held yesterday. Patient's family would like to move forward with possible liver biopsy and input from oncology. Oncology services have been consulted. At this time patient is resting in bed. Remains confused. Objective - Vital Signs Vital signs: Vital Signs Temp 97.9 F 01/08/18 07:56 Pulse 99 01/08/18 07:56 Resp 18 01/08/18 07:56 BP 143/58 01/08/18 07:56 Pulse Ox 94 L 01/08/18 07:56 Intake & Output 01/07/18 01/08/18 01/08/18 18:59 06:59 18:59 Intake Total 800 400 Balance 800 400 Weight 66 kg Intake: Intake, IV Titration 800 400 Amount Sodium Chloride 0.9% 1, 800 400 000 ml @ 100 mls/hr IV . Q10H [facility] Rx[facility][id number] Other: Voiding Method Diaper Diaper Diaper - Exam Head normocephalic Neck supple Lungs clear to auscultation bilaterally no wheezing or crackles Heart regular rate and rhythm S1-S2, no rub or gallop Abdomen is soft nontender nondistended positive bowel sounds no hepatosplenomegaly Extremities no edema - Labs CBC & Chem 7: 01/08/18 06:08 01/08/18 06:08 Labs: Abnormal Lab Results - Last 24 Hours (Table) 01/07/18 01/07/18 01/07/18 Range/Units 11:50 11:50 11:50 RBC 3.73 L (3.80-5.40) m/uL Hgb 7.9 L (11.4-16.0) gm/dL Hct 26.6 L (34.0-46.0) % MCV 71.3 L (80.0-100.0) fL MCH 21.2 L (25.0-35.0) pg MCHC 29.7 L (31.0-37.0) g/dL RDW 19.4 H (11.5-15.5) % Lymphocytes # 0.7 L (1.0-4.8) k/uL Potassium 3.4 L (3.5-5.1) mmol/L Chloride 116 H (98-107) mmol/L Carbon Dioxide 18 L (22-30) mmol/L BUN 25 H (7-17) mg/dL Creatinine 1.18 H (0.52-1.04) mg/dL Glucose 100 H (74-99) mg/dL AST 84 H (14-36) U/L Alkaline Phosphatase 151 H (38-126) U/L Troponin I 0.207 H* (0.000-0.034) ng/mL Total Protein 4.9 L (6.3-8.2) g/dL Albumin 2.5 L (3.5-5.0) g/dL 01/08/18 01/08/18 Range/Units 06:08 06:08 RBC (3.80-5.40) m/uL Hgb 7.9 L (11.4-16.0) gm/dL Hct 27.2 L (34.0-46.0) % MCV 71.0 L (80.0-100.0) fL MCH 20.5 L (25.0-35.0) pg MCHC 28.9 L (31.0-37.0) g/dL RDW 19.7 H (11.5-15.5) % Lymphocytes # 0.8 L (1.0-4.8) k/uL Potassium 3.3 L (3.5-5.1) mmol/L Chloride 114 H (98-107) mmol/L Carbon Dioxide 21 L (22-30) mmol/L BUN 22 H (7-17) mg/dL Creatinine 1.18 H (0.52-1.04) mg/dL Glucose (74-99) mg/dL AST 88 H (14-36) U/L Alkaline Phosphatase 160 H (38-126) U/L Troponin I (0.000-0.034) ng/mL Total Protein 5.0 L (6.3-8.2) g/dL Albumin 2.7 L (3.5-5.0) g/dL Microbiology - Last 24 Hours (Table) 01/06/18 21:40 Urine Culture - Preliminary Urine,Catheterized Assessment and Plan Assessment: 1. Dehydration and increased weakness. Patient recently admitted to [facility]. Lactic acid 4.1. Patient received 3 L of normal saline. Patient currently has normal saline running at 100. Urine and blood culture has been ordered. 2. Elevated troponin. Initial troponin 0.205. Per cardiology echo was obtained is normal with no changes from previous. No evidence to suggest troponin elevation is due to primary ischemic event. May be related to a type II event per cardiology 3. 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 Patient previously stopped radiation and treatment for her uterine cancer. She also declined liver biopsy during previous admission. Patient was admitted to hospice at that time. Family meeting held yesterday. Family would like to move forward with possible liver biopsy and input from oncology services. Oncology has been consulted 4. History of breast cancer 5. Chronic kidney disease stage III. Creatinine 1.43 and bun 33. Continue normal saline at 100. Creatinine 1.18 and bun 22 6. Essential hypertension. 7. 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 Hemoglobin 7.9 8. Chronic diastolic congestive heart failure. 9. Elevated liver enzymes. AST 88 and alkaline phosphatase 160. Oncology service consulted for possible metastasis to liver and family request for possible liver biopsy DVT prophylaxis heparin. GI prophylaxis Protonix I performed an examination of the patient and discussed their management with the Nurse Practitioner. I have reviewed the Nurse Practitioner's notes and agree with the documented findings and plan of care
--- NOTE | 2018-01-08 13:06 | P.CONS ---
History of Present Illness - Reason for Consult Consult date: 01/07/18 Uterine Cancer Requesting physician: Sandi Mireles - Chief Complaint SOB - History of Present Illness This is a very nice lady who was diagnosed with G3,poorly differentiated endometroid adenocarcinoma of uterus on when she presented with abnormal vaginal bleeding and had endometrial biopsy which confirmed the diagnosis. She was seen by Dr Laura Paulino at [facility],surgery was recommended. She had a PET scan on 06/13/2017 at [facility] which revealed suspicious uptake in the body and fundus of uterus,very small non specific lung nodule ( sub centimeter)w/o suspicious uptake. 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 She was last seen in our office on September 10, 2017. At this time a discussion regarding adjuvant treatment had resulted in her foregoing adjuvant chemotherapy and opting for pelvic radiation. Since then she has been under the care of Dr. Rabbi Paulino and Dr. Jara. She was recently discharged after presenting for persistent shortness of breath earlier this month. During that admission she refused further work-up with liver biopsy and completion of radiaiton therapy. She was discharged home with [facility], although now representing to hospital. No family at bedside during evaluation and patient not speaking or answering questions. According to Medical record son and daughters would like her to come off Hospice care and have new liver lesions biopsied. Son is next of Kin Review of Systems A 14 point review of systems assessed and completed and all negative except HPI. Past Medical History Past Medical History: Cancer, Hyperlipidemia, Hypertension, Thyroid Disorder Additional Past Medical History / Comment(s): HX OF BREAST CANCER W/ CHEMOTHERAPY, , ANEMIA OFF AND ON WITH IRON INFUSIONS, LOW THYROID. UTI, constipation. History of Any Multi-Drug Resistant Organisms: None Reported Past Surgical History: Appendectomy, Breast Surgery, Orthopedic Surgery Additional Past Surgical History / Comment(s): LEFT MASTECTOMY, KNEE ARTHROSCOPY. RT HIP REPLACEMENT Past Anesthesia/Blood Transfusion Reactions: No Reported Reaction Additional Past Anesthesia/Blood Transfusion Reaction / Comm: STATES AFTER KNEE SURGERY SHE WAS "JERKING ALL OVER" Past Psychological History: No Psychological Hx Reported Additional Psychological History / Comment(s): LIVES WITH SIG OTHER FOR OVER 30 YEARS Smoking Status: Never smoker Past Alcohol Use History: None Reported Past Drug Use History: None Reported - Past Family History Mother Family Medical History: Myocardial Infarction ([place]) Father Family Medical History: Myocardial Infarction ([place]) Medications and Allergies Home Medications Medication Instructions Recorded Confirmed Type Levothyroxine Sodium [Synthroid] 75 mcg PO DAILY 10/12/15 01/06/18 History Atropine Ophth Soln 1% 5Ml [Isopto 1 - 2 drops PO Q4H PRN 01/06/18 01/06/18 History Atropine 1% 5Ml] Bisacodyl 10 mg RECTAL Q48H PRN 01/06/18 01/06/18 History HYDROcodone/APAP 10-325MG [[place] 1 tab PO Q4HR PRN 01/06/18 01/06/18 History 10-325] LORazepam [Ativan] 1 mg PO Q6H PRN 01/06/18 01/06/18 History MORPHINE ORAL MARTIN CONC 20mg/mL 5 mg PO Q3H PRN 01/06/18 01/06/18 History [Roxanol Oral Soln Conc 20MG/ML] Prochlorperazine [Compazine] 10 mg PO Q6H PRN 01/06/18 01/06/18 History Senna Plus 8.6/50 1 - 2 tab PO DAILY 01/06/18 01/06/18 History Allergies Allergy/AdvReac Type Severity Reaction Status Date / Time Penicillins Allergy Severe Anaphylaxis Verified 01/06/18 18:38 indomethacin Allergy Unknown Unknown Verified 01/06/18 18:38 iodine Allergy Unknown Unknown Verified 01/06/18 18:38 Iodinated Contrast- Oral and Allergy Unknown Verified 01/06/18 18:38 IV Dye [Iodinated Contrast Media - IV Dye] meperidine HCl [From Demerol] AdvReac Unknown Nausea & Verified 01/06/18 18:38 Vomiting propoxyphene HCl AdvReac Unknown Nausea & Verified 01/06/18 18:38 [From Darvon] Vomiting shellfish derived [Shellfish] AdvReac Unknown Abdominal Verified 01/06/18 18:38 Pain Physical Exam Vitals: Vital Signs Temp Pulse Pulse Resp BP BP Pulse Ox 01/07/18 12:39 97.4 F L 72 18 140/62 94 L 01/07/18 05:25 97.8 F 101 H 18 126/73 93 L 01/06/18 22:20 97.5 F L 94 18 136/67 93 L 01/06/18 21:40 98.3 F 101 H 22 168/79 94 L 01/06/18 21:00 102 H 24 156/76 93 L 01/06/18 20:00 99 20 136/82 94 L 01/06/18 18:48 96 20 161/59 96 01/06/18 17:42 97 F L 93 18 141/69 93 L Intake and Output 01/06/18 01/07/18 01/07/18 22:59 06:59 14:59 Other: Voiding Method Diaper Diaper # Voids 1 Weight 68.039 kg - Constitutional General appearance: average body habitus, cooperative, mild distress - EENT Eyes: normal appearance ENT: hard of hearing, NA/AT, normal oropharynx - Neck Supple, trachea midline - Respiratory Respiratory: bilateral: CTA (no increased effort) - Cardiovascular Rhythm: regular Heart sounds: normal: S1, S2 - Gastrointestinal General gastrointestinal: distended, normal bowel sounds, soft - Integumentary Integumentary: pale - Neurologic Unable to assess secondary to mental status. - Musculoskeletal Musculoskeletal: generalized weakness, strength equal bilaterally - Psychiatric Moaning and unable to follow commands Results CBC & Chem 7: 01/08/18 06:08 01/08/18 06:08 Labs: Abnormal Lab Results - Last 24 Hours (Table) 01/06/18 01/06/18 01/06/18 Range/Units 18:00 18:00 18:00 Hgb 8.4 L (11.4-16.0) gm/dL Hct 27.7 L (34.0-46.0) % MCV 69.6 L (80.0-100.0) fL MCH 21.1 L (25.0-35.0) pg MCHC 30.4 L (31.0-37.0) g/dL RDW 19.2 H (11.5-15.5) % APTT (22.0-30.0) sec BUN 33 H (7-17) mg/dL Creatinine 1.43 H (0.52-1.04) mg/dL Glucose 118 H (74-99) mg/dL Plasma Lactic Acid Oh (0.7-2.0) mmol/L Calcium 10.7 H (8.4-10.2) mg/dL AST 94 H (14-36) U/L Alkaline Phosphatase 171 H (38-126) U/L Total Creatine Kinase 152 H (30-135) U/L CK-MB (CK-2) 5.5 H (0.0-2.4) ng/mL Troponin I 0.205 H* (0.000-0.034) ng/mL Total Protein 5.4 L (6.3-8.2) g/dL Albumin 3.0 L (3.5-5.0) g/dL 01/06/18 01/06/18 Range/Units 18:00 18:00 Hgb (11.4-16.0) gm/dL Hct (34.0-46.0) % MCV (80.0-100.0) fL MCH (25.0-35.0) pg MCHC (31.0-37.0) g/dL RDW (11.5-15.5) % APTT 21.6 L (22.0-30.0) sec BUN (7-17) mg/dL Creatinine (0.52-1.04) mg/dL Glucose (74-99) mg/dL Plasma Lactic Acid Oh 4.1 H* (0.7-2.0) mmol/L Calcium (8.4-10.2) mg/dL AST (14-36) U/L Alkaline Phosphatase (38-126) U/L Total Creatine Kinase (30-135) U/L CK-MB (CK-2) (0.0-2.4) ng/mL Troponin I (0.000-0.034) ng/mL Total Protein (6.3-8.2) g/dL Albumin (3.5-5.0) g/dL Microbiology - Last 24 Hours (Table) 01/06/18 21:40 Urine Culture - Preliminary Urine,Catheterized Assessment and Plan Plan: Assessment and Recommendations: 1. Endometrial Adenocarcinoma of the Uterus: - Failed to complete recommended therapy of radiation or systemic chemotherapy option, now appears to have progressive disease to possible liver although last admission refused biopsy and/or further treatment so was discharged on hospice. - No family in room at the time of interaction, will re-evaluate patient goals of care tomorrow AM with Dr. Sims.
--- NOTE | 2018-01-08 13:16 | P.PN ---
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 Objective - Vital Signs Vital signs: Vital Signs Temp 98.9 F 01/08/18 11:12 Pulse 101 H 01/08/18 11:12 Resp 18 01/08/18 11:12 BP 154/83 01/08/18 11:12 Pulse Ox 96 01/08/18 11:12 Intake & Output 01/07/18 01/08/18 01/08/18 18:59 06:59 18:59 Intake Total 800 400 400 Balance 800 400 400 Weight 66 kg Intake: Intake, IV Titration 800 400 400 Amount Sodium Chloride 0.9% 1, 800 400 400 000 ml @ 100 mls/hr IV . Q10H [facility] Rx#:[id number] Other: Voiding Method Diaper Diaper Diaper # Voids 2 - Exam - Constitutional General appearance: average body habitus, cooperative, mild distress - EENT Eyes: normal appearance ENT: hard of hearing, NA/AT, normal oropharynx - Neck Supple, trachea midline - Respiratory Respiratory: bilateral: CTA (no increased effort) - Cardiovascular Rhythm: regular Heart sounds: normal: S1, S2 - Gastrointestinal General gastrointestinal: distended, normal bowel sounds, soft - Integumentary Integumentary: pale - Neurologic Unable to assess secondary to mental status. - Musculoskeletal Musculoskeletal: generalized weakness, strength equal bilaterally - Psychiatric Moaning and unable to follow commands - Labs CBC & Chem 7: 01/08/18 06:08 01/08/18 06:08 Labs: Abnormal Lab Results - Last 24 Hours (Table) 01/07/18 01/07/18 01/07/18 Range/Units 11:50 11:50 11:50 RBC 3.73 L (3.80-5.40) m/uL Hgb 7.9 L (11.4-16.0) gm/dL Hct 26.6 L (34.0-46.0) % MCV 71.3 L (80.0-100.0) fL MCH 21.2 L (25.0-35.0) pg MCHC 29.7 L (31.0-37.0) g/dL RDW 19.4 H (11.5-15.5) % Lymphocytes # 0.7 L (1.0-4.8) k/uL Potassium 3.4 L (3.5-5.1) mmol/L Chloride 116 H (98-107) mmol/L Carbon Dioxide 18 L (22-30) mmol/L BUN 25 H (7-17) mg/dL Creatinine 1.18 H (0.52-1.04) mg/dL Glucose 100 H (74-99) mg/dL AST 84 H (14-36) U/L Alkaline Phosphatase 151 H (38-126) U/L Troponin I 0.207 H* (0.000-0.034) ng/mL Total Protein 4.9 L (6.3-8.2) g/dL Albumin 2.5 L (3.5-5.0) g/dL 01/08/18 01/08/18 Range/Units 06:08 06:08 RBC (3.80-5.40) m/uL Hgb 7.9 L (11.4-16.0) gm/dL Hct 27.2 L (34.0-46.0) % MCV 71.0 L (80.0-100.0) fL MCH 20.5 L (25.0-35.0) pg MCHC 28.9 L (31.0-37.0) g/dL RDW 19.7 H (11.5-15.5) % Lymphocytes # 0.8 L (1.0-4.8) k/uL Potassium 3.3 L (3.5-5.1) mmol/L Chloride 114 H (98-107) mmol/L Carbon Dioxide 21 L (22-30) mmol/L BUN 22 H (7-17) mg/dL Creatinine 1.18 H (0.52-1.04) mg/dL Glucose (74-99) mg/dL AST 88 H (14-36) U/L Alkaline Phosphatase 160 H (38-126) U/L Troponin I (0.000-0.034) ng/mL Total Protein 5.0 L (6.3-8.2) g/dL Albumin 2.7 L (3.5-5.0) g/dL Microbiology - Last 24 Hours (Table) 01/06/18 21:40 Urine Culture - Final Urine,Catheterized Assessment and Plan Plan: Assessment and Recommendations: 1. Endometrial Adenocarcinoma of the Uterus: - Failed to complete recommended therapy of radiation or systemic chemotherapy option, now appears to have progressive disease to possible liver although last admission refused biopsy and/or further treatment so was discharged on hospice. -Significant other in room, although not next of Kin - I did speak to Tye Mendoza (Salvatore) the son and next of Kin in [place] on the phone today. We discussed goals of care, her previous wishes, her current overall state, and what we will do with the biopsy results. He expressed himself and sister would like to know if this is the same cancer just so they know understanding her current state she is not a candidate for any systemic chemotherapy as her performance status is poor and very much decreased from previously. He agreed to see if she gets a little stronger and alert over the next 1-2 days and re-address biopsy after speaking with sisters and allowing his mother to make descision. He seemed responsive although labile in his descision I am not 100% he has made his mind up either way. I plan to speak with him again in am after re-evaluation of patient. I did speak with Primary team as well. Time with Patient: Greater than 30
[2018-01-09] MEDS: MORPHINE SULFATE 4 MG/ML SYRINGE IVP PRN ×2 (05:33→12:35)
[2018-01-09 06:17] LABS: Anisocytosis Slight; Basophils % (A) 1 %; Eosinophils # (A) 0.1 k/uL (0-0.7); Eosinophils % (A) 2 %; HCT 25.4 % (34.0-46.0); HGB 7.8 gm/dL (11.4-16.0); Hypochromasia Marked; Lymphocytes # (A) 0.8 k/uL (1.0-4.8); Lymphocytes % (A) 15 %; MCH 21.3 pg (25.0-35.0); MCHC 30.7 g/dL (31.0-37.0); MCV 69.3 fL (80.0-100.0); Mean Platelet Volume 6.5; Microcytosis Marked; Monocytes # (A) 0.3 k/uL (0-1.0); Monocytes % (A) 6 %; Neutrophils # (A) 3.9 k/uL (1.3-7.7); Neutrophils % (A) 74 %; Platelet Count 214 k/uL (150-450); RBC 3.66 m/uL (3.80-5.40); RDW 19.9 % (11.5-15.5); WBC 5.3 k/uL (3.8-10.6)
[2018-01-09] MEDS: LEVOTHYROXINE 75 MCG TAB PO SCH (06:34)
[2018-01-09 06:59] LABS: Albumin 2.6 g/dL (3.5-5.0); Calcium 9.7 mg/dL (8.4-10.2); Potassium 3.5 mmol/L (3.5-5.1)
[2018-01-09] MEDS: SENNOSIDES-DOCUSATE SODIUM 1 EACH TAB PO SCH (07:40)
[2018-01-09] MEDS: HEPARIN SODIUM,PORCINE 5,000 UNIT/ML 1 ML VIAL SQ SCH ×2 (08:18→19:43)
[2018-01-09] MEDS: PANTOPRAZOLE 40 MG TABLET PO SCH (08:18)
--- NOTE | 2018-01-09 12:36 | P.PN ---
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 She is more alert than yesterday, although not incredibly responsive to questions. WHen asking her and discussing plan that her family has started for her she moans. Objective - Vital Signs Vital signs: Vital Signs Temp 97.7 F 01/09/18 08:00 Pulse 87 01/09/18 08:00 Resp 18 01/09/18 08:00 BP 134/63 01/09/18 08:00 Pulse Ox 96 01/09/18 08:00 Intake & Output 01/08/18 01/09/18 01/09/18 18:59 06:59 18:59 Intake Total 640 1200 Balance 640 1200 Weight 67 kg Intake: Intake, IV Titration 400 1200 Amount Potassium Chloride 10 meq 400 In Water For Injection 1 100ml.bag @ 100 mls/hr IVPB Q1HR [facility] Rx#: [id number] Sodium Chloride 0.9% 1, 400 800 000 ml @ 100 mls/hr IV . Q10H [facility] Rx#:[id number] Oral 240 Other: Voiding Method Diaper Diaper Diaper # Voids 1 1 # Bowel Movements 1 - Exam - Constitutional General appearance: average body habitus, cooperative, mild distress - EENT Eyes: normal appearance ENT: hard of hearing, NA/AT, normal oropharynx - Neck Supple, trachea midline - Respiratory Respiratory: bilateral: CTA (no increased effort) - Cardiovascular Rhythm: regular Heart sounds: normal: S1, S2 - Gastrointestinal General gastrointestinal: distended, normal bowel sounds, soft - Integumentary Integumentary: pale - Neurologic Unable to assess secondary to mental status. - Musculoskeletal Musculoskeletal: generalized weakness, strength equal bilaterally - Psychiatric Moaning and unable to follow commands - Labs CBC & Chem 7: 01/09/18 05:33 01/09/18 05:33 Labs: Abnormal Lab Results - Last 24 Hours (Table) 01/09/18 01/09/18 Range/Units 05:33 05:33 RBC 3.66 L (3.80-5.40) m/uL Hgb 7.8 L (11.4-16.0) gm/dL Hct 25.4 L (34.0-46.0) % MCV 69.3 L (80.0-100.0) fL MCH 21.3 L (25.0-35.0) pg MCHC 30.7 L (31.0-37.0) g/dL RDW 19.9 H (11.5-15.5) % Lymphocytes # 0.8 L (1.0-4.8) k/uL Chloride 112 H (98-107) mmol/L Carbon Dioxide 20 L (22-30) mmol/L Glucose 105 H (74-99) mg/dL AST 97 H (14-36) U/L Alkaline Phosphatase 169 H (38-126) U/L Total Protein 5.0 L (6.3-8.2) g/dL Albumin 2.6 L (3.5-5.0) g/dL Microbiology - Last 24 Hours (Table) 01/07/18 11:50 Blood Culture - Preliminary Blood No Growth after 24 hours 01/06/18 21:40 Urine Culture - Final Urine,Catheterized Assessment and Plan Plan: Assessment and Recommendations: 1. Endometrial Adenocarcinoma of the Uterus: - Failed to complete recommended therapy of radiation or systemic chemotherapy option, now appears to have progressive disease to possible liver although last admission refused biopsy and/or further treatment so was discharged on hospice. -Family was not present today during follow-up, I did discuss with Son yesterday the time we would be rounding and that we could discuss their descision. No answer when called. 1700 today: - Again spoke with son today and emphasized overall goals of care and poor prognosis. He stated the morphine is what is affecting her ability to make decisions. We discussed long acting fentanyl patch and he is in agreement - We again discussed in detail risks and benfits of diagnostics and goals of care, he keeps referring to this is not cancer then we know. I did explain the likely differential if not cancer is failure to thrive and chronic illness myopathy secondary to underlying dementia which appears at this time to be at a stage of poor prognosis. - He has agreed to hold off on biopsy until after weekend with change in medication for pain, to see how she responds and if she improves as far as mental status. - Again we discussed code status and options of medications only he declined at this time stating her wishes was for all life saving methods. - He is unable to meet to elli for family meeting but did state Saturday he will make a final descision regarding further diagnostics and plan and we will set up another family meeting for this. - If they decide to move forward with biopsy it was explained with her current state she is not likely a candadate for any treatment and even if this is another type of cancer and not the uterine it is presenting with multiple lesions in liver likely already picturing a different metastatic process and again with underlying current state will not change overall plan or goals of care. - DIscussed in detail with Sandi JUSTICE with Primary team Physcian Attestation: I have completed the full history and physical of this patient and agree with above dictation. ductated as a scribe
--- NOTE | 2018-01-09 13:56 | P.PN ---
Subjective Progress Note Date: 01/09/18 This is an 87 female who presented to the emergency room with family due to complaints of patient having dehydration and weakness. Patient was admitted to [facility] on 12/20. Patient has a known past medical history of endometroid adenocarcinoma of the uterus. Patient had previously stopped radiation treatment for her uterine cancer. During last admission concerns for liver metastases presented. Patient refused liver biopsy on 2 different occasions. An In depth family meeting was held at that time and family decided to move forward with [facility]. Additional medical history includes hyperlipidemia, hypertension and thyroid disorder. patient also has history of breast cancer with chemotherapy, anemia off-and-on with iron infusions, UTI and constipation. Chest x-ray completed showing chronic changes without acute pulmonary process. EKG completed showing sinus tachycardia with premature atrial complexes. Left axis deviation. Patient's lactic acid 4.1 on admission. Patient received 3 L of normal saline fluid. Patient currently on normal saline in the 100. Troponin also elevated at 0.205. Cardiology services have been consulted. Discussed case with director of casework services. Due to recent admission to hospice and patient herself previously refusing any further treatment, family meeting will be arranged to discuss plan for further intervention versus continuing of hospice care. On 01/08/2018 family meeting held yesterday. Patient's family would like to move forward with possible liver biopsy and input from oncology. Oncology services have been consulted. At this time patient is resting in bed. Remains confused. On 01/09/2018 patient is currently resting comfortably in bed. Per nursing staff patient remains confused. Discussed case with oncology services. Oncology service had in-depth conversation with shelton Gmable in regards to doing a liver biopsy and plan of care. Alex Do MEDICAL SCREENER family was going to take time to think about it overnight and arrange to meet her at 9:00 this a.m. Alex Do MEDICAL SCREENER family did not show up at 9:00. Alex Do MEDICAL SCREENER will attempt again to try to get ahold of shelton Gamble to address plan of care. Objective - Vital Signs Vital signs: Vital Signs Temp 97.0 F L 01/09/18 12:30 Pulse 95 01/09/18 12:30 Resp 18 01/09/18 12:30 BP 143/75 01/09/18 12:30 Pulse Ox 95 01/09/18 12:30 Intake & Output 01/08/18 01/09/18 01/09/18 18:59 06:59 18:59 Intake Total 640 1200 Balance 640 1200 Weight 67 kg Intake: Intake, IV Titration 400 1200 Amount Potassium Chloride 10 meq 400 In Water For Injection 1 100ml.bag @ 100 mls/hr IVPB Q1HR [facility] Rx#: [id number] Sodium Chloride 0.9% 1, 400 800 000 ml @ 100 mls/hr IV . Q10H [facility] Rx#:[id number] Oral 240 Other: Voiding Method Diaper Diaper Diaper # Voids 1 1 # Bowel Movements 1 - Exam Head normocephalic Neck supple Lungs clear to auscultation bilaterally no wheezing or crackles Heart regular rate and rhythm S1-S2, no rub or gallop Abdomen is soft nontender nondistended positive bowel sounds no hepatosplenomegaly Extremities no edema - Labs CBC & Chem 7: 01/09/18 05:33 01/09/18 05:33 Labs: Abnormal Lab Results - Last 24 Hours (Table) 01/09/18 01/09/18 Range/Units 05:33 05:33 RBC 3.66 L (3.80-5.40) m/uL Hgb 7.8 L (11.4-16.0) gm/dL Hct 25.4 L (34.0-46.0) % MCV 69.3 L (80.0-100.0) fL MCH 21.3 L (25.0-35.0) pg MCHC 30.7 L (31.0-37.0) g/dL RDW 19.9 H (11.5-15.5) % Lymphocytes # 0.8 L (1.0-4.8) k/uL Chloride 112 H (98-107) mmol/L Carbon Dioxide 20 L (22-30) mmol/L Glucose 105 H (74-99) mg/dL AST 97 H (14-36) U/L Alkaline Phosphatase 169 H (38-126) U/L Total Protein 5.0 L (6.3-8.2) g/dL Albumin 2.6 L (3.5-5.0) g/dL Microbiology - Last 24 Hours (Table) 01/07/18 11:50 Blood Culture - Preliminary Blood No Growth after 24 hours 01/06/18 21:40 Urine Culture - Final Urine,Catheterized Assessment and Plan Assessment: 1. Dehydration and increased weakness. Patient recently admitted to [facility]. Lactic acid 4.1. Patient received 3 L of normal saline. Patient currently has normal saline running at 100. Urine and blood culture has been ordered. 2. Elevated troponin. Initial troponin 0.205. Per cardiology echo was obtained is normal with no changes from previous. No evidence to suggest troponin elevation is due to primary ischemic event. May be related to a type II event per cardiology 3. 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 Patient previously stopped radiation and treatment for her uterine cancer. She also declined liver biopsy during previous admission. Patient was admitted to hospice at that time. Family meeting held yesterday. Family would like to move forward with possible liver biopsy and input from oncology services. Oncology has been consulted. Per oncology RESHMA Do. In-depth conversation held with son 90 to discuss plan of care and prognosis. Family was to discuss throughout night and meet this a.m. to discuss plan. Per Ernestina MEDICAL SCREENER family did not show up this morning. Per oncology will attempt to get a hold of patient's family to determine plan of care 4. History of breast cancer 5. Chronic kidney disease stage III. Creatinine 1.43 and bun 33. Continue normal saline at 100. Creatinine 1.18 and bun 22. Creatinine 1.04 and bun 17. 6. Essential hypertension. 7. 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 Hemoglobin 7.9 8. Chronic diastolic congestive heart failure. 9. Elevated liver enzymes. AST 88 and alkaline phosphatase 160. Oncology service consulted for possible metastasis to liver and family request for possible liver biopsy DVT prophylaxis heparin. GI prophylaxis Protonix I performed an examination of the patient and discussed their management with the Nurse Practitioner. I have reviewed the Nurse Practitioner's notes and agree with the documented findings and plan of care
[2018-01-09] MEDS: SODIUM CHLORIDE 0.9% 1,000 ML IV SCH ×2 (14:53→22:23)
[2018-01-10 06:12] LABS: Anisocytosis Moderate; Basophils % (A) 0 %; Eosinophils # (A) 0.1 k/uL (0-0.7); Eosinophils % (A) 2 %; HCT 26.5 % (34.0-46.0); Hypochromasia Moderate; Lymphocytes # (A) 0.8 k/uL (1.0-4.8); Lymphocytes % (A) 14 %; MCH 20.9 pg (25.0-35.0); MCHC 30.1 g/dL (31.0-37.0); MCV 69.4 fL (80.0-100.0); Mean Platelet Volume 6.5; Microcytosis Marked; Monocytes # (A) 0.3 k/uL (0-1.0); Monocytes % (A) 6 %; Neutrophils # (A) 4.3 k/uL (1.3-7.7); Neutrophils % (A) 76 %; Platelet Count 231 k/uL (150-450); RBC 3.82 m/uL (3.80-5.40); RDW 20.1 % (11.5-15.5); WBC 5.7 k/uL (3.8-10.6)
[2018-01-10] MEDS: LEVOTHYROXINE 75 MCG TAB PO SCH (06:13)
[2018-01-10 06:25] LABS: Albumin 2.5 g/dL (3.5-5.0); Calcium 9.7 mg/dL (8.4-10.2); Potassium 3.4 mmol/L (3.5-5.1); Total Bilirubin 1.2 mg/dL (0.2-1.3); Total Protein 4.8 g/dL (6.3-8.2)
[2018-01-10] MEDS ORDERED: POTASSIUM CHLORIDE 10 MEQ in WATER FOR INJECTION 1 100ML.BAG IVPB STA (06:38)
[2018-01-10] MEDS: SODIUM CHLORIDE 0.9% 1,000 ML IV SCH ×2 (07:00→10:07)
[2018-01-10] MEDS: SENNOSIDES-DOCUSATE SODIUM 1 EACH TAB PO SCH (08:25)
[2018-01-10] MEDS: PANTOPRAZOLE 40 MG TABLET PO SCH (08:26)
[2018-01-10] MEDS: HEPARIN SODIUM,PORCINE 5,000 UNIT/ML 1 ML VIAL SQ SCH ×2 (08:26→20:00)
--- NOTE | 2018-01-10 09:29 | P.PN ---
Subjective Progress Note Date: 01/10/18 This is an 87 female who presented to the emergency room with family due to complaints of patient having dehydration and weakness. Patient was admitted to [facility] on 12/20. Patient has a known past medical history of endometroid adenocarcinoma of the uterus. Patient had previously stopped radiation treatment for her uterine cancer. During last admission concerns for liver metastases presented. Patient refused liver biopsy on 2 different occasions. An In depth family meeting was held at that time and family decided to move forward with [facility]. Additional medical history includes hyperlipidemia, hypertension and thyroid disorder. patient also has history of breast cancer with chemotherapy, anemia off-and-on with iron infusions, UTI and constipation. Chest x-ray completed showing chronic changes without acute pulmonary process. EKG completed showing sinus tachycardia with premature atrial complexes. Left axis deviation. Patient's lactic acid 4.1 on admission. Patient received 3 L of normal saline fluid. Patient currently on normal saline in the 100. Troponin also elevated at 0.205. Cardiology services have been consulted. Discussed case with outsole caser. Due to recent admission to hospice and patient herself previously refusing any further treatment, family meeting will be arranged to discuss plan for further intervention versus continuing of hospice care. On 01/08/2018 family meeting held yesterday. Patient's family would like to move forward with possible liver biopsy and input from oncology. Oncology services have been consulted. At this time patient is resting in bed. Remains confused. On 01/09/2018 patient is currently resting comfortably in bed. Per nursing staff patient remains confused. Discussed case with oncology services. Oncology service had in-depth conversation with shelton Gamble in regards to doing a liver biopsy and plan of care. Alex Do NP family was going to take time to think about it overnight and arrange to meet her at 9:00 this a.m. Alex Do SCHOOL SPEECH THERAPIST family did not show up at 9:00. Alex Do SCHOOL SPEECH THERAPIST will attempt again to try to get ahold of shelton Gamble to address plan of care. On 01/10/2018 patient is currently awake and alert. Patient does still remain confused. Discussed case with oncology services yesterday. Alex Do NP discussion was held with shelton Gamble. Per shelton Tye will talk to family and come to a decision by Saturday in regards to liver biopsy. This time patient denies chest pain or shortness of breath. Denies any nausea vomiting or diarrhea. Denies any urinary burning or frequency. Objective - Vital Signs Vital signs: Vital Signs Temp 98.2 F 01/10/18 08:00 Pulse 84 01/10/18 08:00 Resp 16 01/10/18 08:00 BP 164/80 01/10/18 08:00 Pulse Ox 95 01/10/18 08:00 Intake & Output 01/09/18 01/10/18 01/10/18 18:59 06:59 18:59 Intake Total 400 400 Balance 400 400 Weight 70 kg Intake: Intake, IV Titration 400 400 Amount Sodium Chloride 0.9% 1, 400 400 000 ml @ 100 mls/hr IV . Q10H [facility] Rx#:[id number] Other: Voiding Method Diaper Diaper Diaper # Voids 4 3 - Exam Head normocephalic Neck supple Lungs clear to auscultation bilaterally no wheezing or crackles Heart regular rate and rhythm S1-S2, no rub or gallop Abdomen is soft nontender nondistended positive bowel sounds no hepatosplenomegaly Extremities no edema - Labs CBC & Chem 7: 01/10/18 05:14 01/10/18 05:14 Labs: Abnormal Lab Results - Last 24 Hours (Table) 01/10/18 01/10/18 Range/Units 05:14 05:14 Hgb 8.0 L (11.4-16.0) gm/dL Hct 26.5 L (34.0-46.0) % MCV 69.4 L (80.0-100.0) fL MCH 20.9 L (25.0-35.0) pg MCHC 30.1 L (31.0-37.0) g/dL RDW 20.1 H (11.5-15.5) % Lymphocytes # 0.8 L (1.0-4.8) k/uL Potassium 3.4 L (3.5-5.1) mmol/L Chloride 110 H (98-107) mmol/L Creatinine 1.07 H (0.52-1.04) mg/dL Glucose 107 H (74-99) mg/dL AST 97 H (14-36) U/L Alkaline Phosphatase 156 H (38-126) U/L Total Protein 4.8 L (6.3-8.2) g/dL Albumin 2.5 L (3.5-5.0) g/dL Microbiology - Last 24 Hours (Table) 01/07/18 11:50 Blood Culture - Preliminary Blood No Growth after 48 hours Assessment and Plan Assessment: 1. Dehydration and increased weakness. Patient recently admitted to [facility]. Lactic acid 4.1. Patient received 3 L of normal saline. Patient currently has normal saline running at 100. Urine and blood culture has been ordered. Urine culture negative. Blood culture negative 2. Elevated troponin. Initial troponin 0.205. Per cardiology echo was obtained is normal with no changes from previous. No evidence to suggest troponin elevation is due to primary ischemic event. May be related to a type II event per cardiology 3. 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 Patient previously stopped radiation and treatment for her uterine cancer. She also declined liver biopsy during previous admission. Patient was admitted to hospice at that time. Family meeting held yesterday. Family would like to move forward with possible liver biopsy and input from oncology services. Oncology has been consulted. Per oncology RESHMA Do. In-depth conversation held with shelton Gamble to discuss plan of care and prognosis. Family was to discuss throughout night and meet this a.m. to discuss plan. Per Ernestina SCHOOL SPEECH THERAPIST family did not show up this morning. Per oncology will attempt to get a hold of patient's family to determine plan of care. Discussed case again with oncology services. Alex Do SCHOOL SPEECH THERAPIST family will come to decision by Saturday in regards to liver biopsy 4. History of breast cancer 5. Chronic kidney disease stage III. Creatinine 1.43 and bun 33. Continue normal saline at 100. Creatinine 1.18 and bun 22. Creatinine 1.04 and bun 17. 6. Essential hypertension. 7. 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 Hemoglobin 7.9 8. Chronic diastolic congestive heart failure. 9. Elevated liver enzymes. AST 88 and alkaline phosphatase 160. Oncology service consulted for possible metastasis to liver and family request for possible liver biopsy DVT prophylaxis heparin. GI prophylaxis Protonix I performed an examination of the patient and discussed their management with the Nurse Practitioner. I have reviewed the Nurse Practitioner's notes and agree with the documented findings and plan of care
[2018-01-10] MEDS: MORPHINE SULFATE 2 MG/ML SYRINGE IVP PRN ×3 (10:08→20:03)
--- NOTE | 2018-01-10 10:32 | CDI ---
Last Revision, March 2017 Documentation Clarification Form Date: 2017 From: Anabelle Rodriguez Admit Date: 01/06/2018 8:11:00 PM Patient Name: Radha Mendoza Visit Number: [id number] ATTENTION: The Clinical Documentation Specialists (CDI) and [facility] Coding Staff appreciate your assistance in clarifying documentation. Please respond to the clarification below the line at the bottom and electronically sign. The CDI & [facility] Coding staff will review the response and follow-up if needed. Please note: Queries are made part of the Legal Health Record. If you have any questions, please contact the author of this message via ITS. Yaneli Quinones MD, Can you please render your opinion on the following documentation? Pt. admitted for dehydration, malnutrition, failure to thrive History/Risk factors: endometrial adenocarcinoma of the uterus with chemo., hyperlipidemia, HTN, hypothyroid Clinical Indicators: Labs on admission: T 97, P 93, R 18, 141/69, 93% RA Consult 01/07 and PN 01/08 - 01/09 : Unable to assess secondary to mental status: PN 01/08 - 01/10 : Pt. remains confused. 01/09 Pn: Pt is more awake and alert then yesterday, not responding to questions. Pn 10.4: underlying dementia Urine and blood cultures negative Treatment: Monitor labs Consults: Cardiology, Oncology PN 01/09 PN states : "Morphine is what is affecting her ability to make decisions per her son, discussed long acting fentanyl patch and he is in agreement". IV Bolus .9 1000ml x2, 500ml x1 Can you please render your professional opinion, if known? Hypertensive Encephalopathy Metabolic Encephalopathy Toxic Encephalopathy Hepatic Encephalopathy, if indicated, please clarifies: Indicate whether acute, sub-acute or chronic? Other, please specify Unable to determine MTDD
--- NOTE | 2018-01-10 13:20 | P.PN ---
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 Pain appears controlled on Fentanyl at this point Objective - Vital Signs Vital signs: Vital Signs Temp 98.0 F 01/10/18 12:00 Pulse 84 01/10/18 12:00 Resp 16 01/10/18 12:00 BP 144/79 01/10/18 12:00 Pulse Ox 94 L 01/10/18 12:00 Intake & Output 01/09/18 01/10/18 01/10/18 18:59 06:59 18:59 Intake Total 400 400 600 Balance 400 400 600 Weight 70 kg Intake: Intake, IV Titration 400 400 300 Amount Potassium Chloride 10 meq 100 In Water For Injection 1 100ml.bag @ 100 mls/hr IVPB ONCE STA Rx#: [id number] Sodium Chloride 0.9% 1, 400 400 200 000 ml @ 100 mls/hr IV . Q10H [facility] Rx#:[id number] Oral 300 Other: Voiding Method Diaper Diaper Diaper # Voids 4 3 - Exam - Constitutional General appearance: average body habitus, cooperative, mild distress - EENT Eyes: normal appearance ENT: hard of hearing, NA/AT, normal oropharynx - Neck Supple, trachea midline - Respiratory Respiratory: bilateral: CTA (no increased effort) - Cardiovascular Rhythm: regular Heart sounds: normal: S1, S2 - Gastrointestinal General gastrointestinal: distended, normal bowel sounds, soft - Integumentary Integumentary: pale - Neurologic Unable to assess secondary to mental status. - Musculoskeletal Musculoskeletal: generalized weakness, strength equal bilaterally - Psychiatric More awake - Labs CBC & Chem 7: 01/10/18 05:14 01/10/18 09:55 Labs: Abnormal Lab Results - Last 24 Hours (Table) 01/10/18 01/10/18 Range/Units 05:14 05:14 Hgb 8.0 L (11.4-16.0) gm/dL Hct 26.5 L (34.0-46.0) % MCV 69.4 L (80.0-100.0) fL MCH 20.9 L (25.0-35.0) pg MCHC 30.1 L (31.0-37.0) g/dL RDW 20.1 H (11.5-15.5) % Lymphocytes # 0.8 L (1.0-4.8) k/uL Potassium 3.4 L (3.5-5.1) mmol/L Chloride 110 H (98-107) mmol/L Creatinine 1.07 H (0.52-1.04) mg/dL Glucose 107 H (74-99) mg/dL AST 97 H (14-36) U/L Alkaline Phosphatase 156 H (38-126) U/L Total Protein 4.8 L (6.3-8.2) g/dL Albumin 2.5 L (3.5-5.0) g/dL Microbiology - Last 24 Hours (Table) 01/07/18 11:50 Blood Culture - Preliminary Blood No Growth after 48 hours Assessment and Plan Plan: Assessment and Recommendations: 1. Endometrial Adenocarcinoma of the Uterus: - Failed to complete recommended therapy of radiation or systemic chemotherapy option, now appears to have progressive disease to possible liver although last admission refused biopsy and/or further treatment so was discharged on hospice. -Family was not present today during follow-up, I did discuss with Son yesterday the time we would be rounding and that we could discuss their descision. No answer when called. 1700 on 01/09/18: - Again spoke with son today and emphasized overall goals of care and poor prognosis. He stated the morphine is what is affecting her ability to make decisions. We discussed long acting fentanyl patch and he is in agreement - We again discussed in detail risks and benfits of diagnostics and goals of care, he keeps referring to this is not cancer then we know. I did explain the likely differential if not cancer is failure to thrive and chronic illness myopathy secondary to underlying dementia which appears at this time to be at a stage of poor prognosis. - He has agreed to hold off on biopsy until after weekend with change in medication for pain, to see how she responds and if she improves as far as mental status. - Again we discussed code status and options of medications only he declined at this time stating her wishes was for all life saving methods. - He is unable to meet to elli for family meeting but did state Saturday he will make a final descision regarding further diagnostics and plan and we will set up another family meeting for this. - If they decide to move forward with biopsy it was explained with her current state she is not likely a candadate for any treatment and even if this is another type of cancer and not the uterine it is presenting with multiple lesions in liver likely already picturing a different metastatic process and again with underlying current state will not change overall plan or goals of care. - DIscussed in detail with Sandi JUSTICE with Primary team 01/10/18: Continue to control pain, await further interventions with diagnostic biopsy until after family and patient meeting Saturday.
[2018-01-11] MEDS: SODIUM CHLORIDE 0.9% 1,000 ML IV SCH ×3 (03:49→22:10)
[2018-01-11] MEDS: LEVOTHYROXINE 75 MCG TAB PO SCH (06:21)
[2018-01-11] MEDS: PANTOPRAZOLE 40 MG TABLET PO SCH (08:21)
[2018-01-11] MEDS: HEPARIN SODIUM,PORCINE 5,000 UNIT/ML 1 ML VIAL SQ SCH ×2 (08:21→21:06)
[2018-01-11] MEDS: SENNOSIDES-DOCUSATE SODIUM 1 EACH TAB PO SCH (08:21)
[2018-01-11 08:32] LABS: Anisocytosis Moderate; Basophils % (A) 0 %; Eosinophils # (A) 0.1 k/uL (0-0.7); Eosinophils % (A) 1 %; HCT 24.5 % (34.0-46.0); HGB 7.5 gm/dL (11.4-16.0); Hypochromasia Moderate; Lymphocytes # (A) 0.8 k/uL (1.0-4.8); Lymphocytes % (A) 14 %; MCHC 30.6 g/dL (31.0-37.0); MCV 68.7 fL (80.0-100.0); Mean Platelet Volume 6.4; Microcytosis Marked; Monocytes # (A) 0.3 k/uL (0-1.0); Monocytes % (A) 5 %; Neutrophils # (A) 4.6 k/uL (1.3-7.7); Neutrophils % (A) 77 %; Platelet Count 234 k/uL (150-450); Poikilocytosis Slight; RBC 3.56 m/uL (3.80-5.40); RDW 20.2 % (11.5-15.5)
[2018-01-11 08:44] LABS: Albumin 2.4 g/dL (3.5-5.0); Calcium 9.3 mg/dL (8.4-10.2); Potassium 3.2 mmol/L (3.5-5.1); Total Bilirubin 1.2 mg/dL (0.2-1.3); Total Protein 4.6 g/dL (6.3-8.2)
--- NOTE | 2018-01-11 15:09 | P.PN ---
Subjective Progress Note Date: 01/11/18 This is an 87 female who presented to the emergency room with family due to complaints of patient having dehydration and weakness. Patient was admitted to [facility] on 12/20. Patient has a known past medical history of endometroid adenocarcinoma of the uterus. Patient had previously stopped radiation treatment for her uterine cancer. During last admission concerns for liver metastases presented. Patient refused liver biopsy on 2 different occasions. An In depth family meeting was held at that time and family decided to move forward with [facility]. Additional medical history includes hyperlipidemia, hypertension and thyroid disorder. patient also has history of breast cancer with chemotherapy, anemia off-and-on with iron infusions, UTI and constipation. Chest x-ray completed showing chronic changes without acute pulmonary process. EKG completed showing sinus tachycardia with premature atrial complexes. Left axis deviation. Patient's lactic acid 4.1 on admission. Patient received 3 L of normal saline fluid. Patient currently on normal saline in the 100. Troponin also elevated at 0.205. Cardiology services have been consulted. Discussed case with rn case management. Due to recent admission to hospice and patient herself previously refusing any further treatment, family meeting will be arranged to discuss plan for further intervention versus continuing of hospice care. On 01/08/2018 family meeting held yesterday. Patient's family would like to move forward with possible liver biopsy and input from oncology. Oncology services have been consulted. At this time patient is resting in bed. Remains confused. On 01/09/2018 patient is currently resting comfortably in bed. Per nursing staff patient remains confused. Discussed case with oncology services. Oncology service had in-depth conversation with shelton Gamble in regards to doing a liver biopsy and plan of care. Alex Do NP family was going to take time to think about it overnight and arrange to meet her at 9:00 this a.m. Alex Do [employer] family did not show up at 9:00. Alex oD SOIL SUR[employer] will attempt again to try to get ahold of shelton Gamble to address plan of care. On 01/10/2018 patient is currently awake and alert. Patient does still remain confused. Discussed case with oncology services yesterday. Alex Do NP discussion was held with shelton Gamble. Per shelton Tye will talk to family and come to a decision by Saturday in regards to liver biopsy. This time patient denies chest pain or shortness of breath. Denies any nausea vomiting or diarrhea. Denies any urinary burning or frequency. On 01/11/2018 patient is alert and oriented in no apparent distress she is answering questions appropriately she denies any pain or discomfort she states that she is eating well. She denies any constipation she denies any urinary symptoms. Objective - Vital Signs Vital signs: Vital Signs Temp 97 F L 01/11/18 11:45 Pulse 113 H 01/11/18 11:45 Resp 16 01/11/18 11:45 BP 136/106 01/11/18 11:45 Pulse Ox 93 L 01/11/18 11:45 Intake & Output 01/10/18 01/11/18 01/11/18 18:59 06:59 18:59 Intake Total 1500 700 800 Balance 1500 700 800 Weight 70 kg Intake: Intake, IV Titration 1200 600 800 Amount Potassium Chloride 10 meq 200 In Water For Injection 1 100ml.bag @ 100 mls/hr IVPB ONCE STA Rx#: [id number] Sodium Chloride 0.9% 1, 1000 600 800 000 ml @ 100 mls/hr IV . Q10H [facility] Rx#:[id number] Oral 300 100 Other: Voiding Method Diaper Diaper Diaper Incontinent Incontinent # Voids 3 2 - Exam Head normocephalic and atraumatic Neck supple no JVD no goiter Lungs clear to auscultation bilaterally no wheezing or crackles Heart regular rate and rhythm S1-S2, no rub or gallop Abdomen is soft nontender nondistended positive bowel sounds no hepatosplenomegaly Extremities no edema no cyanosis or clubbing - Labs CBC & Chem 7: 01/11/18 08:05 01/11/18 08:05 Labs: Abnormal Lab Results - Last 24 Hours (Table) 01/11/18 01/11/18 Range/Units 08:05 08:05 RBC 3.56 L (3.80-5.40) m/uL Hgb 7.5 L (11.4-16.0) gm/dL Hct 24.5 L (34.0-46.0) % MCV 68.7 L (80.0-100.0) fL MCH 21.0 L (25.0-35.0) pg MCHC 30.6 L (31.0-37.0) g/dL RDW 20.2 H (11.5-15.5) % Lymphocytes # 0.8 L (1.0-4.8) k/uL Potassium 3.2 L (3.5-5.1) mmol/L Chloride 111 H (98-107) mmol/L Carbon Dioxide 21 L (22-30) mmol/L Glucose 114 H (74-99) mg/dL AST 86 H (14-36) U/L Alkaline Phosphatase 138 H (38-126) U/L Total Protein 4.6 L (6.3-8.2) g/dL Albumin 2.4 L (3.5-5.0) g/dL Microbiology - Last 24 Hours (Table) 01/07/18 11:50 Blood Culture - Preliminary Blood No Growth after 96 hours Assessment and Plan Plan: 1. Dehydration and increased weakness. Patient recently admitted to [facility]. Lactic acid 4.1. Patient received 3 L of normal saline. Patient currently has normal saline running at 100. Urine and blood culture has been ordered. Urine culture negative. Blood culture negative 2. Elevated troponin. Initial troponin 0.205. Per cardiology echo was obtained is normal with no changes from previous. No evidence to suggest troponin elevation is due to primary ischemic event. May be related to a type II event per cardiology 3. 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 Patient previously stopped radiation and treatment for her uterine cancer. She also declined liver biopsy during previous admission. Patient was admitted to hospice at that time. Family meeting held yesterday. Family would like to move forward with possible liver biopsy and input from oncology services. Oncology has been consulted. Per oncology RESHMA Do. In-depth conversation held with shelton Gamble to discuss plan of care and prognosis. Family was to discuss throughout night and meet this a.m. to discuss plan. Per Ernestina SOIL SURVEYOR family did not show up this morning. Per oncology will attempt to get a hold of patient's family to determine plan of care. Discussed case again with oncology services. Per Ernestina SOIL SURVEYOR family will come to decision by Saturday in regards to liver biopsy 4. History of breast cancer 5. Chronic kidney disease stage III. Creatinine 1.43 and bun 33. Continue normal saline at 100. Creatinine 1.18 and bun 22. Creatinine 1.04 and bun 17. 6. Essential hypertension. 7. 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 Hemoglobin 7.9 8. Chronic diastolic congestive heart failure. 9. Elevated liver enzymes. AST 88 and alkaline phosphatase 160. Oncology service consulted for possible metastasis to liver and family request for possible liver biopsy DVT prophylaxis heparin. GI prophylaxis Protonix
[2018-01-11] MEDS: HYDROcodone/APAP 10-325MG 1 EACH TAB PO PRN (19:25)
[2018-01-12] MEDS: LEVOTHYROXINE 75 MCG TAB PO SCH (06:13)
--- NOTE | 2018-01-12 09:08 | P.PN ---
Subjective Progress Note Date: 01/12/18 This is an 87 female who presented to the emergency room with family due to complaints of patient having dehydration and weakness. Patient was admitted to [facility] on 12/20. Patient has a known past medical history of endometroid adenocarcinoma of the uterus. Patient had previously stopped radiation treatment for her uterine cancer. During last admission concerns for liver metastases presented. Patient refused liver biopsy on 2 different occasions. An In depth family meeting was held at that time and family decided to move forward with [facility]. Additional medical history includes hyperlipidemia, hypertension and thyroid disorder. patient also has history of breast cancer with chemotherapy, anemia off-and-on with iron infusions, UTI and constipation. Chest x-ray completed showing chronic changes without acute pulmonary process. EKG completed showing sinus tachycardia with premature atrial complexes. Left axis deviation. Patient's lactic acid 4.1 on admission. Patient received 3 L of normal saline fluid. Patient currently on normal saline in the 100. Troponin also elevated at 0.205. Cardiology services have been consulted. Discussed case with [employer]. Due to recent admission to hospice and patient herself previously refusing any further treatment, family meeting will be arranged to discuss plan for further intervention versus continuing of hospice care. On 01/08/2018 family meeting held yesterday. Patient's family would like to move forward with possible liver biopsy and input from oncology. Oncology services have been consulted. At this time patient is resting in bed. Remains confused. On 01/09/2018 patient is currently resting comfortably in bed. Per nursing staff patient remains confused. Discussed case with oncology services. Oncology service had in-depth conversation with shelton Gamble in regards to doing a liver biopsy and plan of care. Alex Do NP family was going to take time to think about it overnight and arrange to meet her at 9:00 this a.m. Alex Do LAB TECH family did not show up at 9:00. Alex Do LAB TECH will attempt again to try to get ahold of shelton Gamble to address plan of care. On 01/10/2018 patient is currently awake and alert. Patient does still remain confused. Discussed case with oncology services yesterday. Alex Do NP discussion was held with shelton Gamble. Per shelton Tye will talk to family and come to a decision by Saturday in regards to liver biopsy. This time patient denies chest pain or shortness of breath. Denies any nausea vomiting or diarrhea. Denies any urinary burning or frequency. On 01/11/2018 patient is alert and oriented in no apparent distress she is answering questions appropriately she denies any pain or discomfort she states that she is eating well. She denies any constipation she denies any urinary symptoms. On 01/12/2018 patient is alert and oriented complaining of nausea otherwise no complaints at this time she denies any chest pain or shortness of breath she denies any cough there is no abdominal pain no diarrhea and no urinary symptoms. Objective - Vital Signs Vital signs: Vital Signs Temp 98.2 F 01/12/18 05:00 Pulse 104 H 01/12/18 05:00 Resp 16 01/12/18 05:00 BP 120/62 01/12/18 05:00 Pulse Ox 92 L 01/12/18 05:00 Intake & Output 01/11/18 01/12/18 01/12/18 18:59 06:59 18:59 Intake Total 800 1560 Balance 800 1560 Weight 70 kg Intake: Intake, IV Titration 800 1200 Amount Sodium Chloride 0.9% 1, 800 1200 000 ml @ 100 mls/hr IV . Q10H [facility] Rx#:[id number] Oral 360 Other: Voiding Method Diaper Diaper Incontinent Incontinent # Voids 1 - Exam Head normocephalic and atraumatic Neck supple no JVD no goiter Lungs clear to auscultation bilaterally no wheezing or crackles Heart regular rate and rhythm S1-S2, no rub or gallop Abdomen is soft nontender nondistended positive bowel sounds no hepatosplenomegaly Extremities no edema no cyanosis or clubbing - Labs CBC & Chem 7: 01/11/18 08:05 01/11/18 08:05 Labs: Microbiology - Last 24 Hours (Table) 01/07/18 11:50 Blood Culture - Preliminary Blood No Growth after 96 hours Assessment and Plan Plan: 1. Dehydration and increased weakness. Patient recently admitted to [facility]. Lactic acid 4.1. Patient received 3 L of normal saline. Patient currently has normal saline running at 100. Urine and blood culture has been ordered. Urine culture negative. Blood culture negative 2. Elevated troponin. Initial troponin 0.205. Per cardiology echo was obtained is normal with no changes from previous. No evidence to suggest troponin elevation is due to primary ischemic event. May be related to a type II event per cardiology 3. 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 Patient previously stopped radiation and treatment for her uterine cancer. She also declined liver biopsy during previous admission. Patient was admitted to hospice at that time. Family meeting held yesterday. Family would like to move forward with possible liver biopsy and input from oncology services. Oncology has been consulted. Per oncology LAB TECH Ernestina. In-depth conversation held with shelton Gamble to discuss plan of care and prognosis. 4. History of breast cancer 5. Chronic kidney disease stage III. Creatinine 1.43 and bun 33. Continue normal saline at 100. Creatinine 1.18 and bun 22. Creatinine 1.04 and bun 17. 6. Essential hypertension. 7. 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 Hemoglobin 7.9 8. Chronic diastolic congestive heart failure. 9. Elevated liver enzymes. AST 88 and alkaline phosphatase 160. Oncology service consulted for possible metastasis to liver and family request for possible liver biopsy Awaiting a meeting between Dr. Sims and family to decide about oncology plan of care will continue supportive care from medical standpoint DVT prophylaxis heparin. GI prophylaxis Protonix
[2018-01-12] MEDS: SENNOSIDES-DOCUSATE SODIUM 1 EACH TAB PO SCH (09:16)
[2018-01-12] MEDS: PANTOPRAZOLE 40 MG TABLET PO SCH (09:16)
[2018-01-12] MEDS: SODIUM CHLORIDE 0.9% 1,000 ML IV SCH ×2 (09:18→21:20)
[2018-01-12] MEDS: HEPARIN SODIUM,PORCINE 5,000 UNIT/ML 1 ML VIAL SQ SCH ×2 (09:19→21:20)
[2018-01-12] MEDS: ONDANSETRON 4 MG/2 ML VIAL IVP PRN (09:19)
[2018-01-12] MEDS: HYDROcodone/APAP 10-325MG 1 EACH TAB PO PRN ×2 (14:36→21:20)
[2018-01-12 21:55] LABS: Glucose,Whole Blood 181 mg/dL (75-99)
[2018-01-12] MEDS ORDERED: HEPARIN SODIUM,PORCINE 5,000 UNIT/ML 1 ML VIAL IV ONE (22:09)
[2018-01-12] MEDS ORDERED: DILTIAZEM DRIP BOLUS FROM BAG 1 MG SOLN IV ONE (22:14)
[2018-01-12] MEDS ORDERED: HEPARIN SOD,PORK IN 0.45% NACL 25,000 UNIT in 0.45% NACL 1 500ML.BAG IV SCH (22:15)
[2018-01-12] MEDS: DILTIAZEM 50 MG in SODIUM CHLORIDE 0.9% 40 ML IV SCH (22:41)
[2018-01-12 23:24] LABS: INR 1.3 (<1.2); Prothrombin Time 12.1 sec (9.0-12.0)
[2018-01-13 04:42] LABS: Anisocytosis Moderate; Basophils % (A) 0 %; Eosinophils # (A) 0.2 k/uL (0-0.7); Eosinophils % (A) 2 %; Hypochromasia Marked; Lymphocytes # (A) 0.9 k/uL (1.0-4.8); Lymphocytes % (A) 12 %; MCH 20.6 pg (25.0-35.0); MCHC 29.4 g/dL (31.0-37.0); MCV 70.1 fL (80.0-100.0); Mean Platelet Volume 6.6; Microcytosis Marked; Monocytes # (A) 0.4 k/uL (0-1.0); Monocytes % (A) 5 %; Neutrophils # (A) 5.8 k/uL (1.3-7.7); Neutrophils % (A) 79 %; Platelet Count 224 k/uL (150-450); Poikilocytosis Slight; RBC 3.28 m/uL (3.80-5.40); RDW 20.7 % (11.5-15.5); WBC 7.4 k/uL (3.8-10.6)
[2018-01-13 04:51] LABS: Albumin 2.4 g/dL (3.5-5.0); Calcium 9.3 mg/dL (8.4-10.2); Potassium 3.2 mmol/L (3.5-5.1); Total Bilirubin 0.8 mg/dL (0.2-1.3); Total Protein 4.6 g/dL (6.3-8.2)
[2018-01-13 05:25] LABS: HGB 6.8 gm/dL (11.4-16.0)
[2018-01-13] MEDS: LEVOTHYROXINE 75 MCG TAB PO SCH (06:33)
[2018-01-13] MEDS: PANTOPRAZOLE 40 MG TABLET PO SCH (08:20)
[2018-01-13] MEDS: SODIUM CHLORIDE 0.9% 1,000 ML IV SCH ×2 (08:20→11:08)
[2018-01-13] MEDS: DILTIAZEM 50 MG in SODIUM CHLORIDE 0.9% 40 ML IV SCH (08:21)
--- NOTE | 2018-01-13 08:23 | CDI ---
Last Revision, March 2017 Documentation Clarification Form Date: 01/10/2018 10:32:00 AM From: Anabelle Rodriguez RN Admit Date: 01/06/2018 8:11:00 PM Patient Name: Radha Mendoza Visit Number: [id number] ATTENTION: The Clinical Documentation Specialists (CDI) and [facility] Coding Staff appreciate your assistance in clarifying documentation. Please respond to the clarification below the line at the bottom and electronically sign. The CDI & [facility] Coding staff will review the response and follow-up if needed. Please note: Queries are made part of the Legal Health Record. If you have any questions, please contact the author of this message via ITS. Yaneli Begum MD, Can you please render your opinion on the following documentation? Pt. admitted for dehydration, malnutrition, failure to thrive History/Risk factors: endometrial adenocarcinoma of the uterus with chemo., hyperlipidemia, HTN, hypothyroid Clinical Indicators: Labs on admission: T 97, P 93, R 18, 141/69, 93% RA Consult 01/07 and PN 01/08 - 01/09 : Unable to assess secondary to mental status: PN 01/08 - 01/10 : Pt. remains confused Pn 10.4: underlying dementia Urine and blood cultures negative Treatment: Monitor labs Consults: Cardiology, Oncology PN 01/09 PN states : "Morphine is what is affecting her ability to make decisions per her son, discussed long acting fentanyl patch and he is in agreement". IV Bolus .9 1000ml x2, 500ml x1 Can you please render your professional opinion, if known? Anoxic Encephalopathy Hypertensive Encephalopathy Metabolic Encephalopathy Septic Encephalopathy Toxic Encephalopathy Hepatic Encephalopathy, if indicated, please clarify: Indicate whether acute, sub-acute or chronic? Other, please specify Unable to determine unable to determine MTDD
[2018-01-13] MEDS: MORPHINE SULFATE 2 MG/ML SYRINGE IVP PRN ×2 (08:27→13:52)
[2018-01-13] MEDS: SENNOSIDES-DOCUSATE SODIUM 1 EACH TAB PO SCH (08:28)
[2018-01-13] MEDS ORDERED: POTASSIUM BICARBONATE/CIT AC 20 MEQ TABLET.EFF PO ONE (08:37)
[2018-01-13] MEDS ORDERED: Potassium Replacement Protocol 1 EACH MISC MISCELLANE PRN (10:16)
--- NOTE | 2018-01-13 10:17 | P.PN ---
Subjective Progress Note Date: 01/13/18 This is an 87 female who presented to the emergency room with family due to complaints of patient having dehydration and weakness. [facility] Patient has a known past medical history of endometroid adenocarcinoma of the uterus. Patient had previously stopped radiation treatment for her uterine cancer. During last admission concerns for liver metastases presented. Patient refused liver biopsy on 2 different occasions. An In depth family meeting was held at that time and family [facility]. Additional medical history includes hyperlipidemia, hypertension and thyroid disorder. patient also has history of breast cancer with chemotherapy, anemia off-and-on with iron infusions, UTI and constipation. Chest x-ray completed showing chronic changes without acute pulmonary process. EKG completed showing sinus tachycardia with premature atrial complexes. Left axis deviation. Patient's lactic acid 4.1 on admission. Patient received 3 L of normal saline fluid. Patient currently on normal saline in the 100. Troponin also elevated at 0.205. Cardiology services have been consulted. Discussed case with bilingual patient support caseworker. Due to recent admission to hospice and patient herself previously refusing any further treatment, family meeting will be arranged to discuss plan for further intervention versus continuing of hospice care. On 01/08/2018 family meeting held yesterday. Patient's family would like to move forward with possible liver biopsy and input from oncology. Oncology services have been consulted. At this time patient is resting in bed. Remains confused. On 01/09/2018 patient is currently resting comfortably in bed. Per nursing staff patient remains confused. Discussed case with oncology services. Oncology service had in-depth conversation with shelton Gamble in regards to doing a liver biopsy and plan of care. Alex Do NP family was going to take time to think about it overnight and arrange to meet her at 9:00 this a.m. Alex Do EQUIPMENT MAINTENANCE ENGINEER family did not show up at 9:00. Alex Do EQUIPMENT MAINTENANCE ENGINEER will attempt again to try to get ahold of shelton Gamble to address plan of care. On 01/10/2018 patient is currently awake and alert. Patient does still remain confused. Discussed case with oncology services yesterday. Alex Do NP discussion was held with shelton Gamble. Per shelton Tye will talk to family and come to a decision by Saturday in regards to liver biopsy. This time patient denies chest pain or shortness of breath. Denies any nausea vomiting or diarrhea. Denies any urinary burning or frequency. On 01/11/2018 patient is alert and oriented in no apparent distress she is answering questions appropriately she denies any pain or discomfort she states that she is eating well. She denies any constipation she denies any urinary symptoms. On 01/12/2018 patient is alert and oriented complaining of nausea otherwise no complaints at this time she denies any chest pain or shortness of breath she denies any cough there is no abdominal pain no diarrhea and no urinary symptoms. On 01/13/2018 patient remains alert and resting comfortably in bed. Patient had episode of A. fib with RVR last night. Patient was started on Cardizem drip and heparin drip and transferred to [facility] care. Cardiology services have been reconsulted. At this time patient denies chest pain or shortness of breath. Patient denies nausea vomiting or diarrhea. Patient denies any urinary burning or frequency. Objective - Vital Signs Vital signs: Vital Signs Temp 96.9 F L 01/13/18 08:34 Pulse 120 H 01/13/18 08:34 Resp 20 01/13/18 08:34 BP 135/60 01/13/18 08:34 Pulse Ox 94 L 01/13/18 08:34 Intake & Output 01/12/18 01/13/18 01/13/18 18:59 06:59 18:59 Intake Total 800 880 48.333 Balance 800 880 48.333 Intake: Intake, IV Titration 800 400 48.333 Amount Diltiazem 50 mg In Sodium 48.333 Chloride 0.9% 40 ml @ 5 MG/HR 5 mls/hr IV .Q10H [facility] Rx#:[id number] Sodium Chloride 0.9% 1, 800 400 000 ml @ 100 mls/hr IV . Q10H [facility] Rx#:[id number] Oral 480 Other: Voiding Method Diaper Diaper Incontinent Incontinent # Voids 3 0 - Exam Head normocephalic Neck supple Lungs clear to auscultation bilaterally no wheezing or crackles Heart regular rate and rhythm S1-S2, no rub or gallop Abdomen is soft nontender nondistended positive bowel sounds no hepatosplenomegaly Extremities no edema - Labs CBC & Chem 7: 01/13/18 04:08 01/13/18 04:08 Labs: Abnormal Lab Results - Last 24 Hours (Table) 01/12/18 01/12/18 01/13/18 Range/Units 21:54 22:53 04:08 RBC 3.28 L (3.80-5.40) m/uL Hgb 6.8 L* (11.4-16.0) gm/dL Hct 23.0 L (34.0-46.0) % MCV 70.1 L (80.0-100.0) fL MCH 20.6 L (25.0-35.0) pg MCHC 29.4 L (31.0-37.0) g/dL RDW 20.7 H (11.5-15.5) % Lymphocytes # 0.9 L (1.0-4.8) k/uL PT 12.1 H (9.0-12.0) sec INR 1.3 H (<1.2) APTT (22.0-30.0) sec Potassium (3.5-5.1) mmol/L Chloride (98-107) mmol/L Glucose (74-99) mg/dL POC Glucose (mg/dL) 181 H (75-99) mg/dL AST (14-36) U/L Alkaline Phosphatase (38-126) U/L Total Protein (6.3-8.2) g/dL Albumin (3.5-5.0) g/dL Crossmatch 01/13/18 01/13/18 01/13/18 Range/Units 04:08 04:08 08:40 RBC (3.80-5.40) m/uL Hgb (11.4-16.0) gm/dL Hct (34.0-46.0) % MCV (80.0-100.0) fL MCH (25.0-35.0) pg MCHC (31.0-37.0) g/dL RDW (11.5-15.5) % Lymphocytes # (1.0-4.8) k/uL PT (9.0-12.0) sec INR (<1.2) APTT 75.5 H (22.0-30.0) sec Potassium 3.2 L (3.5-5.1) mmol/L Chloride 114 H (98-107) mmol/L Glucose 110 H (74-99) mg/dL POC Glucose (mg/dL) (75-99) mg/dL AST 87 H (14-36) U/L Alkaline Phosphatase 137 H (38-126) U/L Total Protein 4.6 L (6.3-8.2) g/dL Albumin 2.4 L (3.5-5.0) g/dL Crossmatch See Detail Microbiology - Last 24 Hours (Table) 01/07/18 11:50 Blood Culture - Preliminary Blood No Growth after 120 hours Assessment and Plan Assessment: 1. Dehydration and increased weakness. [facility] Lactic acid 4.1. Patient received 3 L of normal saline. Patient currently has normal saline running at 100. Urine and blood culture has been ordered. Urine culture negative. Blood culture negative 2. Elevated troponin. Initial troponin 0.205. Per cardiology echo was obtained is normal with no changes from previous. No evidence to suggest troponin elevation is due to primary ischemic event. May be related to a type II event per cardiology 3. 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 Patient previously stopped radiation and treatment for her uterine cancer. She also declined liver biopsy during previous admission. Patient was admitted to hospice at that time. Family meeting held yesterday. Family would like to move forward with possible liver biopsy and input from oncology services. Oncology has been consulted. Per oncology RESHMA Do. In-depth conversation held with hselton Gamble to discuss plan of care and prognosis. Family was to discuss throughout night and meet this a.m. to discuss plan. Per Ernestina EQUIPMENT MAINTENANCE ENGINEER family did not show up this morning. Per oncology will attempt to get a hold of patient's family to determine plan of care. Discussed case again with oncology services. Alex Do EQUIPMENT MAINTENANCE ENGINEER family will come to decision by Saturday in regards to liver biopsy 4. History of breast cancer 5. Chronic kidney disease stage III. Creatinine 1.43 and bun 33. Continue normal saline at 100. Creatinine 1.18 and bun 22. Creatinine 1.04 and bun 17. 6. Essential hypertension. 7. 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 Hemoglobin 6.8. Patient to receive 1 unit of PRBCs 8. Chronic diastolic congestive heart failure. 9. Elevated liver enzymes. AST 88 and alkaline phosphatase 160. Oncology service consulted for possible metastasis to liver and family request for possible liver biopsy 10. A. fib with RVR. Patient started on Cardizem drip and heparin drip. Cardiology services have been consulted. DVT prophylaxis heparin. GI prophylaxis Protonix I performed an examination of the patient and discussed their management with the Nurse Practitioner. I have reviewed the Nurse Practitioner's notes and agree with the documented findings and plan of care
[2018-01-13] MEDS: POTASSIUM CHLORIDE ER 20 MEQ TAB.ER PO SCH (11:08)
[2018-01-13] MEDS: ONDANSETRON 4 MG/2 ML VIAL IVP PRN (13:17)
[2018-01-13] MEDS: DILTIAZEM CD 120 MG CAP.ER.24H PO SCH (13:44)
--- NOTE | 2018-01-13 15:26 | P.PN ---
Subjective Progress Note Date: 01/13/18 This is an 87-year-old female with past medical history significant for hypertension, hyperlipidemia, hypothyroidism, breast/uterine cancer with possible metastases to the liver. She was recently admitted to the hospital earlier this month and subsequently discharged on hospice. Patient was again brought back to the hospital admitted with increased weakness and failure to thrive. Cardiology was asked to see the patient because of abnormal troponins on admission. Patient denied having any chest discomfort or difficulty in breathing. EKG on arrival here showed a sinus tachycardia with PACs, heart rate 102. Nonspecific ST-T wave changes. Chest x-ray was negative for any acute cardiopulmonary process. Most recent echo performed in December revealed a preserved left ventricular systolic function with ejection fraction of 50-55% with mild pulmonary hypertension RVSP of 40. Patient today is resting comfortably in bed, she had an episode of atrial fibrillation with rapid ventricular response last night, she was initiated on a Cardizem drip, and then a heparin drip and transferred to [facility] care. For this reason we' re asked to come and reevaluate the patient. Patient is in a normal sinus rhythm today. Blood pressure 130/60 with a heart rate in the 80s. When the atrial fibrillation episode occurred last night the patient was started on IV heparin. Her hemoglobin however was 7.5 on the 60s, it is 6.8 this morning therefore the heparin has been discontinued. Platelet count is 224. Sodium 141 , potassium 3.2, BUN 15, creatinine 0.9. Objective - Vital Signs Vital signs: Vital Signs Temp 96.8 F L 01/13/18 14:19 Pulse 89 01/13/18 14:19 Resp 18 01/13/18 14:19 BP 148/68 01/13/18 14:19 Pulse Ox 94 L 01/13/18 14:19 Intake & Output 01/12/18 01/13/18 01/13/18 18:59 06:59 18:59 Intake Total 257 426 9346.333 Output Total 400 Balance 009 102 5826.333 Intake: Intake, IV Titration 381 527 2861.333 Amount Diltiazem 50 mg In Sodium 48.333 Chloride 0.9% 40 ml @ 5 MG/HR 5 mls/hr IV .Q10H [facility] Rx#:[id number] Sodium Chloride 0.9% 1, 307 061 7187 000 ml @ 100 mls/hr IV . Q10H [facility] Rx#:[id number] Oral 480 240 Blood Product 0 Rc As-1 Unit 0 [id number] Output: Urine 400 Other: Voiding Method Diaper Diaper Diaper Incontinent Incontinent Incontinent # Voids 3 0 1 - Exam PHYSICAL EXAMINATION: GENERAL: 87 year old female in no acute distress at the time of my examination HEENT: Head is atraumatic, normocephalic. Pupils equal, round. Sclera anicteric. Conjunctiva are clear. Mucous membranes of the mouth are moist. Neck is supple. There is no elevated jugular venous pressure. No carotid bruit is heard. HEART EXAMINATION: Heart S1, S2 normal. No murmur or gallop heard. CHEST EXAMINATION: Lungs are clear to auscultation and precussion. No chest wall tenderness is noted on palpation or with deep breathing. ABDOMEN: Soft, nontender. Bowel sounds are heard. No organomegaly noted. EXTREMITIES: 2+ peripheral pulses with no evidence of peripheral edema and no calf tenderness noted. NEUROLOGIC patient is awake, alert and oriented X3. . - Labs CBC & Chem 7: 01/13/18 04:08 01/13/18 04:08 Labs: Abnormal Lab Results - Last 24 Hours (Table) 01/12/18 01/12/18 01/13/18 Range/Units 21:54 22:53 04:08 RBC 3.28 L (3.80-5.40) m/uL Hgb 6.8 L* (11.4-16.0) gm/dL Hct 23.0 L (34.0-46.0) % MCV 70.1 L (80.0-100.0) fL MCH 20.6 L (25.0-35.0) pg MCHC 29.4 L (31.0-37.0) g/dL RDW 20.7 H (11.5-15.5) % Lymphocytes # 0.9 L (1.0-4.8) k/uL PT 12.1 H (9.0-12.0) sec INR 1.3 H (<1.2) APTT (22.0-30.0) sec Potassium (3.5-5.1) mmol/L Chloride (98-107) mmol/L Glucose (74-99) mg/dL POC Glucose (mg/dL) 181 H (75-99) mg/dL AST (14-36) U/L Alkaline Phosphatase (38-126) U/L Total Protein (6.3-8.2) g/dL Albumin (3.5-5.0) g/dL Crossmatch 01/13/18 01/13/18 01/13/18 Range/Units 04:08 04:08 08:40 RBC (3.80-5.40) m/uL Hgb (11.4-16.0) gm/dL Hct (34.0-46.0) % MCV (80.0-100.0) fL MCH (25.0-35.0) pg MCHC (31.0-37.0) g/dL RDW (11.5-15.5) % Lymphocytes # (1.0-4.8) k/uL PT (9.0-12.0) sec INR (<1.2) APTT 75.5 H (22.0-30.0) sec Potassium 3.2 L (3.5-5.1) mmol/L Chloride 114 H (98-107) mmol/L Glucose 110 H (74-99) mg/dL POC Glucose (mg/dL) (75-99) mg/dL AST 87 H (14-36) U/L Alkaline Phosphatase 137 H (38-126) U/L Total Protein 4.6 L (6.3-8.2) g/dL Albumin 2.4 L (3.5-5.0) g/dL Crossmatch See Detail Microbiology - Last 24 Hours (Table) 01/07/18 11:50 Blood Culture - Final Blood No Growth after 144 hours Assessment and Plan Plan: Assessment and plan: 1. Dehydration and increased weakness. Patient recently admitted to [facility]. Lactic acid 4.1 on admission. 2. Elevated troponin. No evidence to suggest troponin elevation is due to primary ischemic event. May be related to a type II event. 3. 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 Patient previously stopped radiation and treatment for her uterine cancer. She also declined liver biopsy during previous admission. Patient was admitted to hospice at that time. Family meeting held yesterday. Family would like to move forward with possible liver biopsy and input from oncology services. Oncology has been consulted. Per oncology MANAGER CAR Ernestina. In-depth conversation held with son Tye to discuss plan of care and prognosis. Family was to discuss throughout night and meet this a.m. to discuss plan. Per Ernestina MANAGER CAR family did not show up this morning. Per oncology will attempt to get a hold of patient's family to determine plan of care. Discussed case again with oncology services. Per Ernestina MANAGER CAR family will come to decision by Saturday in regards to liver biopsy 4. History of breast cancer 5. Chronic kidney disease stage III. 6. Essential hypertension. 7. 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 8. Chronic diastolic congestive heart failure. 9. Elevated liver enzymes. Oncology service consulted for possible metastasis to liver and family request for possible liver biopsy 10. A. fib with RVR, one episode, paroxysmal. Patient currently in normal sinus rhythm. Plan From cardiology's perspective, we'll discontinue the IV heparin because of a hemoglobin of 6.8. Patient not a candidate for anticoagulation at this time. We will follow along with you now on an as-needed basis only, please don't hesitate to call with any questions DNP note has been reviewed, I agree with a documented findings and plan of care. Patient was seen and examined.
--- NOTE | 2018-01-13 16:39 | P.PN ---
Subjective Progress Note Date: 01/13/18 Principal diagnosis: Hx of uterine malignancy, pt refused further treatment for the same. Liver lesions Pt is laying in bed, she denies pain, GALLO, nausea, hunger or need to go to the bathroom. Her boyfriend is at bedside. No other family present. Objective - Vital Signs Vital signs: Vital Signs Temp 97.0 F L 01/13/18 11:09 Pulse 92 01/13/18 11:09 Resp 18 01/13/18 11:09 BP 130/62 01/13/18 11:09 Pulse Ox 95 01/13/18 11:09 Intake & Output 01/12/18 01/13/18 01/13/18 18:59 06:59 18:59 Intake Total 310 131 2607.333 Output Total 400 Balance 641 281 5857.333 Intake: Intake, IV Titration 323 127 7383.333 Amount Diltiazem 50 mg In Sodium 48.333 Chloride 0.9% 40 ml @ 5 MG/HR 5 mls/hr IV .Q10H [facility] Rx#:[id number] Sodium Chloride 0.9% 1, 868 276 6248 000 ml @ 100 mls/hr IV . Q10H [facility] Rx#:[id number] Oral 480 240 Output: Urine 400 Other: Voiding Method Diaper Diaper Diaper Incontinent Incontinent Incontinent # Voids 3 0 1 - Constitutional General appearance: Present: average body habitus, cooperative, no acute distress - EENT Eyes: Present: anicteric sclerae - Respiratory Respiratory: bilateral: CTA - Cardiovascular Heart sounds: normal: S1, S2 - Peripheral edema leg Peripheral Edema: bilateral: Trace - Gastrointestinal General gastrointestinal: Present: normal bowel sounds, soft - Neurologic Neurologic: Present: CNII-XII intact - Musculoskeletal Musculoskeletal: Present: generalized weakness - Psychiatric Psychiatric Comment(s): Alert, oriented to self and place - Labs CBC & Chem 7: 01/13/18 04:08 01/13/18 04:08 Labs: Abnormal Lab Results - Last 24 Hours (Table) 01/12/18 01/12/18 01/13/18 Range/Units 21:54 22:53 04:08 RBC 3.28 L (3.80-5.40) m/uL Hgb 6.8 L* (11.4-16.0) gm/dL Hct 23.0 L (34.0-46.0) % MCV 70.1 L (80.0-100.0) fL MCH 20.6 L (25.0-35.0) pg MCHC 29.4 L (31.0-37.0) g/dL RDW 20.7 H (11.5-15.5) % Lymphocytes # 0.9 L (1.0-4.8) k/uL PT 12.1 H (9.0-12.0) sec INR 1.3 H (<1.2) APTT (22.0-30.0) sec Potassium (3.5-5.1) mmol/L Chloride (98-107) mmol/L Glucose (74-99) mg/dL POC Glucose (mg/dL) 181 H (75-99) mg/dL AST (14-36) U/L Alkaline Phosphatase (38-126) U/L Total Protein (6.3-8.2) g/dL Albumin (3.5-5.0) g/dL Crossmatch 01/13/18 01/13/18 01/13/18 Range/Units 04:08 04:08 08:40 RBC (3.80-5.40) m/uL Hgb (11.4-16.0) gm/dL Hct (34.0-46.0) % MCV (80.0-100.0) fL MCH (25.0-35.0) pg MCHC (31.0-37.0) g/dL RDW (11.5-15.5) % Lymphocytes # (1.0-4.8) k/uL PT (9.0-12.0) sec INR (<1.2) APTT 75.5 H (22.0-30.0) sec Potassium 3.2 L (3.5-5.1) mmol/L Chloride 114 H (98-107) mmol/L Glucose 110 H (74-99) mg/dL POC Glucose (mg/dL) (75-99) mg/dL AST 87 H (14-36) U/L Alkaline Phosphatase 137 H (38-126) U/L Total Protein 4.6 L (6.3-8.2) g/dL Albumin 2.4 L (3.5-5.0) g/dL Crossmatch See Detail Microbiology - Last 24 Hours (Table) 01/07/18 11:50 Blood Culture - Preliminary Blood No Growth after 120 hours Assessment and Plan (1) Liver mass Current Visit: Yes Status: Acute Priority: High Code(s): R16.0 - HEPATOMEGALY, NOT ELSEWHERE CLASSIFIED SNOMED Code(s): 334185788 (2) Uterine carcinoma Current Visit: No Status: Chronic Priority: High Code(s): C55 - MALIGNANT NEOPLASM OF UTERUS, PART UNSPECIFIED SNOMED Code(s): 571552208 (3) Hypochromic microcytic anemia with iron overload Narrative/Plan: Pt Hgb baseline is around 7.5-8.5, it is multi-factorial. No deficient states to correct. Transfuse to keep Hgb>7 unless symptomatic. 1 unit is scheduled already for todays Hgb of 6.8 CBC daily Current Visit: Yes Status: Chronic Priority: Medium Code(s): D50.9 - IRON DEFICIENCY ANEMIA, UNSPECIFIED SNOMED Code(s): 041615164 Plan: This admit and last admit numerous, extensive discussions by multiple providers about what the masses potentially are in the liver has been reviewed with family. The only definitive way to determine what the liver masses are is to do a biopsy. If cancer was found, pt had clearly stated previously that she did not want chemo. If the mass ends up being another etiology then, that condition would have to be addressed. Biopsy was offered, ordered and cancelled several times for multiple reasons including: pt seen by Psychiatry and there was question as to if pt could make medical decisions. Interventional Radiology also stopped procedure, as the pt refused when being prepped for procedure. The family member that gave consent for biopsy was not available for face to face discussion, as requested by the Radiologist. Pt son, who is the contact lens cutter and who is making medical decisions for the pt , has not answered his phone, his voice mail is full so no messages can be left. It is not exactly clear what more counseling or meetings the family is needing at this point. The information has been communicated by multiple providers multiple times. Either pt has a liver biopsy or not. Pt acute and chronic medical conditions-dehydration, medical debility, co- morbid conditions-are being treated. She will continue medical management. Pt can try PT/OT if she is strong enough and willing to give the effort. There is nothing further from Oncology in regards to the liver masses at this time. Discussed case with [facility] [employer]
[2018-01-14 06:10] LABS: Albumin 2.2 g/dL (3.5-5.0); Calcium 8.8 mg/dL (8.4-10.2); Magnesium 1.4 mg/dL (1.6-2.3); Potassium 3.8 mmol/L (3.5-5.1); Total Bilirubin 0.8 mg/dL (0.2-1.3); Total Protein 4.3 g/dL (6.3-8.2)
[2018-01-14 06:20] LABS: Anisocytosis Moderate; HCT 25.4 % (34.0-46.0); HGB 8.2 gm/dL (11.4-16.0); Hypochromasia Moderate; MCH 23.8 pg (25.0-35.0); MCHC 32.4 g/dL (31.0-37.0); MCV 73.5 fL (80.0-100.0); Mean Platelet Volume 6.6; Microcytosis Marked; Platelet Count 204 k/uL (150-450); Poikilocytosis Slight; RBC 3.46 m/uL (3.80-5.40); WBC 6.7 k/uL (3.8-10.6)
[2018-01-14] MEDS: LEVOTHYROXINE 75 MCG TAB PO SCH (06:24)
[2018-01-14] MEDS: SODIUM CHLORIDE 0.9% 1,000 ML IV SCH ×2 (06:24→11:11)
[2018-01-14] MEDS ORDERED: Magnesium Replacement Protocol 1 EACH MISC MISCELLANE PRN (06:46)
[2018-01-14] MEDS: DILTIAZEM CD 120 MG CAP.ER.24H PO SCH (08:04)
[2018-01-14] MEDS: PANTOPRAZOLE 40 MG TABLET PO SCH (08:04)
[2018-01-14] MEDS: SENNOSIDES-DOCUSATE SODIUM 1 EACH TAB PO SCH (08:04)
[2018-01-14] MEDS: MAGNESIUM SULFATE-D5W PMX 1 GM in DEXTROSE/WATER 1 100ML.BAG IVPB SCH ×3 (08:04→11:11)
--- NOTE | 2018-01-14 09:37 | P.PN ---
Subjective Progress Note Date: 01/14/18 This is an 87 female who presented to the emergency room with family due to complaints of patient having dehydration and weakness. Patient was admitted to [facility] on 12/20. Patient has a known past medical history of endometroid adenocarcinoma of the uterus. Patient had previously stopped radiation treatment for her uterine cancer. During last admission concerns for liver metastases presented. Patient refused liver biopsy on 2 different occasions. An In depth family meeting was held at that time and family decided to move forward with [facility]. Additional medical history includes hyperlipidemia, hypertension and thyroid disorder. patient also has history of breast cancer with chemotherapy, anemia off-and-on with iron infusions, UTI and constipation. Chest x-ray completed showing chronic changes without acute pulmonary process. EKG completed showing sinus tachycardia with premature atrial complexes. Left axis deviation. Patient's lactic acid 4.1 on admission. Patient received 3 L of normal saline fluid. Patient currently on normal saline in the 100. Troponin also elevated at 0.205. Cardiology services have been consulted. Discussed case with community case manager. Due to recent admission to hospice and patient herself previously refusing any further treatment, family meeting will be arranged to discuss plan for further intervention versus continuing of hospice care. On 01/08/2018 family meeting held yesterday. Patient's family would like to move forward with possible liver biopsy and input from oncology. Oncology services have been consulted. At this time patient is resting in bed. Remains confused. On 01/09/2018 patient is currently resting comfortably in bed. Per nursing staff patient remains confused. Discussed case with oncology services. Oncology service had in-depth conversation with shelton Gamble in regards to doing a liver biopsy and plan of care. Alex Do NP family was going to take time to think about it overnight and arrange to meet her at 9:00 this a.m. Alex Do MANAGER READING family did not show up at 9:00. Alex Do MANAGER READING will attempt again to try to get ahold of shelton Gamble to address plan of care. On 01/10/2018 patient is currently awake and alert. Patient does still remain confused. Discussed case with oncology services yesterday. Alex Do NP discussion was held with shelton Gamble. Per shelton Tye will talk to family and come to a decision by Saturday in regards to liver biopsy. This time patient denies chest pain or shortness of breath. Denies any nausea vomiting or diarrhea. Denies any urinary burning or frequency. On 01/11/2018 patient is alert and oriented in no apparent distress she is answering questions appropriately she denies any pain or discomfort she states that she is eating well. She denies any constipation she denies any urinary symptoms. On 01/12/2018 patient is alert and oriented complaining of nausea otherwise no complaints at this time she denies any chest pain or shortness of breath she denies any cough there is no abdominal pain no diarrhea and no urinary symptoms. On 01/13/2018 patient remains alert and resting comfortably in bed. Patient had episode of A. fib with RVR last night. Patient was started on Cardizem drip and heparin drip and [facility]. Cardiology services have been reconsulted. At this time patient denies chest pain or shortness of breath. Patient denies nausea vomiting or diarrhea. Patient denies any urinary burning or frequency. On 01/14/2018 patient is alert and oriented 2. Patient is resting comfortably in bed. Cardizem and heparin drip has been DC'd per cardiology. No family currently at bedside. No decisions have been made per family in regards to plan of care. At this time patient denies chest pain or shortness breath. Patient denies nausea vomiting or diarrhea. Patient denies any urinary symptoms or frequency. Discussed case with Dr. sims per oncology. Per Dr. sims was at bedside. Son was not present attempted phone call no answer and voicemail box was full Objective - Vital Signs Vital signs: Vital Signs Temp 97.0 F L 01/14/18 09:24 Pulse 69 01/14/18 09:24 Resp 18 01/14/18 09:24 BP 119/65 01/14/18 09:24 Pulse Ox 96 01/14/18 09:24 Intake & Output 01/13/18 01/14/18 01/14/18 18:59 06:59 18:59 Intake Total 6174.591 2215 Balance 7537.104 6260 Weight 54.5 kg 54.5 kg Intake: Intake, IV Titration 8709.646 9620 Amount Diltiazem 50 mg In Sodium 48.333 Chloride 0.9% 40 ml @ 5 MG/HR 5 mls/hr IV .Q10H [facility] Rx#:[id number] Magnesium Sulfate-D5w Pmx 300 1 gm In Dextrose/Water 1 100ml.bag @ 100 mls/hr IVPB Q1H [facility] Rx#: [id number] Sodium Chloride 0.9% 1, 1200 1200 000 ml @ 100 mls/hr IV . Q10H [facility] Rx#:[id number] Oral 300 60 Blood Product 310 Rc As-1 Unit 310 [id number] Other: Voiding Method Diaper Diaper Diaper Incontinent Incontinent Incontinent # Voids 1 1 1 # Bowel Movements 1 - Exam Head normocephalic Neck supple Lungs clear to auscultation bilaterally no wheezing or crackles Heart regular rate and rhythm S1-S2, no rub or gallop Abdomen is soft nontender nondistended positive bowel sounds no hepatosplenomegaly Extremities no edema - Labs CBC & Chem 7: 01/14/18 05:30 01/14/18 05:30 Labs: Abnormal Lab Results - Last 24 Hours (Table) 01/13/18 01/14/18 01/14/18 Range/Units 08:40 05:30 05:30 RBC 3.46 L (3.80-5.40) m/uL Hgb 8.2 L (11.4-16.0) gm/dL Hct 25.4 L (34.0-46.0) % MCV 73.5 L (80.0-100.0) fL MCH 23.8 L (25.0-35.0) pg RDW 22.0 H (11.5-15.5) % Chloride 115 H (98-107) mmol/L Glucose 112 H (74-99) mg/dL Magnesium 1.4 L (1.6-2.3) mg/dL AST 76 H (14-36) U/L Total Protein 4.3 L (6.3-8.2) g/dL Albumin 2.2 L (3.5-5.0) g/dL Crossmatch See Detail Microbiology - Last 24 Hours (Table) 01/07/18 11:50 Blood Culture - Final Blood No Growth after 144 hours Assessment and Plan Assessment: 1. Dehydration and increased weakness. Patient recently admitted to [facility]. Lactic acid 4.1. Patient received 3 L of normal saline. Patient currently has normal saline running at 100. Urine and blood culture has been ordered. Urine culture negative. Blood culture negative 2. Elevated troponin. Initial troponin 0.205. Per cardiology echo was obtained is normal with no changes from previous. No evidence to suggest troponin elevation is due to primary ischemic event. May be related to a type II event per cardiology 3. 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 Patient previously stopped radiation and treatment for her uterine cancer. She also declined liver biopsy during previous admission. Patient was admitted to hospice at that time. Family meeting held yesterday. Family would like to move forward with possible liver biopsy and input from oncology services. Oncology has been consulted. Per oncology RESHMA Do. In-depth conversation held with shelton Gamble to discuss plan of care and prognosis. Family was to discuss throughout night and meet this a.m. to discuss plan. Per Ernestina MANAGER READING family did not show up this morning. Per oncology will attempt to get a hold of patient's family to determine plan of care. Discussed case again with oncology services. Per Ernestina MANAGER READING family will come to decision by Saturday in regards to liver biopsy 4. History of breast cancer 5. Chronic kidney disease stage III. Creatinine 1.43 and bun 33. Continue normal saline at 100. Creatinine 1.18 and bun 22. Creatinine 1.04 and bun 17. 6. Essential hypertension. 7. 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 Hemoglobin 6.8. Patient to receive 1 unit of PRBCs. Hemoglobin 8.2 8. Chronic diastolic congestive heart failure. 9. Elevated liver enzymes. AST 88 and alkaline phosphatase 160. Oncology service consulted for possible metastasis to liver and family request for possible liver biopsy 10. A. fib with RVR, one episode paroxysmal. Patient started on Cardizem drip and heparin drip. Per cardiology IV heparin has been discontinued. Patient is not a candidate for anticoagulation at this time. She currently maintained on by mouth Cardizem. Family and next of kin shelton Gamble was supposed to have decision made by 01/13 in regards to liver biopsy versus hospice. Dr. Sims per oncology was at bedside on 01/13 but son was not present. Multiple phone calls made to son but there was no answer and voice mailbox was full. Social work has been involved in this case. Discussed case with social work. Consult has been placed for Dr. Hurtado for Ethics consult Physical therapy consult has been placed DVT prophylaxis heparin. GI prophylaxis Protonix I performed an examination of the patient and discussed their management with the Nurse Practitioner. I have reviewed the Nurse Practitioner's notes and agree with the documented findings and plan of care
[2018-01-14] MEDS: MORPHINE SULFATE 2 MG/ML SYRINGE IVP PRN ×2 (10:23→17:52)
--- NOTE | 2018-01-14 12:13 | P.PN ---
Subjective Progress Note Date: 01/14/18 This is an 87-year-old female with past medical history significant for hypertension, hyperlipidemia, hypothyroidism, breast/uterine cancer with possible metastases to the liver. She was recently admitted to the hospital earlier this month and subsequently discharged on hospice. Patient was again brought back to the hospital admitted with increased weakness and failure to thrive. Cardiology was asked to see the patient because of abnormal troponins on admission. Patient denied having any chest discomfort or difficulty in breathing. EKG on arrival here showed a sinus tachycardia with PACs, heart rate 102. Nonspecific ST-T wave changes. Chest x-ray was negative for any acute cardiopulmonary process. Most recent echo performed in December revealed a preserved left ventricular systolic function with ejection fraction of 50-55% with mild pulmonary hypertension RVSP of 40. Patient today is resting comfortably in bed, she had an episode of atrial fibrillation with rapid ventricular response last night, she was initiated on a Cardizem drip, and then a heparin drip and transferred to [facility]. For this reason we' re asked to come and reevaluate the patient. Patient is in a normal sinus rhythm today. Blood pressure 130/60 with a heart rate in the 80s. When the atrial fibrillation episode occurred last night the patient was started on IV heparin. Her hemoglobin however was 7.5 on the 60s, it is 6.8 this morning therefore the heparin has been discontinued. Platelet count is 224. Sodium 141 , potassium 3.2, BUN 15, creatinine 0.9. 01/14/2018 Patient seen and examined this morning, alert and oriented 2, resting comfortably in bed. Denies any chest pain or difficulty in breathing. Cardizem was initiated yesterday, heart rate maintaining in the 70s to 80s today. Magnesium level this morning 1.4 which is being replaced. Objective - Vital Signs Vital signs: Vital Signs Temp 96.8 F L 01/14/18 11:37 Pulse 87 01/14/18 11:37 Resp 18 01/14/18 11:37 BP 115/60 01/14/18 11:37 Pulse Ox 95 01/14/18 11:37 Intake & Output 01/13/18 01/14/18 01/14/18 18:59 06:59 18:59 Intake Total 4026.184 9392 Balance 5203.390 0339 Weight 54.5 kg 54.5 kg Intake: Intake, IV Titration 8890.899 6920 Amount Diltiazem 50 mg In Sodium 48.333 Chloride 0.9% 40 ml @ 5 MG/HR 5 mls/hr IV .Q10H [facility] Rx#:[id number] Magnesium Sulfate-D5w Pmx 300 1 gm In Dextrose/Water 1 100ml.bag @ 100 mls/hr IVPB Q1H [facility] Rx#: [id number] Sodium Chloride 0.9% 1, 1200 1200 000 ml @ 100 mls/hr IV . Q10H [facility] Rx#:[id number] Oral 300 60 Blood Product 310 Rc As-1 Unit 310 [id number] Other: Voiding Method Diaper Diaper Diaper Incontinent Incontinent Incontinent # Voids 1 1 1 # Bowel Movements 1 - Exam PHYSICAL EXAMINATION: GENERAL: 87 year old female in no acute distress at the time of my examination HEENT: Head is atraumatic, normocephalic. Pupils equal, round. Sclera anicteric. Conjunctiva are clear. Mucous membranes of the mouth are moist. Neck is supple. There is no elevated jugular venous pressure. No carotid bruit is heard. HEART EXAMINATION: Heart S1, S2 normal. No murmur or gallop heard. CHEST EXAMINATION: Lungs are clear to auscultation and precussion. No chest wall tenderness is noted on palpation or with deep breathing. ABDOMEN: Soft, nontender. Bowel sounds are heard. No organomegaly noted. EXTREMITIES: 2+ peripheral pulses with no evidence of peripheral edema and no calf tenderness noted. NEUROLOGIC patient is awake, alert and oriented X2. . - Labs CBC & Chem 7: 01/14/18 05:30 01/14/18 05:30 Labs: Abnormal Lab Results - Last 24 Hours (Table) 01/13/18 01/14/18 01/14/18 Range/Units 08:40 05:30 05:30 RBC 3.46 L (3.80-5.40) m/uL Hgb 8.2 L (11.4-16.0) gm/dL Hct 25.4 L (34.0-46.0) % MCV 73.5 L (80.0-100.0) fL MCH 23.8 L (25.0-35.0) pg RDW 22.0 H (11.5-15.5) % Chloride 115 H (98-107) mmol/L Glucose 112 H (74-99) mg/dL Magnesium 1.4 L (1.6-2.3) mg/dL AST 76 H (14-36) U/L Total Protein 4.3 L (6.3-8.2) g/dL Albumin 2.2 L (3.5-5.0) g/dL Crossmatch See Detail Microbiology - Last 24 Hours (Table) 01/07/18 11:50 Blood Culture - Final Blood No Growth after 144 hours Assessment and Plan Plan: Assessment and plan: 1. Dehydration and increased weakness. Patient recently admitted to [facility]. Lactic acid 4.1 on admission. 2. Elevated troponin. No evidence to suggest troponin elevation is due to primary ischemic event. May be related to a type II event. 3. 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 Patient previously stopped radiation and treatment for her uterine cancer. She also declined liver biopsy during previous admission. Patient was admitted to hospice at that time. Family meeting held yesterday. Family would like to move forward with possible liver biopsy and input from oncology services. Oncology has been consulted. Per oncology RESHMA Do. In-depth conversation held with son Tye to discuss plan of care and prognosis. Family was to discuss throughout night and meet this a.m. to discuss plan. Per Ernestina MASTER COSMETOLOGIST family did not show up this morning. Per oncology will attempt to get a hold of patient's family to determine plan of care. Discussed case again with oncology services. Per Ernestina MASTER COSMETOLOGIST family will come to decision by Saturday in regards to liver biopsy 4. History of breast cancer 5. Chronic kidney disease stage III. 6. Essential hypertension. 7. 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 8. Chronic diastolic congestive heart failure. 9. Elevated liver enzymes. Oncology service consulted for possible metastasis to liver and family request for possible liver biopsy 10. A. fib with RVR, one episode, paroxysmal. Patient currently in normal sinus rhythm. Plan From cardiology's perspective, we will recommend to continue the patient on the current dose of Cardizem. Patient is not a candidate for anticoagulation. We will follow her along with you now on an as-needed basis only, please don't hesitate to call if you have any questions at all. DNP note has been reviewed, I agree with a documented findings and plan of care. Patient was seen and examined.
[2018-01-14] MEDS: ONDANSETRON 4 MG/2 ML VIAL IVP PRN (13:49)
[2018-01-15] MEDS: LEVOTHYROXINE 75 MCG TAB PO SCH (06:38)
[2018-01-15] MEDS: SODIUM CHLORIDE 0.9% 1,000 ML IV SCH ×2 (06:38→08:20)
[2018-01-15 06:46] LABS: Anisocytosis Moderate; Basophils % (A) 0 %; Eosinophils # (A) 0.1 k/uL (0-0.7); Eosinophils % (A) 2 %; HCT 28.1 % (34.0-46.0); HGB 8.5 gm/dL (11.4-16.0); Hypochromasia Moderate; Lymphocytes # (A) 0.7 k/uL (1.0-4.8); Lymphocytes % (A) 10 %; MCH 22.4 pg (25.0-35.0); MCHC 30.1 g/dL (31.0-37.0); MCV 74.4 fL (80.0-100.0); Mean Platelet Volume 6.6; Microcytosis Marked; Monocytes # (A) 0.3 k/uL (0-1.0); Monocytes % (A) 5 %; Neutrophils # (A) 5.5 k/uL (1.3-7.7); Neutrophils % (A) 81 %; Platelet Count 217 k/uL (150-450); Poikilocytosis Slight; RBC 3.78 m/uL (3.80-5.40); RDW 22.4 % (11.5-15.5); WBC 6.8 k/uL (3.8-10.6)
[2018-01-15 07:03] LABS: Albumin 2.4 g/dL (3.5-5.0); Calcium 8.7 mg/dL (8.4-10.2); Magnesium 1.8 mg/dL (1.6-2.3); Potassium 3.4 mmol/L (3.5-5.1); Total Bilirubin 1.1 mg/dL (0.2-1.3); Total Protein 4.8 g/dL (6.3-8.2)
[2018-01-15] MEDS ORDERED: Potassium Replacement Protocol 1 EACH MISC MISCELLANE PRN (08:09)
[2018-01-15] MEDS: SENNOSIDES-DOCUSATE SODIUM 1 EACH TAB PO SCH (08:20)
[2018-01-15] MEDS: PANTOPRAZOLE 40 MG TABLET PO SCH (08:20)
[2018-01-15] MEDS: DILTIAZEM CD 120 MG CAP.ER.24H PO SCH (08:20)
[2018-01-15] MEDS: POTASSIUM CHLORIDE ER 20 MEQ TAB.ER PO SCH ×2 (09:11→11:52)
--- NOTE | 2018-01-15 09:36 | CDI ---
Last Revision, March 2017 Documentation Clarification Form Date: 01/15/18 From: Anabelle Rodriguez RN Admit Date: 01/06/2018 8:11:00 PM Patient Name: Radha Mendoza Visit Number: [id number] ATTENTION: The Clinical Documentation Specialists (CDI) and [facility] Coding Staff appreciate your assistance in clarifying documentation. Please respond to the clarification below the line at the bottom and electronically sign. The CDI & [facility] Coding staff will review the response and follow-up if needed. Please note: Queries are made part of the Legal Health Record. If you have any questions, please contact the author of this message via ITS. Bing Carrillo MD, Atria fibrillation is documented in the PN on 01/13 and 01/14. "Episode of atria fibrillation with rapid ventricular response". Patient was admitted with weakness, brought in by son for failure to thrive, and found to have lactic acidosis, dehydration, malnutrition History/Risk Factors: endometroid adenocarcinoma of the uterus, hyperlipidemia, HTN, hypothyroid Clinical Indicators: EKG on admission: st with pac Treatment: Cardizem drip, Heparin drip and transferred to [facility]. In your professional opinion, can you please clarify the type of atrial fibrillation, if known? Paroxysmal Persistent Other, please specify Unable to determine MTDD
--- NOTE | 2018-01-15 10:49 | P.PN ---
Subjective Progress Note Date: 01/15/18 This is an 87 female who presented to the emergency room with family due to complaints of patient having dehydration and weakness. Patient was admitted to [facility] on 12/20. Patient has a known past medical history of endometroid adenocarcinoma of the uterus. Patient had previously stopped radiation treatment for her uterine cancer. During last admission concerns for liver metastases presented. Patient refused liver biopsy on 2 different occasions. An In depth family meeting was held at that time and family decided to move forward with [facility]. Additional medical history includes hyperlipidemia, hypertension and thyroid disorder. patient also has history of breast cancer with chemotherapy, anemia off-and-on with iron infusions, UTI and constipation. Chest x-ray completed showing chronic changes without acute pulmonary process. EKG completed showing sinus tachycardia with premature atrial complexes. Left axis deviation. Patient's lactic acid 4.1 on admission. Patient received 3 L of normal saline fluid. Patient currently on normal saline in the 100. Troponin also elevated at 0.205. Cardiology services have been consulted. Discussed case with [employer]. Due to recent admission to hospice and patient herself previously refusing any further treatment, family meeting will be arranged to discuss plan for further intervention versus continuing of hospice care. On 01/08/2018 family meeting held yesterday. Patient's family would like to move forward with possible liver biopsy and input from oncology. Oncology services have been consulted. At this time patient is resting in bed. Remains confused. On 01/09/2018 patient is currently resting comfortably in bed. Per nursing staff patient remains confused. Discussed case with oncology services. Oncology service had in-depth conversation with jose Gamble in regards to doing a liver biopsy and plan of care. Alex Do NP family was going to take time to think about it overnight and arrange to meet her at 9:00 this a.m. Alex Do BENCH REPAIR TECHNICIAN family did not show up at 9:00. Alex Do BENCH REPAIR TECHNICIAN will attempt again to try to get ahold of jose Gamble to address plan of care. On 01/10/2018 patient is currently awake and alert. Patient does still remain confused. Discussed case with oncology services yesterday. Alex Do NP discussion was held with jose Gamble. Per jose Tye will talk to family and come to a decision by Saturday in regards to liver biopsy. This time patient denies chest pain or shortness of breath. Denies any nausea vomiting or diarrhea. Denies any urinary burning or frequency. On 01/11/2018 patient is alert and oriented in no apparent distress she is answering questions appropriately she denies any pain or discomfort she states that she is eating well. She denies any constipation she denies any urinary symptoms. On 01/12/2018 patient is alert and oriented complaining of nausea otherwise no complaints at this time she denies any chest pain or shortness of breath she denies any cough there is no abdominal pain no diarrhea and no urinary symptoms. On 01/13/2018 patient remains alert and resting comfortably in bed. Patient had episode of A. fib with RVR last night. Patient was started on Cardizem drip and heparin drip and transferred to [facility]. Cardiology services have been reconsulted. At this time patient denies chest pain or shortness of breath. Patient denies nausea vomiting or diarrhea. Patient denies any urinary burning or frequency. On 01/14/2018 patient is alert and oriented 2. Patient is resting comfortably in bed. Cardizem and heparin drip has been DC'd per cardiology. No family currently at bedside. No decisions have been made per family in regards to plan of care. At this time patient denies chest pain or shortness breath. Patient denies nausea vomiting or diarrhea. Patient denies any urinary symptoms or frequency. Discussed case with Dr. sims per oncology. Per Dr. sims was at bedside. Son was not present attempted phone call no answer and voicemail box was full On 01/15/2018 patient is currently resting comfortably in chair. No family at bedside. Psych consult for Dr. Kelley has been placed to address decision- making capacity. Objective - Vital Signs Vital signs: Vital Signs Temp 97.4 F L 01/15/18 08:23 Pulse 100 01/15/18 08:23 Resp 20 01/15/18 08:23 BP 152/59 01/15/18 08:23 Pulse Ox 97 01/15/18 08:23 Intake & Output 01/14/18 01/15/18 01/15/18 18:59 06:59 18:59 Intake Total 1880 222 Balance 1880 222 Weight 54.5 kg 56 kg Intake: Intake, IV Titration 1500 Amount Magnesium Sulfate-D5w Pmx 300 1 gm In Dextrose/Water 1 100ml.bag @ 100 mls/hr IVPB Q1H [facility] Rx#: [id number] Sodium Chloride 0.9% 1, 1200 000 ml @ 100 mls/hr IV . Q10H [facility] Rx#:[id number] Oral 380 222 Other: Voiding Method Diaper Diaper Diaper Incontinent Incontinent Incontinent # Voids 2 0 1 # Bowel Movements 1 - Exam Head normocephalic Neck supple Lungs clear to auscultation bilaterally no wheezing or crackles Heart regular rate and rhythm S1-S2, no rub or gallop Abdomen is soft nontender nondistended positive bowel sounds no hepatosplenomegaly Extremities no edema - Labs CBC & Chem 7: 01/15/18 06:03 01/15/18 06:03 Labs: Abnormal Lab Results - Last 24 Hours (Table) 01/15/18 01/15/18 Range/Units 06:03 06:03 RBC 3.78 L (3.80-5.40) m/uL Hgb 8.5 L (11.4-16.0) gm/dL Hct 28.1 L (34.0-46.0) % MCV 74.4 L (80.0-100.0) fL MCH 22.4 L (25.0-35.0) pg MCHC 30.1 L (31.0-37.0) g/dL RDW 22.4 H (11.5-15.5) % Lymphocytes # 0.7 L (1.0-4.8) k/uL Potassium 3.4 L (3.5-5.1) mmol/L Chloride 115 H (98-107) mmol/L Carbon Dioxide 20 L (22-30) mmol/L Glucose 111 H (74-99) mg/dL AST 70 H (14-36) U/L Alkaline Phosphatase 151 H (38-126) U/L Total Protein 4.8 L (6.3-8.2) g/dL Albumin 2.4 L (3.5-5.0) g/dL Assessment and Plan Assessment: 1. Dehydration and increased weakness. Patient recently admitted to [facility]. Lactic acid 4.1. Patient received 3 L of normal saline. Patient currently has normal saline running at 100. Urine and blood culture has been ordered. Urine culture negative. Blood culture negative 2. Elevated troponin. Initial troponin 0.205. Per cardiology echo was obtained is normal with no changes from previous. No evidence to suggest troponin elevation is due to primary ischemic event. May be related to a type II event per cardiology 3. 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 Patient previously stopped radiation and treatment for her uterine cancer. She also declined liver biopsy during previous admission. Patient was admitted to hospice at that time. Family meeting held yesterday. Family would like to move forward with possible liver biopsy and input from oncology services. Oncology has been consulted. Per oncology RESHMA Do. In-depth conversation held with jose Gamble to discuss plan of care and prognosis. Family was to discuss throughout night and meet this a.m. to discuss plan. Per Ernestina BENCH REPAIR TECHNICIAN family did not show up this morning. Per oncology will attempt to get a hold of patient's family to determine plan of care. Discussed case again with oncology services. Per Ernestina BENCH REPAIR TECHNICIAN family will come to decision by Saturday in regards to liver biopsy. Jose Gamble did not show up to scheduled meeting with oncology. per LILI son said he would not be able to come in until next saturday. 4. History of breast cancer 5. Chronic kidney disease stage III. Creatinine 1.43 and bun 33. Continue normal saline at 100. Creatinine 1.18 and bun 22. Creatinine 1.04 and bun 17. 6. Essential hypertension. 7. 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 Hemoglobin 6.8. Patient to receive 1 unit of PRBCs. Hemoglobin 8.2 8. Chronic diastolic congestive heart failure. 9. Elevated liver enzymes. AST 88 and alkaline phosphatase 160. Oncology service consulted for possible metastasis to liver and family request for possible liver biopsy 10. A. fib with RVR, one episode paroxysmal. Patient started on Cardizem drip and heparin drip. Per cardiology IV heparin has been discontinued. Patient is not a candidate for anticoagulation at this time. She currently maintained on by mouth Cardizem. Family and next of kin jose Gamble was supposed to have decision made by 01/13 in regards to liver biopsy versus hospice. Dr. Sims per oncology was at bedside on 01/13 but son was not present. Multiple phone calls made to son but there was no answer and voice mailbox was full. Social work has been involved in this case. Discussed case with social work. Consult has been placed for Dr. Hurtado for Ethics consult [facility] consulted to assess patient's decision making capacity. Physical therapy consult has been placed DVT prophylaxis heparin. GI prophylaxis Protonix I performed an examination of the patient and discussed their management with the Nurse Practitioner. I have reviewed the Nurse Practitioner's notes and agree with the documented findings and plan of care
[2018-01-15 11:51] LABS: Glucose,Whole Blood 160 mg/dL (75-99)
[2018-01-15] MEDS: ENOXAPARIN 40 MG/0.4 ML SYRINGE SQ SCH (16:41)
[2018-01-15] MEDS ORDERED: ATROPINE SULFATE 0.1 MG/ML 10ML SYRINGE ONE (19:35)
[2018-01-15] MEDS: MORPHINE SULFATE 2 MG/ML SYRINGE IVP PRN (22:49)
[2018-01-16 06:52] LABS: Anisocytosis Moderate; Basophils % (A) 0 %; Eosinophils # (A) 0.1 k/uL (0-0.7); Eosinophils % (A) 2 %; HCT 26.1 % (34.0-46.0); HGB 8.4 gm/dL (11.4-16.0); Hypochromasia Moderate; Lymphocytes # (A) 0.6 k/uL (1.0-4.8); Lymphocytes % (A) 11 %; MCH 23.8 pg (25.0-35.0); MCHC 32.3 g/dL (31.0-37.0); MCV 73.7 fL (80.0-100.0); Mean Platelet Volume 6.3; Microcytosis Marked; Monocytes # (A) 0.3 k/uL (0-1.0); Monocytes % (A) 5 %; Neutrophils # (A) 4.5 k/uL (1.3-7.7); Neutrophils % (A) 81 %; Platelet Count 199 k/uL (150-450); Poikilocytosis Slight; RBC 3.55 m/uL (3.80-5.40); RDW 22.7 % (11.5-15.5); WBC 5.6 k/uL (3.8-10.6)
[2018-01-16] MEDS: LEVOTHYROXINE 75 MCG TAB PO SCH (06:52)
[2018-01-16 07:05] LABS: Albumin 2.3 g/dL (3.5-5.0); Calcium 8.9 mg/dL (8.4-10.2); Potassium 3.6 mmol/L (3.5-5.1); Total Protein 4.7 g/dL (6.3-8.2)
[2018-01-16] MEDS: DILTIAZEM CD 120 MG CAP.ER.24H PO SCH (07:50)
[2018-01-16] MEDS: SENNOSIDES-DOCUSATE SODIUM 1 EACH TAB PO SCH (07:51)
[2018-01-16] MEDS: ENOXAPARIN 40 MG/0.4 ML SYRINGE SQ SCH (07:51)
[2018-01-16] MEDS: PANTOPRAZOLE 40 MG TABLET PO SCH (07:51)
--- NOTE | 2018-01-16 11:14 | P.PN ---
Subjective Progress Note Date: 01/16/18 This is an 87 female who presented to the emergency room with family due to complaints of patient having dehydration and weakness. Patient was admitted to [facility] on 12/20. Patient has a known past medical history of endometroid adenocarcinoma of the uterus. Patient had previously stopped radiation treatment for her uterine cancer. During last admission concerns for liver metastases presented. Patient refused liver biopsy on 2 different occasions. An In depth family meeting was held at that time and family decided to move forward with [facility]. Additional medical history includes hyperlipidemia, hypertension and thyroid disorder. patient also has history of breast cancer with chemotherapy, anemia off-and-on with iron infusions, UTI and constipation. Chest x-ray completed showing chronic changes without acute pulmonary process. EKG completed showing sinus tachycardia with premature atrial complexes. Left axis deviation. Patient's lactic acid 4.1 on admission. Patient received 3 L of normal saline fluid. Patient currently on normal saline in the 100. Troponin also elevated at 0.205. Cardiology services have been consulted. Discussed case with pillowcase cleaner. Due to recent admission to hospice and patient herself previously refusing any further treatment, family meeting will be arranged to discuss plan for further intervention versus continuing of hospice care. On 01/08/2018 family meeting held yesterday. Patient's family would like to move forward with possible liver biopsy and input from oncology. Oncology services have been consulted. At this time patient is resting in bed. Remains confused. On 01/09/2018 patient is currently resting comfortably in bed. Per nursing staff patient remains confused. Discussed case with oncology services. Oncology service had in-depth conversation with jose Gamble in regards to doing a liver biopsy and plan of care. Alex Do NP family was going to take time to think about it overnight and arrange to meet her at 9:00 this a.m. Alex Do ALUMINUM SHEET CUTTER family did not show up at 9:00. Alex Do ALUMINUM SHEET CUTTER will attempt again to try to get ahold of jose Gamlbe to address plan of care. On 01/10/2018 patient is currently awake and alert. Patient does still remain confused. Discussed case with oncology services yesterday. Alex Do NP discussion was held with jose Gamble. Per jose Tye will talk to family and come to a decision by Saturday in regards to liver biopsy. This time patient denies chest pain or shortness of breath. Denies any nausea vomiting or diarrhea. Denies any urinary burning or frequency. On 01/11/2018 patient is alert and oriented in no apparent distress she is answering questions appropriately she denies any pain or discomfort she states that she is eating well. She denies any constipation she denies any urinary symptoms. On 01/12/2018 patient is alert and oriented complaining of nausea otherwise no complaints at this time she denies any chest pain or shortness of breath she denies any cough there is no abdominal pain no diarrhea and no urinary symptoms. On 01/13/2018 patient remains alert and resting comfortably in bed. Patient had episode of A. fib with RVR last night. Patient was started on Cardizem drip and heparin drip and transferred to [facility]. Cardiology services have been reconsulted. At this time patient denies chest pain or shortness of breath. Patient denies nausea vomiting or diarrhea. Patient denies any urinary burning or frequency. On 01/14/2018 patient is alert and oriented 2. Patient is resting comfortably in bed. Cardizem and heparin drip has been DC'd per cardiology. No family currently at bedside. No decisions have been made per family in regards to plan of care. At this time patient denies chest pain or shortness breath. Patient denies nausea vomiting or diarrhea. Patient denies any urinary symptoms or frequency. Discussed case with Dr. villegas per oncology. Per Dr. villegas was at bedside. Son was not present attempted phone call no answer and voicemail box was full On 01/15/2018 patient is currently resting comfortably in chair. No family at bedside. Psych consult for Dr. Kelley has been placed to address decision- making capacity. On 01/16/2018 patient is currently resting comfortably in bed. Patient has been eating and drinking. Multiple attempts made to get a hold of next of kin jose Gamble by oncology services with no success. Social work and Dr. Stephen per ethical consult following. Patient is stable and ready to be discharged tomorrow Objective - Vital Signs Vital signs: Vital Signs Temp 97.7 F 01/16/18 07:56 Pulse 74 01/16/18 07:56 Resp 18 01/16/18 07:56 BP 172/69 01/16/18 07:56 Pulse Ox 92 L 01/16/18 07:56 Intake & Output 01/15/18 01/16/18 01/16/18 18:59 06:59 18:59 Intake Total 1040 Balance 1040 Weight 75 kg Intake: Oral 1040 Other: Voiding Method Diaper Diaper Diaper Incontinent Incontinent Incontinent # Voids 2 1 - Exam Head normocephalic Neck supple Lungs clear to auscultation bilaterally no wheezing or crackles Heart regular rate and rhythm S1-S2, no rub or gallop Abdomen is soft nontender nondistended positive bowel sounds no hepatosplenomegaly Extremities no edema - Labs CBC & Chem 7: 01/16/18 06:27 01/16/18 06:27 Labs: Abnormal Lab Results - Last 24 Hours (Table) 01/15/18 01/16/18 01/16/18 Range/Units 11:34 06:27 06:27 RBC 3.55 L (3.80-5.40) m/uL Hgb 8.4 L (11.4-16.0) gm/dL Hct 26.1 L (34.0-46.0) % MCV 73.7 L (80.0-100.0) fL MCH 23.8 L (25.0-35.0) pg RDW 22.7 H (11.5-15.5) % Lymphocytes # 0.6 L (1.0-4.8) k/uL Chloride 113 H (98-107) mmol/L Glucose 106 H (74-99) mg/dL POC Glucose (mg/dL) 160 H (75-99) mg/dL AST 65 H (14-36) U/L Alkaline Phosphatase 149 H (38-126) U/L Total Protein 4.7 L (6.3-8.2) g/dL Albumin 2.3 L (3.5-5.0) g/dL Assessment and Plan Assessment: 1. Dehydration and increased weakness. Patient recently admitted to [facility]. Lactic acid 4.1. Patient received 3 L of normal saline. Patient currently has normal saline running at 100. Urine and blood culture has been ordered. Urine culture negative. Blood culture negative 2. Elevated troponin. Initial troponin 0.205. Per cardiology echo was obtained is normal with no changes from previous. No evidence to suggest troponin elevation is due to primary ischemic event. May be related to a type II event per cardiology 3. 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 Patient previously stopped radiation and treatment for her uterine cancer. She also declined liver biopsy during previous admission. Patient was admitted to hospice at that time. Family meeting held yesterday. Family would like to move forward with possible liver biopsy and input from oncology services. Oncology has been consulted. Per oncology RESHMA Do. In-depth conversation held with jose Gamble to discuss plan of care and prognosis. Family was to discuss throughout night and meet this a.m. to discuss plan. Per Ernestina ALUMINUM SHEET CUTTER family did not show up this morning. Per oncology will attempt to get a hold of patient's family to determine plan of care. Discussed case again with oncology services. Per Ernestina ALUMINUM SHEET CUTTER family will come to decision by Saturday in regards to liver biopsy. Jose Gamble did not show up to scheduled meeting with oncology. per LILI son said he would not be able to come in until next saturday. 4. History of breast cancer 5. Chronic kidney disease stage III. Creatinine 1.43 and bun 33. Continue normal saline at 100. Creatinine 1.18 and bun 22. Creatinine 1.04 and bun 17. 6. Essential hypertension. 7. 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 Hemoglobin 6.8. Patient to receive 1 unit of PRBCs. Hemoglobin 8.4 8. Chronic diastolic congestive heart failure. 9. Elevated liver enzymes. AST 88 and alkaline phosphatase 160. Oncology service consulted for possible metastasis to liver and family request for possible liver biopsy 10. A. fib with RVR, one episode paroxysmal. Patient started on Cardizem drip and heparin drip. Per cardiology IV heparin has been discontinued. Patient is not a candidate for anticoagulation at this time per cardiology. She currently maintained on by mouth Cardizem. Family and next of kin jose Gamble was supposed to have decision made by 01/13 in regards to liver biopsy versus hospice. Dr. Levi vanessa oncology was at bedside on 01/13 but son was not present. Multiple phone calls made to son but there was no answer and voice mailbox was full. Social work has been involved in this case. Discussed case with social work. Consult has been placed for Dr. Hurtado for Ethics consult Patient will be discharged home or to [facility] tomorrow [facility] consulted to assess patient's decision making capacity. Physical therapy consult has been placed DVT prophylaxis lovenox. GI prophylaxis Protonix I performed an examination of the patient and discussed their management with the Nurse Practitioner. I have reviewed the Nurse Practitioner's notes and agree with the documented findings and plan of care
--- NOTE | 2018-01-16 11:28 | P.PN ---
Progress Note - Text Progress Note Date: 01/16/18 Case was discussed with Attending today. We have attempted to contact son with no answer or ability to leave voice message. I was contacted yesterday by Social Work yesterday, as son was available for meeting-though there was no scheduled meeting time-. The son stated that he was available and was going to be in the hospital for "20 min" which did not allow enough time for anyone to get here to speak with him. We are available any time as long as we have at least some sort of advanced notice to get here. From the Oncology standpoint this is a summary of pt case: Diagnosed with G3, poorly differentiated endometroid adenocarcinoma of uterus on May 2017, staging PET scan on 06/13/17 revealed suspicious uptake in the body and fundus of uterus. 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 Pt decision for treatment was to forego adjuvant chemotherapy and have pelvic radiation. Her care was mainly with Dr. Rabbi Paulino and Dr. Jara. Pt opted to discontinue radiation, about October, after completing about 50% of treatment, to better support her partner who was recently diagnosed with esophageal cancer. Since that time pt has been admitted to the hospital several times. Imaging reveled suspicious lesions in the liver, Physicians highly suspect metastatic disease but, biopsy is needed to confirm malignant. Biopsy has never been done due pt son, who is making medial decisions for pt, not being present for scheduled meetings. We have been unable to contact son via phone as he has not answered. There is no ability to leave a message. At least 3 meetings have been scheduled with Oncology with son unavailable. There have been at least 2 extensive family meetings in the last month addressing the same pt condition ( documented in EMR). We remain available to answer any questions or assist in clarifying pt case from the Oncology standpoint
--- NOTE | 2018-01-16 13:21 | P.CN ---
Psychiatric Consult - . Consult date: 01/16/18 Consult:: 01/16/18 09:24 Capacity to make decisions; appreciate the consult 01/16/18 13:10 Assessment and Plan Assessment: Chief Complaint: Dehydration and weakness This is an 87 female who presented to the emergency room with family due to complaints of patient having dehydration and weakness. Patient was admitted to [facility] on 12/20. Patient has a known past medical history of endometroid adenocarcinoma of the uterus. Patient had previously stopped radiation treatment for her uterine cancer. During last admission concerns for liver metastases presented. Patient refused liver biopsy on 2 different occasions. An In depth family meeting was held at that time and family decided to move forward with [facility]. Additional medical history includes hyperlipidemia, hypertension and thyroid disorder. patient also has history of breast cancer with chemotherapy, anemia off-and-on with iron infusions, UTI and constipation. Chest x-ray completed showing chronic changes without acute pulmonary process. EKG completed showing sinus tachycardia with premature atrial complexes. Left axis deviation. Patient's lactic acid 4.1 on admission. Patient received 3 L of normal saline fluid. Patient currently on normal saline in the 100. Troponin also elevated at 0.205. Cardiology services have been consulted. Discussed case with community case manager. Due to recent admission to hospice and patient herself previously refusing any further treatment, family meeting will be arranged to discuss plan for further intervention versus continuing of hospice care. Past Medical History Past Medical History: Cancer, Hyperlipidemia, Hypertension, Thyroid Disorder Additional Past Medical History / Comment(s): HX OF BREAST CANCER W/ CHEMOTHERAPY, , ANEMIA OFF AND ON WITH IRON INFUSIONS, LOW THYROID. UTI, constipation. History of Any Multi-Drug Resistant Organisms: None Reported Past Surgical History: Appendectomy, Breast Surgery, Orthopedic Surgery Additional Past Surgical History / Comment(s): LEFT MASTECTOMY, KNEE ARTHROSCOPY. RT HIP REPLACEMENT Past Anesthesia/Blood Transfusion Reactions: No Reported Reaction Additional Past Anesthesia/Blood Transfusion Reaction / Comment(s): STATES AFTER KNEE SURGERY SHE WAS "JERKING ALL OVER" Past Psychological History: No Psychological Hx Reported Additional Psychological History / Comment(s): LIVES WITH SIG OTHER FOR OVER 30 YEARS Smoking Status: Never smoker Past Alcohol Use History: None Reported Past Drug Use History: None Reported Mental Status Examination - General Appearance: [ disheveled, bizarre, appears older than stated age] Speech/Language: [ slow, mumbling, hesitant, halting, soft] Attitude/Behavior: [cooperative, guarded, irritable, withdrawn, indifferent, other] Mood: [depressed, euphoric, anxious, fearful, hopelessness] Affect: [flat, incongruent, blunted constricted] Orientation: [not time, person, not place not situation] Thought Content: [wnl] Risk Factors: [not suicidal (ideations, plan), and/or Homicidal (ideations, plan )] Perception: [wnl, Thought Processes: [concrete, circumstantial, tangential] Concentration/Attention Span: [impaired] [Per observation and interview with the patient] Recent Memory: [impaired] [0 out of 3 in 3 minutes] Remote Memory: [ impaired] [past events, as related history] Intelligence: [below average] [based on history, based on vocabulary, syntax, grammar, and content] Judgement: [ poor] [per patient's behavior/history of present illness] Insight: [poor] [understanding severity of illness/history of present illness Clinical impression:dementia and lacks the ability to make decisions Recommendations:guardianship Thank you for the consult. Adithya Lee DO PhD attending psychiatrist [facility] (1) Cognitive impairment Current Visit: Yes Status: Acute Code(s): R41.89 - OTH SYMPTOMS AND SIGNS W COGNITIVE FUNCTIONS AND AWARENESS SNOMED Code(s): 415699609 Plan: Client needs a guardian and energy attorney, would recommend APS to intitate Time with Patient: Less than 30
--- NOTE | 2018-01-16 14:35 | P.DS ---
Providers Date of admission: 01/06/18 20:11 Expected date of discharge: 01/16/18 Attending physician: Yaneli Duarte Consults: 01/07/18 09:33 Consult Physician Routine Consulting Provider: Bing Deutsch Consult Reason/Comments: postive troponin Do you want consulting provider notified?: Yes 01/07/18 11:35 Consult Physician Routine Consulting Provider: Sushil Sims Consult Reason/Comments: history of cancer Do you want consulting provider notified?: Yes 01/13/18 10:12 Consult Physician Routine Consulting Provider: Bing Deutsch Consult Reason/Comments: A-fib with RVR Do you want consulting provider notified?: Yes 01/13/18 16:00 Consult Physician Routine Consulting Provider: Thanh Hurtado Consult Reason/Comments: ethics consult Do you want consulting provider notified?: Yes 01/15/18 10:38 Consult Physician Routine Consulting Provider: Adithya Lee Consult Reason/Comments: to assess decision making capacity Do you want consulting provider notified?: Already Contacted Primary care physician: Yaneli Shriners Hospital Course: Discharge diagnosis 1. Dehydration and increased weakness. Patient recently admitted to [facility]. Lactic acid 4.1. Patient received 3 L of normal saline. Patient currently has normal saline running at 100. Urine and blood culture has been ordered. Urine culture negative. Blood culture negative 2. Elevated troponin. Initial troponin 0.205. Per cardiology echo was obtained is normal with no changes from previous. No evidence to suggest troponin elevation is due to primary ischemic event. May be related to a type II event per cardiology 3. 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 Patient previously stopped radiation and treatment for her uterine cancer. She also declined liver biopsy during previous admission. Patient was admitted to hospice at that time. Family meeting held yesterday. Family would like to move forward with possible liver biopsy and input from oncology services. Oncology has been consulted. Per oncology RESHMA Do. In-depth conversation held with shelton Gamble to discuss plan of care and prognosis. Family was to discuss throughout night and meet this a.m. to discuss plan. Per Ernestina MANAGER REPORTING family did not show up this morning. Per oncology will attempt to get a hold of patient's family to determine plan of care. Discussed case again with oncology services. Per Ernestina MANAGER REPORTING family will come to decision by Saturday in regards to liver biopsy. Son Tye did not show up to scheduled meeting with oncology. per SW son said he would not be able to come in until next saturday. 4. History of breast cancer 5. Chronic kidney disease stage III. Creatinine 1.43 and bun 33. Continue normal saline at 100. Creatinine 1.18 and bun 22. Creatinine 1.04 and bun 17. 6. Essential hypertension. 7. 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 Hemoglobin 6.8. Patient to receive 1 unit of PRBCs. Hemoglobin 8.4 8. Chronic diastolic congestive heart failure. 9. Elevated liver enzymes. AST 88 and alkaline phosphatase 160. Oncology service consulted for possible metastasis to liver and family request for possible liver biopsy 10. A. fib with RVR, one episode paroxysmal. Patient started on Cardizem drip and heparin drip. Per cardiology IV heparin has been discontinued. Patient is not a candidate for anticoagulation at this time per cardiology. She currently maintained on by mouth Cardizem. Family and next of kin son Tye was supposed to have decision made by 01/13 in regards to liver biopsy versus hospice. Dr. Sims per oncology was at bedside on 01/13 but son was not present. Multiple phone calls made to son but there was no answer and voice mailbox was full. Social work has been involved in this case. Discussed case with social work. Consult has been placed for Dr. Hurtado for Ethics consult Hospital course This is an 87 female who presented to the emergency room with family due to complaints of patient having dehydration and weakness. Patient was admitted to [facility] on 12/20. Patient has a known past medical history of endometroid adenocarcinoma of the uterus. Patient had previously stopped radiation treatment for her uterine cancer. During last admission concerns for liver metastases presented. Patient refused liver biopsy on 2 different occasions. An In depth family meeting was held at that time and family decided to move forward with [facility]. Additional medical history includes hyperlipidemia, hypertension and thyroid disorder. patient also has history of breast cancer with chemotherapy, anemia off-and-on with iron infusions, UTI and constipation. Chest x-ray completed showing chronic changes without acute pulmonary process. EKG completed showing sinus tachycardia with premature atrial complexes. Left axis deviation. Patient's lactic acid 4.1 on admission. Patient received 3 L of normal saline fluid. Patient currently on normal saline in the 100. Troponin also elevated at 0.205. Cardiology services have been consulted. Discussed case with returned case inspector. Due to recent admission to hospice and patient herself previously refusing any further treatment, family meeting will be arranged to discuss plan for further intervention versus continuing of hospice care. On 01/08/2018 family meeting held yesterday. Patient's family would like to move forward with possible liver biopsy and input from oncology. Oncology services have been consulted. At this time patient is resting in bed. Remains confused. On 01/09/2018 patient is currently resting comfortably in bed. Per nursing staff patient remains confused. Discussed case with oncology services. Oncology service had in-depth conversation with shelton Gamble in regards to doing a liver biopsy and plan of care. Per Ernestina MANAGER REPORTING family was going to take time to think about it overnight and arrange to meet her at 9:00 this a.m. Alex Do MANAGER REPORTING family did not show up at 9:00. Alex Do MANAGER REPORTING will attempt again to try to get ahold of shelton Gamble to address plan of care. On 01/10/2018 patient is currently awake and alert. Patient does still remain confused. Discussed case with oncology services yesterday. Alex Do MANAGER REPORTING discussion was held with shelton Gamble. Per shelton Gamble will talk to family and come to a decision by Saturday in regards to liver biopsy. This time patient denies chest pain or shortness of breath. Denies any nausea vomiting or diarrhea. Denies any urinary burning or frequency. On 01/11/2018 patient is alert and oriented in no apparent distress she is answering questions appropriately she denies any pain or discomfort she states that she is eating well. She denies any constipation she denies any urinary symptoms. On 01/12/2018 patient is alert and oriented complaining of nausea otherwise no complaints at this time she denies any chest pain or shortness of breath she denies any cough there is no abdominal pain no diarrhea and no urinary symptoms. On 01/13/2018 patient remains alert and resting comfortably in bed. Patient had episode of A. fib with RVR last night. Patient was started on Cardizem drip and heparin drip and transferred to [facility] care. Cardiology services have been reconsulted. At this time patient denies chest pain or shortness of breath. Patient denies nausea vomiting or diarrhea. Patient denies any urinary burning or frequency. On 01/14/2018 patient is alert and oriented 2. Patient is resting comfortably in bed. Cardizem and heparin drip has been DC'd per cardiology. No family currently at bedside. No decisions have been made per family in regards to plan of care. At this time patient denies chest pain or shortness breath. Patient denies nausea vomiting or diarrhea. Patient denies any urinary symptoms or frequency. Discussed case with Dr. sims per oncology. Per Dr. sims was at bedside. Son was not present attempted phone call no answer and voicemail box was full On 01/15/2018 patient is currently resting comfortably in chair. No family at bedside. Psych consult for Dr. Kelley has been placed to address decision- making capacity. On 01/16/2018 patient is currently resting comfortably in bed. Patient has been eating and drinking. Multiple attempts made to get a hold of next of kin shelton Gamble by oncology services with no success. Social work and Dr. Stephen per ethical consult following. Patient is stable and ready to be discharged tomorrow Patient is stable for discharge on 01/16/2018 to the hospice house. During this admission patient was treated for her dehydration and weakness with IV fluids. This admission has been complicated with the son having difficulty making decisions for his mother's care. I there were multiple family meeting attempts with oncologist that were missed by the son. Please refer to oncology nurse practitioner for full details. Social work and ethics committee has been involved in this patient's hospitalization. The son was presented with options for his mother's care. He did not make any final decisions in regards to proceeding with liver biopsy. And in fact he failed to attend any of the scheduled meetings with the oncologist. At this time the son wants to take his mother back to the hospice house and restart hospice care. Her home medications will be continued as well as during this admission Duragesic patch was added. Also continue the Ativan and atropine drops as needed for hospice medications. Cardizem added during this admission by cardiology due to an episode of atrial fibrillation. Patient was seen by psychiatry and they diagnosed her with dementia and lacks the ability to make decisions. Social work was also working on guardianship during this admission Please refer to chart for any further details I performed an examination of the patient and discussed their management with the physician Bean Sprout Laborer. I have reviewed the Physician Bean Sprout Laborer's notes and agree with the documented findings and plan of care Patient Condition at Discharge: Stable Plan - Discharge Summary Discharge Rx Participant: No New Discharge Prescriptions: New Diltiazem Cd [Cardizem CD] 120 mg PO DAILY #30 cap.er.24h fentaNYL 25MCG/HR PATCH [Duragesic 25MCG/HR] 1 patch TRANSDERM Q72H #1 patch Continue Levothyroxine Sodium [Synthroid] 75 mcg PO DAILY Prochlorperazine [Compazine] 10 mg PO Q6H PRN PRN Reason: Nausea Bisacodyl 10 mg RECTAL Q48H PRN PRN Reason: Constipation Senna Plus 8.6/50 1 - 2 tab PO DAILY Atropine Ophth Soln 1% 5Ml [Isopto Atropine 1% 5Ml] 1 - 2 drops PO Q4H PRN # 1 bottle PRN Reason: SECREATIONS LORazepam [Ativan] 1 mg PO Q6H PRN #12 tab PRN Reason: Anxiety Discontinued MORPHINE ORAL MARTIN CONC 20mg/mL [Roxanol Oral Soln Conc 20MG/ML] 5 mg PO Q3H PRN PRN Reason: SHORTNESS OF BREATH/PAIN HYDROcodone/APAP 10-325MG [Hydro 10-325] 1 tab PO Q4HR PRN PRN Reason: Pain Discharge Medication List Levothyroxine Sodium [Synthroid] 75 mcg PO DAILY 10/12/15 [History] Bisacodyl 10 mg RECTAL Q48H PRN 01/06/18 [History] Prochlorperazine [Compazine] 10 mg PO Q6H PRN 01/06/18 [History] Senna Plus 8.6/50 1 - 2 tab PO DAILY 01/06/18 [History] Atropine Ophth Soln 1% 5Ml [Isopto Atropine 1% 5Ml] 1 - 2 drops PO Q4H PRN #1 bottle 01/16/18 [Rx] Diltiazem Cd [Cardizem CD] 120 mg PO DAILY #30 cap.er.24h 01/16/18 [Rx] LORazepam [Ativan] 1 mg PO Q6H PRN #12 tab 01/16/18 [Rx] fentaNYL 25MCG/HR PATCH [Duragesic 25MCG/HR] 1 patch TRANSDERM Q72H #1 patch 02/23 [Rx] Activity/Diet/Wound Care/Special Instructions: Patient discharged back to hospice house Diet Cardiac Activity: as tolerated Discharge Disposition: OTHER INSTITUTION NOT DEFINED
[2018-01-16] MEDS: HYDROcodone/APAP 10-325MG 1 EACH TAB PO PRN (16:03)
[2018-01-17] MEDS: HYDROcodone/APAP 10-325MG 1 EACH TAB PO PRN ×2 (03:14→11:46)
[2018-01-17] MEDS: LEVOTHYROXINE 75 MCG TAB PO SCH (06:38)
[2018-01-17 07:12] LABS: Anisocytosis Moderate; Basophils % (A) 0 %; Eosinophils # (A) 0.2 k/uL (0-0.7); Eosinophils % (A) 2 %; HCT 27.4 % (34.0-46.0); HGB 8.2 gm/dL (11.4-16.0); Hypochromasia Marked; Lymphocytes # (A) 0.8 k/uL (1.0-4.8); Lymphocytes % (A) 12 %; MCH 22.7 pg (25.0-35.0); MCV 75.4 fL (80.0-100.0); Mean Platelet Volume 6.7; Microcytosis Marked; Monocytes # (A) 0.4 k/uL (0-1.0); Monocytes % (A) 6 %; Neutrophils # (A) 5.6 k/uL (1.3-7.7); Neutrophils % (A) 78 %; Platelet Count 266 k/uL (150-450); Poikilocytosis Slight; RBC 3.63 m/uL (3.80-5.40); RDW 22.8 % (11.5-15.5); WBC 7.2 k/uL (3.8-10.6)
[2018-01-17 07:21] LABS: Albumin 2.5 g/dL (3.5-5.0); Calcium 8.9 mg/dL (8.4-10.2); Potassium 3.4 mmol/L (3.5-5.1); Total Bilirubin 0.9 mg/dL (0.2-1.3); Total Protein 4.8 g/dL (6.3-8.2)
[2018-01-17] MEDS ORDERED: POTASSIUM CHLORIDE ER 20 MEQ TAB.ER PO STA (08:04)
[2018-01-17] MEDS: SENNOSIDES-DOCUSATE SODIUM 1 EACH TAB PO SCH (09:44)
[2018-01-17] MEDS: ENOXAPARIN 40 MG/0.4 ML SYRINGE SQ SCH (09:44)
[2018-01-17] MEDS: DILTIAZEM CD 120 MG CAP.ER.24H PO SCH (09:44)
[2018-01-17] MEDS: PANTOPRAZOLE 40 MG TABLET PO SCH (09:44)
[2018-01-17 13:59] VITALS: BMI 29.0
[2018-01-17 17:31] VITALS: BP 158/78; PULSE 74; RESP 18; TEMP 96
== END 2018-01-17 17:56 | disposition hospice, inpatient (51) | DRG 640 ==
LOC: EC 17:37 → 6SEL 20:11 → 5ONC 22:02 → 6SEL 01-07 18:51 → 5ONC 01-10 21:36 → 6SEL 01-12 22:45
PROVIDERS: ADMIT Internal Medicine; ATTEND Internal Medicine
DX: E86.0 Dehydration (principal); I21.A1 Myocardial infarction type 2; C56.9 Malignant neoplasm of unspecified ovary; E46 Unspecified protein-calorie malnutrition; I13.0 Hypertensive heart and chronic kidney disease with heart failure and stage 1 through stage 4 chronic kidney disease, or unspecified chronic kidney disease; I50.32 Chronic diastolic (congestive) heart failure; C78.7 Secondary malignant neoplasm of liver and intrahepatic bile duct; C55 Malignant neoplasm of uterus, part unspecified; D50.9 Iron deficiency anemia, unspecified; D53.9 Nutritional anemia, unspecified; D63.0 Anemia in neoplastic disease; E03.9 Hypothyroidism, unspecified; E78.5 Hyperlipidemia, unspecified; E87.2 Acidosis; F03.90 Unspecified dementia, unspecified severity, without behavioral disturbance, psychotic disturbance, mood disturbance, and anxiety; I27.20 Pulmonary hypertension, unspecified; I48.91 Unspecified atrial fibrillation; I49.1 Atrial premature depolarization; Z92.21 Personal history of antineoplastic chemotherapy; K76.9 Liver disease, unspecified; N18.3 Chronic kidney disease, stage 3 (moderate); R62.7 Adult failure to thrive; Z82.49 Family history of ischemic heart disease and other diseases of the circulatory system; Z85.3 Personal history of malignant neoplasm of breast; Z90.12 Acquired absence of left breast and nipple; Z96.641 Presence of right artificial hip joint; Z79.890 Hormone replacement therapy; Z79.891 Long term (current) use of opiate analgesic; Z79.899 Other long term (current) drug therapy; Z88.0 Allergy status to penicillin; Z88.8 Allergy status to other drugs, medicaments and biological substances; Z91.041 Radiographic dye allergy status; Z91.013 Allergy to seafood; Z51.5 Encounter for palliative care
CPT/HCPCS: 36415; 51701; 71046; 80053; 81003; 82550; 82553; 83605; 83735; 84100; 84132; 84484; 85025; 85027; 85610; 85730; 86850; 86900; 86901; 86920; 87040; 87086; 93005; 93308; 96361; 96374; 99285